=== PATIENT | male | born 1955 ===

== ENCOUNTER 2024-08-25 14:15 | Outpatient (NON) | payer MEDICARE, SELFPAY ==
[2024-08-25 14:30] LABS: Basophils Absolute Auto 0.05 K/mm3 (0.00-0.10); Basophils Percent Auto 0.4 % (0.0-1.0); Eosinophils Absolute Auto 0.34 K/mm3 (0.02-0.50); Eosinophils Percent Auto 2.6 % (1.0-6.0); Hematocrit 42.4 % (37.0-46.0); Hemoglobin 13.9 g/dL (12.4-15.3); Immature Granulocyte Absolute 0.09 K/mm3 (0.00-0.00); Immature Granulocyte Percent A 0.7 % (0.0-0.0); Lymphocytes Absolute Auto 2.17 K/mm3 (1.10-4.50); Lymphocytes Percent Auto 16.7 % (18.0-42.0); Mean Corpuscular HGB Conc 32.8 g/dL (32-36); Mean Corpuscular Hemoglobin 30.9 pg (27.0-31.0); Mean Corpuscular Volume 94.2 fL (78.0-102.0); Monocytes Absolute Auto 0.97 K/mm3 (0.10-0.90); Monocytes Percent Auto 7.4 % (2.0-11.0); Neutrophils Absolute Auto 9.41 K/mm3 (1.70-7.20); Neutrophils Percent Auto 72.2 % (50.0-70.0); Platelet Count Result 366 K/mm3 (150-420); Red Cell Distribution Width 14.4 % (11.6-14.4)
[2024-08-25 14:45] LABS: Alanine Aminotransferase 26 U/L (16-63); Albumin Level 3.5 g/dL (3.4-5.0); Alkaline Phosphatase 113 U/L (46-116); Anion Gap 7 mmol/L (4-12); Aspartate Amino Transferase 25 U/L (15-37); Bilirubin,Total 0.9 mg/dL (0.00-1.00); Blood Urea Nitrogen 30 mg/dL (7-18); Calcium 9.2 mg/dL (8.5-10.1); Carbon Dioxide 28 mmol/L (21-32); Chloride 102 mmol/L (98-108); Estimated Glomerular Filt Rate > 60; Glucose 130 mg/dL (70-99); Osmolality Calculated 292 mOsm/kg (285-295); Potassium 5.5 mmol/L (3.5-5.1); Sodium 137 mmol/L (136-145); Total Protein 7.7 g/dL (6.4-8.2)
--- OUTSIDE RECORDS SUMMARY | 2024-08-25 15:45 | XMS_ITS | Clinical Summary ---
Author Organization [facility] Address [address] [place] [address] Care Team Providers Care Library Circulation Technician Name Role Phone Haja Mancuso NP Primary Care Provider [phone] Susan Valle MD Unavailable [phone] Maddison Frausto MD Unavailable [phone] Miscellaneous, Not In File Unavailable Unava ilable Sydnee Beal RN Unavailable Allergies Active Allergy Reactions Criticality Noted Date Comments Penicillins Itching Medium Patient states college age reaction, denies hives but stated itch . Medications metFORMIN XR (GLUCOPHAGE XR) 750 mg 24 hr tabletIndicati ons:Type 2 diabetes mellitus with hyperglycemia, with long-term current use of insulin ([facility]) Take 2 tablets (1,500 mg total) by mouth daily 180 tablet 3 09/16/19 24 Active dapagliflozin propanediol (Farxiga) 10 mg tabletIndicati ons:Type 2 diabetes mellitus with hyperglycemia, with long-term current use of insulin (HCC) Take 1 tablet (10 mg total) by mouth daily 90 tablet 3 09/16/19 24 Active pen needle, diabetic 32 gauge x needleIndicati ons:Type 2 diabetes mellitus with hyperglycemia, with long-term current use of insulin (HCC) Use to inject insulin daily. E11.65. 100 each 09/16/19 24 Active glimepiride (AMARYL) 4 mg tablet TAKE 1 TABLET BY MOUTH BEFORE BREAKFAST. E11.65 90 tablet 4 02/27/20 24 Active Xultophy 100/3.6 100 unit-3.6 mg /mL (3 mL) insulin pen penIndications :Type 2 diabetes mellitus with hyperglycemia, with long-term current use of insulin (HCC) ADMINISTER 47 UNITS UNDER THE SKIN DAILY 15 mL 4 07/22/19 25 Active amLODIPine (NORVASC) 5 mg tablet Take 1 tablet (5 mg total) by mouth daily 30 tablet 1 08/22/19 25 025 Active aspirin 81 mg enteric coated tablet Take 1 tablet (81 mg total) by mouth daily 30 tablet 08/22/19 25 025 Active acetaminophen 500 mg capsuleIndicat ions:Pain Take 2 capsules (1,000 mg total) by mouth every 6 (six) hours for 14 days 112 tablet 08/21/19 25 025 Active atorvastatin (LIPITOR) 80 mg tablet Take 1 tablet (80 mg total) by mouth nightly 30 tablet 11 08/21/19 25 026 Active clopidogreL (PLAVIX) 75 mg tablet Take 1 tablet (75 mg total) by mouth daily 30 tablet 08/22/19 25 025 Active methocarbamoL (ROBAXIN) 750 mg tablet Take 1 tablet (750 mg total) by mouth every 8 (eight) hours 21 tablet 08/21/19 25 Active metoprolol tartrate (LOPRESSOR) 25 mg immediate release tabletIndicati ons:coronary artery disease Take 0.5 tablets (12.5 mg total) by mouth 2 (two) times a day 30 tablet 08/21/19 25 025 Active polyethylene glycol (MIRALAX) 17 gram/dose bulk powderIndicati ons:constipati on Take 17 g by mouth daily as needed (constipation) 08/21/19 25 Active potassium chloride ER (KLOR-CON) 20 mEq CR tablet Take 1 tablet (20 mEq total) by mouth daily With Lasix 30 tablet 08/21/19 25 025 Active furosemide (LASIX) 40 mg tablet Take 1 tablet (40 mg total) by mouth daily 30 tablet 08/21/19 25 025 Active oxyCODONE (ROXICODONE) 5 mg immediate release tabletIndicati ons:Pain Take 1 tablet (5 mg total) by mouth every 6 (six) hours as needed for pain 21 tablet 08/21/19 25 Active aspirin 81 mg tablet take 1 tablet (81MG) by ORAL route every day 0 08/15/19 10 025 Discontinued(S top Taking at Discharge) tamsulosin (FLOMAX) 0.4 mg extended release capsule Take 1 capsule (0.4 mg total) by mouth daily 90 capsule 1 04/22/20 23 025 Discontinued(T herapy completed) sildenafiL (VIAGRA) 100 mg tabletIndicati ons:Erectile Dysfunction Take 1 tablet (100 mg total) by mouth daily as needed for erectile dysfunction 5 tablet 11 02/27/20 24 025 Discontinued(S top Taking at Discharge) lisinopriL (PRINIVIL,ZEST RIL) 20 mg tablet Take 1 tablet (20 mg total) by mouth daily 90 tablet 1 03/30/20 24 025 Discontinued amLODIPine (NORVASC) 10 mg tablet Take 1 tablet (10 mg total) by mouth daily 90 tablet 2 05/10/20 24 025 Discontinued(S top Taking at Discharge) simvastatin (ZOCOR) 80 mg tablet TAKE 1 TABLET(80 MG) BY MOUTH EVERY NIGHT 100 tablet 07/02/19 25 025 Discontinued(S top Taking at Discharge) lisinopriL (PRINIVIL,ZEST RIL) 40 mg tablet Take 1 tablet (40 mg total) by mouth daily 90 tablet 3 07/29/19 25 025 Discontinued(S top Taking at Discharge) glucosamine HCl/chondroiti n alvarez (glucosamine-c hondroitin) 750-600 mg tablet,chewabl e Take 1 tablet by mouth daily as needed (pain) 025 Discontinued(S top Taking at Discharge) Active Problems Problem Noted Date Diagnosed Date Coronary artery disease invo lving autologous artery coronary bypass graft without angina pectoris 08/16/2024 Status post cardiac catheterization 08/13/2024 Coronary artery disease invo lving [place] coronary artery of [place] heart without angina pectoris 08/13/2024 Abnormal stress test 07/28/2024 Episodic lightheadedness 07/19/2024 Assessment & Plan (07/19/2024 11:11 AM MAIL FORWARDING SYSTEM MARKUP CLERK): EKG stable in office. Pt has risk factors of tobacco use and uncontrolled T2DM for ASCVD. Pt had stress treadmill test 2021 that was fine. Will get updated cardiac work up. US of carotids ordered, 30 day MCT monitor, and Stress Test. Orthostatic vitals normal in office. May consider neuro workup (not overly convinced this is the culprit though) if cardiac work up inconclusive. Nocturnal hypoglycemia 06/30/2024 Benign prostatic hyperplasia with nocturia 04/22 Overview (04/22/2023): Flomax trial Check PSA Unilateral inguinal hernia without obstruction o r gangrene 07/12/2021 Assessment & Plan (04/15/2022 3:11 PM MAIL FORWARDING SYSTEM MARKUP CLERK): Pt had hernia repair 08/10/[address] Harden (Gen Surg). Doing well since procedure. Assessment & Plan (08/21/2021 11:09 AM CDT): Continue bowel regimen to avoid straining. Avoid heavy lifting for a further 3 weeks. Patient will call us back with any further questions or concerns. Okay to return to work with light duty. Assessment & Plan (07/26/2021 10:31 AM MAIL FORWARDING SYSTEM MARKUP CLERK): Having repair with Dr. Harden set for 08/10/21. Assessment & Plan (07/12/2021 10:45 AM MAIL FORWARDING SYSTEM MARKUP CLERK): Given its symptomatic nature and increasing size we will set the patient up for a right inguinal hernia repair. Risks and benefits to include the need for mesh implantation have been explained. Postoperative restrictions have been gone over. The patient will be left NPO for the procedure. Consent to be obtained. All questions answered. Encounter for Medicare annual wellness exam 03/26 Assessment & Plan (03/30/2024 11:10 AM MAIL FORWARDING SYSTEM MARKUP CLERK): A yearly Medicare Annual Wellness Visit has been performed today. Jorge Holden is up to date on screening tests. He is in need of Hepatitis B- these have been ordered (will be with next set of labwork. He is up to date on needed preventative vaccinations; He is in need of n/a . These have been ordered/arranged unless otherwise indicated. Assessment & Plan (04/22/2023 1:34 PM MAIL FORWARDING SYSTEM MARKUP CLERK): A yearly Medicare Annual Wellness Visit has been performed today. Jorge Holden is not up to date on screening tests. He is in need of Lung cancer screening, Colon cancer screening, and Diabetic kidney disease screening- these have been ordered. He is not up to date on needed preventative vaccinations; He is in need of Pneumonia (Prevnar-13 or Pneumovax-23). These have been ordered/arranged unless otherwise indicated. Assessment & Plan (04/15/2022 3:35 PM MAIL FORWARDING SYSTEM MARKUP CLERK): A yearly Medicare Annual Wellness Visit has been performed today. Jorge Holden is not up to date on screening tests. He is in need of Colon cancer screening- these have been ordered. He is not up to date on needed preventative vaccinations; He is in need of Pneumonia (Prevnar-13 or Pneumovax-23). These have been ordered/arranged unless otherwise indicated. Assessment & Plan (04/12/2021 3:54 PM MAIL FORWARDING SYSTEM MARKUP CLERK): AWV in office today, labs ordered Due for Influenza, can get at pharmacy CT lung cancer screen discussed and ordered Assessment & Plan (04/13/2020 3:28 PM MAIL FORWARDING SYSTEM MARKUP CLERK): A yearly Medicare Annual Wellness Visit has been performed today. Jorge Holden is not up to date on screening tests. He is in need of Diabetic eye exam, AAA Screen and Hepatitis C- these have been ordered. He is up to date on needed preventative vaccinations; He is in need of none at this time. These have been ordered/arranged unless otherwise indicated. Hypertension associated with diabetes 10/09/2013 Overview (08/29/2016): BENIGN HYPERTENSION Assessment & Plan (03/30/2024 11:12 AM MAIL FORWARDING SYSTEM MARKUP CLERK): BP fine in office, pt still getting intermittent light-headedness. Will try stopping HCTZ and increase Lisinopril to 20 mg daily. Home BP log in 1 week and symptom update at that time. Assessment & Plan (02/27/2024 11:03 AM CDT): This is a chronic condition which is at goal. Goal is less than 140/90 Continue lisinopril, hydrochlorothiazide, amlodipine Encouraged to monitor weight and B/P at home. Assessment & Plan (09/16/2023 12:34 PM CDT): This is a chronic condition which is at goal. Goal is less than 140/90 Personally reviewed labs. Continue amlodipine, hydrochlorothiazide, lisinopril Encouraged to monitor weight and B/P at home Encouraged to take medications as prescribed. Assessment & Plan (04/22/2023 1:33 PM MAIL FORWARDING SYSTEM MARKUP CLERK): BP stable in office, continues Amlodipine, HCTZ, and Lisinopril Labs ordered, awaiting results. Assessment & Plan (04/15/2022 3:34 PM MAIL FORWARDING SYSTEM MARKUP CLERK): BP stable in office, continues Amlodipine, HCTZ, and Lisinopril Labs ordered, awaiting results. Assessment & Plan (11/15/2021 10:18 AM CDT): BP stable in office, continues Amlodipine, HCTZ, and Lisinopril Labs ordered, awaiting results. Assessment & Plan (07/26/2021 10:30 AM MAIL FORWARDING SYSTEM MARKUP CLERK): BP stable in office, continues Amlodipine, HCTZ, and Lisinopril Labs ordered for next visit. Assessment & Plan (04/12/2021 3:55 PM MAIL FORWARDING SYSTEM MARKUP CLERK): BP stable in office today, continue Amlodipine, HCTZ and Lisinopril Assessment & Plan (04/13/2020 3:29 PM MAIL FORWARDING SYSTEM MARKUP CLERK): Blood pressure appears to be under decent control We will continue him on lisinopril at 10 mg daily, hydrochlorothiazide Assessment & Plan (11/22/2019 4:18 PM CDT): Under control with medication Plan: Continue low salt diet Continue medications. Type 2 diabetes mellitus with hyperlipidemia ([facility]/HCC) 10/09/2013 Overview (08/29/2016): MIXED HYPERLIPIDEMIA Assessment & Plan (03/30/2024 11:13 AM MAIL FORWARDING SYSTEM MARKUP CLERK): Lipid controlled overall, continuing Simvastatin Assessment & Plan (02/27/2024 11:02 AM CDT): This is a chronic condition which is at goal . Goal is LDL less than 70 Continue simvastatin Encouraged to eat healthy, include fresh fruits and vegetables daily and avoid eating fried foods more than once per week. Assessment & Plan (09/16/2023 12:35 PM CDT): This is a chronic condition which is at goal . Goal is LDL less than 70 Continue simvastatin, fish oil. Encouraged to eat healthy, include fresh fruits and vegetables daily and avoid eating fried foods more than once per week. Encouraged to take medications as prescribed. Assessment & Plan (04/22/2023 1:33 PM MAIL FORWARDING SYSTEM MARKUP CLERK): Continuing Simvastatin and ASA. No side effects noted, updated labs ordered. Assessment & Plan (04/15/2022 3:45 PM MAIL FORWARDING SYSTEM MARKUP CLERK): Increased Simvastatin to [address] lung cancer screen that showed severe calcified plaques in coronary arteries. He had Cardio consult, started on ASA 81 mg. Had a stress test and was unremarkable. Labs ordered Assessment & Plan (11/15/2021 11:42 AM CDT): Chest CT on 11/12/21 IMPRESSION: 1. Multiple small lung nodules appear unchanged, as described in detail above. The largest nodules measuring up to 6 mm are favored to represent subpleural/fissural lymph nodes. No new suspicious lung nodules are identified in either lung. 2. Mild emphysema with upper lung predominance. 3. Severe calcified plaques in the coronary arteries. Consider cardiology evaluation. Plan: increase Simvastatin to 80 mg Daily. Referral placed to Cardiology. Labs ordered, awaiting results. Assessment & Plan (07/26/2021 10:30 AM MAIL FORWARDING SYSTEM MARKUP CLERK): Continues Simvastatin, no side effects reported. Labs ordered for next visit. Assessment & Plan (04/12/2021 3:55 PM MAIL FORWARDING SYSTEM MARKUP CLERK): Awaiting labs, continuing Simvastatin Assessment & Plan (11/22/2020 7:25 PM CDT): Again, note the low HDL/good cholesterol. However the LDL/bad and total cholesterol are in range. The triglycerides remain good. Discussed fish oil, especially Vascepa but I am not sure the cost. Vascepa has been shown to work with statin therapy to bring heart risk down in diabetics. Assessment & Plan (04/13/2020 3:28 PM MAIL FORWARDING SYSTEM MARKUP CLERK): Continues on simvastatin 40 mg daily No side effects reported Type 2 diabetes mellitus wit h hyperglycemia, with long-term current use of insulin 10/09/2013 Overview (08/30/2016): DMII WO CMP NT ST UNCNTR Assessment & Plan (03/30/2024 11:12 AM MAIL FORWARDING SYSTEM MARKUP CLERK): Following with Endo Discussed CGM, pt declines at this time. Assessment & Plan (02/27/2024 11:04 AM CDT): This is a chronic condition which is is not at goal, improving, with a.m. hypoglycemia . Goal is less than 7%. Personally reviewed most recent A1c - Lab Results Component Value Date HGBA1C 9.1 (H) 01/21/2024 Personally reviewed POC blood sugar- at goal of 80-180 Lab Results Component Value Date POCGLU 170 02/27/2024 Medication- decrease xultophy 47 units daily, continue Metformin ER 750 mg 2 tab daily am, increase Glimepiride 24 mg Qam , continue Farxiga 10 mg /day Monitor blood sugar 2 daily Encouraged annual eye exam. last dilated eye exam was [facility] Monofilament foot exam completed. Protective senses -intact eGFR- 81 Kidney function-normal Urine microalbumin/creatinine ratio - not at goal. Goal is <30 Continue amlodipine, hydrochlorothiazide, lisinopril He has started a new relationship and would like to have [employer] to help with ED Assessment & Plan (09/16/2023 12:34 PM CDT): This is a chronic condition which is worsening, not at goal . Goal is less than 7%. Personally reviewed most recent A1c - Lab Results Component Value Date HGBA1C 9.7 09/16/2023 Personally reviewed POC blood sugar- not at goal of 80-180 Lab Results Component Value Date POCGLU 226 09/16/2023 Medication- stop NPH insulin. Start xultophy 15 units daily, decrease Metformin ER 750 mg 2 tab daily am, Glimepiride 2 mg Qam , Farxiga 10 mg /day. Will increase xultophy insulin and wean off glimepiride Monitor blood sugar 2 times a day. Call blood sugar in 4 days for further titration of Xultophy insulin. Encouraged annual eye exam. Monofilament foot exam completed. Protective senses intact. Requesting referral to Dr. Stern for diabetic foot care. Personally reviewed CMP eGFR- 60 Kidney function-abnormal Urine microalbumin/creatinine ratio - at goal. Goal is <30 Continue amlodipine, HCTZ, lisinopril Assessment & Plan (05/13/2023 10:40 AM MAIL FORWARDING SYSTEM MARKUP CLERK): Diagnosed in 1999 Started insulin in August 2016. Control : not at target, fluctuation in sugars based on diet. A1c 9.1% on 04/22/23 A1c 8.6% on 01/13/23 A1c 9.1% on 09/19/22 A1c 9.6% on 05/09/22 A1c 8.9% on 01/02/22 A1c 10.5% on 08/29/21 Kidney: GFR 60 on 04/22/23 Neuropathy : numbness but no pains. Decrease on monofilament test on soles. Plan: Patient to continue to work on diet- increase consistency with diet. Continue farxiga 10 mg /day- Continue NPH Insulin 6 units Qam and keep 25 Units Qhs- Continue Metformin and Glimepiride. Monitor sugars 3 x per day and bring records. Hypoglycemia symptoms and treatment reviewed with patient. Call if having low sugars. Ophthalmology exam on regular basis. Assessment & Plan (04/22/2023 1:33 PM MAIL FORWARDING SYSTEM MARKUP CLERK): Following with Endocrinology. Assessment & Plan (01/13/2023 11:22 AM CDT): Diagnosed in 1999 Started insulin in August 2016. Control : not at target, fluctuation in sugars based on diet. A1c 8.6% on 01/13/23 A1c 9.1% on 09/19/22 A1c 9.6% on 05/09/22 A1c 8.9% on 01/02/22 A1c 10.5% on 08/29/21 Kidney: normal GFR 58 on 04/15/22 Neuropathy : numbness but no pains. Decrease on monofilament test on soles. Plan: Patient to continue to work on diet- increase consistency with diet. Continue farxiga 10 mg /day- Continue NPH Insulin 6 units Qam and keep 25 Units Qhs- Continue Metformin and Glimepiride. Monitor sugars 3 x per day and bring records. Hypoglycemia symptoms and treatment reviewed with patient. Call if having low sugars. Ophthalmology exam on regular basis. Assessment & Plan (09/19/2022 11:30 AM CDT): Diagnosed in 1999 Started insulin in August 2016. Control : not at target, fluctuation in sugars based on diet. A1c 9.1% on 09/19/22 A1c 9.6% on 05/09/22 A1c 8.9% on 01/02/22 A1c 10.5% on 08/29/21 A1c 8.8% on 04/13/21 A1c 10.2% on 06/30/20 Kidney: normal GFR 58 on 04/15/22 Neuropathy : numbness but no pains. Decrease on monofilament test on soles. Plan: Patient to continue to work on diet- increase consistency with diet. Continue farxiga 10 mg /day- Continue NPH Insulin 6 units Qam and keep 25 Units Qhs- Continue Metformin and Glimepiride. Monitor sugars 3 x per day and bring records. Hypoglycemia symptoms and treatment reviewed with patient. Call if having low sugars. Ophthalmology exam on regular basis. Assessment & Plan (05/09/2022 9:47 AM MAIL FORWARDING SYSTEM MARKUP CLERK): Diagnosed in 1999 Started insulin in August 2016. Control : not at target, fluctuation in sugars based on diet. A1c 9.6% on 05/09/22 A1c 8.9% on 01/02/22 A1c 10.5% on 08/29/21 A1c 8.8% on 04/13/21 A1c 10.2% on 06/30/20 Kidney: normal GFR 58 on 04/15/22 Neuropathy : numbness but no pains. Decrease on monofilament test on soles. Plan: Patient to continue to work on diet- increase consistency with diet. Continue farxiga 10 mg /day- Continue NPH Insulin 6 units Qam and keep 25 Units Qhs- Continue Metformin and Glimepiride. Monitor sugars 3 x per day and bring records. Hypoglycemia symptoms and treatment reviewed with patient. Call if having low sugars. Ophthalmology exam on regular basis. Assessment & Plan (04/15/2022 3:33 PM MAIL FORWARDING SYSTEM MARKUP CLERK): Pt follows with Dr. Valle ([facility]) Last A1c 8.9% as of 01/02/22 Assessment & Plan (01/02/2022 9:18 AM CDT): Diagnosed in 1999 Started insulin in August 2016. Control : not at target, A1c 8.9% on 01/02/22 A1c 10.5% on 08/29/21 A1c 8.8% on 04/13/21 A1c 10.2% on 06/30/20 Kidney: normal GFR 68 on 04/13/21 Neuropathy : numbness but no pains. Decrease on monofilament test on soles. Plan: Patient to continue to work on diet Continue farxiga 10 mg /day- Continue NPH Insulin 6 units Qam and keep 25 Units Qhs- but can increase am insulin to 8 units if pm sugars are > 160. Continue Metformin and Glimepiride. Monitor sugars 3 x per day and bring records. Hypoglycemia symptoms and treatment reviewed with patient. Call if having low sugars. Ophthalmology exam on regular basis. Assessment & Plan (11/15/2021 11:42 AM CDT): Pt follows with Dr Valle. A1c as of 08/29/21 10.5%. Stated home blood glucose average is 100-130. Encouraged to continue follow up with Dr. Valle (pr[facility]) Assessment & Plan (08/29/2021 9:21 AM CDT): Diagnosed in 1999 Started insulin in August 2016. Control : not at target, with fluctuation in sugars A1c 10.5% on 08/29/21 A1c 8.8% on 04/13/21 A1c 10.2% on 06/30/20 A1c 9.7% on 11/22/19 Kidney: normal GFR 68 on 04/13/21 Neuropathy : numbness but no pains. Decrease on monofilament test on soles. Plan: Informed patient about the poor status of his diabetes. Patient encouraged to get back on watch diet and avoid sweets. Continue farxiga 10 mg /day- Continue NPH Insulin 6 units Qam and keep 25 Units Qhs- but can increase am insulin to 8 units if pm sugars are > 160. Continue Metformin and Glimepiride. Monitor sugars 3 x per day and bring records. Hypoglycemia symptoms and treatment reviewed with patient. Call if having low sugars. Ophthalmology exam on regular basis. Assessment & Plan (07/26/2021 10:29 AM MAIL FORWARDING SYSTEM MARKUP CLERK): Patient follows with Dr. Valle ([facility]) Continues current regimen and has upcoming appt 08/21/21 with [facility]. Foot exam normal in office. Due for eye exam. Assessment & Plan (04/23/2021 4:43 PM MAIL FORWARDING SYSTEM MARKUP CLERK): Diagnosed in 1999 Started insulin in August 2016. Control : not at target, but improved. A1c 8.8% on 04/13/21 A1c 10.2% on 06/30/20 A1c 9.7% on 11/22/19 A1c 9.3% on 06/07/2019. A1c 7.9% on 03/02/19. Kidney: normal GFR 79 on 06/27/20 Neuropathy : numbness but no pains. Decrease on monofilament test on soles. Plan: Informed patient about the poor status of his diabetes. Patient encouraged to get back on watch diet and avoid sweets. Continue farxiga 10 mg /day- Continue NPH Insulin 6 units Qam and keep 25 Units Qhs- but can increase am insulin to 8 units if pm sugars are > 160. Continue Metformin and Glimepiride. Monitor sugars 3 x per day and bring records. Hypoglycemia symptoms and treatment reviewed with patient. Call if having low sugars. Ophthalmology exam on regular basis. Assessment & Plan (04/12/2021 3:55 PM MAIL FORWARDING SYSTEM MARKUP CLERK): Patient over due for visit with his Cost Report Clerk, appt made for patient. Will take place 04/23/21 @ 4:15pm with Dr. Valle Labs ordered Assessment & Plan (06/30/2020 11:56 AM MAIL FORWARDING SYSTEM MARKUP CLERK): Diagnosed in 1999 Started insulin in August 2016. Control : deterioration in control as patient went back to poor eating habits. Wants to get back on farxiga A1c 10.2% on 06/30/20 A1c 9.7% on 11/22/19 A1c 9.3% on 06/07/2019. A1c 7.9% on 03/02/19. A1c 8.3% on 11/30/18 A1c 9.3% on 08/28/18 A1c 8.6% in A1c 7.5%- in January/2018. A1c was 7.8%, in 2017 A1c was 8.5%, in July 2017 A1c was 7.7% in April 2017. Kidney: normal GFR 79 on 06/27/20 Neuropathy : numbness but no pains. Decrease on monofilament test on soles. Plan: Informed patient about the poor status of his diabetes. Patient encouraged to get back on watch diet and avoid sweets. Start farxiga 10 mg /day- side effects explained. Continue NPH Insulin 8 units Qam and keep 22 Units Qhs- but can decrease to 18 units Qhs, if am sugars < 90. Continue Metformin and Glimepiride. Monitor sugars 2-3 x per day and bring records. Hypoglycemia symptoms and treatment reviewed with patient. Call if having low sugars. Ophthalmology exam on regular basis. Assessment & Plan (04/13/2020 3:29 PM MAIL FORWARDING SYSTEM MARKUP CLERK): Continuing current regimen He continues follow-up with Dr. Valle BP seems to be in reasonable control Eye exam needed (though there have been issues with the pandemic) Assessment & Plan (11/22/2019 4:18 PM CDT): Diagnosed in 1999 Started insulin in August 2016. Had to stop Farxiga - due to reeder. Control : deterioration in control as patient went back to poor eating habits. A1c 9.7% on 11/22/19 A1c 9.3% on 06/07/2019. A1c 7.9% on 03/02/19. A1c 8.3% on 11/30/18 A1c 9.3% on 08/28/18 A1c 8.6% in A1c 7.5%- in January/2018. A1c was 7.8%, in 2017 A1c was 8.5%, in July 2017 A1c was 7.7% in April 2017. Kidney: normal GFR 79 on 06/07/19 Neuropathy : numbness but no pains. Decrease on monofilament test on soles. Plan: Informed patient about the poor status of his diabetes. Patient encouraged to get back on watch diet and avoid sweets. Increase NPH Insulin to 8 units Qam and keep 22 Units Qhs. Continue Metformin and Glimepiride. Monitor sugars 2-3 x per day and bring records. Hypoglycemia symptoms and treatment reviewed with patient. Call if having low sugars. Ophthalmology exam on regular basis. Hearing loss 10/09/2013 Overview (08/31/2016): HEARING LOSS NOS Resolved Problems Problem Noted Date Diagnosed Date Resolved Date Tobacco dependence syndrome 10/09/2013 12/03/2017 Overview (08/29/2016): TOBACCO USE DISORDER Type II diabetes mellitus uncontrolled 08/12/2012 02/06/2017 Overview (08/29/2016): DM w/o complication type II, uncontrolled Encounters Date Type Department Care Team Description 08/16/2024 8:00 AM CDT - 08/16/2024 2:00 PM CDT Surgery [facility] Operating Room [id number] [place] [id number] Maddison Frausto MD CORONARY ARTERY BYPASS GRAFT x 4 - INTERNAL MAMMARY/RADIAL ARTERY/SAPHENOUS VEIN GRAFT - LEG 08/16/2024 7:46 AM CDT Anesthesia Event [facility] Operating Room [id number] [place] [id number] Hernán Morris MD Eldin, Ali S., MD 08/13/2024 8:30 AM CDT - 08/13/2024 10:00 AM CDT Surgery [facility] Cardiac Catheterization Lab [address] [place] [id number] Gurdeep Verma MD LEFT HEART CATHETERIZATION WITH CORONARY ANGIOGRAPHY AND WITH OR WITHOUT LEFT VENTRICULOGRAM [id number] 08/13/2024 6:26 AM CDT - 08/21/2024 11:34 AM CDT Hospital Encounter [address] [address] Gurdeep Verma MD Munfakh, Nabil A., MD Ray, Shuddhadeb, MD Coronary artery disease involving autologous artery coronary bypass graft without angina pectoris (Primary Dx); Abnormal stress test; 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 Discharge Disposition: Discharge to home, home health skilled care 08/11/2024 11:00 AM CDT Office Visit [facility] [address] [place] [address] Medical Office [address] [place] [address] Ignacio Cobian MD Leukocytosis, unspecified type (Primary Dx); Elevated hemoglobin; Elevated hematocrit 08/11/2024 10:30 AM CDT Lab [address] [place] [address] Leukocytosis, unspecified type (Primary Dx); Elevated hemoglobin; Elevated hematocrit 08/10/2024 Telephone [facility] [address] [place] [address] Medical Office [address] [place] [address] Hannah Cisneros CLT 08/10/2024 Results Follow-Up [facility] Primary Care at [address] [address] Haja Mancuso NP 08/06/2024 Telephone [facility] Primary Care at [address] [phone] Haja Mancuso NP Heart Monitor readings 07/28/2024 10:30 AM MAIL FORWARDING SYSTEM MARKUP CLERK Office Visit [facility] [address] [address] Joao Perry NP Abnormal nuclear stress test; Episodic lightheadedness; Fatigue due to excessive exertion, initial encounter 07/28/2024 Orders Only [facility] 4 [facility] Medical Office [address] [place] [phone] Kacey Lemos, CLT Leukocytosis, unspecified type (Primary Dx) 07/27/2024 6:58 AM MAIL FORWARDING SYSTEM MARKUP CLERK - 07/27/2024 11:59 PM MAIL FORWARDING SYSTEM MARKUP CLERK Hospital Encounter [facility] [address] [place] [address] Episodic lightheadedness; Fatigue due to excessive exertion, initial encounter Discharge Disposition: Discharge to home or self care 07/27/2024 6:58 AM MAIL FORWARDING SYSTEM MARKUP CLERK - 07/27/2024 11:59 PM MAIL FORWARDING SYSTEM MARKUP CLERK Hospital Encounter [facility] [address] [place] [address] Discharge Disposition: Discharge to home or self care 07/27/2024 6:58 AM MAIL FORWARDING SYSTEM MARKUP CLERK - 07/27/2024 11:59 PM MAIL FORWARDING SYSTEM MARKUP CLERK Hospital Encounter [facility] [address] [place] [address] Episodic lightheadedness; Fatigue due to excessive exertion, initial encounter; Hypertension associated with diabetes (HCC) Discharge Disposition: Discharge to home or self care 07/27/2024 6:57 AM MAIL FORWARDING SYSTEM MARKUP CLERK - 07/27/2024 11:59 PM MAIL FORWARDING SYSTEM MARKUP CLERK Hospital Encounter [address] [address] Discharge Disposition: Discharge to home or self care 07/27/2024 6:57 AM MAIL FORWARDING SYSTEM MARKUP CLERK - 07/27/2024 11:59 PM MAIL FORWARDING SYSTEM MARKUP CLERK Hospital Encounter [address] [address] Episodic lightheadedness; Fatigue due to excessive exertion, initial encounter; Hypertension associated with diabetes (HCC) Discharge Disposition: Discharge to home or self care 07/27/2024 Results Follow-Up [facility] Primary Care at [address] [address] Haja Mancuso NP 07/20/2024 Results Follow-Up [facility] Primary Care at [address] [phone] Haja Mancuso NP Abnormal nuclear stress test (Primary Dx); Leukocytosis, unspecified type; Elevated hemoglobin; Elevated hematocrit; Episodic lightheadedness; Fatigue due to excessive exertion, initial encounter 07/20/2024 Telephone [facility] Virtual Care [address] [place] [phone] Akua Henley NP 07/19/2024 11:15 AM MAIL FORWARDING SYSTEM MARKUP CLERK Lab [facility] Outpatient Lab at [address] [address] Hypertension associated with diabetes (HCC) (Primary Dx) 07/19/2024 11:09 AM MAIL FORWARDING SYSTEM MARKUP CLERK - 07/19/2024 11:59 PM MAIL FORWARDING SYSTEM MARKUP CLERK Hospital Encounter [address] [address] Episodic lightheadedness; Magnesium deficiency; Iron deficiency; Hypertension associated with diabetes (HCC) Discharge Disposition: Discharge to home or self care 07/19/2024 10:00 AM MAIL FORWARDING SYSTEM MARKUP CLERK Office Visit [facility] Primary Care at [address] [phone] Haja Mancuso NP Episodic lightheadedness (Primary Dx); Fatigue due to excessive exertion, initial encounter; Iron deficiency; Hypertension associated with diabetes (HCC); Magnesium deficiency 07/19/2024 Nurse Triage [facility] Primary Care at [address] [phone] Haja Mancuso NP 06/30/2024 9:30 AM MAIL FORWARDING SYSTEM MARKUP CLERK Office Visit [facility] Diabetes Endocrine Care at [address] [place] [address] Shama Segura NP Type 2 diabetes mellitus with hyperglycemia, with long-term current use of insulin (HCC) (Primary Dx); Type 2 diabetes mellitus with hyperlipidemia (CMS/HCC) (HCC); Hypertension associated with diabetes (HCC); Nocturnal hypoglycemia from Last 3 Months Immunizations Immunization Administration Dates Next Due Flucelvax Influenza Quad 02/24/2024 Influenza, Quadrivalent, Hig h Dose, Preservative Free, Intrr 03/27/2023,02/21/2022,01/20/2020 Influenza, Quadrivalent, Spl it, Intramuscular 03/18/2016,03/20/2015 Influenza, Quadrivalent, Spl it, Preservative Free, Intramuscular 02/10/2019,01/12/2018 Influenza, Split 03/19/2013, 2,04/17/2011,03/08,05/16/2009 Influenza, Trivalent, High D ose, Split, Preservative Free, Intramuscular 02/03/2024,01/03/2017 Influenza, Trivalent, IM (MDV) 03/21/2014,2007,02/23/2007 Influenza, Trivalent, Preser vative Free, Intramuscular 01/03/2017,01/17/2016,03/19/2013 Influenza, Unspecified 02/23/2021,2019,02/10/2019,02/23 MMR 07/22/2024 Moderna SARS-CoV-2 Monovalen t Vaccination (12+ YRS) 04/11/2021,07/18/2020,06/20/2020 Pneumococcal Conjugate PCV 13 04/12/2019, 017 Pneumococcal Conjugate Pcv20 04/22/2023 Pneumococcal Polysaccharide PPV23 01/03/2017, RSV Vaccine, Pref, Recombina nt, Subunit, Adjuvanted, PF, IM (Arexvy) 03/05/2023 Tdap 06/09/2020,10/15/2016,04/02/2010 ZOSTER LIVE 12/19/2014 ZOSTER Recombinant 02/14/2020,10/30/2019 Surgical History Surgery Date Site/Laterality Comments OTHER SURGICAL HISTORY hemorrhoids: hemorrhoidectomy OTHER SURGICAL HISTORY 05/26/2007 - 05/25/2008 DEPRESSIVE DISORDER NEC: OTHER SURGICAL HISTORY 05/26/2007 - 05/25/[address] [facility]CNTR: HERNIA REPAIR 08/10/2021 COLONOSCOPY CARDIAC CATHETERIZATION 08/13/2024 N/A Procedure: LEFT HEART CATHETERIZATION WITH CORONARY ANGIOGRAPHY AND WITH OR WITHOUT LEFT VENTRICULOGRAM [id number]; Surgeon: Gurdeep Verma MD; Location: CARDIAC CONTROL MANAGER; Service: Cardiovascular; Laterality: N/A; Medical devices from this surgery are in the Medical Devices section. Medical History Medical History Date Comments Hx Other Medical hemorrhoids Hx Other Medical DEPRESSIVE DISO RDER NEC; Comments: Nain Riojas MD; Outcome: Resolved from Problem List Hx Other Medical DMII WO CMP NT ST UNCNTR; Comments: Nain Riojas MD; Outcome: Resolved from Problem List Hypertension Hypertension Diabetes mellitus (HCC) Diabetes Multiple-type hyperlipidemia 10/09/2013 MIX ED HYPERLIPIDEMIA Hearing loss 10/09/2013 HEARING LOSS NOS Type 2 diabetes mellitus (HCC) Motion sickness Leukocytosis pt reported- fol lowing up with hematology GERD (gastroesophageal reflu x disease) Abnormal stress test Family History Medical History Relation Name Comments Hypertension Father Hypertension; / Hypertension; Kidney disease Father Renal disease ; Cause of : Renal disease Kidney failure Father Renal failure ; Diabetes Mother Diabetes mellit us; Stroke Mother Stroke; Heart attack Mother's Brother Anish Heart disease Mother's Brother Anish Other Sister 2 Alive and well; Relation Name Status Comments Father (Age 60) Mother Mother's Brother Anish (Age 60s) Sister 1 Alive Sister 2 Social History Tobacco Use Types Packs/Day Years Used Date Smoking Tobacco: Every Day Cigarettes 1 41 Started: 09/30/1974; Last attempted to quit: 10/01/2015 Cigars [place] Passive Smoke Exposure: Current Smokeless Tobacco: Never Tobacco Cessation:Ready to Q uit: Not Asked; Counseling Given: Not Answered Comments:1 cigar daily for approx 3 years. Has quite a few times Alcohol Use Standard Drinks/Week Comments No 0 (1 standard drink = 0.6 oz pur e alcohol) [facility] Utilities Answer Date Recorded In the past 12 months has e [email or web address], gas, oil, or water [employer] threatened to shut off services in your home? No 08/23/2024 Humiliation, Afraid, Rape, and Kick questionnair e Answer Date Recorded Within the last year, have y ou been afraid of your partner or ex-partner? No 04/10/2020 Within the last year, have y ou been humiliated or emotionally abused in other ways by your partner or ex-partner? No Within the last year, have y ou been kicked, hit, slapped, or otherwise physically hurt by your partner or ex-partner? No 04/10/2020 Within the last year, have y ou been raped or forced to have any kind of sexual activity by your partner or ex-partner? No 04/10/2020 Social Connection and Isolation Panel [NHANES] A nswer Date Recorded In a typical week, how many times do you talk on the phone with family, friends, or neighbors? Twice a week 08/23/2024 How often do you get togethe r with friends or relatives? Twice a week 08/23/2024 How often do you attend chur ch or jehovah's witness services? 1 to 4 times per year 08/23/2024 Do you belong to any clubs o r organizations such as amish groups, unions, fraternal or athletic groups, or school groups? Yes 08/23/2024 How often do you attend meet ings of the clubs or organizations you belong to? 1 to 4 times per year 08/23/2024 Are you , , di vorced, , never , or living with a partner? Patient unable to answer 08/23/2024 AUDIT-C Answer Date Recorded Q1: How often do you have a drink containing alc ohol? Monthly or less 08/13/2024 Q2: How many drinks containi ng alcohol do you have on a typical day when you are drinking? 1 or 2 08/13/2024 Q3: How often do you have si x or more drinks on one occasion? Weekly 08/13/2024 Overall Financial Resource Strain (CARDIA) Answe r Date Recorded How hard is it for you to pa y for the very basics like food, housing, medical care, and heating? Not very hard 08/23/2024 PHQ-2 Answer Date Recorded PHQ-2 Total Score (If total score is 3 or more points, staff should administer the PHQ-9) 0 07/19/2024 [facility] [place] of Occupat ional Health - Occupational Stress Questionnaire Answer Date Recorded Do you feel stress - tense, restless, nervous, or anxious, or unable to sleep at night because your mind is troubled all the time - these days? To some extent 04/10/2020 Exercise Vital Sign Answer Date Recorde d On average, how many days pe r week do you engage in moderate to strenuous exercise (like a brisk walk)? 3 days 04/10/2020 On average, how many minutes do you engage in exercise at this level? 30 min 04/10/2020 Hunger Vital Sign Answer Date Recorded Within the past 12 months, y ou worried that your food would run out before you got the money to buy more. Never true 08/24/19 25 Within the past 12 months, t he food you bought just didn't last and you didn't have money to get more. Never true 08/23/2024 PRAPARE - Transportation Answer Date Re corded In the past 12 months, has l ack of transportation kept you from medical appointments or from getting medications? No 07/26 In the past 12 months, has l ack of transportation kept you from meetings, work, or from getting things needed for daily living? No 08/23/2024 Housing Stability Vital Sign Answer Fred e Recorded In the last 12 months, was t here a time when you were not able to pay the mortgage or rent on time? No 08/23/2024 In the past 12 months, how m any times have you moved where you were living? 0 08/23/2024 At any time in the past [address] [facility], were you homeless or living in a fci (including now)? No 08/23/2024 Personal Safety Answer Date Recorded Have you ever been in or are you currently in a harmful physical or emotional relationship or is someone making you feel afraid or unsafe? Denies 08/13/2024 Education Answer Date Recorded What is the highest level of school you have completed or the highest degree you have received? 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 on file Not on file Not on fi le Obstetrics History Last Filed Vital Signs Vital Sign Reading Time Taken Comments Blood Pressure 112/64 08/21/2024 7:35 AM CDT Pulse 93 08/21/2024 8:26 AM CDT Temperature 36.5 C (97.7 F) 08/21/2024 7:35 AM CDT Respiratory Rate 20 08/21/2024 7:35 AM CDT Oxygen Saturation 95% 08/21/2024 7:35 AM CDT Inhaled Oxygen Concentration - - Weight 87.1 kg (192 lb 0.3 oz) 08/14/2024 5:45 A M CDT Height 182.9 cm (6' 0.01 ) 08/17/2024 2:32 PM CD T Body Mass Index 26.04 08/14/2024 5:45 AM CDT Plan of Treatment Health Maintenance Due Date Last Done Comments Hepatitis B Screening 1973 Colon Cancer Screening-Colonoscopy 06/06/2017 06/06/2014, 06/06/2014, 06/06/2014 Lung Cancer Screening 11/13/2022 11/12/2021, 021 Covid-19 Vaccine (2023-06 5 season) 2024 02/03/2024, 03/27/2023, 02/21/2022, Additional history exists Dilated Eye Exam 08/17/2024 08/17/2022, 08/2020, 09/10/2018, Additional history exists Hemoglobin A1C 12/28/2024 06/30/2024, 12/25, 09/16/2023, Additional history exists Albumin Creatinine Ratio, Urine 01/20/2025 01/21/2024, 04/22/2023, 06/07/2019 Foot Exam 02/26/2025 02/27/2024, 08/25, 01/13/2023, Additional history exists Well Visit 65+ 03/30/2025 03/30/2024, 03/27, 04/15/2022, Additional history exists Depression Screening 07/19/2025 07/19/2024, 03/30/2024, 04/22/2023, Additional history exists Lipid Panel 08/13/2025 08/13/2024, 12/25, 04/22/2023, Additional history exists Fall Risk Assessment 08/21/2025 08/21/2024, 03/30/2024, 04/22/2023, Additional history exists eGFR 08/21/2025 08/21/2024, 07/25, 08/19/2024, Additional history exists DTaP/Tdap/Td Vaccine (4 - Td or Tdap) 06/09/2030 06/09/2020, 10/15/2016, 04/02/2010 Colon Cancer Screening-CT Colonography Discontinued 06/06/2014, 06/06/2014, 06/06/2014 Colon Cancer Screening-DNA Stool Discontinued 06/06/2014, 06/06/2014, 06/06/2014 Colon Cancer Screening-FIT Discontinued 06/06, 06/06/2014, 06/06/2014 Colon Cancer Screening-Sigmoidoscopy Discontinued 06/06/2014, 06/06/2014, 06/06/2014 Zoster Vaccine Completed 02/14/2020, 10/2019, 12/19/2014 Hepatitis C Screening Completed 06/27/2020 Abdominal Aortic Aneurysm (A AA) Screen Completed 12/06/2020 Pneumococcal vaccine 65+ Completed 023, 04/12/2019, 01/03/2017, Additional history exists Prostate Cancer Screening-PSA Discontinued , 04/22/2023, 04/15/2022, Additional history exists Influenza Vaccine Completed 02/24/2024, , 03/27/2023, Additional history exists Goals Goal Patient Goal Type Associated Problems Recent Progress Patient-Stated? Author GRANT General Goal - Patient schedules and keeps appointments with all recommended providers [facility] Care Management Sydnee Ackerman, RN Note: Problem: Potential for medical complications and readmission if follow-up appointments are not scheduled Interventions: - Ensure all follow-up appointments are scheduled, all prescribed medications have been received. - Address any barriers for keeping scheduled appointment. - Coordinate with patient/caregiver(s) to ensure patient is able to keep scheduled appointment. - Emphasize importance of keeping scheduled appointments. - Identify and discuss questions for next provider visit. - Follow up with patient after scheduled appointment(s) to review any new orders or changes made to medication regimen. Medical Devices Implanted Type Area Net Developer Contract Device Identifier Shelf Expiration Date Model / Serial / Lot Pricing Assistant Angio-Seal Vip 6fr Closere Device [id number] - [id number] Implanted:Qty: 1 on 08/13/2024 by Gurdeep Verma MD at [facility] Other - see comments Pricing Assistant 03/19/2025 [id number] / / [id number] Description:Closure device [employer] [id number] Progrip [id number] Self Fixate Flat Sheet Mesh Surgical Jesus Pet Latex Free - [id number] Implanted:Qty: 1 on 08/10/2021 by Vipul Harden MD at [facility] Right: Abdomen [employer] 12/24/2023 [id number] / / [id number] [employer] Plate Bone Low Profile 4 Hole Box Sternum Ti 115.103.04 - [id number] Implanted:Qty: 1 on 08/16/2024 by Maddison Frausto MD at [facility] N/A: Chest Wall [employer] 115.103.0 4 / / [employer] Plate Bone Low Profile 6 Hole O Shape Sternum Ti 115.104.06 - [id number] Implanted:Qty: 1 on 08/16/2024 by Maddison Frausto MD at [facility] N/A: Chest Wall [employer] 115.104.0 6 / / [employer] Plate Bone Low Profile 6 Hole H Shape Sternum Ti 115.102.06 - [id number] Implanted:Qty: 1 on 08/16/2024 by Maddison Frausto MD at [facility] N/A: Chest Wall [employer] 115.102.0 6 / / [employer] Screw Bone Slf Drl Full Thread Locking 3.5x16mm Ti 100.035.16 - [id number] Implanted:Qty: 10 on 08/16/2024 by Maddison Frausto MD at [facility] N/A: Chest Wall [employer] 100.035.1 6 / / [employer] Screw Bone Slf Drl Full Thread Locking 3.5x14mm Ti 100.035.14 - [id number] Implanted:Qty: 6 on 08/16/2024 by Maddison Frausto MD at [facility] N/A: Chest Wall [employer] 100.035.1 4 / / Procedures Procedure Name Priority Date/Time Associated Diagnosis Comments XR CHEST PA LATERAL 2 VIEWS IP Routine 08/21/2024 9:19 AM CDT POCT GLUCOSE DEVICE Routine 08/21/2024 7 :37 AM CDT EGFR Routine 08/21/2024 3:20 AM CDT MAGNESIUM Routine 08/21/2024 3:20 AM CDT CBC WITHOUT DIFFERENTIAL Routine 08/21/2024 3:20 AM CDT RENAL FUNCTION PANEL Routine 08/21/2024 3:20 AM CDT POCT GLUCOSE DEVICE Routine 08/21/2024 2 :01 AM CDT POCT GLUCOSE DEVICE Routine 08/20/2024 9 :28 PM CDT POCT GLUCOSE DEVICE Routine 08/20/2024 5 :35 PM CDT POCT GLUCOSE DEVICE Routine 08/20/2024 12:15 PM CDT URINALYSIS AND REFLEX TO MICROSCOPIC AND CULTURE Routine 08/20/2024 9:46 AM CDT POCT GLUCOSE DEVICE Routine 08/20/2024 8 :17 AM CDT XR CHEST 1 VIEW IP Routine 08/20/2024 6:31 AM CDT EGFR Routine 08/20/2024 3:59 AM CDT MAGNESIUM Routine 08/20/2024 3:59 AM CDT CBC WITHOUT DIFFERENTIAL Routine 08/20/2024 3:59 AM CDT RENAL FUNCTION PANEL Routine 08/20/2024 3:59 AM CDT POCT GLUCOSE DEVICE Routine 08/20/2024 2 :54 AM CDT POCT GLUCOSE DEVICE Routine 08/19/2024 8 :36 PM CDT POCT GLUCOSE DEVICE Routine 08/19/2024 5 :26 PM CDT POCT GLUCOSE DEVICE Routine 08/19/2024 12:05 PM CDT PROTIME-INR Routine 08/19/2024 9:55 AM CDT APTT Routine 08/19/2024 9:55 AM CDT POCT GLUCOSE DEVICE Routine 08/19/2024 7 :48 AM CDT XR CHEST 1 VIEW IP Routine 08/19/2024 6:08 AM CDT EGFR Routine 08/19/2024 4:16 AM CDT MAGNESIUM Routine 08/19/2024 4:16 AM CDT CBC WITHOUT DIFFERENTIAL Routine 08/19/2024 4:16 AM CDT RENAL FUNCTION PANEL Routine 08/19/2024 4:16 AM CDT POCT GLUCOSE DEVICE Routine 08/19/2024 1 :55 AM CDT POCT GLUCOSE DEVICE Routine 08/18/2024 8 :07 PM CDT POCT GLUCOSE DEVICE Routine 08/18/2024 4 :31 PM CDT XR CHEST 1 VIEW IP Routine 08/18/2024 2:11 PM CDT POCT GLUCOSE DEVICE Routine 08/18/2024 11:50 AM CDT POCT GLUCOSE DEVICE Routine 08/18/2024 7 :34 AM CDT CRITICAL CARE Routine 08/18/2024 7:00 AM CDT Coronary artery disease involving autologous artery coronary bypass graft without angina pectoris XR CHEST 1 VIEW IP Routine 08/18/2024 5:27 AM CDT EGFR Routine 08/18/2024 4:48 AM CDT CALCIUM,IONIZED, WHOLE BLOOD Routine 08/18/2024 4:48 AM CDT MAGNESIUM Routine 08/18/2024 4:48 AM CDT CBC WITHOUT DIFFERENTIAL Routine 08/18/2024 4:48 AM CDT RENAL FUNCTION PANEL Routine 08/18/2024 4:48 AM CDT POCT GLUCOSE DEVICE Routine 08/18/2024 4 :42 AM CDT POCT GLUCOSE DEVICE Routine 08/17/2024 8 :18 PM CDT CRITICAL CARE Routine 08/17/2024 7:38 PM CDT Coronary artery disease involving autologous artery coronary bypass graft without angina pectoris POCT GLUCOSE DEVICE Routine 08/17/2024 6 :16 PM CDT POCT GLUCOSE DEVICE Routine 08/17/2024 5 :40 PM CDT POCT GLUCOSE DEVICE Routine 08/17/2024 4 :12 PM CDT EGFR STAT 08/17/2024 3:31 PM CDT MAGNESIUM STAT 08/17/2024 3:31 PM CDT CALCIUM,IONIZED, WHOLE BLOOD STAT 08/17/2024 3:31 PM CDT BASIC METABOLIC PANEL STAT 08/17/2024 3:31 PM CDT CBC WITHOUT DIFFERENTIAL STAT 08/17/2024 3:31 PM CDT POCT GLUCOSE DEVICE Routine 08/17/2024 1 :56 PM CDT POCT GLUCOSE DEVICE Routine 08/17/2024 12:44 PM CDT POCT GLUCOSE DEVICE Routine 08/17/2024 11:45 AM CDT POCT GLUCOSE DEVICE Routine 08/17/2024 10:49 AM CDT POCT GLUCOSE DEVICE Routine 08/17/2024 9 :50 AM CDT POCT GLUCOSE DEVICE Routine 08/17/2024 8 :47 AM CDT POCT GLUCOSE DEVICE Routine 08/17/2024 7 :49 AM CDT ECG 12-LEAD STAT 08/17/2024 7:24 AM CDT CRITICAL CARE Routine 08/17/2024 7:16 AM CDT 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 POCT GLUCOSE DEVICE Routine 08/17/2024 6 :41 AM CDT POCT GLUCOSE DEVICE Routine 08/17/2024 5 :44 AM CDT POCT GLUCOSE DEVICE Routine 08/17/2024 4 :43 AM CDT XR CHEST 1 VIEW IP Routine 08/17/2024 4:36 AM CDT POCT GLUCOSE DEVICE Routine 08/17/2024 3 :40 AM CDT EGFR Routine 08/17/2024 2:55 AM CDT DIFFERENTIAL AUTO Routine 08/17/2024 2:5 5 AM CDT MAGNESIUM Routine 08/17/2024 2:55 AM CDT RENAL FUNCTION PANEL Routine 08/17/2024 2:55 AM CDT PHOSPHORUS Routine 08/17/2024 2:55 AM CDT CBC WITH AUTO DIFFERENTIAL Routine 08/17/2024 2:55 AM CDT POCT GLUCOSE DEVICE Routine 08/17/2024 2 :40 AM CDT CALCIUM,IONIZED, WHOLE BLOOD Routine 08/17/2024 2:16 AM CDT OXYHEMOGLOBIN, PULMONARY ARTERY Routine 08/17/2024 2:16 AM CDT POCT GLUCOSE DEVICE Routine 08/17/2024 1 :42 AM CDT POCT GLUCOSE DEVICE Routine 08/17/2024 12:44 AM CDT POCT GLUCOSE DEVICE Routine 08/16/2024 11:42 PM CDT EXTUBATION Routine 08/16/2024 10:50 PM CDT POCT GLUCOSE DEVICE Routine 08/16/2024 10:34 PM CDT BLOOD GAS, ARTERIAL Timed 08/16/2024 10:28 PM CDT POCT GLUCOSE DEVICE Routine 08/16/2024 9 :52 PM CDT POCT GLUCOSE DEVICE Routine 08/16/2024 8 :48 PM CDT CRITICAL CARE Routine 08/16/2024 8:45 PM CDT Coronary artery disease involving autologous artery coronary bypass graft without angina pectoris POCT GLUCOSE DEVICE Routine 08/16/2024 7 :47 PM CDT POCT GLUCOSE DEVICE Routine 08/16/2024 6:32 PM CDT EGFR STAT 08/16/2024 5:56 PM CDT BLOOD GAS, ARTERIAL STAT 08/16/2024 5 :56 PM CDT MAGNESIUM STAT 08/16/2024 5:56 PM CDT CALCIUM,IONIZED, WHOLE BLOOD STAT 08/16/2024 5:56 PM CDT BASIC METABOLIC PANEL STAT 08/16/2024 5:56 PM CDT CBC WITHOUT DIFFERENTIAL Timed 08/16/2024 5:56 PM CDT POCT GLUCOSE DEVICE Routine 08/16/2024 5 :30 PM CDT POCT GLUCOSE DEVICE Routine 08/16/2024 4 :28 PM CDT POCT GLUCOSE DEVICE Routine 08/16/2024 3 :34 PM CDT MAGNESIUM STAT 08/16/2024 3:02 PM CDT PHOSPHORUS STAT 08/16/2024 3:02 PM CDT EGFR STAT 08/16/2024 3:02 PM CDT BASIC METABOLIC PANEL STAT 08/16/2024 3:02 PM CDT POCT GLUCOSE DEVICE Routine 08/16/2024 3 :00 PM CDT CRITICAL CARE Routine 08/16/2024 2:47 PM CDT Coronary artery disease involving autologous artery coronary bypass graft without angina pectoris XR CHEST 1 VIEW Critical/Life- Threatening 08/16/2024 2:33 PM CDT CALCIUM,IONIZED, WHOLE BLOOD STAT 08/16/2024 2:17 PM CDT APTT STAT 08/16/2024 2:17 PM CDT PROTIME-INR STAT 08/16/2024 2:17 PM CDT CBC WITHOUT DIFFERENTIAL Timed 08/16/2024 2:17 PM CDT BLOOD GAS, ARTERIAL Timed 08/16/2024 2 :17 PM CDT POCT GLUCOSE DEVICE Routine 08/16/2024 2 :06 PM CDT POC BLOOD GAS AND CHEMISTRIES, ARTERIAL Routine 08/16/2024 1:19 PM CDT POCT ACTIVATED CLOTTING TIME, HIGH RANGE Routine 08/16/2024 12:46 PM CDT PLATELET COUNT STAT 08/16/2024 11:56 AM CDT POC BLOOD GAS AND CHEMISTRIES, ARTERIAL Routine 08/16/2024 11:53 AM CDT POCT ACTIVATED CLOTTING TIME, HIGH RANGE Routine 08/16/2024 11:49 AM CDT POC BLOOD GAS AND CHEMISTRIES, ARTERIAL Routine 08/16/2024 11:16 AM CDT POCT ACTIVATED CLOTTING TIME, HIGH RANGE Routine 08/16/2024 11:13 AM CDT POC BLOOD GAS AND CHEMISTRIES, ARTERIAL Routine 08/16/2024 10:36 AM CDT POCT ACTIVATED CLOTTING TIME, HIGH RANGE Routine 08/16/2024 10:33 AM CDT POC BLOOD GAS AND CHEMISTRIES, ARTERIAL Routine 08/16/2024 9:38 AM CDT POCT ACTIVATED CLOTTING TIME, HIGH RANGE Routine 08/16/2024 9:38 AM CDT POC BLOOD GAS AND CHEMISTRIES, ARTERIAL Routine 08/16/2024 8:35 AM CDT POCT ACTIVATED CLOTTING TIME, HIGH RANGE Routine 08/16/2024 8:31 AM CDT ANESTHESIA CENTRAL VENOUS LINE PLACEMENT Routine 08/16/2024 8:11 AM CDT ANESTHESIA CENTRAL VENOUS LINE PLACEMENT Routine 08/16/2024 8:11 AM CDT KS AN ELECTIVE ENDOTRACHEAL AIRWAY Routine 08/16/2024 8:10 AM CDT PERIPHERAL LINE Routine 08/16/2024 7:59 AM CDT ANESTHESIA ARTERIAL LINE PLACEMENT Routine 08/16/2024 7:59 AM CDT CORONARY ARTERY BYPASS GRAFT - INTERNAL MAMMARY/RADIAL ARTERY/SAPHENOUS VEIN GRAFT - LEG 08/16/2024 7:46 AM CDT 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 POCT GLUCOSE DEVICE Routine 08/16/2024 7 :04 AM CDT XR CHEST 1 VIEW IP Routine 08/16/2024 4:26 AM CDT DIFFERENTIAL AUTO Routine 08/16/2024 4:2 3 AM CDT CBC WITH AUTO DIFFERENTIAL Routine 08/16/2024 4:23 AM CDT POCT GLUCOSE DEVICE Routine 08/15/2024 9 :23 PM CDT POCT GLUCOSE DEVICE Routine 08/15/2024 5 :25 PM CDT TYPE AND SCREEN Timed 08/15/2024 1:28 PM CDT PREPARE RBC STAT 08/15/2024 12:55 PM CDT POCT GLUCOSE DEVICE Routine 08/15/2024 12:21 PM CDT URINALYSIS AND REFLEX TO MICROSCOPIC AND CULTURE Routine 08/15/2024 11:15 AM CDT EGFR STAT 08/15/2024 9:37 AM CDT BASIC METABOLIC PANEL STAT 08/15/2024 9:37 AM CDT POCT GLUCOSE DEVICE Routine 08/15/2024 7 :36 AM CDT XR CHEST 1 VIEW IP Routine 08/15/2024 6:05 AM CDT DIFFERENTIAL AUTO Routine 08/15/2024 3:2 3 AM CDT CBC WITH AUTO DIFFERENTIAL Routine 08/15/2024 3:23 AM CDT POCT GLUCOSE DEVICE Routine 08/14/2024 8 :56 PM CDT POCT GLUCOSE DEVICE Routine 08/14/2024 5 :05 PM CDT POCT GLUCOSE DEVICE Routine 08/14/2024 12:15 PM CDT POCT GLUCOSE DEVICE Routine 08/14/2024 7 :37 AM CDT XR CHEST 1 VIEW IP Routine 08/14/2024 6:04 AM CDT EGFR Routine 08/14/2024 5:48 AM CDT DIFFERENTIAL AUTO Routine 08/14/2024 5:4 8 AM CDT PROTIME-INR Routine 08/14/2024 5:48 AM CDT APTT Routine 08/14/2024 5:48 AM CDT COMPREHENSIVE METABOLIC PANEL Routine 08/14/2024 5:48 AM CDT CBC WITH AUTO DIFFERENTIAL Routine 08/14/2024 5:48 AM CDT POCT GLUCOSE DEVICE Routine 08/13/2024 8 :50 PM CDT TRANSTHORACIC ECHO (TTE) COMPLETE W DOPPLER/CF WO CONTRAST Routine 08/13/2024 5:45 PM CDT POCT GLUCOSE DEVICE Routine 08/13/2024 5 :17 PM CDT US CAROTIDS DUPLEX BILATERAL ED Urgent/IP Urgent 08/13/2024 1:56 PM CDT POCT GLUCOSE DEVICE Routine 08/13/2024 11:47 AM CDT B CHECK SAMPLE STAT 08/13/2024 11:33 AM CDT XR CHEST 1 VIEW IP Routine 08/13/2024 11:11 AM CDT TYPE AND SCREEN Timed 08/13/2024 10:55 AM CDT LIPID PANEL Routine 08/13/2024 10:[address] CHEST WO CONTRAST IP Routine 08/13/2024 10:18 AM CDT POCT GLUCOSE DEVICE Routine 08/13/2024 9 :17 AM CDT LEFT HEART CATHETERIZATION WITH CORONARY ANGIOGRAPHY AND WITH AND WITHOUT LEFT VENTRICULOGRAM Routine 08/13/2024 8:55 AM CDT Abnormal stress test EGFR Routine 08/13/2024 6:53 AM CDT DIFFERENTIAL AUTO Routine 08/13/2024 6:5 3 AM CDT PROTIME-INR Routine 08/13/2024 6:53 AM CDT CBC WITH AUTO DIFFERENTIAL Routine 08/13/2024 6:53 AM CDT BASIC METABOLIC PANEL Routine 08/13/2024 6:53 AM CDT POCT GLUCOSE DEVICE Routine 08/13/2024 6 :38 AM CDT ERYTHROCYTE SEDIMENTATION RATE Routine 08/11/2024 10:10 AM CDT Leukocytosis, unspecified type Elevated hemoglobin Elevated hematocrit RETICULOCYTES Routine 08/11/2024 10:10 AM CDT Leukocytosis, unspecified type Elevated hemoglobin Elevated hematocrit CRP (ACUTE PHASE) Routine 08/11/2024 10:10 AM CDT Leukocytosis, unspecified type Elevated hemoglobin Elevated hematocrit FERRITIN Routine 08/11/2024 10:10 AM CDT Leukocytosis, unspecified type Elevated hemoglobin Elevated hematocrit IRON PROFILE W/ IBC Routine 08/11/2024 10:10 AM CDT Leukocytosis, unspecified type Elevated hemoglobin Elevated hematocrit DIFFERENTIAL AUTO Routine 08/11/2024 10:10 AM CDT Leukocytosis, unspecified type CBC WITH AUTO DIFFERENTIAL Routine 08/11/2024 10:10 AM CDT Leukocytosis, unspecified type STRESS TEST FOR DUAL READ Schedule Routine, Read Routine (OP Routine) 07/27/2024 9:30 AM MAIL FORWARDING SYSTEM MARKUP CLERK Episodic lightheadedness Fatigue due to excessive exertion, initial encounter Hypertension associated with diabetes (HCC) NM MPI SPECT (REST AND/OR STRESS) MULTIPLE STUDIES Schedule Routine, Read Routine (OP Routine) 07/27/2024 9:30 AM MAIL FORWARDING SYSTEM MARKUP CLERK Episodic lightheadedness Fatigue due to excessive exertion, initial encounter Hypertension associated with diabetes (HCC) MCT - MOBILE CARDIAC TELEMETRY EVENT MONITOR Routine 07/27/2024 7:06 AM MAIL FORWARDING SYSTEM MARKUP CLERK Episodic lightheadedness Fatigue due to excessive exertion, initial encounter ECG 12-LEAD Routine 07/19/2024 11:09 AM MAIL FORWARDING SYSTEM MARKUP CLERK Episodic lightheadedness EGFR Routine 07/19/2024 11:09 AM MAIL FORWARDING SYSTEM MARKUP CLERK Episodic lightheadedness Hypertension associated with diabetes (HCC) DIFFERENTIAL AUTO Routine 07/19/2024 11:09 AM MAIL FORWARDING SYSTEM MARKUP CLERK Episodic lightheadedness Hypertension associated with diabetes (HCC) CBC WITH AUTO DIFFERENTIAL Routine 07/19/2024 11:09 AM MAIL FORWARDING SYSTEM MARKUP CLERK Episodic lightheadedness Hypertension associated with diabetes (HCC) COMPREHENSIVE METABOLIC PANEL Routine 07/19/2024 11:09 AM MAIL FORWARDING SYSTEM MARKUP CLERK Episodic lightheadedness Hypertension associated with diabetes (HCC) THYROID FUNCTION CASCADE Routine 07/19/2024 11:09 AM MAIL FORWARDING SYSTEM MARKUP CLERK Episodic lightheadedness Hypertension associated with diabetes (HCC) IRON Routine 07/19/2024 11:09 AM MAIL FORWARDING SYSTEM MARKUP CLERK Episodic lightheadedness Iron deficiency MAGNESIUM Routine 07/19/2024 11:09 AM MAIL FORWARDING SYSTEM MARKUP CLERK Episodic lightheadedness Magnesium deficiency POCT GLUCOSE Routine 06/30/2024 9:33 AM MAIL FORWARDING SYSTEM MARKUP CLERK Type 2 diabetes mellitus with hyperglycemia, with long-term current use of insulin (HCC) POCT HEMOGLOBIN A1C Routine 06/30/2024 9 :33 AM MAIL FORWARDING SYSTEM MARKUP CLERK Type 2 diabetes mellitus with hyperglycemia, with long-term current use of insulin (HCC) ALBUMIN CREATININE RATIO, URINE Routine 01/21/2024 12:00 PM CDT Hypertension associated with diabetes (HCC) Type 2 diabetes mellitus with hyperlipidemia (CMS/HCC) (HCC) PSA SCREEN Routine 01/21/2024 12:00 PM CDT Unexplained weight loss Benign prostatic hyperplasia with nocturia CT CHEST WO CONTRAST F/U LUNG SCREEN PROTOCOL Schedule Routine, Read Routine (OP Routine) 11/12/2021 3:45 PM CDT Pulmonary nodules US ABDOMINAL AORTIC ANEURYSM SCREENING Schedule Routine, Read Routine (OP Routine) 12/06/2020 8:16 AM CDT Encounter for screening for abdominal aortic aneurysm (AAA) in patient 50 years of age or older with history of smoking DIABETIC EYE EXAM Routine 06/29/2020 HEPATITIS C ANTIBODY Routine 06/27/2020 2:29 PM MAIL FORWARDING SYSTEM MARKUP CLERK Encounter for hepatitis C screening test for low risk patient DIABETES FOOT EXAM Routine 11/14/2017 COLONOSCOPY Routine 06/06/2014 from Last 3 Months or Most Recently Relevant to Health Maintenance Results * XR Chest PA Lateral 2 Views (08/21/2024 9:19 AM CDT) Anatomical Region Laterality Modality Body, Chest N/A Computed Radiogr aphy 08/21/2024 9:30 AM CDT Impressions 08/21/2024 9:30 AM CDT Small left effusion with left lower lobe atelectasis. Electronically signed by: Mandeep Portillo M.D. Narrative 08/21/2024 9:30 AM CDT EXAMINATION: XR CHEST PA LATERAL 2 VIEWS DATE: 08/21/2024 8:10 AM HISTORY: eval left effusion/atelectasis FINDINGS: No plates and wires indicate prior cardiac surgery. There is a small left pleural effusion with mild left lower lobe atelectasis. There is no pneumothorax. Heart size and pulmonary vascularity are normal. Procedure Note Mandeep Portillo MD - 08/21/2024 EXAMINATION: XR CHEST PA LATERAL 2 VIEWS DATE: 08/21/2024 8:10 AM HISTORY: eval left effusion/atelectasis FINDINGS: No plates and wires indicate prior cardiac surgery. There is a small left pleural effusion with mild left lower lobe atelectasis. There is no pneumothorax. Heart size and pulmonary vascularity are normal. IMPRESSION: Small left effusion with left lower lobe atelectasis. Electronically signed by: Mandeep Portillo M.D. us Savannah Santos DITCH REPAIRER IMG XR PROCEDURES Final Re sult * POCT glucose (08/21/2024 7:37 AM CDT) Glucose, POC 117 70 - 199 mg/dL POC Performer [id number] ROGELIO ZHENG Blood 08/21/2024 7:37 AM CDT 08/21/2024 7:37 AM CDT Maddison Frausto MD LAB POCT ORDERABLES - DEVICE F inal Result ROGELIO [address] Department [place] [address] * eGFR (08/21/2024 3:20 AM CDT) eGFR 76 >=60 mL/min/1. 73 m2 Comment: Interpretive Data Reference Interval Normal >/= 90 mL/min/1.73m2 Mildly decreased* 60 - 89 mL/min/1.73m2 Mildly to moderately decreased 45 - 59 mL/min/1.73m2 Moderately to severely decreased 30 - 44 mL/min/1.73m2 Severely decreased 15 - 29 mL/min/1.73m2 Kidney Failure < 15 mL/min/1.73m2 *Relative to young adult level Estimated glomerular filtration rate is determined by the 2020 CKD-EPI equation recommended by the National Kidney Foundation (A Unifying Approach to GFR Estimation: Recommendations of the NKF-ASK Task Force on Reassessing the Inclusion of Race in Diagnosing Kidney Disease, JASN 202). The CKD-EPI equation should not be used for patients with unstable renal function and has not been validated in children and those over 70. Current interpretive data was last reviewed 2021. Blood 08/21/2024 3:20 AM CDT 08/21/2024 3:54 AM CDT us Cherelle Juarez NP LAB BLOOD ORDERABLE S Final Result Performing Organization Address City/[facility]/ZIP Co de Phone Number ROGELIO ZHENG [address] [place] [place] [address] * (ABNORMAL) CBC without differential (08/21/2024 3:20 AM CDT) WBC 8.0 3.8 - 9.9 K/cumm Hgb 11.5(L) 13.0 - 17.5 g/dL [facility] Hct 34.6(L) 38.9 - 50.3 % [facility] Plt 155 150 - 400 K/cumm [facility] MPV 11.0 9.1 - 12.3 fL [facility] RBC 3.73(L) 4.30 - 5.80 M/cumm [facility] MCV 92.8 81.3 - 96.4 fL [facility] MCH 30.8 27.1 - 33.3 pg [facility] MCHC 33.2 32.3 - 35.7 g/dL [facility] RDW CV 14.1 11.1 - 14.9 % [facility] RDW SD 47.8 35.7 - 48.1 fL [facility] NRBC abs 0.00 0.00 - 0.01 K/cumm [facility] Blood 08/21/2024 3:20 AM CDT 08/21/2024 3:54 AM CDT Cherelle Juarez DITCH REPAIRER LAB BLOOD ORDERABLE S Final Result Performing Organization Address City/[facility]/ZIP Co de Phone Number ROGELIO ZHENG [address] [place] [place] [address] * Magnesium (08/21/2024 3:20 AM CDT) Magnesium 2.0 1.4 - 2.5 mg/dL Blood 08/21/2024 3:20 AM CDT 08/21/2024 3:54 AM CDT Cherelle Juarez DITCH REPAIRER LAB BLOOD ORDERABLE S Final Result Performing Organization Address City/[facility]/ZIP Co de Phone Number ROGELIO ZHENG [address] Department [place] [address] * (ABNORMAL) Renal function panel (08/21/2024 3:20 AM CDT) Sodium 144 135 - 145 mmol/L Potassium, pl 3.7 3.3 - 4.9 mmol/L [facility] Chloride 104 97 - 110 mmol/L [facility] CO2 29 22 - 32 mmol/L [facility] Anion gap 11 2 - 15 mmol/L [facility] BUN 35(H) 6 - 25 mg/dL [facility] Creatinine 1.06 0.80 - 1.30 mg/dL [facility] Comment:Icteric sample, test results may be affected. Glucose 98 70 - 199 mg/dL [facility] Comment: Interpretive Data Fasting glucose >/= 126 mg/dl is diagnostic for diabetes. Fasting is defined as no caloric intake for at least 8 hours. Fasting glucose between 100 mg/dl to 125 mg/dl is diagnostic of prediabetes. In a patient with classic symptoms of hyperglycemia or hyperglycemic crisis, a random glucose >/= 200 mg/dl is diagnostic for diabetes. In the absence of unequivocal hyperglycemia, results should be confirmed by repeat testing. The classification and Diagnosis of Diabetes Diabetes Care 2021; 46: S19-S40. Current interpretive data was last revised 2022. Calcium 8.5 8.5 - 10.3 mg/dL [facility] Phosphorus, pl 2.2(L) 2.3 - 4.5 mg/dL [facility] Albumin 3.4(L) 3.5 - 5.0 g/dL [facility] Blood 08/21/2024 3:20 AM CDT 08/21/2024 3:54 AM CDT us Cherelle Juarez DITCH REPAIRER LAB BLOOD ORDERABLE S Final Result ROGELIO [id number] Department [place] [address] * POCT glucose (08/21/2024 2:01 AM CDT) Glucose, POC 102 70 - 199 mg/dL POC Performer [id number] [facility] Blood 08/21/2024 2:01 AM CDT 08/21/2024 2:01 AM CDT Maddison Frausto MD LAB POCT ORDERABLES - DEVICE F inal Result Performing Organization Address [facility] Co de Phone Number ROGELIO ZHENG [phone] [facility] [place] [employer] [place] [address] * POCT glucose (08/20/2024 9:28 PM CDT) Glucose, POC 111 70 - 199 mg/dL POC Performer [id number] [facility] Blood 08/20/2024 9:28 PM CDT 08/20/2024 9:28 PM CDT Maddison Frausto MD LAB POCT ORDERABLES - DEVICE F inal Result Performing Organization Address [facility] Co de Phone Number ROGELIO ZHENG [address] [facility] [place] [employer] [place] [address] * POCT glucose (08/20/2024 5:35 PM CDT) Glucose, POC 175 70 - 199 mg/dL POC Performer [id number] [facility] Blood 08/20/2024 5:35 PM CDT 08/20/2024 5:35 PM CDT Maddison Frausto MD LAB POCT ORDERABLES - DEVICE F inal Result Performing Organization Address [facility] Co de Phone Number ROGELIO ZHENG [address] [facility] [place] [employer] [place] [address] * (ABNORMAL) POCT glucose (08/20/2024 12:15 PM CDT) Glucose, POC 238(H) 70 - 199 mg/dL POC Performer [id number] [facility] Blood 08/20/2024 12:1 5 PM CDT 08/20/2024 12:15 PM CDT Maddison Frausto MD LAB POCT ORDERABLES - DEVICE F inal Result ROGELIO ZHENG [id number] Department [place] [address] * (ABNORMAL) Urinalysis reflex to microscopic and culture Urine, clean voided (08/20/2024 9:46 AM CDT) Color, ur Yellow Yellow Clarity, ur Clear Clear [facility] Specific gravity, ur 1.012 1.003 - 1.030 [facility] pH, urine 5.5 [facility] Comment: Interpretive Data U rine pH is affected by diet, medications, systemic acid-base disturbances, and renal tubular function. pH may affect urinary stone formation. For example, urine pH below 6.0 may help reduce the tendency for calcium phosphate stones and pH greater than 6.0 may reduce the tendency for uric acid stone formation. Source: [facility] [employer] Current Interpretive Data was last revised on 2017 Protein, ur ql Negative Negative [facility] Glucose, ur ql 1+(A) Negative [facility] Ketones, ur Trace Negative [facility] Bilirubin, ur Negative Negative [facility] Blood, ur Negative Negative [facility] Urobilinogen, ur <2.0 <2.0 mg/dL [facility] Nitrite, ur Negative Negative [facility] Leukocyte esterase, ur Negative Negative [facility] UA reflex comment Reflex conditions for microscopic UA and culture not met. [facility] Urine, clean voided 08/20/2024 9:46 AM CDT 08/20/2024 9:57 AM CDT us Savannah Santos NP LAB MICROBIOLOGY - GENERAL ORDERABLES Final Result ROGELIO ZHENG [address] Department [place] [address] * (ABNORMAL) POCT glucose (08/20/2024 8:17 AM CDT) Glucose, POC 230(H) 70 - 199 mg/dL POC Performer [id number] ROGELIO NORM Blood 08/20/2024 8:17 AM CDT 08/20/2024 8:17 AM CDT Maddison Frausto MD LAB POCT ORDERABLES - DEVICE F inal Result ROGELIO [address] [place] [address] * XR Chest 1 View - Portable - in AM (08/20/2024 6:31 AM CDT) Anatomical Region Laterality Modality Body, Chest N/A Computed Radiogr aphy 08/20/2024 6:33 AM CDT Impressions 08/20/2024 6:33 AM CDT No failure. Atelectasis left base. Electronically signed by: Juan Reeder M.D. Narrative 08/20/2024 6:33 AM CDT EXAMINATION: XR CHEST 1 VIEW DATE: 08/20/2024 5:20 AM HISTORY: Cardiac surgery follow-up FINDINGS:Compared with the study of the prior day, central sheath remains in superior vena cava with cardiomegaly with postsurgical changes. There is no evidence of failure or pneumothorax. Residual atelectasis left base Procedure Note Juan Reeder MD - 08/20/2024 EXAMINATION: XR CHEST 1 VIEW DATE: 08/20/2024 5:20 AM HISTORY: Cardiac surgery follow-up FINDINGS:Compared with the study of the prior day, central sheath remains in superior vena cava with cardiomegaly with postsurgical changes. There is no evidence of failure or pneumothorax. Residual atelectasis left base IMPRESSION: No failure. Atelectasis left base. Electronically signed by: Juan Reeder M.D. Cherelle Juarez DITCH REPAIRER IMG XR PROCEDURES F inal Result * eGFR (08/20/2024 3:59 AM CDT) eGFR >90 >=60 mL/min/1. 73 m2 Comment: Interpretive Data Reference Interval Normal >/= 90 mL/min/1.73m2 Mildly decreased* 60 - 89 mL/min/1.73m2 Mildly to moderately decreased 45 - 59 mL/min/1.73m2 Moderately to severely decreased 30 - 44 mL/min/1.73m2 Severely decreased 15 - 29 mL/min/1.73m2 Kidney Failure < 15 mL/min/1.73m2 *Relative to young adult level Estimated glomerular filtration rate is determined by the 2020 CKD-EPI equation recommended by the National Kidney Foundation (A Unifying Approach to GFR Estimation: Recommendations of the NKF-ASK Task Force on Reassessing the Inclusion of Race in Diagnosing Kidney Disease, JASN 2020). The CKD-EPI equation should not be used for patients with unstable renal function and has not been validated in children and those over 70. Current interpretive data was last reviewed 2021. Blood 08/20/2024 3:59 AM CDT 08/20/2024 4:25 AM CDT Cherelle Juarez DITCH REPAIRER LAB BLOOD ORDERABLE S Final Result [facility] [address] Department [place] [address] * (ABNORMAL) CBC without differential (08/20/2024 3:59 AM CDT) WBC 7.1 3.8 - 9.9 K/cumm Hgb 10.9(L) 13.0 - 17.5 g/dL [facility] Hct 32.4(L) 38.9 - 50.3 % [facility] Plt 110(L) 150 - 400 K/cumm [facility] MPV 11.2 9.1 - 12.3 fL [facility] RBC 3.51(L) 4.30 - 5.80 M/cumm [facility] MCV 92.3 81.3 - 96.4 fL [facility] MCH 31.1 27.1 - 33.3 pg [facility] MCHC 33.6 32.3 - 35.7 g/dL [facility] RDW CV 14.1 11.1 - 14.9 % [facility] RDW SD 47.2 35.7 - 48.1 fL [facility] NRBC abs 0.00 0.00 - 0.01 K/cumm [facility] Blood 08/20/2024 3:59 AM CDT 08/20/2024 4:25 AM CDT Cherelle Juarez DITCH REPAIRER LAB BLOOD ORDERABLE S Final Result Performing Organization Address [facility] Co de Phone Number ROGELIO [address] Department [place] [address] * Magnesium (08/20/2024 3:59 AM CDT) Pathologist [facility] Magnesium 1.8 1.4 - 2.5 mg/dL Blood 08/20/2024 3:59 AM CDT 08/20/2024 4:25 AM CDT Cherelle Juarez DITCH REPAIRER LAB BLOOD ORDERABLE S Final Result Performing Organization Address [facility] de Phone Number [facility] [address] Department [place] [address] * (ABNORMAL) Renal function panel (08/20/2024 3:59 AM CDT) Pathologist [facility] Sodium 142 135 - 145 mmol/L Potassium, pl 3.5 3.3 - 4.9 mmol/L [facility] Chloride 107 97 - 110 mmol/L [facility] CO2 24 22 - 32 mmol/L [facility] Anion gap 11 2 - 15 mmol/L [facility] BUN 29(H) 6 - 25 mg/dL [facility] Creatinine 0.85 0.80 - 1.30 mg/dL [facility] Comment:Icteric sample, test results may be affected. Glucose 172 70 - 199 mg/dL [facility] Comment: Interpretive Data Fasting glucose >/= 126 mg/dl is diagnostic for diabetes. Fasting is defined as no caloric intake for at least 8 hours. Fasting glucose between 100 mg/dl to 125 mg/dl is diagnostic of prediabetes. In a patient with classic symptoms of hyperglycemia or hyperglycemic crisis, a random glucose >/= 200 mg/dl is diagnostic for diabetes. In the absence of unequivocal hyperglycemia, results should be confirmed by repeat testing. The classification and Diagnosis of Diabetes Diabetes Care 2021; 46: S19-S40. Current interpretive data was last revised 2022. Calcium 8.2(L) 8.5 - 10.3 mg/dL [facility] Phosphorus, pl 1.7(L) 2.3 - 4.5 mg/dL [facility] Albumin 3.0(L) 3.5 - 5.0 g/dL [facility] Blood 08/20/2024 3:59 AM CDT 08/20/2024 4:25 AM CDT Cherelle Juarez DITCH REPAIRER LAB BLOOD ORDERABLE S Final Result Performing Organization Address [facility] Co de Phone Number ROGELIO ZHENG [address] [place] [employer] [place] [address] * POCT glucose (08/20/2024 2:54 AM CDT) Glucose, POC 173 70 - 199 mg/dL POC Performer [id number] [facility] Blood 08/20/2024 2:54 AM CDT 08/20/2024 2:54 AM CDT Maddison Frausto MD LAB POCT ORDERABLES - DEVICE F inal Result Performing Organization Address [facility] de Phone Number ROGELIO ZHENG [address] [place] [employer] [place] [address] * (ABNORMAL) POCT glucose (08/19/2024 8:36 PM CDT) Glucose, POC 285(H) 70 - 199 mg/dL POC Performer [id number] [facility] Blood 08/19/2024 8:36 PM CDT 08/19/2024 8:36 PM CDT Maddison Frausto MD LAB POCT ORDERABLES - DEVICE F inal Result ROGELIO ZHENG [address] [place] [place] [address] * POCT glucose (08/19/2024 5:26 PM CDT) Glucose, POC 184 70 - 199 mg/dL POC Performer [id number] [facility] Blood 08/19/2024 5:26 PM CDT 08/19/2024 5:26 PM CDT Maddison Frausto MD LAB POCT ORDERABLES - DEVICE F inal Result Performing Organization Address [facility] Co de Phone Number ROGELIO ZHENG [address] [place] [place] [address] * (ABNORMAL) POCT glucose (08/19/2024 12:05 PM CDT) Glucose, POC 239(H) 70 - 199 mg/dL POC Performer [id number] [facility] Blood 08/19/2024 12:0 5 PM CDT 08/19/2024 12:05 PM CDT Maddison Frausto MD LAB POCT ORDERABLES - DEVICE F inal Result Performing Organization Address [facility] Co de Phone Number ROGELIO ZHENG [address] [place] [place] [address] * aPTT (08/19/2024 9:55 AM CDT) aPTT 31 28 - 38 sec Comment: Interpretive Data Heparin therapeutic range: 66.0 - 100.0 seconds. Range based on correlation with therapeutic heparin activity range of 0.3 - 0.7 Units/mL. Current interpretive data was last revised on 2023. Blood 08/19/2024 9:55 AM CDT 08/19/2024 9:57 AM CDT Savannah Santos DITCH REPAIRER LAB BLOOD ORDERABLES Final Result Performing Organization Address City/[facility] Co de Phone Number ROGELIO [address] [address] [facility] [place] [employer] [place] [address] * Protime-INR (08/19/2024 9:55 AM CDT) PT 12.9 9.7 - 13.0 sec INR 1.19 0.90 - 1.20 ROGELIO Comment: Interpretive data Oral anticoagulant therapeutic ranges: Venous thromboembolism prophylaxis or treatment: 2.0-3.0 CARDIOLOGY Standard range: 2.0-3.0 High-intensity range: 2.5-3.5 Refer to indication-specific guidelines for appropriate target ranges for prosthetic heart valve replacement. Current interpretive data was last revised on 2019. Blood 08/19/2024 9:55 AM CDT 08/19/2024 9:57 AM CDT us Savannah Santos DITCH REPAIRER LAB BLOOD ORDERABLES Final Result Performing Organization Address [facility] de Phone Number ROGELIO ZHENG [address] [address] [facility] [place] [place] [address] * POCT glucose (08/19/2024 7:48 AM CDT) Glucose, POC 183 70 - 199 mg/dL POC Performer [id number] ROGELIO Blood 08/19/2024 7:48 AM CDT 08/19/2024 7:48 AM CDT us Maddison Frausto MD LAB POCT ORDERABLES - DEVICE F inal Result Performing Organization Address [facility] Co de Phone Number ROGELIO [address] [address] [facility] [place] [employer] [place] [address] * XR Chest 1 View - Portable - in AM (08/19/2024 6:08 AM CDT) Anatomical Region Laterality Modality Body, Chest N/A Computed Radiogr aphy 08/19/2024 8:17 AM CDT Impressions 08/19/2024 8:17 AM CDT No failure. Atelectasis and fluid left base. Electronically signed by: Juan Reeder M.D. Narrative 08/19/2024 8:17 AM CDT EXAMINATION: XR CHEST 1 VIEW DATE: 08/19/2024 5:40 AM HISTORY: Cardiac surgery follow-up FINDINGS:Compared with the study of the prior day, postsurgical changes in the heart and mediastinum with mild cardiomegaly. Central sheath superior vena cava. No failure or pneumothorax. Small left effusion with atelectasis left base. Procedure Note Juan Reeder MD - 08/19/2024 EXAMINATION: XR CHEST 1 VIEW DATE: 08/19/2024 5:40 AM HISTORY: Cardiac surgery follow-up FINDINGS:Compared with the study of the prior day, postsurgical changes in the heart and mediastinum with mild cardiomegaly. Central sheath superior vena cava. No failure or pneumothorax. Small left effusion with atelectasis left base. IMPRESSION: No failure. Atelectasis and fluid left base. Electronically signed by: Juan Reeder M.D. Cherelle Juarez DITCH REPAIRER IMG XR PROCEDURES F inal Result * eGFR (08/19/2024 4:16 AM CDT) eGFR 83 >=60 mL/min/1. 73 m2 Comment: Interpretive Data Reference Interval Normal >/= 90 mL/min/1.73m2 Mildly decreased* 60 - 89 mL/min/1.73m2 Mildly to moderately decreased 45 - 59 mL/min/1.73m2 Moderately to severely decreased 30 - 44 mL/min/1.73m2 Severely decreased 15 - 29 mL/min/1.73m2 Kidney Failure < 15 mL/min/1.73m2 *Relative to young adult level Estimated glomerular filtration rate is determined by the 2020 CKD-EPI equation recommended by the National Kidney Foundation (A Unifying Approach to GFR Estimation: Recommendations of the NKF-ASK Task Force on Reassessing the Inclusion of Race in Diagnosing Kidney Disease, JASN 202). The CKD-EPI equation should not be used for patients with unstable renal function and has not been validated in children and those over 70. Current interpretive data was last reviewed 2021. Blood 08/19/2024 4:16 AM CDT 08/19/2024 5:04 AM CDT Akila Huynh DITCH REPAIRER LAB BLOOD ORDERABLES Fin al Result Performing Organization Address City/[facility]/ZIP Co de Phone Number ROGELIO ZHENG [phone] [address] Department [place] [address] * (ABNORMAL) CBC without differential (08/19/2024 4:16 AM CDT) WBC 8.8 3.8 - 9.9 K/cumm Hgb 11.0(L) 13.0 - 17.5 g/dL [facility] Hct 33.1(L) 38.9 - 50.3 % [facility] CH Plt 102(L) 150 - 400 K/cumm [facility] CH MPV 11.4 9.1 - 12.3 fL [facility] CH RBC 3.55(L) 4.30 - 5.80 M/cumm [facility] CH MCV 93.2 81.3 - 96.4 fL [facility] CH MCH 31.0 27.1 - 33.3 pg [facility] CH MCHC 33.2 32.3 - 35.7 g/dL [facility] CH RDW CV 14.2 11.1 - 14.9 % [facility] CH RDW SD 48.4(H) 35.7 - 48.1 fL [facility] CH NRBC abs 0.00 0.00 - 0.01 K/cumm [facility] CH Blood 08/19/2024 4:16 AM CDT 08/19/2024 5:02 AM CDT Cherelle Juarez DITCH REPAIRER LAB BLOOD ORDERABLE S Final Result Performing Organization Address City/[facility]/ZIP Co de Phone Number ROGELIO ZHENG [phone] [address] Department [place] [address] * Magnesium (08/19/2024 4:16 AM CDT) Magnesium 1.9 1.4 - 2.5 mg/dL Blood 08/19/2024 4:16 AM CDT 08/19/2024 5:04 AM CDT Cherelle Juarez DITCH REPAIRER LAB BLOOD ORDERABLE S Final Result Performing Organization Address City/State/[facility] Co mi Phone Number [facility] [address] [address] [place] [address] * (ABNORMAL) Renal function panel (08/19/2024 4:16 AM CDT) Sodium 142 135 - 145 mmol/L Potassium, pl 3.8 3.3 - 4.9 mmol/L [facility] Chloride 107 97 - 110 mmol/L [facility] CO2 26 22 - 32 mmol/L [facility] Anion gap 9 2 - 15 mmol/L [facility] BUN 27(H) 6 - 25 mg/dL [facility] Creatinine 0.98 0.80 - 1.30 mg/dL [facility] Comment:Icteric sample, test results may be affected. Glucose 146 70 - 199 mg/dL [facility] Comment: Interpretive Data Fasting glucose >/= 126 mg/dl is diagnostic for diabetes. Fasting is defined as no caloric intake for at least 8 hours. Fasting glucose between 100 mg/dl to 125 mg/dl is diagnostic of prediabetes. In a patient with classic symptoms of hyperglycemia or hyperglycemic crisis, a random glucose >/= 200 mg/dl is diagnostic for diabetes. In the absence of unequivocal hyperglycemia, results should be confirmed by repeat testing. The classification and Diagnosis of Diabetes Diabetes Care 202; 46: S19-S40. Current interpretive data was last revised 2022. Calcium 8.6 8.5 - 10.3 mg/dL [facility] Phosphorus, pl 1.6(L) 2.3 - 4.5 mg/dL [facility] CH Albumin 3.3(L) 3.5 - 5.0 g/dL [facility] Blood 08/19/2024 4:16 AM CDT 08/19/2024 5:04 AM CDT Cherelle Juarez DITCH REPAIRER LAB BLOOD ORDERABLE S Final Result Performing Organization Address City/State/[facility] Co de Phone Number ROGELIO ZHENG [phone] [address] [facility] [place] [employer] [place] [address] * POCT glucose (08/19/2024 1:55 AM CDT) Glucose, POC 146 70 - 199 mg/dL POC Performer [id number] [facility] CH Blood 08/19/2024 1:55 AM CDT 08/19/2024 1:55 AM CDT Maddison Frausto MD LAB POCT ORDERABLES - DEVICE F inal Result Performing Organization Address [facility] Co de Phone Number ROGELIO ZHENG [address] [address] [facility] [place] [employer] [place] [address] * (ABNORMAL) POCT glucose (08/18/2024 8:07 PM CDT) Glucose, POC 317(H) 70 - 199 mg/dL POC Performer [id number] [facility] CH Blood 08/18/2024 8:07 PM CDT 08/18/2024 8:07 PM CDT Maddison Frausto MD LAB POCT ORDERABLES - DEVICE F inal Result Performing Organization Address [facility] Co de Phone Number REGINABRANDIE ZHENG [address] [address] [facility] [place] [employer] [place] [address] * (ABNORMAL) POCT glucose (08/18/2024 4:31 PM CDT) Glucose, POC 244(H) 70 - 199 mg/dL POC Performer [id number] [facility] Blood 08/18/2024 4:31 PM CDT 08/18/2024 4:31 PM CDT Maddison Frausto MD LAB POCT ORDERABLES - DEVICE F inal Result Performing Organization Address [facility] Co de Phone Number ROGELIO ZHENG [address] [address] [facility] [place] [employer] [place] [address] * XR Chest 1 View (08/18/2024 2:11 PM CDT) Anatomical Region Laterality Modality Body, Chest N/A Computed Radiogr aphy 08/18/2024 2:12 PM CDT Impressions 08/18/2024 2:12 PM CDT Slight improvement since earlier today. No pneumothorax. Electronically signed by: Juan Reeder M.D. Narrative 08/18/2024 2:12 PM CDT EXAMINATION: XR CHEST 1 VIEW DATE: 08/18/2024 2:05 PM HISTORY: Tube placement FINDINGS:Compared with the study of earlier today, cardiomegaly stable. Some improvement in the appearance the pulmonary vascularity. Residual atelectasis and fluid left lung base which appears to have improved. No pneumothorax. Right IJ catheter remains in place. No additional radiopaque tube is seen. Procedure Note Juan Reeder MD - 08/18/2024 EXAMINATION: XR CHEST 1 VIEW DATE: 08/18/2024 2:05 PM HISTORY: Tube placement FINDINGS:Compared with the study of earlier today, cardiomegaly stable. Some improvement in the appearance the pulmonary vascularity. Residual atelectasis and fluid left lung base which appears to have improved. No pneumothorax. Right IJ catheter remains in place. No additional radiopaque tube is seen. IMPRESSION: Slight improvement since earlier today. No pneumothorax. Electronically signed by: Juan Reeder M.D. Maddison Frausto MD IMG XR PROCEDURES Final Result * (ABNORMAL) POCT glucose (08/18/2024 11:50 AM CDT) Glucose, POC 201(H) 70 - 199 mg/dL POC Performer [id number] ROGELIO Blood 08/18/2024 11:5 0 AM CDT 08/18/2024 11:50 AM CDT us Maddison Frausto MD LAB POCT ORDERABLES - DEVICE F inal Result ROGELIO ZHENG [address] [address] [place] [employer] [place] [address] * POCT glucose (08/18/2024 7:34 AM CDT) Glucose, POC 183 70 - 199 mg/dL POC Performer [id number] [facility] Blood 08/18/2024 7:34 AM CDT 08/18/2024 7:34 AM CDT Maddison Frausto MD LAB POCT ORDERABLES - DEVICE F inal Result Performing Organization Address [facility] Co de Phone Number ROGELIO ZHENG [address] [address] [place] [employer] [place] [address] * Critical Care (08/18/2024 7:00 AM CDT) Narrative Raphael Echols MD - 08/18/2024 7:00 AM CDT Raphael Echols MD 08/19/2024 7:51 AM Critical Care Performed by: Cherelle Juarez NP Authorized by: Cherelle Juarez NP CRITICAL CARE: Team: LEMUEL Shift: AM Level of Billing: Subsequent Hospital Visit Level 3 My time spent with this patient was 75 minutes: Critical Provider Statement: I have seen and examined the patient on this day of service. I have reviewed and confirmed the history, physical exam, laboratory, and radiographic data as documented in the ICU note. I have reviewed and discussed my treatment plan with the patient's team and other medical/regional sales consultant staff. This time was in addition to and separate from care provided by other practitioners on this day of service. I spent time reviewing and interpreting data from bedside monitors, laboratory results, and imaging and I spent time documenting in the medical record Cherelle Juarez NP IN CLINIC/BEDSIDE O RDERABLES Final Result * XR Chest 1 View - Portable - in AM (08/18/2024 5:27 AM CDT) Anatomical Region Laterality Modality Body, Chest N/A Computed Radiogr aphy 08/18/2024 7:41 AM CDT Impressions 08/18/2024 7:41 AM CDT Mild failure. No pneumothorax. Atelectasis. Electronically signed by: Juan Reeder M.D. Narrative 08/18/2024 7:41 AM CDT EXAMINATION: XR CHEST 1 VIEW DATE: 08/18/2024 5:05 AM HISTORY: Cardiac surgery follow-up FINDINGS:Compared with the study of the prior day, left chest tube and central sheath remain in place. Cardiomegaly with postsurgical changes are seen with mild pulmonary vascular congestive changes. Bibasilar atelectasis. No pneumothorax or infiltrates Procedure Note Juan Reeder MD - 08/18/2024 EXAMINATION: XR CHEST 1 VIEW DATE: 08/18/2024 5:05 AM HISTORY: Cardiac surgery follow-up FINDINGS:Compared with the study of the prior day, left chest tube and central sheath remain in place. Cardiomegaly with postsurgical changes are seen with mild pulmonary vascular congestive changes. Bibasilar atelectasis. No pneumothorax or infiltrates IMPRESSION: Mild failure. No pneumothorax. Atelectasis. Electronically signed by: Juan Reeder M.D. us Cherelle Juarez DITCH REPAIRER IMG XR PROCEDURES F inal Result * (ABNORMAL) Calcium, ionized, whole blood (08/18/2024 4:48 AM CDT) Pathologist [facility] Ca, ionized, bld 4.48(L) 4.50 - 5.10 mg/dL Blood 08/18/2024 4:48 AM CDT 08/18/2024 4:48 AM CDT us Mc Hodgson MD LAB BLOOD ORDERABL ES Final Result ROGELIO [address] [address] [place] [address] * eGFR (08/18/2024 4:48 AM CDT) Pathologist [facility] eGFR >90 >=60 mL/min/1. 73 m2 Comment: Interpretive Data Reference Interval Normal >/= 90 mL/min/1.73m2 Mildly decreased* 60 - 89 mL/min/1.73m2 Mildly to moderately decreased 45 - 59 mL/min/1.73m2 Moderately to severely decreased 30 - 44 mL/min/1.73m2 Severely decreased 15 - 29 mL/min/1.73m2 Kidney Failure < 15 mL/min/1.73m2 *Relative to young adult level Estimated glomerular filtration rate is determined by the 2020 CKD-EPI equation recommended by the National Kidney Foundation (A Unifying Approach to GFR Estimation: Recommendations of the NKF-ASK Task Force on Reassessing the Inclusion of Race in Diagnosing Kidney Disease, JASN 2020). The CKD-EPI equation should not be used for patients with unstable renal function and has not been validated in children and those over 70. Current interpretive data was last reviewed 2021. Blood 08/18/2024 4:48 AM CDT 08/18/2024 4:54 AM CDT Akila Huynh NP LAB BLOOD ORDERABLES Fin al Result [facility] [address] [address] [place] [address] * (ABNORMAL) CBC without differential (08/18/2024 4:48 AM CDT) WBC 9.2 3.8 - 9.9 K/cumm Hgb 11.1(L) 13.0 - 17.5 g/dL [facility] Hct 32.6(L) 38.9 - 50.3 % [facility] Plt 82(L) 150 - 400 K/cumm [facility] MPV 10.4 9.1 - 12.3 fL [facility] RBC 3.51(L) 4.30 - 5.80 M/cumm [facility] MCV 92.9 81.3 - 96.4 fL [facility] MCH 31.6 27.1 - 33.3 pg [facility] MCHC 34.0 32.3 - 35.7 g/dL [facility] CH RDW CV 14.4 11.1 - 14.9 % [facility] CH RDW SD 48.4(H) 35.7 - 48.1 fL [facility] NRBC abs 0.00 0.00 - 0.01 K/cumm [facility] Blood 08/18/2024 4:48 AM CDT 08/18/2024 4:51 AM CDT Cherelle Juarez DITCH REPAIRER LAB BLOOD ORDERABLE S Final Result Performing Organization Address [facility] de Phone Number ROGELIO [address] [address] [place] [employer] [place] [address] * Magnesium (08/18/2024 4:48 AM CDT) Pathologist [facility] Magnesium 2.0 1.4 - 2.5 mg/dL Blood 08/18/2024 4:48 AM CDT 08/18/2024 4:48 AM CDT Cherelle Juarez DITCH REPAIRER LAB BLOOD ORDERABLE S Final Result Performing Organization Address [facility] de Phone Number [facility] [address] [address] Department [place] [place] [address] * (ABNORMAL) Renal function panel (08/18/2024 4:48 AM CDT) Pathologist [facility] Sodium 141 135 - 145 mmol/L Potassium, pl 4.2 3.3 - 4.9 mmol/L [facility] Chloride 109 97 - 110 mmol/L [facility] CO2 23 22 - 32 mmol/L [facility] Anion gap 9 2 - 15 mmol/L [facility] BUN 15 6 - 25 mg/dL [facility] Creatinine 0.87 0.80 - 1.30 mg/dL [facility] Comment:Icteric sample, test results may be affected. Glucose 178 70 - 199 mg/dL [facility] Comment: Interpretive Data Fasting glucose >/= 126 mg/dl is diagnostic for diabetes. Fasting is defined as no caloric intake for at least 8 hours. Fasting glucose between 100 mg/dl to 125 mg/dl is diagnostic of prediabetes. In a patient with classic symptoms of hyperglycemia or hyperglycemic crisis, a random glucose >/= 200 mg/dl is diagnostic for diabetes. In the absence of unequivocal hyperglycemia, results should be confirmed by repeat testing. The classification and Diagnosis of Diabetes Diabetes Care 2021; 46: S19-S40. Current interpretive data was last revised 2022. Calcium 8.1(L) 8.5 - 10.3 mg/dL [facility] Phosphorus, pl 2.5 2.3 - 4.5 mg/dL [facility] Albumin 3.5 3.5 - 5.0 g/dL [facility] Blood 08/18/2024 4:48 AM CDT 08/18/2024 4:48 AM CDT Cherelle Juarez DITCH REPAIRER LAB BLOOD ORDERABLE S Final Result Performing Organization Address [facility] Co de Phone Number REGINABRANDIE ZHENG [phone] [address] [facility] [place] [employer] [place] [address] * POCT glucose (08/18/2024 4:42 AM CDT) Glucose, POC 184 70 - 199 mg/dL POC Performer [id number] [facility] Blood 08/18/2024 4:42 AM CDT 08/18/2024 4:42 AM CDT Maddison Frausto MD LAB POCT ORDERABLES - DEVICE F inal Result Performing Organization Address [facility] de Phone Number REGINABRANDIE ZHENG [phone] [address] [place] [employer] [place] [address] * POCT glucose (08/17/2024 8:18 PM CDT) Glucose, POC 126 70 - 199 mg/dL POC Performer [id number] [facility] Blood 08/17/2024 8:18 PM CDT 08/17/2024 8:18 PM CDT Maddison Frausto MD LAB POCT ORDERABLES - DEVICE F inal Result Performing Organization Address [facility] Co de Phone Number REGINABRANDIE ZHENG [address] [address] [place] [address] * Critical Care (08/17/2024 7:38 PM CDT) Narrative Luis Armando Conner MD - 08/17/2024 7:38 PM CDT Luis Armando Conner MD 08/18/2024 5:52 AM Critical Care Performed by: Rasheed Bear NP Authorized by: Rasheed Bear NP CRITICAL CARE: Team: RYAN Shift: PM Level of Billing: Subsequent Hospital Visit Level 3 My time spent with this patient was 60 minutes: Critical Provider Statement: I have seen and examined the patient on this day of service. I have reviewed and confirmed the history, physical exam, laboratory, and radiographic data as documented in the ICU note. I have reviewed and discussed my treatment plan with the patient's team and other medical/regional sales consultant staff. This time was in addition to and separate from care provided by other practitioners on this day of service. Rasheed Bear NP IN CLINIC/BEDSIDE ORDER ASIA Final Result * POCT glucose (08/17/2024 6:16 PM CDT) Glucose, POC 134 70 - 199 mg/dL POC Performer [id number] [facility] Blood 08/17/2024 6:16 PM CDT 08/17/2024 6:16 PM CDT Maddison Frausto MD LAB POCT ORDERABLES - DEVICE F inal Result ROGELIO [address] [address] [place] [address] * POCT glucose (08/17/2024 5:40 PM CDT) Glucose, POC 118 70 - 199 mg/dL POC Performer [id number] [facility] Blood 08/17/2024 5:40 PM CDT 08/17/2024 5:40 PM CDT Maddison Frausto MD LAB POCT ORDERABLES - DEVICE F inal Result Performing Organization Address [facility]/ZIP Co de Phone Number ROGELIO ZHENG [address] [address] [place] [place] [address] * POCT glucose (08/17/2024 4:12 PM CDT) Glucose, POC 101 70 - 199 mg/dL POC Performer [id number] [facility] Blood 08/17/2024 4:12 PM CDT 08/17/2024 4:12 PM CDT Maddison Frausto MD LAB POCT ORDERABLES - DEVICE F inal Result Performing Organization Address [facility] Co de Phone Number ROGELIO [address] [address] [place] [place] [address] * Calcium, ionized, whole blood (08/17/2024 3:31 PM CDT) [facility] Ca, ionized, bld 4.63 4.50 - 5.10 mg/dL Blood 08/17/2024 3:31 PM CDT 08/17/2024 3:33 PM CDT Maddison Frausto MD LAB BLOOD ORDERABLES Final Res ult Performing Organization Address [facility] Co de Phone Number ROGELIO [address] [address] [place] [place] [address] * eGFR (08/17/2024 3:31 PM CDT) Pathologist [facility] eGFR >90 >=60 mL/min/1. 73 m2 Comment: Interpretive Data Reference Interval Normal >/= 90 mL/min/1.73m2 Mildly decreased* 60 - 89 mL/min/1.73m2 Mildly to moderately decreased 45 - 59 mL/min/1.73m2 Moderately to severely decreased 30 - 44 mL/min/1.73m2 Severely decreased 15 - 29 mL/min/1.73m2 Kidney Failure < 15 mL/min/1.73m2 *Relative to young adult level Estimated glomerular filtration rate is determined by the 2020 CKD-EPI equation recommended by the National Kidney Foundation (A Unifying Approach to GFR Estimation: Recommendations of the NKF-ASK Task Force on Reassessing the Inclusion of Race in Diagnosing Kidney Disease, JASN 202). The CKD-EPI equation should not be used for patients with unstable renal function and has not been validated in children and those over 70. Current interpretive data was last reviewed 2021. Blood 08/17/2024 3:31 PM CDT 08/17/2024 3:36 PM CDT Maddison Frausto MD LAB BLOOD ORDERABLES Final Res ult ROGELIO [address] [address] [place] [address] * (ABNORMAL) CBC without differential (08/17/2024 3:31 PM CDT) WBC 9.4 3.8 - 9.9 K/cumm Hgb 11.6(L) 13.0 - 17.5 g/dL [facility] Hct 33.9(L) 38.9 - 50.3 % [facility] Plt 90(L) 150 - 400 K/cumm [facility] MPV 10.5 9.1 - 12.3 fL [facility] RBC 3.68(L) 4.30 - 5.80 M/cumm [facility] MCV 92.1 81.3 - 96.4 fL [facility] MCH 31.5 27.1 - 33.3 pg [facility] MCHC 34.2 32.3 - 35.7 g/dL [facility] RDW CV 14.3 11.1 - 14.9 % [facility] RDW SD 48.5(H) 35.7 - 48.1 fL [facility] NRBC abs 0.00 0.00 - 0.01 K/cumm [facility] Blood 08/17/2024 3:31 PM CDT 08/17/2024 3:35 PM CDT Maddison Frausto MD LAB BLOOD ORDERABLES Final Res ult ROGELIO [address] [address] Department [place] [address] * Magnesium (08/17/2024 3:31 PM CDT) Magnesium 2.2 1.4 - 2.5 mg/dL Blood 08/17/2024 3:31 PM CDT 08/17/2024 3:33 PM CDT Maddison Frausto MD LAB BLOOD ORDERABLES Final Res ult Performing Organization Address [facility] Co de Phone Number ROGELIO [address] [address] [place] [place] [address] * (ABNORMAL) Basic metabolic panel (08/17/2024 3:31 PM CDT) Sodium 141 135 - 145 mmol/L Potassium, pl 4.0 3.3 - 4.9 mmol/L [facility] Chloride 113(H) 97 - 110 mmol/L [facility] CO2 20(L) 22 - 32 mmol/L [facility] Anion gap 8 2 - 15 mmol/L [facility] BUN 15 6 - 25 mg/dL [facility] Creatinine 0.86 0.80 - 1.30 mg/dL [facility] Comment:Icteric sample, test results may be affected. Glucose 105 70 - 199 mg/dL [facility] Comment: Interpretive Data Fasting glucose >/= 126 mg/dl is diagnostic for diabetes. Fasting is defined as no caloric intake for at least 8 hours. Fasting glucose between 100 mg/dl to 125 mg/dl is diagnostic of prediabetes. In a patient with classic symptoms of hyperglycemia or hyperglycemic crisis, a random glucose >/= 200 mg/dl is diagnostic for diabetes. In the absence of unequivocal hyperglycemia, results should be confirmed by repeat testing. The classification and Diagnosis of Diabetes Diabetes Care 202; 46: S19-S40. Current interpretive data was last revised 2022. Calcium 8.3(L) 8.5 - 10.3 mg/dL [facility] Blood 08/17/2024 3:31 PM CDT 08/17/2024 3:33 PM CDT Maddison Frausto MD LAB BLOOD ORDERABLES Final Res ult Performing Organization Address [facility] Co de Phone Number ROGELIO ZHENG [address] [address] [facility] [place] [place] [address] * POCT glucose (08/17/2024 1:56 PM CDT) Glucose, POC 118 70 - 199 mg/dL POC Performer [id number] [facility] Blood 08/17/2024 1:56 PM CDT 08/17/2024 1:56 PM CDT Maddison Frausto MD LAB POCT ORDERABLES - DEVICE F inal Result Performing Organization Address [facility] Co de Phone Number ROGELIO ZHENG [address] [address] [facility] [place] [address] * POCT glucose (08/17/2024 12:44 PM CDT) Glucose, POC 106 70 - 199 mg/dL POC Performer [id number] [facility] Blood 08/17/2024 12:4 4 PM CDT 08/17/2024 12:44 PM CDT Maddison Frausto MD LAB POCT ORDERABLES - DEVICE F inal Result Performing Organization Address City/[facility] Co de Phone Number ROGELIO ZHENG [address] [address] [facility] [place] [place] [address] * POCT glucose (08/17/2024 11:45 AM CDT) Glucose, POC 110 70 - 199 mg/dL POC Performer [id number] CERNER CH Blood 08/17/2024 11:4 5 AM CDT 08/17/2024 11:45 AM CDT Maddison Frausto MD LAB POCT ORDERABLES - DEVICE F inal Result Performing Organization Address City/[facility]/ZIP Co de Phone Number ROGELIO ZHENG [address] [address] [facility] [place] [employer] [place] [address] * POCT glucose (08/17/2024 10:49 AM CDT) Glucose, POC 109 70 - 199 mg/dL POC Performer [id number] CERNER CH Blood 08/17/2024 10:4 9 AM CDT 08/17/2024 10:49 AM CDT Maddison Frausto MD LAB POCT ORDERABLES - DEVICE F inal Result Performing Organization Address [facility] Co de Phone Number REGINABRANDIE ZHENG [address] [facility] [place] [employer] [place] [address] * POCT glucose (08/17/2024 9:50 AM CDT) Glucose, POC 113 70 - 199 mg/dL POC Performer [id number] CERNER CH Blood 08/17/2024 9:50 AM CDT 08/17/2024 9:50 AM CDT Maddison Frausto MD LAB POCT ORDERABLES - DEVICE F inal Result Performing Organization Address [facility] Co de Phone Number ROGELIO ZHENG [address] [address] [facility] [place] [employer] [place] [address] * POCT glucose (08/17/2024 8:47 AM CDT) Glucose, POC 122 70 - 199 mg/dL POC Performer [id number] CERNER CH Blood 08/17/2024 8:47 AM CDT 08/17/2024 8:47 AM CDT Maddison Frausto MD LAB POCT ORDERABLES - DEVICE F inal Result Performing Organization Address City/[facility]/ZIP Co de Phone Number REGINABRANDIE ZHENG [address] [address] [facility] [place] [address] * POCT glucose (08/17/2024 7:49 AM CDT) Glucose, POC 132 70 - 199 mg/dL POC Performer [phone] ROGELIO ZHENG Blood 08/17/2024 7:49 AM CDT 08/17/2024 7:49 AM CDT Maddison Frausto MD LAB POCT ORDERABLES - DEVICE F inal Result Performing Organization Address [facility] de Phone Number [facility] [address] [facility] [place] [address] * ECG 12 lead (08/17/2024 7:24 AM CDT) 08/17/2024 7:24 AM CDT Narrative [facility] - 08/17/2024 8:56 AM CDT Vent Rate: 58 bpm RR Interval: 1020 msec KS Interval: 211 msec QRS Duration: 105 msec QT Interval: 371 msec QTC Interval: 369 msec P-R-T [place]: 29 - 64 - 43 degrees IMPRESSION: SINUS BRADYCARDIA WITH FIRST DEGREE AV BLOCK NONSPECIFIC ST \T\ T-WAVE ABNORMALITY ABNORMAL ECG Electronically Signed By: Jorge Matos MD, [facility] Del Burgos MD ECG ORDERABLES Final Result Performing Organization Address [facility] Co de Phone Number [facility] [employer] [facility] * Critical Care (08/17/2024 7:16 AM CDT) Narrative Raphael Echols MD - 08/17/2024 7:16 AM CDT Raphael Echols MD 08/18/2024 7:08 AM Critical Care Performed by: Akila Huynh NP Authorized by: Akila Huynh NP CRITICAL CARE: Team: RYAN Shift: AM Level of Billing: Critical Care My time spent with this patient was 90 minutes: Critical Provider Statement: I have seen and examined the patient on this day of service. I have reviewed and confirmed the history, physical exam, laboratory and radiologic data as documented in the signed ICU note. I have reviewed and discussed my treatment plan with the ICU team and other medical/regional sales consultant staff, making frequent assessments and decisions regarding this patient's complex medical care. Critical Care time was exclusive of time spent performing separately billed procedures, treating other patients, and teaching. This time was in addition to and separate from critical care provided by other practitioners in my group on this day of service. Critical Care was necessary to treat or prevent imminent or life-threatening deterioration of the following conditions: I spent time reviewing and interpreting data from bedside monitors, laboratory results, and imaging, I spent time discussing the management of this critically ill patient with consultants and the medical staff and I spent time documenting in the medical record us Akila Huynh NP IN CLINIC/BEDSIDE ORDERA BLES Final Result * POCT glucose (08/17/2024 6:41 AM CDT) Glucose, POC 141 70 - 199 mg/dL POC Performer [id number] [facility] Blood 08/17/2024 6:41 AM CDT 08/17/2024 6:41 AM CDT us Maddison Frausto MD LAB POCT ORDERABLES - DEVICE F inal Result Performing Organization Address [facility] [place] [address] [place] [place] [address] * POCT glucose (08/17/2024 5:44 AM CDT) Glucose, POC 113 70 - 199 mg/dL POC Performer [id number] [facility] Blood 08/17/2024 5:44 AM CDT 08/17/2024 5:44 AM CDT us Maddison Frausto MD LAB POCT ORDERABLES - DEVICE F inal Result Performing Organization Address [facility] [place] [address] [address] [place] [employer] [place] [address] * POCT glucose (08/17/2024 4:43 AM CDT) Glucose, POC 109 70 - 199 mg/dL POC Performer [id number] ROGELIO ZHENG Blood 08/17/2024 4:43 AM CDT 08/17/2024 4:43 AM CDT us Maddison Frausto MD LAB POCT ORDERABLES - DEVICE F inal Result ROGELIO ZHENG [address] Department [place] [address] * XR Chest 1 View - Portable - in AM (08/17/2024 4:36 AM CDT) Anatomical Region Laterality Modality Body, Chest N/A Computed Radiogr aphy 08/17/2024 9:26 AM CDT Impressions 08/17/2024 9:26 AM CDT No failure. Electronically signed by: Donna Freire M.D. Narrative 08/17/2024 9:26 AM CDT EXAMINATION: XR CHEST 1 VIEW HISTORY: The patient is a 69-year-old male who has had cardiac surgery. Comparison made with the previous study dated 08/16/2024. TECHNIQUE: AP portable view of the chest. FINDINGS: Since the last examination the endotracheal and nasogastric tubes have been removed. Unchanged satisfactory position of the Mitchell-Kelin catheter and left thoracostomy tube. Cardiomegaly with aortic atherosclerosis. No failure. No active infiltrate. Procedure Note Donna Freire MD - 08/17/2024 EXAMINATION: XR CHEST 1 VIEW HISTORY: The patient is a 69-year-old male who has had cardiac surgery. Comparison made with the previous study dated 08/16/2024. TECHNIQUE: AP portable view of the chest. FINDINGS: Since the last examination the endotracheal and nasogastric tubes have been removed. Unchanged satisfactory position of the Mitchell-Kelin catheter and left thoracostomy tube. Cardiomegaly with aortic atherosclerosis. No failure. No active infiltrate. IMPRESSION: No failure. Electronically signed by: Donna Freire M.D. Cherelle Juarez DITCH REPAIRER IMG XR PROCEDURES F inal Result * POCT glucose (08/17/2024 3:40 AM CDT) Glucose, POC 126 70 - 199 mg/dL POC Performer [id number] ROGELIO Blood 08/17/2024 3:40 AM CDT 08/17/2024 3:40 AM CDT Maddison Frausto MD LAB POCT ORDERABLES - DEVICE F inal Result Performing Organization Address [facility]/ZIP Co de Phone Number ROGELIO [address] [address] Department [place] [address] * eGFR (08/17/2024 2:55 AM CDT) eGFR 85 >=60 mL/min/1. 73 m2 Comment: Interpretive Data Reference Interval Normal >/= 90 mL/min/1.73m2 Mildly decreased* 60 - 89 mL/min/1.73m2 Mildly to moderately decreased 45 - 59 mL/min/1.73m2 Moderately to severely decreased 30 - 44 mL/min/1.73m2 Severely decreased 15 - 29 mL/min/1.73m2 Kidney Failure < 15 mL/min/1.73m2 *Relative to young adult level Estimated glomerular filtration rate is determined by the 2020 CKD-EPI equation recommended by the National Kidney Foundation (A Unifying Approach to GFR Estimation: Recommendations of the NKF-ASK Task Force on Reassessing the Inclusion of Race in Diagnosing Kidney Disease, JASN 2020). The CKD-EPI equation should not be used for patients with unstable renal function and has not been validated in children and those over 70. Current interpretive data was last reviewed 2021. Blood 08/17/2024 2:55 AM CDT 08/17/2024 2:55 AM CDT Akila Huynh NP LAB BLOOD ORDERABLES Fin al Result [facility] [address] [address] Department [place] [address] * (ABNORMAL) Differential, auto (08/17/2024 2:55 AM CDT) Neutrophil abs 7.4(H) 1.5 - 6.5 K/cumm Imm gran abs 0.0 0.0 - 0.1 K/cumm [facility] Lymphocyte abs 0.7(L) 0.8 - 3.3 K/cumm [facility] Monocyte abs 0.9(H) 0.2 - 0.8 K/cumm [facility] Eosinophil abs 0.0 0.0 - 0.5 K/cumm [facility] Basophil abs 0.0 0.0 - 0.1 K/cumm [facility] Neutrophil pct 82.1 % [facility] Comment: Interpretive Data Percent cell count reference ranges are not reported, since discordance with absolute values may lead to misinterpretation of CBC data. Current Interpretive Data was last revised on 2017. Imm gran pct 0.2 % [facility] Comment: Interpretive Data Percent cell count reference ranges are not reported, since discordance with absolute values may lead to misinterpretation of CBC data. Current Interpretive Data was last revised on 2017. Lymphocyte pct 7.7 % [facility] Comment: Interpretive Data Percent cell count reference ranges are not reported, since discordance with absolute values may lead to misinterpretation of CBC data. Current Interpretive Data was last revised on 2017. Monocyte pct 9.8 % [facility] Comment: Interpretive Data Percent cell count reference ranges are not reported, since discordance with absolute values may lead to misinterpretation of CBC data. Current Interpretive Data was last revised on 2017. Eosinophil pct 0.0 % [facility] Comment: Interpretive Data Percent cell count reference ranges are not reported, since discordance with absolute values may lead to misinterpretation of CBC data. Current Interpretive Data was last revised on 2017. Basophil pct 0.2 % [facility] Comment: Interpretive Data Percent cell count reference ranges are not reported, since discordance with absolute values may lead to misinterpretation of CBC data. Current Interpretive Data was last revised on 2017. Blood 08/17/2024 2:55 AM CDT 08/17/2024 2:55 AM CDT Del Burgos MD LAB BLOOD ORDERABLES Final R esult Performing Organization Address City/[facility]/ZIP Co de Phone Number ROGELIO [address] Department of [employer] [place], [place] [id number] * (ABNORMAL) CBC with auto differential (08/17/2024 2:55 AM CDT) WBC 9.0 3.8 - 9.9 K/cumm Hgb 11.3(L) 13.0 - 17.5 g/dL [facility] Hct 34.1(L) 38.9 - 50.3 % CERNER CH Plt 95(L) 150 - 400 K/cumm CERNER MPV 10.5 9.1 - 12.3 fL [facility] RBC 3.65(L) 4.30 - 5.80 M/cumm [facility] MCV 93.4 81.3 - 96.4 fL [facility] MCH 31.0 27.1 - 33.3 pg CERNER MCHC 33.1 32.3 - 35.7 g/dL [facility] CH RDW CV 13.9 11.1 - 14.9 % [facility] CH RDW SD 47.8 35.7 - 48.1 fL [facility] NRBC abs 0.00 0.00 - 0.01 K/cumm [facility] Blood 08/17/2024 2:55 AM CDT 08/17/2024 2:55 AM CDT Del Burgos MD LAB BLOOD ORDERABLES Final R esult ROGELIO [address] [place] [employer] [place] [address] * (ABNORMAL) Phosphorus (08/17/2024 2:55 AM CDT) Phosphorus, pl 2.1(L) 2.3 - 4.5 mg/dL Blood 08/17/2024 2:55 AM CDT 08/17/2024 2:55 AM CDT Cherellecarly Barrera Ann DITCH REPAIRER LAB BLOOD ORDERABLE S Final Result Performing Organization Address City/[facility]/ZIP Co de Phone Number ROGELIO ZHENG [address] [address] [facility] [place] [employer] [place] [address] * Magnesium (08/17/2024 2:55 AM CDT) Pathologist [facility] Magnesium 2.3 1.4 - 2.5 mg/dL Blood 08/17/2024 2:55 AM CDT 08/17/2024 2:55 AM CDT Cherelle Juarez DITCH REPAIRER LAB BLOOD ORDERABLE S Final Result Performing Organization Address [facility] de Phone Number ROGELIO ZHENG [address] [place] [employer] [place] [address] * (ABNORMAL) Renal function panel (08/17/2024 2:55 AM CDT) Sodium 144 135 - 145 mmol/L Potassium, pl 4.3 3.3 - 4.9 mmol/L [facility] Chloride 113(H) 97 - 110 mmol/L [facility] CO2 22 22 - 32 mmol/L [facility] Anion gap 9 2 - 15 mmol/L [facility] BUN 17 6 - 25 mg/dL [facility] Creatinine 0.96 0.80 - 1.30 mg/dL [facility] Glucose 106 70 - 199 mg/dL [facility] Comment: Interpretive Data Fasting glucose >/= 126 mg/dl is diagnostic for diabetes. Fasting is defined as no caloric intake for at least 8 hours. Fasting glucose between 100 mg/dl to 125 mg/dl is diagnostic of prediabetes. In a patient with classic symptoms of hyperglycemia or hyperglycemic crisis, a random glucose >/= 200 mg/dl is diagnostic for diabetes. In the absence of unequivocal hyperglycemia, results should be confirmed by repeat testing. The classification and Diagnosis of Diabetes Diabetes Care 2021; 46: S19-S40. Current interpretive data was last revised 2022. Calcium 7.8(L) 8.5 - 10.3 mg/dL [facility] Phosphorus, pl 2.1(L) 2.3 - 4.5 mg/dL [facility] Albumin 3.4(L) 3.5 - 5.0 g/dL [facility] Blood 08/17/2024 2:5 5 AM CDT 08/17/2024 2:55 AM CDT Cherelle Juarez DITCH REPAIRER LAB BLOOD ORDERABLE S Final Result Performing Organization Address City/[facility]/ZIP Co de Phone Number ROGELIO ZHENG [address] [address] Department [employer] [place], [place] [id number] * POCT glucose (08/17/2024 2:40 AM CDT) Pathologist [facility] Glucose, POC 107 70 - 199 mg/dL POC Performer [id number] [facility] Blood 08/17/2024 2:40 AM CDT 08/17/2024 2:40 AM CDT Maddison Frausto MD LAB POCT ORDERABLES - DEVICE F inal Result Performing Organization Address [facility] Co de Phone Number ROGELIO [address] [address] [place] [employer] [place] [address] * Oxyhemoglobin, pulmonary artery (08/17/2024 2:16 AM CDT) Pathologist [facility] Oxyhemoglobin, PA 65.9 % Comment: Interpretive Data No reference range established. Current interpretive data was last revised 2019. Blood 08/17/2024 2:16 AM CDT 08/17/2024 2:54 AM CDT Akila Huynh DITCH REPAIRER LAB BLOOD ORDERABLES Fin al Result Performing Organization Address [facility] Co de Phone Number [facility] [address] Department of [employer] [place], [place] [phone] * Calcium, ionized, whole blood (08/17/2024 2:16 AM CDT) Ca, ionized, bld 4.89 4.50 - 5.10 mg/dL Blood 08/17/2024 2:16 AM CDT 08/17/2024 3:00 AM CDT Mc Hodgson MD LAB BLOOD ORDERABL ES Final Result Performing Organization Address [facility] Co de Phone Number ROGELIO [address] [address] [place] [employer] [place] [address] * POCT glucose (08/17/2024 1:42 AM CDT) Glucose, POC 92 70 - 199 mg/dL POC Performer [phone] CERNER CH Blood 08/17/2024 1:42 AM CDT 08/17/2024 1:42 AM CDT us Maddison Frausto MD LAB POCT ORDERABLES - DEVICE F inal Result Performing Organization Address [facility] Co de Phone Number ROGELIO [address] [address] [place] [employer] [place] [address] * POCT glucose (08/17/2024 12:44 AM CDT) Glucose, POC 83 70 - 199 mg/dL POC Performer [id number] CERNER CH Blood 08/17/2024 12:4 4 AM CDT 08/17/2024 12:44 AM CDT Maddison Frausto MD LAB POCT ORDERABLES - DEVICE F inal Result Performing Organization Address [facility] Co de Phone Number ROGELIO [address] [address] [facility] [place] [employer] [place] [address] * POCT glucose (08/16/2024 11:42 PM CDT) Glucose, POC 91 70 - 199 mg/dL POC Performer [id number] CERNER CH Blood 08/16/2024 11:4 2 PM CDT 08/16/2024 11:42 PM CDT Maddison Frausto MD LAB POCT ORDERABLES - DEVICE F inal Result Performing Organization Address [facility] Co de Phone Number ROGELIO ZHENG [address] [address] [facility] [place] [employer] [place] [address] * POCT glucose (08/16/2024 10:34 PM CDT) Glucose, POC 108 70 - 199 mg/dL POC Performer [id number] [facility]ERNER CH Blood 08/16/2024 10:3 4 PM CDT 08/16/2024 10:34 PM CDT Maddison Frausto MD LAB POCT ORDERABLES - DEVICE F inal Result Performing Organization Address [facility] Phone Number ROGELIO ZHENG [address] [address] [facility] [employer] [place], [place] [phone] * (ABNORMAL) Blood gas, arterial (08/16/2024 10:28 PM CDT) pH, Art 7.38 7.35 - 7.45 PCO2, Arterial 39 35 - 45 mmHg [facility] PO2, Arterial 101 83 - 108 mmHg [facility] HCO3 Art (Calculated) 23 20 - 30 mmol/L [facility] BE, art -2 mmol/L [facility] Comment: Interpretive Data No Reference Range Established Current Interpretive Data was last revised on 2017 O2 Sat Art (Measured) 97(H) 90 - 95 % [facility] Blood 08/16/2024 10:2 8 PM CDT 08/16/2024 10:41 PM CDT Del Burgos MD LAB BLOOD ORDERABLES Final R esult Performing Organization Address [facility] Co de Phone Number ROGELIO ZHENG [address] [address] [facility] [place] [employer] [place] [address] * POCT glucose (08/16/2024 9:52 PM CDT) Glucose, POC 114 70 - 199 mg/dL POC Performer [id number] CERNER Blood 08/16/2024 9:52 PM CDT 08/16/2024 9:52 PM CDT Maddison Frausto MD LAB POCT ORDERABLES - DEVICE F inal Result Performing Organization Address [facility] Co de Phone Number ROGELIO [address] [address] [facility] [place] [employer] [place] [address] * POCT glucose (08/16/2024 8:48 PM CDT) Glucose, POC 125 70 - 199 mg/dL POC Performer [id number] [facility] Blood 08/16/2024 8:48 PM CDT 08/16/2024 8:48 PM CDT Maddison Frausto MD LAB POCT ORDERABLES - DEVICE F inal Result Performing Organization Address [facility] Co de Phone Number [facility] [address] [address] [facility] [place] [employer] [place] [address] * Critical Care (08/16/2024 8:45 PM CDT) Narrative Luis Armando Conner MD - 08/16/2024 8:45 PM CDT Luis Armando Conner MD 08/17/2024 2:20 PM Critical Care Performed by: Rasheed Bear NP Authorized by: Rasheed Bear NP CRITICAL CARE: Team: RYAN Shift: PM Level of Billing: Critical Care My time spent with this patient was 90 minutes: Critical Provider Statement: I have seen and examined the patient on this day of service. I have reviewed and confirmed the history, physical exam, laboratory and radiologic data as documented in the signed ICU note. I have reviewed and discussed my treatment plan with the ICU team and other medical/regional sales consultant staff, making frequent assessments and decisions regarding this patient's complex medical care. Critical Care time was exclusive of time spent performing separately billed procedures, treating other patients, and teaching. This time was in addition to and separate from critical care provided by other practitioners in my group on this day of service. Critical Care was necessary to treat or prevent imminent or life-threatening deterioration of the following conditions: I spent time reviewing and interpreting data from bedside monitors, laboratory results, and imaging, I spent time discussing the management of this critically ill patient with consultants and the medical staff and I spent time documenting in the medical record Rasheed Bear NP IN CLINIC/BEDSIDE ORDER ASIA Final Result * POCT glucose (08/16/2024 7:47 PM CDT) Glucose, POC 170 70 - 199 mg/dL POC Performer [id number] [facility] Blood 08/16/2024 7:47 PM CDT 08/16/2024 7:47 PM CDT Maddison Frausto MD LAB POCT ORDERABLES - DEVICE F inal Result Performing Organization Address City/[facility] Co de Phone Number ROGELIO [address] [address] [employer] [place], [place] [phone] * POCT glucose (08/16/2024 6:32 PM CDT) Glucose, POC 172 70 - 199 mg/dL POC Performer [id number] [facility]ER CH Blood 08/16/2024 6:32 PM CDT 08/16/2024 6:32 PM CDT Maddison Frausto MD LAB POCT ORDERABLES - DEVICE F inal Result Performing Organization Address City/[facility]/ZIP Co de Phone Number REGINABRANDIE [address] [address] [employer] [place], [place] [phone] * (ABNORMAL) Calcium, ionized, whole blood (08/16/2024 5:56 PM CDT) Ca, ionized, bld 5.15(H) 4.50 - 5.10 mg/dL Blood 08/16/2024 5:56 PM CDT 08/16/2024 6:10 PM CDT Madidson Frausto MD LAB BLOOD ORDERABLES Final Res ult Performing Organization Address [facility] Co de Phone Number ROGELIO ZHENG [address] [address] [place] [employer] [place] [address] * eGFR (08/16/2024 5:56 PM CDT) eGFR 87 >=60 mL/min/1. 73 m2 Comment: Interpretive Data Reference Interval Normal >/= 90 mL/min/1.73m2 Mildly decreased* 60 - 89 mL/min/1.73m2 Mildly to moderately decreased 45 - 59 mL/min/1.73m2 Moderately to severely decreased 30 - 44 mL/min/1.73m2 Severely decreased 15 - 29 mL/min/1.73m2 Kidney Failure < 15 mL/min/1.73m2 *Relative to young adult level Estimated glomerular filtration rate is determined by the 2020 CKD-EPI equation recommended by the National Kidney Foundation (A Unifying Approach to GFR Estimation: Recommendations of the NKF-ASK Task Force on Reassessing the Inclusion of Race in Diagnosing Kidney Disease, JASN 2020). The CKD-EPI equation should not be used for patients with unstable renal function and has not been validated in children and those over 70. Current interpretive data was last reviewed 2021. Blood 08/16/2024 5:56 PM CDT 08/16/2024 6:11 PM CDT Maddison Frausto MD LAB BLOOD ORDERABLES Final Res ult Performing Organization Address City/[facility]/ZIP Co de Phone Number ROGELIO ZHENG [address] [place] [employer] [place] [address] * (ABNORMAL) CBC without differential (08/16/2024 5:56 PM CDT) WBC 12.4(H) 3.8 - 9.9 K/cumm Hgb 12.5(L) 13.0 - 17.5 g/dL [facility] Hct 37.4(L) 38.9 - 50.3 % [facility] Plt 118(L) 150 - 400 K/cumm [facility] CH MPV 10.4 9.1 - 12.3 fL [facility] RBC 4.02(L) 4.30 - 5.80 M/cumm [facility] CH MCV 93.0 81.3 - 96.4 fL [facility] MCH 31.1 27.1 - 33.3 pg CERNER MCHC 33.4 32.3 - 35.7 g/dL [facility] CH RDW CV 13.8 11.1 - 14.9 % [facility] CH RDW SD 46.6 35.7 - 48.1 fL [facility] NRBC abs 0.00 0.00 - 0.01 K/cumm [facility] Blood 08/16/2024 5:56 PM CDT 08/16/2024 6:10 PM CDT Del Burgos MD LAB BLOOD ORDERABLES Final R esult Performing Organization Address [facility] Co de Phone Number [facility] [address] Department [place] [address] * Magnesium (08/16/2024 5:56 PM CDT) Pathologist [facility] Magnesium 2.0 1.4 - 2.5 mg/dL Blood 08/16/2024 5:56 PM CDT 08/16/2024 6:10 PM CDT Maddison Frausto MD LAB BLOOD ORDERABLES Final Res ult Performing Organization Address [facility] Co de Phone Number [facility] [address] Department [place] [employer] [place] [address] * (ABNORMAL) Blood gas, arterial (08/16/2024 5:56 PM CDT) pH, Art 7.33(L) 7.35 - 7.45 PCO2, Arterial 38 35 - 45 mmHg [facility] PO2, Arterial 82(L) 83 - [address] [facility] CH HCO3 Art (Calculated) 20 20 - 30 mmol/L [facility] BE, art -6 mmol/L [facility] Comment: Interpretive Data No Reference Range Established Current Interpretive Data was last revised on 2017 O2 Sat Art (Measured) 96(H) 90 - 95 % [facility] Blood 08/16/2024 5:56 PM CDT 08/16/2024 6:10 PM CDT Maddison Frausto MD LAB BLOOD ORDERABLES Final Res ult ROGELIO [address] [address] Department [place] [address] * (ABNORMAL) Basic metabolic panel (08/16/2024 5:56 PM CDT) Sodium 143 135 - 145 mmol/L Potassium, pl 4.6 3.3 - 4.9 mmol/L [facility] Chloride 113(H) 97 - 110 mmol/L [facility] CO2 18(L) 22 - 32 mmol/L [facility] Anion gap 12 2 - 15 mmol/L [facility] BUN 19 6 - 25 mg/dL [facility] Creatinine 0.94 0.80 - 1.30 mg/dL [facility] Comment:Icteric sample, test results may be affected. Glucose 177 70 - 199 mg/dL CERNER Comment: Interpretive Data Fasting glucose >/= 126 mg/dl is diagnostic for diabetes. Fasting is defined as no caloric intake for at least 8 hours. Fasting glucose between 100 mg/dl to 125 mg/dl is diagnostic of prediabetes. In a patient with classic symptoms of hyperglycemia or hyperglycemic crisis, a random glucose >/= 200 mg/dl is diagnostic for diabetes. In the absence of unequivocal hyperglycemia, results should be confirmed by repeat testing. The classification and Diagnosis of Diabetes Diabetes Care 2021; 46: S19-S40. Current interpretive data was last revised 2022. Calcium 8.0(L) 8.5 - 10.3 mg/dL CERNER Blood 08/16/2024 5:56 PM CDT 08/16/2024 6:10 PM CDT Maddison Frausto MD LAB BLOOD ORDERABLES Final Res ult REGINABRANDIE ZHENG [id number] [address] [facility] [place] [place] [address] * POCT glucose (08/16/2024 5:30 PM CDT) Glucose, POC 157 70 - 199 mg/dL POC Performer [id number] CERNER CH Blood 08/16/2024 5:30 PM CDT 08/16/2024 5:30 PM CDT Maddison Frausto MD LAB POCT ORDERABLES - DEVICE F inal Result Performing Organization Address [facility] Co de Phone Number REGINABRANDIE ZHENG [address] [address] [facility] [place] [employer] [place] [address] * POCT glucose (08/16/2024 4:28 PM CDT) Glucose, POC 180 70 - 199 mg/dL POC Performer [id number] CERNER CH Blood 08/16/2024 4:28 PM CDT 08/16/2024 4:28 PM CDT Maddison Frausto MD LAB POCT ORDERABLES - DEVICE F inal Result Performing Organization Address City/[facility]/ZIP Co de Phone Number ROGELIO ZHENG [address] [address] [place] [place] [address] * POCT glucose (08/16/2024 3:34 PM CDT) Glucose, POC 145 70 - 199 mg/dL POC Performer [id number] CERNER CH Blood 08/16/2024 3:34 PM CDT 08/16/2024 3:34 PM CDT Maddison Frausto MD LAB POCT ORDERABLES - DEVICE F inal Result Performing Organization Address City/[facility]/ZIP Co de Phone Number ROGELIO ZHENG [address] [address] [facility] [place] [employer] [place] [address] * eGFR (08/16/2024 3:02 PM CDT) eGFR >90 >=60 mL/min/1. 73 m2 Comment: Interpretive Data Reference Interval Normal >/= 90 mL/min/1.73m2 Mildly decreased* 60 - 89 mL/min/1.73m2 Mildly to moderately decreased 45 - 59 mL/min/1.73m2 Moderately to severely decreased 30 - 44 mL/min/1.73m2 Severely decreased 15 - 29 mL/min/1.73m2 Kidney Failure < 15 mL/min/1.73m2 *Relative to young adult level Estimated glomerular filtration rate is determined by the 2020 CKD-EPI equation recommended by the National [employer] (A Unifying Approach to GFR Estimation: Recommendations of the NKF-ASK Task Force on Reassessing the Inclusion of Race in Diagnosing Kidney Disease, JASN 2020). The CKD-EPI equation should not be used for patients with unstable renal function and has not been validated in children and those over 70. Current interpretive data was last reviewed 2021. Blood 08/16/2024 3:02 PM CDT 08/16/2024 3:05 PM CDT Maddison Frausto MD LAB BLOOD ORDERABLES Final Res ult Performing Organization Address City/[facility]/ZIP Co de Phone Number ROGELIO NORM [address] [address] [place] [place] [address] * (ABNORMAL) Phosphorus (08/16/2024 3:02 PM CDT) Phosphorus, pl 2.1(L) 2.3 - 4.5 mg/dL Blood 08/16/2024 3:02 PM CDT 08/16/2024 3:05 PM CDT Maddison Frausto MD LAB BLOOD ORDERABLES Final Res ult REGINABRANDIE ZHENG [address] [address] [place] [employer] [place] [address] * Magnesium (08/16/2024 3:02 PM CDT) Magnesium 2.1 1.4 - 2.5 mg/dL Blood 08/16/2024 3:02 PM CDT 08/16/2024 3:05 PM CDT Maddison Frausto MD LAB BLOOD ORDERABLES Final Res ult [facility] [address] [address] [facility] [place] [address] * (ABNORMAL) Basic metabolic panel (08/16/2024 3:02 PM CDT) Pathologist [facility] Sodium 143 135 - 145 mmol/L Potassium, pl 4.7 3.3 - 4.9 mmol/L [facility] Chloride 114(H) 97 - 110 mmol/L [facility] CO2 19(L) 22 - 32 mmol/L [facility] Anion gap 10 2 - 15 mmol/L [facility] BUN 18 6 - 25 mg/dL [facility] Creatinine 0.88 0.80 - 1.30 mg/dL [facility] Comment:Icteric sample, test results may be affected. Glucose 160 70 - 199 mg/dL [facility] Comment: Interpretive Data Fasting glucose >/= 126 mg/dl is diagnostic for diabetes. Fasting is defined as no caloric intake for at least 8 hours. Fasting glucose between 100 mg/dl to 125 mg/dl is diagnostic of prediabetes. In a patient with classic symptoms of hyperglycemia or hyperglycemic crisis, a random glucose >/= 200 mg/dl is diagnostic for diabetes. In the absence of unequivocal hyperglycemia, results should be confirmed by repeat testing. The classification and Diagnosis of Diabetes Diabetes Care 202; 46: S19-S40. Current interpretive data was last revised 2022. Calcium 6.8(L) 8.5 - 10.3 mg/dL [facility] Blood 08/16/2024 3:02 PM CDT 08/16/2024 3:05 PM CDT Maddison Frausto MD LAB BLOOD ORDERABLES Final Res ult Performing Organization Address City/[facility]/ZIP Co de Phone Number ROGELIO ZHENG [address] [address] [place] [address] * POCT glucose (08/16/2024 3:00 PM CDT) Glucose, POC 145 70 - 199 mg/dL POC Performer [id number] [facility] Blood 08/16/2024 3:00 PM CDT 08/16/2024 3:00 PM CDT Maddison Frausto MD LAB POCT ORDERABLES - DEVICE F inal Result Performing Organization Address City/[facility] Co de Phone Number ROGELIO ZHENG [address] [address] [place] [address] * Critical Care (08/16/2024 2:47 PM CDT) Narrative Raphael Echols MD - 08/16/2024 2:47 PM CDT Raphael Echols MD 08/17/2024 7:34 AM Critical Care Performed by: Akila Huynh NP Authorized by: Akila Huynh NP CRITICAL CARE: Team: RYAN Shift: AM Level of Billing: Critical Care My time spent with this patient was 120 minutes: Critical Provider Statement: I have seen and examined the patient on this day of service. I have reviewed and confirmed the history, physical exam, laboratory and radiologic data as documented in the signed ICU note. I have reviewed and discussed my treatment plan with the ICU team and other medical/regional sales consultant staff, making frequent assessments and decisions regarding this patient's complex medical care. Critical Care time was exclusive of time spent performing separately billed procedures, treating other patients, and teaching. This time was in addition to and separate from critical care provided by other practitioners in my group on this day of service. Critical Care was necessary to treat or prevent imminent or life-threatening deterioration of the following conditions: I spent time reviewing and interpreting data from bedside monitors, laboratory results, and imaging, I spent time discussing the management of this critically ill patient with consultants and the medical staff and I spent time documenting in the medical record us Akila Huynh DITCH REPAIRER IN CLINIC/BEDSIDE ORDERA BLES Final Result * XR Chest 1 View - Portable (08/16/2024 2:33 PM CDT) Anatomical Region Laterality Modality Body, Chest N/A Computed Radiogr aphy 08/16/2024 2:44 PM CDT Impressions 08/16/2024 2:44 PM CDT Findings as described above. Electronically signed by: Donna Freire M.D. Narrative 08/16/2024 2:44 PM CDT EXAMINATION: XR CHEST 1 VIEW HISTORY: The patient is a 69-year-old male who has had cardiac surgery. Comparison made with the previous study dated 08/16/2024. TECHNIQUE: AP portable view of the chest. FINDINGS: Endotracheal tube tip in good position. The distal tip of the nasogastric tube is in the fundus of the stomach. The distal tip of the Mitchell-Kelin catheter is in the proximal right main pulmonary artery. Left thoracostomy tube and mediastinal drain in place. Cardiomegaly with aortic atherosclerosis. No failure. No active infiltrate. Procedure Note Donna Freire MD - 08/16/2024 EXAMINATION: XR CHEST 1 VIEW HISTORY: The patient is a 69-year-old male who has had cardiac surgery. Comparison made with the previous study dated 08/16/2024. TECHNIQUE: AP portable view of the chest. FINDINGS: Endotracheal tube tip in good position. The distal tip of the nasogastric tube is in the fundus of the stomach. The distal tip of the Mitchell-Kelin catheter is in the proximal right main pulmonary artery. Left thoracostomy tube and mediastinal drain in place. Cardiomegaly with aortic atherosclerosis. No failure. No active infiltrate. IMPRESSION: Findings as described above. Electronically signed by: Donna Freire M.D. us Del Burgos MD IMG XR PROCEDURES Final Resu lt * Calcium, ionized, whole blood (08/16/2024 2:17 PM CDT) Ca, ionized, bld 4.55 4.50 - 5.10 mg/dL Blood 08/16/2024 2:17 PM CDT 08/16/2024 2:18 PM CDT Result [facility] Maddison Frausto MD LAB BLOOD ORDERABLES Final Res ult Performing Organization Address [facility] de Phone Number ROGELIO [address] [address] [facility] [place] [employer] [place] [address] * aPTT (08/16/2024 2:17 PM CDT) aPTT 34 28 - 38 sec Comment: Interpretive Data Heparin therapeutic range: 66.0 - 100.0 seconds. Range based on correlation with therapeutic heparin activity range of 0.3 - 0.7 Units/mL. Current interpretive data was last revised on 2023. Blood 08/16/2024 2:17 PM CDT 08/16/2024 2:19 PM CDT Result [facility] Del Burgos MD LAB BLOOD ORDERABLES Final R esult Performing Organization Address [facility] de Phone Number ROGELIO [address] [address] [facility] [place] [employer] [place] [address] * (ABNORMAL) Protime-INR (08/16/2024 2:17 PM CDT) PT 13.6(H) 9.7 - 13.0 sec INR 1.25(H) 0.90 - 1.20 ROGELIO Comment: Interpretive data Oral anticoagulant therapeutic ranges: Venous thromboembolism prophylaxis or treatment: 2.0-3.0 CARDIOLOGY Standard range: 2.0-3.0 High-intensity range: 2.5-3.5 Refer to indication-specific guidelines for appropriate target ranges for prosthetic heart valve replacement. Current interpretive data was last revised on 2019. Blood 08/16/2024 2:17 PM CDT 08/16/2024 2:19 PM CDT Result [facility] Del Burgos MD LAB BLOOD ORDERABLES Final R esult Performing Organization Address [facility] Co de Phone Number ROGELIO ZHENG [address] [place] [employer] [place] [address] * (ABNORMAL) CBC without differential (08/16/2024 2:17 PM CDT) WBC 11.4(H) 3.8 - 9.9 K/cumm Hgb 13.5 13.0 - 17.5 g/dL CERNER CH Hct 39.7 38.9 - 50.3 % CERNER CH Plt 96(L) 150 - 400 K/cumm CERNER CH MPV 10.4 9.1 - 12.3 fL CERNER CH RBC 4.27(L) 4.30 - 5.80 M/cumm CERNER CH MCV 93.0 81.3 - 96.4 fL CERNER CH MCH 31.6 27.1 - 33.3 pg CERNER CH MCHC 34.0 32.3 - 35.7 g/dL CERNER CH RDW CV 13.7 11.1 - 14.9 % CERNER CH RDW SD 46.6 35.7 - 48.1 fL CERNER CH NRBC abs 0.00 0.00 - 0.01 K/cumm CERNER CH Blood 08/16/2024 2:17 PM CDT 08/16/2024 2:19 PM CDT Del Burgos MD LAB BLOOD ORDERABLES Final R esult Performing Organization Address [facility] Co de Phone Number ROGELIO ZHENG [address] [address] [place] [employer] [place] [address] * (ABNORMAL) Blood gas, arterial (08/16/2024 2:17 PM CDT) pH, Art 7.28(L) 7.35 - 7.45 PCO2, Arterial 50(H) 35 - 45 mmHg CERNER CH PO2, Arterial 305(H) 83 - 108 mmHg CERNER CH HCO3 Art (Calculated) 22 20 - 30 mmol/L CERNER CH BE, art -2 mmol/L CERNER CH Comment: Interpretive Data No Reference Range Established Current Interpretive Data was last revised on 2017 O2 Sat Art (Measured) 100(H) 90 - 95 % CERNER CH Blood 08/16/2024 2:17 PM CDT 08/16/2024 2:18 PM CDT Del Burgos MD LAB BLOOD ORDERABLES Final R esult Performing Organization Address [facility]/ZIP Co de Phone Number ROGELIO [address] [address] [place] [place] [address] * POCT glucose (08/16/2024 2:06 PM CDT) Glucose, POC 114 70 - 199 mg/dL POC Performer [id number] CERNER CH Blood 08/16/2024 2:06 PM CDT 08/16/2024 2:06 PM CDT Maddison Frausto MD LAB POCT ORDERABLES - DEVICE F inal Result Performing Organization Address [facility] Co de Phone Number [facility] [address] [address] [place] [address] * (ABNORMAL) POC Blood Gas and Chemistries, Arterial - (08/16/2024 1:19 PM CDT) pH, Art POC 7.35 7.35 - 7.45 pCO2, Art POC 42 35 - 45 mmHg CERNER CH pO2, Art POC 389(H) 83 - 108 mmHg CERNER CH Na, POC 138 135 - 145 mmol/L CERNER CH K POC 3.9 3.3 - 4.9 mmol/L CERNER CH Comment: Interpretive Data This method is not able to assess for hemolysis, which may falsely increase potassium concentrations. If further testing is needed to evaluate this result, consider in-laboratory plasma potassium. Current Interpretive Data was last revised on 2022. Ionized Ca, POC 3.90(L) 4.50 - 5.10 mg/dL CERNER CH Glucose, POC 105 70 - 199 mg/dL CERNER CH Lactate, POC 0.7 0.7 - 2.0 mmol/L CERNER CH O2Hb, Art POC 97.0(H) 90.0 - 95.0 % CERNER CH SO2 (mike) arterial 99(H) 90 - 95 % CERNER CH Total CO2, Art POC 24 21 - 30 mmol/L CERNER CH BE, art, POC -2 mmol/L CERNER CH Hct, POC 37.0(L) 38.9 - 50.3 % CERNER CH Total Hb, POC 12.4(L) 13.0 - 17.5 g/dL CERNER CH Blood 08/16/2024 1:19 PM CDT 08/16/2024 1:19 PM CDT Del Burgos MD LAB POCT ORDERABLES - DEVICE Final Result Performing Organization Address City/[facility]/ZIP Co de Phone Number ROGELIO ZHENG [address] [address] [place] [employer] [place] [address] * POC Activated Clotting Time, High Range (08/16/2024 12:46 PM CDT) ACT 118 87 - 138 sec POC Performer [id number] CERNER CH Blood 08/16/2024 12:4 6 PM CDT 08/16/2024 12:46 PM CDT Result [facility] Del Burgos MD LAB BLOOD ORDERABLES Final R esult Performing Organization Address City/[facility]/ZIP Co de Phone Number ROGELIO ZHENG [address] [address] Department of [employer] [place], [place] [id number] * (ABNORMAL) Platelet count (08/16/2024 11:56 AM CDT) Plt 127(L) 150 - 400 K/cumm Blood 08/16/2024 11:5 6 AM CDT 08/16/2024 12:00 PM CDT Narrative CERNER CH - 08/16/2024 12:04 PM CDT Please call results to ext. [phone]. Thanks. Maddison Frausto MD LAB BLOOD ORDERABLES Final Res ult ROGELIO ZHENG [address] [place] [address] * (ABNORMAL) POC Blood Gas and Chemistries, Arterial - (08/16/2024 11:53 AM CDT) pH, Art POC 7.38 7.35 - 7.45 pCO2, Art POC 38 35 - 45 mmHg CERNER CH pO2, Art POC 265(H) 83 - 108 mmHg CERNER CH Na, POC 134(L) 135 - 145 mmol/L CERNER CH K POC 4.7 3.3 - 4.9 mmol/L CERNER CH Comment: Interpretive Data This method is not able to assess for hemolysis, which may falsely increase potassium concentrations. If further testing is needed to evaluate this result, consider in-laboratory plasma potassium. Current Interpretive Data was last revised on 2022. Ionized Ca, POC 4.20(L) 4.50 - 5.10 mg/dL CERNER CH Glucose, POC 136 70 - 199 mg/dL CERNER CH Lactate, POC 0.7 0.7 - 2.0 mmol/L CERNER CH O2Hb, Art POC 97.0(H) 90.0 - 95.0 % CERNER CH SO2 (mike) arterial 99(H) 90 - 95 % CERNER CH Total CO2, Art POC 24 21 - 30 mmol/L CERNER CH BE, art, POC -2 mmol/L CERNER CH Hct, POC 37.0(L) 38.9 - 50.3 % CERNER CH Total Hb, POC 12.4(L) 13.0 - 17.5 g/dL CERNER CH Blood 08/16/2024 11:5 3 AM CDT 08/16/2024 11:53 AM CDT Del Burgos MD LAB POCT ORDERABLES - DEVICE Final Result ROGELIO ZHENG [address] [address] Department of Laboratories [place], [place] [id number] * (ABNORMAL) POC Activated Clotting Time, High Range (08/16/2024 11:49 AM CDT) ACT 665(H) 87 - 138 sec POC Performer [id number] CERNER CH Blood 08/16/2024 11:4 9 AM CDT 08/16/2024 11:49 AM CDT us Del Burgos MD LAB BLOOD ORDERABLES Final R esult ROGELIO [address] [address] [place] [address] * (ABNORMAL) POC Blood Gas and Chemistries, Arterial - (08/16/2024 11:16 AM CDT) pH, Art POC 7.37 7.35 - 7.45 pCO2, Art POC 39 35 - 45 mmHg CERNER CH pO2, Art POC 291(H) 83 - 108 mmHg CERNER CH Na, POC 134(L) 135 - 145 mmol/L CERNER CH K POC 4.5 3.3 - 4.9 mmol/L CERNER CH Comment: Interpretive Data This method is not able to assess for hemolysis, which may falsely increase potassium concentrations. If further testing is needed to evaluate this result, consider in-laboratory plasma potassium. Current Interpretive Data was last revised on 2022. Ionized Ca, POC 4.21(L) 4.50 - 5.10 mg/dL CERNER CH Glucose, POC 143 70 - 199 mg/dL CERNER CH Lactate, POC 0.7 0.7 - 2.0 mmol/L CERNER CH O2Hb, Art POC 97.4(H) 90.0 - 95.0 % CERNER CH SO2 (mike) arterial 99(H) 90 - 95 % CERNER CH Total CO2, Art POC 24 21 - 30 mmol/L CERNER CH BE, art, POC -2 mmol/L CERNER CH Hct, POC 37.0(L) 38.9 - 50.3 % CERNER CH Total Hb, POC 12.2(L) 13.0 - 17.5 g/dL CERNER CH Blood 08/16/2024 11:1 6 AM CDT 08/16/2024 11:16 AM CDT Del Burgos MD LAB POCT ORDERABLES - DEVICE Final Result ROGELIO ZHENG [address] [address] [facility] [place] [employer] [place] [address] * (ABNORMAL) POC Activated Clotting Time, High Range (08/16/2024 11:13 AM CDT) ACT 428(H) 87 - 138 sec POC Performer [id number] [facility] Blood 08/16/2024 11:1 3 AM CDT 08/16/2024 11:13 AM CDT Del Burgos MD LAB BLOOD ORDERABLES Final R esult Performing Organization Address [facility] de Phone Number ROGELIO ZHENG [address] Department [place] [employer] [place] [address] * (ABNORMAL) POC Blood Gas and Chemistries, Arterial - (08/16/2024 10:36 AM CDT) pH, Art POC 7.36 7.35 - 7.45 pCO2, Art POC 40 35 - 45 mmHg CERNER CH pO2, Art POC 337(H) 83 - 108 mmHg CERNER CH Na, POC 133(L) 135 - 145 mmol/L CERNER CH K POC 4.7 3.3 - 4.9 mmol/L CERNER CH Comment: Interpretive Data This method is not able to assess for hemolysis, which may falsely increase potassium concentrations. If further testing is needed to evaluate this result, consider in-laboratory plasma potassium. Current Interpretive Data was last revised on 2022. Ionized Ca, POC 4.13(L) 4.50 - 5.10 mg/dL CERNER CH Glucose, POC 143 70 - 199 mg/dL CERNER CH Lactate, POC 0.7 0.7 - 2.0 mmol/L CERNER CH O2Hb, Art POC 97.1(H) 90.0 - 95.0 % CERNER CH SO2 (mike) arterial 99(H) 90 - 95 % CERNER CH Total CO2, Art POC 24 21 - 30 mmol/L CERNER CH BE, art, POC -3 mmol/L CERNER CH Hct, POC 37.0(L) 38.9 - 50.3 % CERNER CH Total Hb, POC 12.3(L) 13.0 - 17.5 g/dL CERNER CH Blood 08/16/2024 10:3 6 AM CDT 08/16/2024 10:36 AM CDT us Del Burgos MD LAB POCT ORDERABLES - DEVICE Final Result ROGELIO ZHENG [address] [address] [facility] [place] [place] [address] * (ABNORMAL) POC Activated Clotting Time, High Range (08/16/2024 10:33 AM CDT) ACT 557(H) 87 - 138 sec POC Performer [id number] CERNER CH Blood 08/16/2024 10:3 3 AM CDT 08/16/2024 10:33 AM CDT Del Burgos MD LAB BLOOD ORDERABLES Final R esult Performing Organization Address City/[facility]/ZIP Co de Phone Number ROGELIO ZHENG [address] [address] [facility] [employer] [place], [place] [id number] * (ABNORMAL) POC Activated Clotting Time, High Range (08/16/2024 9:38 AM CDT) ACT 857(H) 87 - 138 sec POC Performer [id number] CERNER CH Blood 08/16/2024 9:38 AM CDT 08/16/2024 9:38 AM CDT Del Burgos MD LAB BLOOD ORDERABLES Final R esult ROGELIO ZHENG [address] [address] [facility] [place] [place] [address] * (ABNORMAL) POC Blood Gas and Chemistries, Arterial - (08/16/2024 9:38 AM CDT) pH, Art POC 7.31(L) 7.35 - 7.45 pCO2, Art POC 48(H) 35 - 45 mmHg CERNER CH pO2, Art POC 374(H) 83 - 108 mmHg CERNER CH Na, POC 136 135 - 145 mmol/L CERNER CH K POC 3.9 3.3 - 4.9 mmol/L CERNER CH Comment: Interpretive Data This method is not able to assess for hemolysis, which may falsely increase potassium concentrations. If further testing is needed to evaluate this result, consider in-laboratory plasma potassium. Current Interpretive Data was last revised on 2022. Ionized Ca, POC 4.28(L) 4.50 - 5.10 mg/dL CERNER CH Glucose, POC 151 70 - 199 mg/dL CERNER CH Lactate, POC 0.5(L) 0.7 - 2.0 mmol/L CERNER CH O2Hb, Art POC 97.5(H) 90.0 - 95.0 % CERNER CH SO2 (mike) arterial 99(H) 90 - 95 % CERNER CH Total CO2, Art POC 26 21 - 30 mmol/L CERNER CH BE, art, POC -2 mmol/L CERNER CH Hct, POC 41.0 38.9 - 50.3 % CERNER CH Total Hb, POC 13.7 13.0 - 17.5 g/dL CERNER CH Blood 08/16/2024 9:38 AM CDT 08/16/2024 9:38 AM CDT us Del Burgos MD LAB POCT ORDERABLES - DEVICE Final Result ROGELIO ZHENG [address] [address] Department [place] [address] * (ABNORMAL) POC Blood Gas and Chemistries, Arterial - (08/16/2024 8:35 AM CDT) pH, Art POC 7.36 7.35 - 7.45 pCO2, Art POC 44 35 - 45 mmHg CERNER CH pO2, Art POC 394(H) 83 - 108 mmHg CERNER CH Na, POC 134(L) 135 - 145 mmol/L CERNER CH K POC 4.1 3.3 - 4.9 mmol/L CERNER CH Comment: Interpretive Data This method is not able to assess for hemolysis, which may falsely increase potassium concentrations. If further testing is needed to evaluate this result, consider in-laboratory plasma potassium. Current Interpretive Data was last revised on 2022. Ionized Ca, POC 4.38(L) 4.50 - 5.10 mg/dL CERNER CH Glucose, POC 190 70 - 199 mg/dL CERNER CH Lactate, POC 1.3 0.7 - 2.0 mmol/L CERNER CH O2Hb, Art POC 98.5(H) 90.0 - 95.0 % CERNER CH SO2 (mike) arterial 100(H) 90 - 95 % CERNER CH Total CO2, Art POC 26 21 - 30 mmol/L CERNER CH BE, art, POC -1 mmol/L CERNER CH Hct, POC 42.0 38.9 - 50.3 % CERNER CH Total Hb, POC 14.0 13.0 - 17.5 g/dL CERNER CH Blood 08/16/2024 8:35 AM CDT 08/16/2024 8:35 AM CDT us Del Burgos MD LAB POCT ORDERABLES - DEVICE Final Result Performing Organization Address [facility] Co de Phone Number ROGELIO [address] [address] Department [place] [address] * POC Activated Clotting Time, High Range (08/16/2024 8:31 AM CDT) ACT 112 87 - 138 sec [address] [id number] [facility] CH Blood 08/16/2024 8:31 AM CDT 08/16/2024 8:31 AM CDT Del Burgos MD LAB BLOOD ORDERABLES Final R esult Performing Organization Address City/[facility]/ZIP Co de Phone Number ROGELIO ZHENG [address] [address] Department [place] [address] * BW AN SHEATH INTRODUCER PERFORMABLE, PULMONARY ARTERY CATH (08/16/2024 8:11 AM CDT) Guicho Merlos AA - 08/16/2024 8:11 AM CDT Guicho Meek AA 08/16/2024 8:12 AM Central Venous Line Patient location: OR End Time: 08/16/2024 8:11 AM Indication: central venous access Staff: Supervising provider: Hernán Morris MD Placed by: AA: Guicho Meek AA Procedure prep: Patient position: Trendelenburg. PPE: provider hat/mask, sterile gloves, sterile gown, provider hand hygiene and full body drape. Prep solution: chlorhexadine/alcohol was applied to area. Ultrasound Evaluation: Ultrasound was used prior to prep. Central line: Catheter type: multi-lumen access catheter (MAC) Catheter size: 9 Fr. Catheter length: 11.5 cm Additional catheter placed through introducer: double lumen infusion catheter (DLIC) Technique: anatomy identified with ultrasound, vein located with finder needle, Seldinger technique, wire threaded easily and wire removed intact Venous verification: pressure transduced Post insertion: all ports aspirated, all ports flushed easily, line sutured in place and occlusive dressing applied Chlorhexidine patch applied: yes Number of attempts: 1 PA catheter placement: PA catheter type: oximetric PA catheter size: 8 Fr Placement guided by: pressure tracing changes PA catheter depth 47 cmNo Assessment: Events: patient tolerated procedure well with no complications us Hernán Morris MD ANESTHESIA ORDERABLES Final Result * KS AN ELECTIVE ENDOTRACHEAL AIRWAY (08/16/2024 8:10 AM CDT) Guicho Merlos AA - 08/16/2024 8:10 AM CDT Guicho Meek AA 08/16/2024 8:11 AM Airway Patient location: OR Urgency: elective Indications for airway management: anesthesia Difficult airway: no Staff: Supervising provider: Hernán Morris MD Emergent airway documentation: Risks and benefits discussed: yes Consent obtained: yes Consent given by: patient Airway prep: Preoxygenated: yes Patient position: sniffing Mask difficulty assessment: 1 - vent by mask Spontaneous ventilation during airway: absent Sedation level during airway: GA Final airway details: Final airway type: endotracheal airway Tube type: ETT ETT size: 8.0 mm Cuffed: yes Technique used for successful ETT placement: video laryngoscopy Insertion site: oral Blade type: Padmini Video blade type: Allen Blade size: 3 Cormack-Lehane (video): grade I - full view of glottis Cuff inflated with: air ETT to lips: 21 cm Placement verified by: auscultation and CO2 detection Airway secured with: silk tape Number of attempts: 1 Hernán Morris MD ANESTHESIA ORDERABLES Final Result * Peripheral IV Catheter (08/16/2024 7:59 AM CDT) Narrative Guicho Meek AA - 08/16/2024 7:59 AM CDT Guicho Meek AA 08/16/2024 7:59 AM Peripheral IV Catheter Patient location: OR Staff: Placed by: AA: Guicho Meek AA Preprocedure prep: Prep solution: alcohol PPE: gloves and provider hat/mask PIV line: Laterality: right Site: wrist Catheter size: 20 g Technique: anatomical landmarks and direct visualization Procedure details: good blood return Number of attempts: 1 Assessment: Events: patient tolerated procedure well with no complications Hernán Morris MD ANESTHESIA ORDERABLES Final Result * Arterial Line (08/16/2024 7:59 AM CDT) Narrative Guicho Meek AA - 08/16/2024 7:59 AM CDT Guicho Meek AA 08/16/2024 7:59 AM Arterial Line Patient location: OR Indication: continuous blood pressure monitoring and blood sampling needed Staff: Placed by: AA: Guicho Meek AA Procedure prep: Prep solution: chlorhexadine/alcohol Prep: provider hat/mask and sterile gloves Skin infiltrated with lidocaine 1%: yes Arterial line: Catheter size: 20 gauge Catheter length: 1 and 3/4 inch Catheter type: wire-guided catheter Seldinger technique: yes Laterality: right Site: radial artery Line secured: Tegaderm and tape Results: good waveform and good blood return Number of attempts: 1 Assessment: Events: patient tolerated procedure well with no complications us Hernán Morris MD ANESTHESIA ORDERABLES Final Result * POCT glucose (08/16/2024 7:04 AM CDT) Glucose, POC 183 70 - 199 mg/dL POC Performer [id number] ROGELIO Blood 08/16/2024 7:04 AM CDT 08/16/2024 7:04 AM CDT us Del Burgos MD LAB POCT ORDERABLES - DEVICE Final Result ROGELIO [address] Department [place] [address] * XR Chest 1 View (08/16/2024 4:26 AM CDT) Anatomical Region Laterality Modality Body, Chest N/A Computed Radiogr aphy 08/16/2024 8:22 AM CDT Impressions 08/16/2024 8:22 AM CDT No active disease. Electronically signed by: Donna Freire M.D. Narrative 08/16/2024 8:22 AM CDT EXAMINATION: XR CHEST 1 VIEW HISTORY: The patient is a 69-year-old male who presents with shortness of breath. Comparison made with the previous study dated 08/15/2024. TECHNIQUE: AP portable view of the chest. FINDINGS: Lungs clear. Cardiovascular structures unremarkable. Procedure Note Donna Freire MD - 08/16/2024 EXAMINATION: XR CHEST 1 VIEW HISTORY: The patient is a 69-year-old male who presents with shortness of breath. Comparison made with the previous study dated 08/15/2024. TECHNIQUE: AP portable view of the chest. FINDINGS: Lungs clear. Cardiovascular structures unremarkable. IMPRESSION: No active disease. Electronically signed by: Donna Freire M.D. us Shama Huang Nathan DITCH REPAIRER IMG XR PROCEDURES Final R esult * Differential, auto (08/16/2024 4:23 AM CDT) Neutrophil abs 4.5 1.5 - 6.5 K/cumm Imm gran abs 0.0 0.0 - 0.1 K/cumm [facility] Lymphocyte abs 1.6 0.8 - 3.3 K/cumm [facility] Monocyte abs 0.8 0.2 - 0.8 K/cumm [facility] Eosinophil abs 0.3 0.0 - 0.5 K/cumm [facility] Basophil abs 0.0 0.0 - 0.1 K/cumm [facility] Neutrophil pct 61.5 % [facility] Comment: Interpretive Data Percent cell count reference ranges are not reported, since discordance with absolute values may lead to misinterpretation of CBC data. Current Interpretive Data was last revised on 2017. Imm gran pct 0.3 % [facility] Comment: Interpretive Data Percent cell count reference ranges are not reported, since discordance with absolute values may lead to misinterpretation of CBC data. Current Interpretive Data was last revised on 2017. Lymphocyte pct 22.6 % [facility] Comment: Interpretive Data Percent cell count reference ranges are not reported, since discordance with absolute values may lead to misinterpretation of CBC data. Current Interpretive Data was last revised on 2017. Monocyte pct 10.9 % [facility] Comment: Interpretive Data Percent cell count reference ranges are not reported, since discordance with absolute values may lead to misinterpretation of CBC data. Current Interpretive Data was last revised on 2017. Eosinophil pct 4.3 % [facility] Comment: Interpretive Data Percent cell count reference ranges are not reported, since discordance with absolute values may lead to misinterpretation of CBC data. Current Interpretive Data was last revised on 2017. Basophil pct 0.4 % [facility] Comment: Interpretive Data Percent cell count reference ranges are not reported, since discordance with absolute values may lead to misinterpretation of CBC data. Current Interpretive Data was last revised on 2017. Blood 08/16/2024 4:23 AM CDT 08/16/2024 5:15 AM CDT Shama Evans DITCH REPAIRER LAB BLOOD ORDERABLES Rupali l Result Performing Organization Address City/[facility]/ZIP Co de Phone Number ROGELIO ZHENG [address] [employer] [place], [place] [id number] * (ABNORMAL) CBC with auto differential (08/16/2024 4:23 AM CDT) WBC 7.3 3.8 - 9.9 K/cumm Hgb 15.4 13.0 - 17.5 g/dL [facility] Hct 46.1 38.9 - 50.3 % [facility] Plt 139(L) 150 - 400 K/cumm [facility] MPV 10.6 9.1 - 12.3 fL [facility] RBC 4.98 4.30 - 5.80 M/cumm [facility] MCV 92.6 81.3 - 96.4 fL [facility] MCH 30.9 27.1 - 33.3 pg [facility] MCHC 33.4 32.3 - 35.7 g/dL [facility] RDW CV 13.3 11.1 - 14.9 % [facility] RDW SD 45.1 35.7 - 48.1 fL [facility] NRBC abs 0.00 0.00 - 0.01 K/cumm [facility] Blood 08/16/2024 4:23 AM CDT 08/16/2024 5:15 AM CDT Shama Evans DITCH REPAIRER LAB BLOOD ORDERABLES Rupali l Result Performing Organization Address City/[facility]/ZIP Co de Phone Number ROGELIO ZHENG [address] [employer] [place], [place] [phone] * (ABNORMAL) POCT glucose (08/15/2024 9:23 PM CDT) Glucose, POC 341(H) 70 - 199 mg/dL POC Performer [id number] [facility] Blood 08/15/2024 9:23 PM CDT 08/15/2024 9:23 PM CDT us Del Burgos MD LAB POCT ORDERABLES - DEVICE Final Result Performing Organization Address [facility]/ZIP Co de Phone Number ROGELIO ZHENG [address] [facility] [place] [employer] [place] [address] * (ABNORMAL) POCT glucose (08/15/2024 5:25 PM CDT) Glucose, POC 237(H) 70 - 199 mg/dL POC Performer [id number] [facility] Blood 08/15/2024 5:25 PM CDT 08/15/2024 5:25 PM CDT Del Burgos MD LAB POCT ORDERABLES - DEVICE Final Result Performing Organization Address [facility] Co de Phone Number ROGELIO ZHENG [address] [place] [place] [address] * Type and screen (08/15/2024 1:28 PM CDT) Pathologist [facility] [place], indirect Negative ABO Rh O Positive [facility] Blood 08/15/2024 1:28 PM CDT 08/15/2024 1:45 PM CDT Narrative [facility] - 08/15/2024 2:31 PM CDT Has the patient had Daratumumab or Isatuximab in the past 6 months?->Unknown us Shama Evans DITCH REPAIRER LAB BLOOD BANK TEST ORDER ASIA Final Result Performing Organization Address [facility] Co de Phone Number ROGELIO ZHENG [address] [facility] [place] [employer] [place] [address] * Prepare RBC: 4 Units (08/15/2024 12:55 PM CDT) Product code [id number] [facility] Unit Number [id number] 3-* [facility] Product Blood Type OPOS [facility] Dispense Status RETURNED [facility] Product code [id number] [facility] Unit Number [id number] 9-G [facility] Product Blood Type OPOS CERN[facility] CH Dispense Status RETURNED [facility] CH Product code [id number] Unit Number [id number] 7-Y [facility] Product Blood Type OPOS [facility] CH Dispense Status RETURNED [facility] Product code [id number] [facility] Unit Number [id number] 9-* [facility] Product Blood Type OPOS [facility] CH Dispense Status RETURNED [facility] Blood 08/15/2024 12:5 5 PM CDT Narrative [facility] - 08/17/2024 12:19 AM CDT Specify Procedure:->CABG Are special requirements needed? (All products are leukoreduced and CMV- safe)- >No Date required:-[id number] LRRBC # of [id number] Reasons:-Hold for procedure (specify procedure)} us Shama Evans DITCH REPAIRER BLOOD BANK PRODUCT ORDERA BLES Final Result Performing Organization Address City/[facility]/ZIP Co de Phone Number ROGELIO ZHENG [address] Department [place] [address] * POCT glucose (08/15/2024 12:21 PM CDT) Glucose, POC 141 70 - 199 mg/dL POC Performer [id number] [facility] Blood 08/15/2024 12:2 1 PM CDT 08/15/2024 12:21 PM CDT us Del Burgos MD LAB POCT ORDERABLES - DEVICE Final Result Performing Organization Address City/[facility]/ZIP Co de Phone Number ROGELIO ZHENG [address] [place] [address] * (ABNORMAL) Urinalysis reflex to microscopic and culture Urine, clean voided (08/15/2024 11:15 AM CDT) Color, ur Yellow Yellow Clarity, ur Clear Clear [facility] Specific gravity, ur 1.031(H) 1.003 - 1.030 [facility] pH, urine 5.5 [facility] Comment: Interpretive Data U rine pH is affected by diet, medications, systemic acid-base disturbances, and renal tubular function. pH may affect urinary stone formation. For example, urine pH below 6.0 may help reduce the tendency for calcium phosphate stones and pH greater than 6.0 may reduce the tendency for uric acid stone formation. Source: [facility] [employer] Current Interpretive Data was last revised on 2017 Protein, ur ql Negative Negative [facility] Glucose, ur ql 4+(A) Negative [facility] Ketones, ur Negative Negative [facility] Bilirubin, ur Negative Negative [facility] Blood, ur Negative Negative [facility] Urobilinogen, ur <2.0 <2.0 mg/dL [facility] Nitrite, ur Negative Negative [facility] Leukocyte esterase, ur Negative Negative [facility] UA reflex comment Reflex conditions for microscopic UA and culture not met. [facility] Urine, clean voided 08/15/2024 11:15 AM CDT 08/15/2024 11:17 AM CDT us Shama Evans NP LAB MICROBIOLOGY - GENERA L ORDERABLES Final Result ROGELIO [address] Department [place] [address] * eGFR (08/15/2024 9:37 AM CDT) eGFR 81 >=60 mL/min/1. 73 m2 Comment: Interpretive Data Reference Interval Normal >/= 90 mL/min/1.73m2 Mildly decreased* 60 - 89 mL/min/1.73m2 Mildly to moderately decreased 45 - 59 mL/min/1.73m2 Moderately to severely decreased 30 - 44 mL/min/1.73m2 Severely decreased 15 - 29 mL/min/1.73m2 Kidney Failure < 15 mL/min/1.73m2 *Relative to young adult level Estimated glomerular filtration rate is determined by the 2020 CKD-EPI equation recommended by the National Kidney Foundation (A Unifying Approach to GFR Estimation: Recommendations of the NKF-ASK Task Force on Reassessing the Inclusion of Race in Diagnosing Kidney Disease, TOMMYN 2020). The CKD-EPI equation should not be used for patients with unstable renal function and has not been validated in children and those over 70. Current interpretive data was last reviewed 2021. Blood 08/15/2024 9:37 AM CDT 08/15/2024 10:08 AM CDT us Shama Evans DITCH REPAIRER LAB BLOOD ORDERABLES Rupali l Result [facility] [address] Department [place] [address] * (ABNORMAL) Basic metabolic panel (08/15/2024 9:37 AM CDT) Sodium 137 135 - 145 mmol/L Potassium, pl 4.6 3.3 - 4.9 mmol/L [facility] Chloride 102 97 - 110 mmol/L [facility] CO2 27 22 - 32 mmol/L [facility] Anion gap 8 2 - 15 mmol/L [facility] BUN 24 6 - 25 mg/dL [facility] Creatinine 1.00 0.80 - 1.30 mg/dL [facility] Comment:Icteric sample, test results may be affected. Glucose 250(H) 70 - 199 mg/dL [facility] Comment: Interpretive Data Fasting glucose >/= 126 mg/dl is diagnostic for diabetes. Fasting is defined as no caloric intake for at least 8 hours. Fasting glucose between 100 mg/dl to 125 mg/dl is diagnostic of prediabetes. In a patient with classic symptoms of hyperglycemia or hyperglycemic crisis, a random glucose >/= 200 mg/dl is diagnostic for diabetes. In the absence of unequivocal hyperglycemia, results should be confirmed by repeat testing. The classification and Diagnosis of Diabetes Diabetes Care 2021; 46: S19-S40. Current interpretive data was last revised 2022. Calcium 8.3(L) 8.5 - 10.3 mg/dL [facility] Blood 08/15/2024 9:37 AM CDT 08/15/2024 10:08 AM CDT us Shama Evans DITCH REPAIRER LAB BLOOD ORDERABLES Rupali l Result ROGELIO ZHENG [address] Department [place] [address] * POCT glucose (08/15/2024 7:36 AM CDT) Glucose, POC 119 70 - 199 mg/dL POC Performer [id number] [facility] Blood 08/15/2024 7:36 AM CDT 08/15/2024 7:36 AM CDT us Del Burgos MD LAB POCT ORDERABLES - DEVICE Final Result Performing Organization Address [facility] Co de Phone Number ROGELIO ZHENG [address] [place] [address] * XR Chest 1 View (08/15/2024 6:05 AM CDT) Anatomical Region Laterality Modality Body, Chest N/A Computed Radiogr aphy 08/15/2024 10:2 7 AM CDT Impressions 08/15/2024 10:27 AM CDT No acute pulmonary disease. Electronically signed by: Cinda Bliss M.D. Narrative 08/15/2024 10:27 AM CDT Examination: XR CHEST 1 VIEW Date: 08/15/2024 5:45 AM History: assess fluid volume overload- preop CABG Comparison: 08/14/2024. Findings: The heart size and pulmonary vasculature are within normal limits. No acute infiltrate or effusion is seen. Rectangular electronic device partially obscures the left hilum. Procedure Note Cinda Bliss MD - 08/15/2024 Examination: XR CHEST 1 VIEW Date: 08/15/2024 5:45 AM History: assess fluid volume overload- preop CABG Comparison: 08/14/2024. Findings: The heart size and pulmonary vasculature are within normal limits. No acute infiltrate or effusion is seen. Rectangular electronic device partially obscures the left hilum. IMPRESSION: No acute pulmonary disease. Electronically signed by: Cinda Bliss M.D. us Shama Huang Nathan DITCH REPAIRER IMG XR PROCEDURES Final R esult * Differential, auto (08/15/2024 3:23 AM CDT) Neutrophil abs 4.7 1.5 - 6.5 K/cumm Imm gran abs 0.0 0.0 - 0.1 K/cumm [facility] Lymphocyte abs 1.9 0.8 - 3.3 K/cumm [facility] Monocyte abs 0.7 0.2 - 0.8 K/cumm [facility] Eosinophil abs 0.3 0.0 - 0.5 K/cumm [facility] Basophil abs 0.0 0.0 - 0.1 K/cumm [facility] Neutrophil pct 61.1 % [facility] Comment: Interpretive Data Percent cell count reference ranges are not reported, since discordance with absolute values may lead to misinterpretation of CBC data. Current Interpretive Data was last revised on 2017. Imm gran pct 0.4 % C[facility] Comment: Interpretive Data Percent cell count reference ranges are not reported, since discordance with absolute values may lead to misinterpretation of CBC data. Current Interpretive Data was last revised on 2017. Lymphocyte pct 24.8 % [facility] Comment: Interpretive Data Percent cell count reference ranges are not reported, since discordance with absolute values may lead to misinterpretation of CBC data. Current Interpretive Data was last revised on 2017. Monocyte pct 9.6 % [facility] Comment: Interpretive Data Percent cell count reference ranges are not reported, since discordance with absolute values may lead to misinterpretation of CBC data. Current Interpretive Data was last revised on 2017. Eosinophil pct 3.6 % [facility] Comment: Interpretive Data Percent cell count reference ranges are not reported, since discordance with absolute values may lead to misinterpretation of CBC data. Current Interpretive Data was last revised on 2017. Basophil pct 0.5 % [facility] Comment: Interpretive Data Percent cell count reference ranges are not reported, since discordance with absolute values may lead to misinterpretation of CBC data. Current Interpretive Data was last revised on 2017. Blood 08/15/2024 3:23 AM CDT 08/15/2024 4:33 AM CDT Shama Evans DITCH REPAIRER LAB BLOOD ORDERABLES Rupali l Result Performing Organization Address [facility]/ZIP Co de Phone Number ROGELIO ZHENG [address] [employer] [place], [place] [phone] * CBC with auto differential (08/15/2024 3:23 AM CDT) WBC 7.7 3.8 - 9.9 K/cumm Hgb 16.1 13.0 - 17.5 g/dL [facility] Hct 48.0 38.9 - 50.3 % [facility] Plt 150 150 - 400 K/cumm [facility] MPV 11.0 9.1 - 12.3 fL [facility] RBC 5.22 4.30 - 5.80 M/cumm [facility] MCV 92.0 81.3 - 96.4 fL [facility] MCH 30.8 27.1 - 33.3 pg [facility] MCHC 33.5 32.3 - 35.7 g/dL [facility] RDW CV 13.3 11.1 - 14.9 % [facility] RDW SD 45.3 35.7 - 48.1 fL [facility] NRBC abs 0.00 0.00 - 0.01 K/cumm [facility] Blood 08/15/2024 3:23 AM CDT 08/15/2024 4:33 AM CDT Shama Evans DITCH REPAIRER LAB BLOOD ORDERABLES Rupali l Result Performing Organization Address City/[facility]/ZIP Co de Phone Number ROGELIO ZHENG [address] [place] [employer] [place] [address] * (ABNORMAL) POCT glucose (08/14/2024 8:56 PM CDT) Glucose, POC 241(H) 70 - 199 mg/dL POC Performer [id number] [facility] Blood 08/14/2024 8:56 PM CDT 08/14/2024 8:56 PM CDT Del Burgos MD LAB POCT ORDERABLES - DEVICE Final Result Performing Organization Address [facility] Co de Phone Number ROGELIO ZHENG [address] [facility] [place] [employer] [place] [address] * POCT glucose (08/14/2024 5:05 PM CDT) Glucose, POC 85 70 - 199 mg/dL POC Performer [id number] [facility] Blood 08/14/2024 5:05 PM CDT 08/14/2024 5:05 PM CDT us Del Burgos MD LAB POCT ORDERABLES - DEVICE Final Result Performing Organization Address [facility] de Phone Number ROGELIO ZHENG [address] [facility] [place] [employer] [place] [address] * POCT glucose (08/14/2024 12:15 PM CDT) Glucose, POC 149 70 - 199 mg/dL POC Performer [id number] [facility] Blood 08/14/2024 12:1 5 PM CDT 08/14/2024 12:15 PM CDT us Del Burgos MD LAB POCT ORDERABLES - DEVICE Final Result Performing Organization Address [facility] Co de Phone Number ROGELIO ZHENG [address] [address] [facility] [place] [employer] [place] [address] * POCT glucose (08/14/2024 7:37 AM CDT) Glucose, POC 104 70 - 199 mg/dL POC Performer [id number] [facility] Blood 08/14/2024 7:37 AM CDT 08/14/2024 7:37 AM CDT Del Burgos MD LAB POCT ORDERABLES [place] [address] [address] [place] [address] * XR Chest 1 View (08/14/2024 6:04 AM CDT) Anatomical Region Laterality Modality Body, Chest N/A Computed Radiogr aphy 08/14/2024 9:20 AM CDT Impressions 08/14/2024 9:20 AM CDT No acute pulmonary disease. Electronically signed by: Cinda Bliss M.D. Narrative 08/14/2024 9:20 AM CDT Examination: XR CHEST 1 VIEW Date: 08/14/2024 5:40 AM History: assess fluid volume overload- preop CABG Comparison: 08/13/2024. Findings: The heart size and pulmonary vasculature are within normal limits. No acute infiltrate or effusion is seen. Osseous structures are not remarkable. Procedure Note Cinda Bliss MD - 08/14/2024 Examination: XR CHEST 1 VIEW Date: 08/14/2024 5:40 AM History: assess fluid volume overload- preop CABG Comparison: 08/13/2024. Findings: The heart size and pulmonary vasculature are within normal limits. No acute infiltrate or effusion is seen. Osseous structures are not remarkable. IMPRESSION: No acute pulmonary disease. Electronically signed by: Cinda Bliss M.D. us Shama Evans DITCH REPAIRER IMG XR PROCEDURES Final R esult * eGFR (08/14/2024 5:48 AM CDT) eGFR 63 >=60 mL/min/1. 73 m2 Comment: Interpretive Data Reference Interval Normal >/= 90 mL/min/1.73m2 Mildly decreased* 60 - 89 mL/min/1.73m2 Mildly to moderately decreased 45 - 59 mL/min/1.73m2 Moderately to severely decreased 30 - 44 mL/min/1.73m2 Severely decreased 15 - 29 mL/min/1.73m2 Kidney Failure < 15 mL/min/1.73m2 *Relative to young adult level Estimated glomerular filtration rate is determined by the 2020 CKD-EPI equation recommended by the National Kidney Foundation (A Unifying Approach to GFR Estimation: Recommendations of the NKF-ASK Task Force on Reassessing the Inclusion of Race in Diagnosing Kidney Disease, JASN 2020). The CKD-EPI equation should not be used for patients with unstable renal function and has not been validated in children and those over 70. Current interpretive data was last reviewed 2021. Blood 08/14/2024 5:48 AM CDT 08/14/2024 6:06 AM CDT us Shama Evans NP LAB BLOOD ORDERABLES Rupali jones Result ROGELIO [address] Department [place] [address] * Differential, auto (08/14/2024 5:48 AM CDT) Neutrophil abs 5.5 1.5 - 6.5 K/cumm Imm gran abs 0.0 0.0 - 0.1 K/cumm [facility] Lymphocyte abs 2.1 0.8 - 3.3 K/cumm [facility] Monocyte abs 0.8 0.2 - 0.8 K/cumm [facility] Eosinophil abs 0.2 0.0 - 0.5 K/cumm [facility] Basophil abs 0.0 0.0 - 0.1 K/cumm [facility] Neutrophil pct 62.9 % ROGELIO Comment: Interpretive Data Percent cell count reference ranges are not reported, since discordance with absolute values may lead to misinterpretation of CBC data. Current Interpretive Data was last revised on 2017. Imm gran pct 0.3 % ROGELIO Comment: Interpretive Data Percent cell count reference ranges are not reported, since discordance with absolute values may lead to misinterpretation of CBC data. Current Interpretive Data was last revised on 2017. Lymphocyte pct 24.1 % ROGELIO Comment: Interpretive Data Percent cell count reference ranges are not reported, since discordance with absolute values may lead to misinterpretation of CBC data. Current Interpretive Data was last revised on 2017. Monocyte pct 9.5 % [facility] Comment: Interpretive Data Percent cell count reference ranges are not reported, since discordance with absolute values may lead to misinterpretation of CBC data. Current Interpretive Data was last revised on 2017. Eosinophil pct 2.7 % [facility] Comment: Interpretive Data Percent cell count reference ranges are not reported, since discordance with absolute values may lead to misinterpretation of CBC data. Current Interpretive Data was last revised on 2017. Basophil pct 0.5 % [facility] Comment: Interpretive Data Percent cell count reference ranges are not reported, since discordance with absolute values may lead to misinterpretation of CBC data. Current Interpretive Data was last revised on 2017. Blood 08/14/2024 5:48 AM CDT 08/14/2024 6:04 AM CDT us Shama Evans DITCH REPAIRER LAB BLOOD ORDERABLES Rupali jones Result [facility] [address] Department [place] [address] * (ABNORMAL) CBC with auto differential (08/14/2024 5:48 AM CDT) WBC 8.8 3.8 - 9.9 K/cumm Hgb 17.4 13.0 - 17.5 g/dL [facility] Hct 52.8(H) 38.9 - 50.3 % [facility] Plt 161 150 - 400 K/cumm [facility] MPV 10.5 9.1 - 12.3 fL [facility] RBC 5.65 4.30 - 5.80 M/cumm [facility] MCV 93.5 81.3 - 96.4 fL [facility] MCH 30.8 27.1 - 33.3 pg [facility] MCHC 33.0 32.3 - 35.7 g/dL [facility] RDW CV 13.7 11.1 - 14.9 % [facility] RDW SD 47.0 35.7 - 48.1 fL [facility] NRBC abs 0.00 0.00 - 0.01 K/cumm [facility] Blood 08/14/2024 5:48 AM CDT 08/14/2024 6:04 AM CDT Shama Evans DITCH REPAIRER LAB BLOOD ORDERABLES Rupali l Result Performing Organization Address [facility] Co de Phone Number ROGELIO [address] [address] [facility] [place] [place] [address] * aPTT (08/14/2024 5:48 AM CDT) aPTT 38 28 - 38 sec Comment: Interpretive Data Heparin therapeutic range: 66.0 - 100.0 seconds. Range based on correlation with therapeutic heparin activity range of 0.3 - 0.7 Units/mL. Current interpretive data was last revised on 2023. Blood 08/14/2024 5:48 AM CDT 08/14/2024 6:04 AM CDT Shama Evans DITCH REPAIRER LAB BLOOD ORDERABLES Rupali l Result Performing Organization Address [facility] de Phone Number ROGELIO [id number] [address] [facility] [place] [employer] [place] [address] * Protime-INR (08/14/2024 5:48 AM CDT) PT 11.0 9.7 - 13.0 sec INR 1.02 0.90 - 1.20 [facility] Comment: Interpretive data Oral anticoagulant therapeutic ranges: Venous thromboembolism prophylaxis or treatment: 2.0-3.0 CARDIOLOGY Standard range: 2.0-3.0 High-intensity range: 2.5-3.5 Refer to indication-specific guidelines for appropriate target ranges for prosthetic heart valve replacement. Current interpretive data was last revised on 2019. Blood 08/14/2024 5:48 AM CDT 08/14/2024 6:04 AM CDT Shama Evans NP LAB BLOOD ORDERABLES Rupali l Result Performing Organization Address [facility] Co de Phone Number ROGELIO [address] [address] [facility] [place] [employer] [place] [address] * (ABNORMAL) Comprehensive metabolic panel (08/14/2024 5:48 AM CDT) Sodium 144 135 - 145 mmol/L Potassium, pl 5.0(H) 3.3 - 4.9 mmol/L [facility] Chloride 108 97 - 110 mmol/L [facility] CO2 28 22 - 32 mmol/L [facility] Anion gap 8 2 - 15 mmol/L [facility] BUN 23 6 - 25 mg/dL [facility] Creatinine 1.24 0.80 - 1.30 mg/dL [facility] Comment:Icteric sample, test results may be affected. Glucose 104 70 - 199 mg/dL [facility] Comment: Interpretive Data Fasting glucose >/= 126 mg/dl is diagnostic for diabetes. Fasting is defined as no caloric intake for at least 8 hours. Fasting glucose between 100 mg/dl to 125 mg/dl is diagnostic of prediabetes. In a patient with classic symptoms of hyperglycemia or hyperglycemic crisis, a random glucose >/= 200 mg/dl is diagnostic for diabetes. In the absence of unequivocal hyperglycemia, results should be confirmed by repeat testing. The classification and Diagnosis of Diabetes Diabetes Care 202; 46: S19-S40. Current interpretive data was last revised 2022. Calcium 9.2 8.5 - 10.3 mg/dL [facility] Bilirubin, total 1.2 0.1 - 1.2 mg/dL [facility] Protein, pl 6.5 6.5 - 8.5 g/dL [facility] Albumin 3.9 3.5 - 5.0 g/dL [facility] Alk phos 83 40 - 130 Units/L [facility] ALT 33 7 - 55 Units/L [facility] AST 32 10 - 50 Units/L [facility] Blood 08/14/2024 5:48 AM CDT 08/14/2024 6:06 AM CDT us Shama Evans DITCH REPAIRER LAB BLOOD ORDERABLES Rupali jones Result [facility] [id number] [address] Department [place] [address] * (ABNORMAL) POCT glucose (08/13/2024 8:50 PM CDT) Glucose, POC 250(H) 70 - 199 mg/dL POC Performer [id number] ROGELIO Blood 08/13/2024 8:50 PM CDT 08/13/2024 8:50 PM CDT us Del Burgos MD LAB POCT ORDERABLES - DEVICE Final Result ROGELIO [address] Department [place] [address] * TRANSTHORACIC ECHO (TTE) COMPLETE W DOPPLER/CF WO CONTRAST (08/13/2024 5:45 PM CDT) [facility] LV EF 53 % CONS SCIMAGE Anatomical Region Laterality Modality Ultrasound 08/13/2024 4:05 PM CDT Narrative 08/13/2024 5:56 [place] [address] Echocardiogram Report Patient Name: JORGE HOLDEN W : 1955 Study Date: 08/13/2024 4:05:59 PM Gender: M Tech: ME Location: [id number] [facility] Provider: SHAMA EVANS Height(Cm): 183 BSA: 2.1 Weight(Kg): 87 Heart Rate: 53 BP: 60 Quality: Good Order Provider: SHAMA EVANS PROCEDURES: Echocardiographic Report: Transthoracic echocardiogram with complete 2D, M-Mode, and color Doppler examination. INDICATIONS: Preop CABG. MEASUREMENTS: 2D/MM Value Range Doppler Value Range EF Teich 2D 50.2 percent [ 52.0 - 72.0 ] JUAN Vmax 2.55 cm2 Estimated EF 53 % AV Mean PG 5 mmHg LVIDd 2D 4.34 cm [ 4.20 - 5.80 ] AV Peak Leon 1.12 m/s [ 1.00 - 1.70 ] LVIDs 2D 3.24 cm [ 2.50 - 4.00 ] AV VTI 23.29 cm LVPWd 2D 1.24 cm [ 0.60 - 1.00 ] LVOT Diam 1.96 cm IVSd 2D 1.52 cm [ 0.60 - 1.00 ] LVOT Peak Leon 0.94 m/s [ 0.70 - 1.10 ] LA Dimension 2D 4.34 cm [ 3.00 - 4.00 ] LVOT VTI 20.53 cm LA Dimension MM 5.03 cm [ 3.00 - 4.00 ] SI LVOT 29.7 ml/m2 [ >= 35.0 ] AoR Diam 2D 3.31 cm [ 3.10 - 3.70 ] MV E Peak Leon 0.58 m/s [ 0.60 - 1.30 ] AoR Diam MM 3.32 cm [ 3.10 - 3.70 ] MV A Peak Leon 0.79 m/s [ 1.00 - 1.20 ] ACS MM 2.26 cm [ 1.50 - 2.60 ] MV Mean PG 1 mmHg MV Decel Time 192 msec [ 104 - 258 ] PV Peak Leon 0.88 m/s [ 0.40 - 0.80 ] E` 0.08 m/s E/E` 7.67 2D/MM Value Range Doppler Value Range - FINDINGS: Atrial Septum: Normal atrial septum. Left Ventricle: Mild concentric left ventricular hypertrophy. Impaired diastolic relaxation Grade I. Ejection Fraction is visually estimated to be 53 %. Left Atrium: There is mild enlargement of left atrium. Right Ventricle: Normal right ventricular size. Normal right ventricular systolic function. Right Atrium: The right atrium is normal in size. Aortic Valve: Normal structure of the aortic valve. Mitral Valve: Normal structure of the mitral valve. Pulmonic Valve: Normal structure of the pulmonic valve. Tricuspid Valve: Normal structure of the tricuspid valve. Normal right ventricular systolic pressure. Pericardium: Normal pericardium with no significant pericardial effusion. Aorta: Ascending aorta is mildly dilated. Ascending Aorta 3.8 cm. IVC: Normal size and normal respiratory collapse consistent with normal right atrial pressure (<5 mmHg). Pulmonary Artery: Normal pulmonary artery size. CONCLUSIONS: Mild concentric left ventricular hypertrophy. Impaired diastolic relaxation Grade I. Ejection Fraction is visually estimated to be 53 %. There is mild enlargement of left atrium. Ascending aorta is mildly dilated. Ascending Aorta 3.8 cm. Electronically Signed By: Mercedes Verma MD 08/13/2024 5:56:46 PM CDT Procedure Note Gurdeep Verma MD - 08/13/2024 [place] [address] Echocardiogram Report Patient Name: JORGE HOLDEN W : 1955 Study Date: 08/13/2024 4:05:59 PM Gender: M Tech: ME Location: [id number] [facility] Provider: SHAMA EVANS Height(Cm): 183 BSA: 2.1 Weight(Kg): 87 Heart Rate: 53 BP: 60 Quality: Good Order Provider: SHAMA EVNAS PROCEDURES: Echocardiographic Report: Transthoracic echocardiogram with complete 2D, M-Mode, and color Dopplerexamination. INDICATIONS: Preop CABG. MEASUREMENTS: 2D/MM Value Range DopplerValue Range EF Teich 2D 50.2 percent [ 52.0 - 72.0 ] JUAN Vmax2.55 cm2 Estimated EF 53 % AV Mean PG 5mmHg LVIDd 2D 4.34 cm [ 4.20 - 5.80 ] AV Peak Vel1.12 m/s [ 1.00 - 1.70 ] LVIDs 2D 3.24 cm [ 2.50 - 4.00 ] AV VTI23.29 cm LVPWd 2D 1.24 cm [ 0.60 - 1.00 ] LVOT Diam1.96 cm IVSd 2D 1.52 cm [ 0.60 - 1.00 ] LVOT Peak Vel0.94 m/s [ 0.70 - 1.10 ] LA Dimension 2D 4.34 cm [ 3.00 - 4.00 ] LVOT VTI20.53 cm LA Dimension MM 5.03 cm [ 3.00 - 4.00 ] SI LVOT29.7 ml/m2 [ >= 35.0 ] AoR Diam 2D 3.31 cm [ 3.10 - 3.70 ] MV E Peak Vel0.58 m/s [ 0.60 - 1.30 ] AoR Diam MM 3.32 cm [ 3.10 - 3.70 ] MV A Peak Vel0.79 m/s [ 1.00 - 1.20 ] ACS MM 2.26 cm [ 1.50 - 2.60 ] MV Mean PG 1mmHg MV Decel Time 192 msec [ 104 - 258 ] PV Peak Leon 0.88 m/s [ 0.40 - 0.80 ] E` 0.08 m/s E/E` 7.67 2D/MM Value Range DopplerValue Range - FINDINGS: Atrial Septum: Normal atrial septum. Left Ventricle: Mild concentric left ventricular hypertrophy. Impaired diastolicrelaxation Grade I. Ejection Fraction is visually estimated to be 53 %. Left Atrium: There is mild enlargement of left atrium. Right Ventricle: Normal right ventricular size. Normal right ventricular systolicfunction. Right Atrium: The right atrium is normal in size. Aortic Valve: Normal structure of the aortic valve. Mitral Valve: Normal structure of the mitral valve. Pulmonic Valve: Normal structure of the pulmonic valve. Tricuspid Valve: Normal structure of the tricuspid valve. Normal right ventricular systolicpressure. Pericardium: Normal pericardium with no significant pericardial effusion. Aorta: Ascending aorta is mildly dilated. Ascending Aorta 3.8 cm. IVC: Normal size and normal respiratory collapse consistent with normal rightatrial pressure (<5 mmHg). Pulmonary Artery: Normal pulmonary artery size. CONCLUSIONS: Mild concentric left ventricular hypertrophy. Impaired diastolicrelaxation Grade I. Ejection Fraction is visually estimated to be 53 %. There is mild enlargement of left atrium. Ascending aorta is mildly dilated. Ascending Aorta 3.8 cm. Electronically Signed By: Mercedes Verma MD 08/13/2024 5:56:46 PM CDT us Shama Evans NP CV ECHO PROCEDURES Final Result * (ABNORMAL) POCT glucose (08/13/2024 5:17 PM CDT) Glucose, POC 303(H) 70 - 199 mg/dL POC Performer [id number] ROGELIO Blood 08/13/2024 5:17 PM CDT 08/13/2024 5:17 PM CDT us Del Burgos MD LAB POCT ORDERABLES - DEVICE Final Result ROGELIO [address] [address] Department [place] [address] * US Carotids Duplex Bilateral (08/13/2024 1:56 PM CDT) Anatomical Region Laterality Modality Vascular Bilateral Ultrasound 08/13/2024 1:58 PM CDT Impressions 08/13/2024 1:58 PM CDT 1. Bilateral internal carotid artery stenosis estimated at less than 50%. 2. There is antegrade flow in both vertebral arteries. Electronically signed by: Delfin Lares II, D.O. Narrative 08/13/2024 1:58 PM CDT EXAMINATION: BILATERAL CAROTID DUPLEX EXAM DATE: 08/13/2024 10:50 AM HISTORY: Coronary artery calcifications. TECHNIQUE: A bilateral carotid duplex imaging evaluation was performed using grayscale, color and spectral images. NASCET-based methodology was used. FINDINGS: On the right, the common carotid artery peak systolic velocity is 51 cm/s. The right internal carotid artery peak systolic velocities are 50 cm/s proximally, 46 cm/s within the midportion, and 42 cm/s distally. The right internal carotid artery to common carotid artery ratio is 1.0. The estimated percent stenosis of the right internal carotid artery is less than 50%. [] On the left, the common carotid artery peak systolic velocity is 47 cm/s. The left internal carotid artery peak systolic velocities are 41 cm/s proximally, 40 cm/s within the midportion, and 26 cm/s distally. The left internal carotid artery to common carotid artery ratio is 0.9. The estimated percent stenosis of the left internal carotid artery is less than 50%. [] Antegrade flow is seen within both vertebral arteries. Procedure Note Delfin Lares II, DO - 08/13/2024 EXAMINATION: BILATERAL CAROTID DUPLEX EXAM DATE: 08/13/2024 10:50 AM HISTORY: Coronary artery calcifications. TECHNIQUE: A bilateral carotid duplex imaging evaluation was performed using grayscale, color and spectral images. NASCET-based methodology was used. FINDINGS: On the right, the common carotid artery peak systolic velocity is 51 cm/s. The right internal carotid artery peak systolic velocities are 50 cm/s proximally, 46 cm/s within the midportion, and 42 cm/s distally. The right internal carotid artery to common carotid artery ratio is 1.0. The estimated percent stenosis of the right internal carotid artery is less than 50%. [] On the left, the common carotid artery peak systolic velocity is 47 cm/s. The left internal carotid artery peak systolic velocities are 41 cm/s proximally, 40 cm/s within the midportion, and 26 cm/s distally. The left internal carotid artery to common carotid artery ratio is 0.9. The estimated percent stenosis of the left internal carotid artery is less than 50%. [] Antegrade flow is seen within both vertebral arteries. IMPRESSION: 1. Bilateral internal carotid artery stenosis estimated at less than 50%. 2. There is antegrade flow in both vertebral arteries. Electronically signed by: Delfin Lares II, D.O. us Shama Evans NP IMG US PROCEDURES Final R esult * POCT glucose (08/13/2024 11:47 AM CDT) Glucose, POC 187 70 - 199 mg/dL POC Performer [id number] ROGELIO Blood 08/13/2024 11:4 7 AM CDT 08/13/2024 11:47 AM CDT Gurdeep Verma MD LAB POCT ORDERABLES - DEVICE Final Result ROGELIO ZHENG [address] Department [place] [employer] [place] [address] * Check Sample (08/13/2024 11:33 AM CDT) ABO Rh O Positive CH HCLL OTHER 08/13/2024 11:3 3 AM CDT 08/13/2024 12:11 PM CDT Gurdeep Verma MD LAB BLOOD ORDERABLES F inal Result Performing Organization Address [facility] Co de Phone Number ROGELIO ZHENG [address] Department [place] [address] CH * XR Chest 1 View (08/13/2024 11:11 AM CDT) Anatomical Region Laterality Modality Body, Chest N/A Computed Radiogr aphy 08/13/2024 11:1 5 AM CDT Impressions 08/13/2024 11:15 AM CDT Cardiomegaly. Electronically signed by: Donna Freire M.D. Narrative 08/13/2024 11:15 AM CDT EXAMINATION: XR CHEST 1 VIEW HISTORY: The patient is a 69-year-old male who presents with shortness of breath. TECHNIQUE: AP portable view of the chest. FINDINGS: Cardiomegaly with aortic atherosclerosis. No failure. No active infiltrate. Procedure Note Donna Freire MD - 08/13/2024 EXAMINATION: XR CHEST 1 VIEW HISTORY: The patient is a 69-year-old male who presents with shortness of breath. TECHNIQUE: AP portable view of the chest. FINDINGS: Cardiomegaly with aortic atherosclerosis. No failure. No active infiltrate. IMPRESSION: Cardiomegaly. Electronically signed by: Donna Freire M.D. us Shama Evans DITCH REPAIRER IMG XR PROCEDURES Final R esult * Type and screen (08/13/2024 10:55 AM CDT) ABO Rh O Positive [place], indirect Negative ROGELIO Blood 08/13/2024 10:5 5 AM CDT 08/13/2024 11:25 AM CDT Narrative ROGELIO - 08/13/2024 12:31 PM CDT Has the patient had Daratumumab or Isatuximab in the past 6 months?->Unknown us Shama Evans DITCH REPAIRER LAB BLOOD BANK TEST ORDER ASIA Final Result ROGELIO [address] Department [place] [address] * (ABNORMAL) Lipid panel (08/13/2024 10:55 AM CDT) Cholesterol 85 30 - 199 mg/dL Comment: Interpretive Data Ages < or = 19 years Acceptable: <170 mg/dL Borderline high: 170-199 mg/dL High: >or= 200 mg/dL Ages > or = 20 years Desirable: <200 mg/dL Borderline high: 200-239 mg/dL High: >or= 240 mg/dL Literature References: 1. Expert Panel on Integrated Guidelines for Cardiovascular Health and Risk Reduction in Children and Adolescents. Pediatrics 2011;128:S213 2. NCEP Expert Panel. Circulation 2004;110:227 Current Interpretive Data was last revised on 2018. Triglycerides 198(H) <=149 mg/dL ROGELIO Comment: Interpretive Data Ages < or = 9 years Acceptable: <75 mg/dL Borderline high: 75-99 mg/dL High: >or= 100 mg/dL Ages 10 to 20 years Acceptable: <90 mg/dL Borderline high: 90-129 mg/dL High: >or= 130 mg/dL Ages > or = 20 years Desirable: <150 mg/dL Borderline high: 150-199 mg/dL High: 200-499 mg/dL Very high: >or= 499 mg/dL Literature References: 1. Expert Panel on Integrated Guidelines for Cardiovascular Health and Risk Reduction in Children and Adolescents. Pediatrics 2011;128:S213 2. NCEP Expert Panel. Circulation 2004;110:227 Current Interpretive Data was last revised on 2018. HDL 24(L) >=40 mg/dL ROGELIO ZHENG Comment: Interpretive Data Ages < or = 19 years Acceptable: >45 mg/dL Borderline low: 40-45 mg/dL Low: <40 mg/dL Ages > or = 20 years Desirable: >or= 60 mg/dL Low: <40 mg/dL Literature References: 1. Expert Panel on Integrated Guidelines for Cardiovascular Health and Risk Reduction in Children and Adolescents. Pediatrics 2011;128:S213 2. NCEP Expert Panel. Circulation 2004;110:227 Current Interpretive Data was last revised on 2018. LDL, calculated 29 <=129 mg/dL ROGELIO ZHENG Comment: Interpretive Data Ages < or = 19 years Acceptable: <110 mg/dL Borderline high: 110-129 mg/dL High: >or= 130 mg/dL Ages > or = 20 years Optimal: <100 mg/dL Near optimal: 100-129 mg/dL Borderline high: 130-159 mg/dL High: >160 mg/dL Calculated using the Monico LDL-C estimating equation. This equation was implemented on 2024. Prior to this date LDL-C was estimated using the Friedewald equation. Literature References: 1. Expert Panel on Integrated Guidelines for Cardiovascular Health and Risk Reduction in Children and Adolescents. Pediatrics 2011;128:S213 2. NCEP Expert Panel. Circulation 2004;110:227 3. Monico Calderon al. CARLEEN Cardiol. 2019September 23;5(5):540-548. doi: 10.1001/[email or web address].2020.0013 Current Interpretive Data was last revised on 2024. Non-HDL Cholesterol 61 mg/dL ROGELIO ZHENG Comment: Interpretive Data Ages < or = 19 years Acceptable: <120 mg/dL Borderline high: 120-144 mg/dL High: >145 mg/dL Ages > or = 20 years When triglycerides are >200 mg/dL, Non-HDL cholesterol is a secondary target of therapy with treatment goals that are 30 mg/dL greater than the LDL cholesterol target. Literature References: 1. Expert Panel on Integrated Guidelines for Cardiovascular Health and Risk Reduction in Children and Adolescents. Pediatrics 2011;128:S213 2. NCEP Expert Panel. Circulation 2004;110:227 Current Interpretive Data was last revised on 2018. Chol/HDL ratio 4 ROGELIO ZHENG Blood 08/13/2024 10:5 5 AM CDT 08/13/2024 11:08 AM CDT us Gurdeep Verma MD LAB BLOOD ORDERABLES F inal Result ROGELIO ZHENG [address] Department [place] [address] * CT Chest WO Contrast (08/13/2024 10:18 AM CDT) Anatomical Region Laterality Modality Body N/A Computed Tomogra phy 08/13/2024 10:3 5 AM CDT Impressions 08/13/2024 10:35 AM CDT 1. New left upper lobe 1.6 x 1.1 cm pulmonary nodule. Malignancy considered in the differential diagnosis. Suggest PET CT. 2. Stable additional pulmonary nodules. 3. Severe coronary artery atherosclerosis. 4. Ascending aortic ectasia. Electronically signed by: Delfin Lares II, D.O. Narrative 08/13/2024 10:35 AM CDT EXAMINATION: Computed tomography of the chest without intravenous contrast HISTORY: Assess coronary artery calcifications. TECHNIQUE: Transaxial computed tomographic images of the chest were obtained without intravenous contrast according to the standard protocol. COMPARISON: 11/12/2021. FINDINGS: There is a 1.6 x 1.1 cm left upper lobe pulmonary nodule, series 3 image 46, which appears new when compared to prior from 2021. Recommend PET/CT as malignancy is considered in the differential diagnosis. Stable size of intrafissural right middle lobe 0.6 cm nodule, series 3 image 84. Stable superior right lower lobe 2 mm nodule, series 3 image 104. No pleural effusion. Thyroid is unremarkable. No mediastinal or hilar lymphadenopathy. The ascending aorta is ectatic measuring 3.9 cm. Severe atherosclerotic vascular disease in the coronary arteries. Mild atherosclerotic disease in the aorta and branch vessels. Nonobstructive nephrolithiasis in both kidneys. Upper abdominal structures are unremarkable as seen. No acute osseous abnormality. Mild multilevel endplate changes in the visualized spine. Procedure Note Delfin Lares II, DO - 08/13/2024 EXAMINATION: Computed tomography of the chest without intravenous contrast HISTORY: Assess coronary artery calcifications. TECHNIQUE: Transaxial computed tomographic images of the chest were obtained without intravenous contrast according to the standard protocol. COMPARISON: 11/12/2021. FINDINGS: There is a 1.6 x 1.1 cm left upper lobe pulmonary nodule, series 3 image 46, which appears new when compared to prior from 2021. Recommend PET/CT as malignancy is considered in the differential diagnosis. Stable size of intrafissural right middle lobe 0.6 cm nodule, series 3 image 84. Stable superior right lower lobe 2 mm nodule, series 3 image 104. No pleural effusion. Thyroid is unremarkable. No mediastinal or hilar lymphadenopathy. The ascending aorta is ectatic measuring 3.9 cm. Severe atherosclerotic vascular disease in the coronary arteries. Mild atherosclerotic disease in the aorta and branch vessels. Nonobstructive nephrolithiasis in both kidneys. Upper abdominal structures are unremarkable as seen. No acute osseous abnormality. Mild multilevel endplate changes in the visualized spine. IMPRESSION: 1. New left upper lobe 1.6 x 1.1 cm pulmonary nodule. Malignancy considered in the differential diagnosis. Suggest PET CT. 2. Stable additional pulmonary nodules. 3. Severe coronary artery atherosclerosis. 4. Ascending aortic ectasia. Electronically signed by: Delfin Lares II, D.O. Shama Evans DITCH REPAIRER IMG CT PROCEDURES Final R esult * POCT glucose (08/13/2024 9:17 AM CDT) Glucose, POC 98 70 - 199 mg/dL POC Performer [id number] ROGELIO Blood 08/13/2024 9:17 AM CDT 08/13/2024 9:17 AM CDT Gurdeep Verma MD LAB POCT ORDERABLES - DEVICE Final Result ROGELIO [address] Department [place] [address] * LEFT HEART CATHETERIZATION WITH CORONARY ANGIOGRAPHY AND WITH AND WITHOUT LEFT VENTRICULOGRAM (08/13/2024 8:55 AM CDT) Anatomical Region Laterality Modality X-Ray Angiograph y 08/13/2024 Narrative 08/24/2024 3:08 PM CDT textPlus Job ID: [id number] textPlus Document ID: [id number] Dictated date/time: [id number] CARDIAC CATHETERIZATION A 69-year-old patient with hypertension, dyslipidemia, diabetes, smoker with known coronary calcifications had an outpatient stress test for chest discomfort and dyspnea, which was abnormal, comes in for a diagnostic catheterization. PROCEDURE Left heart catheterization, left heart hemodynamics, selective right and left coronary angiography, Angio-Seal closure. SEDATION Start time 8:30 a.m. End time 8:55 a.m. 25 minutes using 3 mg Versed, 75 mcg of fentanyl. Ozzy Strange, nurse independent observer in the room. Case supervised by me throughout. PROCEDURE With Seldinger technique, a 5-Kyrgyz sheath was placed into the right femoral artery. 5-Kyrgyz JL4, JR4 and a pigtail catheter used for diagnostic images, angiograms and hemodynamics. Aortic pressure 142/80. LVEDP 16. No gradient across the aortic valve. Left ventricular angiogram shows ejection fraction 45% to 50% with anterolateral and apical hypokinesis. No significant mitral insufficiency. Coronary angiography shows a balanced circulation. The left main coronary artery is normal. LAD proximally has 80% stenosis. The mid and distal portion had 80% stenosis. The 1st diagonal is small. The 2nd diagonal artery is moderate size with a proximal 70% stenosis. The circumflex artery is codominant. First OM has 2 tandem lesions, 70% and 80%, and a more distal 99% which gives ipsilateral collaterals to the distal segment of that vessel. The 2nd marginal is a small to moderate-sized vessel with diffuse 90% stenosis. The circumflex artery posteriorly is 100% occluded. The distal marginal which is a moderately large vessel fills by ipsilateral collaterals. The right coronary artery is codominant with no significant disease. IMPRESSIONS Multivessel coronary artery disease involving the LAD and the circumflex. Mild LV dysfunction. LVEDP 16. Artery closed using a 6-Kyrgyz Angio-Seal device. Total sedation time [address] Surgery evaluation will be requested. Job ID/Internal Job ID: [id number] Gurdeep Verma MD CV CARDIAC CATH PROCED URES Final Result * eGFR (08/13/2024 6:53 AM CDT) eGFR 82 >=60 mL/min/1. 73 m2 Comment: Interpretive Data Reference Interval Normal >/= 90 mL/min/1.73m2 Mildly decreased* 60 - 89 mL/min/1.73m2 Mildly to moderately decreased 45 - 59 mL/min/1.73m2 Moderately to severely decreased 30 - 44 mL/min/1.73m2 Severely decreased 15 - 29 mL/min/1.73m2 Kidney Failure < 15 mL/min/1.73m2 *Relative to young adult level Estimated glomerular filtration rate is determined by the 2020 CKD-EPI equation recommended by the National Kidney Foundation (A Unifying Approach to GFR Estimation: Recommendations of the NKF-ASK Task Force on Reassessing the Inclusion of Race in Diagnosing Kidney Disease, JASN 2020). The CKD-EPI equation should not be used for patients with unstable renal function and has not been validated in children and those over 70. Current interpretive data was last reviewed 2021. Blood 08/13/2024 6:53 AM CDT 08/13/2024 6:59 AM CDT Gurdeep Verma MD LAB BLOOD ORDERABLES F inal Result ROGELIO [address] [address] Department [place] [address] * Differential, auto (08/13/2024 6:53 AM CDT) Neutrophil abs 6.1 1.5 - 6.5 K/cumm Imm gran abs 0.0 0.0 - 0.1 K/cumm [facility] Lymphocyte abs 2.3 0.8 - 3.3 K/cumm [facility] Monocyte abs 0.7 0.2 - 0.8 K/cumm CERNER Eosinophil abs 0.3 0.0 - 0.5 K/cumm [facility] Basophil abs 0.1 0.0 - 0.1 K/cumm [facility] Neutrophil pct 64.6 % [facility] Comment: Interpretive Data Percent cell count reference ranges are not reported, since discordance with absolute values may lead to misinterpretation of CBC data. Current Interpretive Data was last revised on 2017. Imm gran pct 0.4 % [facility] Comment: Interpretive Data Percent cell count reference ranges are not reported, since discordance with absolute values may lead to misinterpretation of CBC data. Current Interpretive Data was last revised on 2017. Lymphocyte pct 24.6 % [facility] Comment: Interpretive Data Percent cell count reference ranges are not reported, since discordance with absolute values may lead to misinterpretation of CBC data. Current Interpretive Data was last revised on 2017. Monocyte pct 7.3 % [facility] Comment: Interpretive Data Percent cell count reference ranges are not reported, since discordance with absolute values may lead to misinterpretation of CBC data. Current Interpretive Data was last revised on 2017. Eosinophil pct 2.6 % [facility] Comment: Interpretive Data Percent cell count reference ranges are not reported, since discordance with absolute values may lead to misinterpretation of CBC data. Current Interpretive Data was last revised on 2017. Basophil pct 0.5 % [facility] Comment: Interpretive Data Percent cell count reference ranges are not reported, since discordance with absolute values may lead to misinterpretation of CBC data. Current Interpretive Data was last revised on 2017. Blood 08/13/2024 6:53 AM CDT 08/13/2024 7:00 AM CDT us Gurdeep Verma MD LAB BLOOD ORDERABLES F inal Result ROGELIO NORM [address] Department [place] [address] * (ABNORMAL) CBC with auto differential (08/13/2024 6:53 AM CDT) WBC 9.5 3.8 - 9.9 K/cumm Hgb 18.2(H) 13.0 - 17.5 g/dL [facility] Hct 53.7(H) 38.9 - 50.3 % [facility] Plt 177 150 - 400 K/cumm [facility] MPV 10.2 9.1 - 12.3 fL [facility] RBC 5.77 4.30 - 5.80 M/cumm [facility] MCV 93.1 81.3 - 96.4 fL [facility] MCH 31.5 27.1 - 33.3 pg [facility] MCHC 33.9 32.3 - 35.7 g/dL [facility] RDW CV 13.6 11.1 - 14.9 % [facility] RDW SD 46.4 35.7 - 48.1 fL [facility] NRBC abs 0.00 0.00 - 0.01 K/cumm [facility] Blood 08/13/2024 6:53 AM CDT 08/13/2024 7:00 AM CDT Narrative [facility] - 08/13/2024 7:22 AM CDT If most recent labs were drawn prior to 4 AM, draw only prior to initiating procedure. Gurdeep Verma MD LAB BLOOD ORDERABLES F inal Result [facility] [address] Department [place] [address] * Protime-INR (08/13/2024 6:53 AM CDT) PT 10.4 9.7 - 13.0 sec INR 0.96 0.90 - 1.20 [facility] Comment: Interpretive data Oral anticoagulant therapeutic ranges: Venous thromboembolism prophylaxis or treatment: 2.0-3.0 CARDIOLOGY Standard range: 2.0-3.0 High-intensity range: 2.5-3.5 Refer to indication-specific guidelines for appropriate target ranges for prosthetic heart valve replacement. Current interpretive data was last revised on 2019. Blood 08/13/2024 6:53 AM CDT 08/13/2024 7:00 AM CDT Gurdeep Verma MD LAB BLOOD ORDERABLES F inal Result ROGELIO ZHENG [address] Department [place] [address] * Basic metabolic panel (08/13/2024 6:53 AM CDT) Sodium 144 135 - 145 mmol/L Potassium, pl 4.4 3.3 - 4.9 mmol/L [facility] Chloride 108 97 - 110 mmol/L [facility] CH CO2 25 22 - 32 mmol/L [facility] Anion gap 11 2 - 15 mmol/L [facility] BUN 20 6 - 25 mg/dL [facility] Creatinine 0.99 0.80 - 1.30 mg/dL [facility] Glucose 93 70 - 199 mg/dL [facility] Comment: Interpretive Data Fasting glucose >/= 126 mg/dl is diagnostic for diabetes. Fasting is defined as no caloric intake for at least 8 hours. Fasting glucose between 100 mg/dl to 125 mg/dl is diagnostic of prediabetes. In a patient with classic symptoms of hyperglycemia or hyperglycemic crisis, a random glucose >/= 200 mg/dl is diagnostic for diabetes. In the absence of unequivocal hyperglycemia, results should be confirmed by repeat testing. The classification and Diagnosis of Diabetes Diabetes Care 202; 46: S19-S40. Current interpretive data was last revised 2022. Calcium 9.3 8.5 - 10.3 mg/dL [facility] Blood 08/13/2024 6:53 AM CDT 08/13/2024 6:59 AM CDT Gurdeep Verma MD LAB BLOOD ORDERABLES F inal Result ROGELIO ZHENG [address] Department [place] [address] * POCT glucose (08/13/2024 6:38 AM CDT) Glucose, POC 99 70 - 199 mg/dL POC Performer [phone] [facility] Blood 08/13/2024 6:38 AM CDT 08/13/2024 6:38 AM CDT Gurdeep Verma MD LAB POCT ORDERABLES - DEVICE Final Result ROGELIO ZHENG [address] Department [place] [address] * (ABNORMAL) Differential, auto (08/11/2024 10:10 AM CDT) Neutrophil abs 6.6(H) 1.5 - 6.5 K/cumm Comment:Testing performed by : [facility] [place] [address], Medical Office [facility] [address], [place] [address] Imm gran abs 0.0 0.0 - 0.1 K/cumm [facility] ([facility]) Comment:Testing performed by : [facility] [place] [address], Medical Office [facility] [address], [place] [address] Lymphocyte abs 1.5 0.8 - 3.3 K/cumm [facility] ([facility]) Comment:Testing performed by : [facility] [place] [address], Medical Office [facility] [address], [place] [address] Monocyte abs 0.6 0.2 - 0.8 K/cumm [facility] ([facility]) Comment:Testing performed by : [facility] [place] [address], Medical Office [facility] [address], [place] [address] Eosinophil abs 0.1 0.0 - 0.5 K/cumm [facility] ([facility]) Comment:Testing performed by : [facility] [place] [address], Medical Office [facility] [address], [place] [address] Basophil abs 0.1 0.0 - 0.1 K/cumm [facility] ([facility]) Comment:Testing performed by : [facility] [place] [address], Medical Office [facility] [address], [place] [address] Neutrophil pct 74.7 % [facility] ([facility] Comment: Interpretive Data Percent cell count reference ranges are not reported, since discordance with absolute values may lead to misinterpretation of CBC data. Current Interpretive Data was last revised on 2022. Testing performed by: [facility] [place] [address], Medical Office [address], [place] [address] Imm gran pct 0.3 % [facility] ([place]) Comment: Interpretive Data Percent cell count reference ranges are not reported, since discordance with absolute values may lead to misinterpretation of CBC data. Current Interpretive Data was last revised on 2022. Testing performed by: [facility] [place] [address], Medical Office [facility] [address], [place] [address] Lymphocyte pct 17.1 % [facility] ([place] Comment: Interpretive Data Percent cell count reference ranges are not reported, since discordance with absolute values may lead to misinterpretation of CBC data. Current Interpretive Data was last revised on 2022. Testing performed by: [facility] [place] [address], Medical Office [facility] [address], [place] [address] Monocyte pct 6.2 % [facility] ([place] Comment: Interpretive Data Percent cell count reference ranges are not reported, since discordance with absolute values may lead to misinterpretation of CBC data. Current Interpretive Data was last revised on 2022. Testing performed by: [facility] [place] [address], Medical Office [facility] [address], [place] [address] Eosinophil pct 1.1 % [facility] ([place] Comment: Interpretive Data Percent cell count reference ranges are not reported, since discordance with absolute values may lead to misinterpretation of CBC data. Current Interpretive Data was last revised on 2022. Testing performed by: [facility] [place] [address], Medical Office [facility] [address], [place] [address] Basophil pct 0.6 % [facility] ([place] Comment: Interpretive Data Percent cell count reference ranges are not reported, since discordance with absolute values may lead to misinterpretation of CBC data. Current Interpretive Data was last revised on 2022. Testing performed by: [facility] [place] [address], Medical Office [address], [place] [address] Blood 08/11/2024 10:1 0 AM CDT 08/11/2024 10:23 AM CDT Ignacio Cobian MD LAB BLOOD ORDERABLES Final Re sult Performing Organization Address City/[facility]/ZIP Co de Phone Number ROGELIO WILKES ([place]) 1 [facility] Department [place] [address] * Iron profile w/ IBC (08/11/2024 10:10 AM CDT) Iron 109 50 - 150 mcg/dL Comment:Testing performed by : [facility], [place], [address] TIBC 395 250 - 400 mcg/dL ROGELIO WILKES ([place]) Comment:Testing performed by : [place], [address] Transferrin saturation 28 20 - 50 % ROGELIO WILKES ([place]) Comment:Testing performed by : [place], [address] Blood 08/11/2024 10:1 0 AM CDT 08/11/2024 2:02 PM CDT Ignacio Cobian MD LAB BLOOD ORDERABLES Final Re sult Performing Organization Address City/[facility] Co de Phone Number ROGELIO WILKES ([place]) 1 [facility] Department [place] [address] * (ABNORMAL) CBC with auto differential (08/11/2024 10:10 AM CDT) WBC 8.8 3.8 - 9.9 K/cumm Comment:Testing performed by : [facility] [address], Medical Office [address], [place] [address] Hgb 18.2(H) 13.0 - 17.5 g/dL ROGELIO WILKES ([place]) Comment:Testing performed by : [facility] [address], Medical Office [address], [place] [address] Hct 53.6(H) 38.9 - 50.3 % [facility] WILKES ([place]) Comment:Testing performed by : [facility] [address], Medical Office [address], [place] [address] Plt 165 150 - 400 K/cumm [facility] ([place]) Comment:Testing performed by : [facility] [address], Medical Office [facility] [address], [place] [address] MPV 10.0 9.1 - 12.3 fL [facility] ([place]) Comment:Testing performed by : [facility] [address], Medical Office [facility] [address], [place] [address] RBC 5.80 4.30 - 5.80 M/cumm [facility] ([place]) Comment:Testing performed by : [facility] [address], Medical Office [facility] [address], [place] [address] MCV 92.4 81.3 - 96.4 fL [facility] ([place]) Comment:Testing performed by : [facility] [address], Medical Office [facility] [address], [place] [address] MCH 31.4 27.1 - 33.3 pg [facility] ([place]) Comment:Testing performed by : [facility] [address], Medical Office [facility] [address], [place] [address] MCHC 34.0 32.3 - 35.7 g/dL [facility] ([place]) Comment:Testing performed by : [facility] [address], Medical Office [facility] [address], [place] [address] RDW CV 13.7 11.1 - 14.9 % [facility] ([place]) Comment:Testing performed by : [facility] [address], Medical Office [facility] [address], [place] [address] RDW SD 46.6 35.7 - 48.1 fL [facility] ([place]) Comment:Testing performed by : [facility] [address], Medical Office [address], [place] [address] NRBC abs Not Measured 0.00 - 0.01 K/cumm [facility] ([place]) Comment:Testing performed by : [facility] [address], Medical Office [facility] [address], [place] [address] Blood 08/11/2024 10:1 0 AM CDT 08/11/2024 10:23 AM CDT Ignacio Cobian MD LAB BLOOD ORDERABLES Final Re sult Performing Organization Address City/[facility]/ZIP Co de Phone Number REGINABRANDIE WILKES ([place]) [address] [place] [address] of [place] [address] * Erythrocyte sedimentation rate (08/11/2024 10:10 AM CDT) Erythrocyte sedimentation rate 5 1 - 20 mm/hr Comment:Testing performed by : [place], [address] Blood 08/11/2024 10:1 0 AM CDT 08/11/2024 2:03 PM CDT Ignacio Cobian MD LAB BLOOD ORDERABLES Final Re sult Performing Organization Address [facility] Co de Phone Number ROGELIO WILKES ([place]) [address] [place] [address] [place] [address] * (ABNORMAL) Reticulocyte Count (08/11/2024 10:10 AM CDT) Retics, absolute 0.095(H) 0.020 - 0.087 M/cumm Comment:Testing performed by : [place], [address] Retics 1.6 0.4 - 2.9 % ROGELIO WILKES ([place]) Comment:Testing performed by : [place], [address] Reticulocyte Hgb 36.0 30.5 - 38.0 pg [facility] ([facility]) Comment:Testing performed by : [place], [address] Blood 08/11/2024 10:1 0 AM CDT 08/11/2024 2:03 PM CDT Ignacio Cobian MD LAB BLOOD ORDERABLES Final Re sult Performing Organization Address City/[facility]/ZIP Co de Phone Number REGINABRANDIE WILKES ([place]) [address] [place] [address] Department [place] [address] * CRP (acute phase) (08/11/2024 10:10 AM CDT) CRP <3.0 <=10.0 mg/L Comment:Testing performed by : [place], [address] Blood 08/11/2024 10:1 0 AM CDT 08/11/2024 2:02 PM CDT Ignacio Cobian MD LAB BLOOD ORDERABLES Final Re sult ROGELIO WILKES ([place]) [address] [place] [address] [place] [address] * Ferritin (08/11/2024 10:10 AM CDT) Pathologist [facility] Ferritin 68 30 - 400 ng/mL Comment:Testing performed by : [place], [address] Blood 08/11/2024 10:1 0 AM CDT 08/11/2024 2:02 PM CDT Ignacio Cobian MD LAB BLOOD ORDERABLES Final Re sult ROGELIO WILKES ([place]) [address] [place] [address] [place] [address] * NM MPI Spect (Rest And Stress) Multiple Studies (07/27/2024 9:30 AM MAIL FORWARDING SYSTEM MARKUP CLERK) Anatomical Region Laterality Modality Body N/A Nuclear Medicine 07/27/2024 10:1 6 AM MAIL FORWARDING SYSTEM MARKUP CLERK Narrative 07/27/2024 10:24 AM MAIL FORWARDING SYSTEM MARKUP CLERK EXAM DESCRIPTION: NM MPI SPECT (REST AND/OR STRESS) MULTIPLE STUDIES RADIOPHARMACEUTICAL: Rest: 10.9 mCi Tc-99m tetrofosmin via a right arm IV site Pharmacologic Stress: 32.5 mCi Tc-99m tetrofosmin via a right arm IV site REASON FOR STUDY: Light-headedness, fatigue with exertion, Light-headedness, fatigue with exertion TECHNIQUE: Standard myocardial perfusion SPECT images were obtained after resting tracer injection. Subsequently, an intravenous infusion of regadenoson was performed. Standard myocardial perfusion images were obtained after tracer injection at the peak effect of the drug. COMPARISON: None FINDINGS: There is decreased perfusion to the apex and lateral wall during stress. Images at rest demonstrate reversibility in the lateral wall consistent with myocardial ischemia. No reversibility is demonstrated at the cardiac apex, consistent with infarct. Gated post-stress images demonstrate dyskinesia. The left ventricular volume is normal and the left ventricular ejection fraction is 64% (normal >45%). IMPRESSION: Large reversible perfusion defect in the lateral wall consistent with myocardial ischemia. Small fixed perfusion defects in the cardiac apex consistent with infarct. Normal left ventricular size and systolic function. THIS IS AN ELECTRONICALLY VERIFIED FINAL REPORT 07/27/2024 10:24 AM - Electronically signed by Maddie Barr M.D. FT: FT Report ID: [id number] Reading Location: [id number] Procedure Note Maddie Lantigua MD - 07/27/2024 EXAM DESCRIPTION: NM MPI SPECT (REST AND/OR STRESS) MULTIPLE STUDIES RADIOPHARMACEUTICAL: Rest: 10.9 mCi Tc-99m tetrofosmin via a rightarm IV site Pharmacologic Stress: 32.5 mCi Tc-99m tetrofosmin via a right armIV site REASON FOR STUDY: Light-headedness, fatigue with exertion,Light-headedness, fatigue with exertion TECHNIQUE: Standard myocardial perfusion SPECT images were obtained after resting tracer injection. Subsequently, an intravenous infusion of regadenoson was performed. Standard myocardial perfusion images wereobtained after tracer injection at the peak effect of the drug. COMPARISON: None FINDINGS: There is decreased perfusion to the apex and lateral wall during stress. Images at rest demonstrate reversibility in the lateral wall consistentwith myocardial ischemia. No reversibility is demonstrated at the cardiacapex, consistent with infarct. Gated post-stress images demonstrate dyskinesia. The left ventricular volume is normal and the left ventricular ejection fraction is 64%(normal >45%). IMPRESSION: Large reversible perfusion defect in the lateral wall consistent with myocardial ischemia. Small fixed perfusion defects in the cardiac apex consistent with infarct. Normal left ventricular size and systolic function. THIS IS AN ELECTRONICALLY VERIFIED FINAL REPORT 07/27/2024 10:24 AM - Electronically signed by Maddie Barr M.D. FT: FT Report ID: [id number] Reading Location: [place] [address] Haja Mancuso DITCH REPAIRER IMG IN PROCEDURES Final Result * Stress Test for Myocardial Perfusion (07/27/2024 9:30 AM MAIL FORWARDING SYSTEM MARKUP CLERK) Anatomical Region Laterality Modality Nuclear Medicine 07/27/2024 7:45 AM MAIL FORWARDING SYSTEM MARKUP CLERK Narrative 07/27/2024 12:15 PM MAIL FORWARDING SYSTEM MARKUP CLERK [address] [address] [employer] Report ADDENDUM Patient Name: JORGE HOLDEN W : 1955 Study Date: 07/27/2024 7:45:00 AM Gender: M Tech: jj Balbuena Provider: HAJA MANCUSO Height(Cm): 183 BSA: 3.12 Weight(Kg): 192 Heart Rate: 128 Order Provider: HAJA MANCUSO PROCEDURES: Pharmacologic SPECT Report.: Myocardial perfusion imaging with Sestamibi SPECT at rest and post regadenoson (Lexiscan) infusion. 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 FINDINGS: Procedure Data: Resting HR 66 bpm Peak HR: 96 bpm Predicted Maximal HR 150 bpm Target HR: 128 bpm Percent Max Predicted HR Achieved: 64.00 % Baseline BP: 158/89 mmHg Peak BP: 180/94 mmHg Exercise Time: 00:10 Medications: Medications None, aspirin, bumex, capoten, cardura, carvedilol (Coreg), clonidine, coumadin, cozaar, digoxin, diltiazem, diovan, hydrochlorothiazide, hytrin, isordil, lasix, lipitor, metoprolol, multaq, niacin, norvasc, potassium, pravachol, procardia, propanolol, rythmol, simvastatin, toprol, trandate, vasotec, verapamil, zaroxolyn, zocor and free text. Performed By: Supervising Physician: The Supervising Physician is migdalia fuentes. Reason for Termination: Lexiscan protocol complete. Resting ECG: Normal sinus rhythm at 66 beats per minute, right axis deviation, old anteroseptal [place], poor R-wave progression. Post Pharm ECG: No diagnostic ST changes. Arrhythmia: No arrhythmias seen. Cardiac Symptoms With Stress: Symptoms with stress were None. Exam Interpreted: Read by . CONCLUSIONS: 1. Negative Lexiscan pharmacologic stress test for chest pain or EKG changes. 2. Nuclear images are pending and they will be reported separately. Electronically Signed By: Dr Andrez López 2024-07-27 11:41:13 MAIL FORWARDING SYSTEM MARKUP CLERK Electronically Amended By: Dr Andrez López 07/27/2024 11:45:50 AM MAIL FORWARDING SYSTEM MARKUP CLERK [ADDENDUM] Procedure Note Andrez López MD - 07/27/[address] [place] [place] [address] Lexiscan Report ADDENDUM Patient Name: JORGE HOLDEN W : 1955 Study Date: 07/27/2024 7:45:00 AM Gender: M Tech: jj rankin Ref Provider: HAJA MANCUSO Height(Cm): 183 BSA: 3.12 Weight(Kg): 192 Heart Rate: 128 Order Provider: HAJA MANCUSO PROCEDURES: Pharmacologic SPECT Report.: Myocardial perfusion imaging with Sestamibi SPECT at rest and postregadenoson (Lexiscan) infusion. 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 FINDINGS: Procedure Data: Resting HR 66 bpm Peak HR: 96 bpm Predicted Maximal HR 150 bpm Target HR: 128 bpm Percent Max Predicted HR Achieved: 64.00 % Baseline BP: 158/89 mmHg Peak BP: 180/94 mmHg Exercise Time: 00:10 Medications: Medications None, aspirin, bumex, capoten, cardura, carvedilol (Coreg),clonidine, coumadin, cozaar, digoxin, diltiazem, diovan, hydrochlorothiazide, hytrin,isordil, lasix, lipitor, metoprolol, multaq, niacin, norvasc, potassium, pravachol,procardia, propanolol, rythmol, simvastatin, toprol, trandate, vasotec, verapamil,zaroxolyn, zocor and free text. Performed By: Supervising Physician: The Supervising Physician is migdalia fuentes. Reason for Termination: Lexiscan protocol complete. Resting ECG: Normal sinus rhythm at 66 beats per minute, right axis deviation, oldanteroseptal [place], poor R-wave progression. Post Pharm ECG: No diagnostic ST changes. Arrhythmia: No arrhythmias seen. Cardiac Symptoms With Stress: Symptoms with stress were None. Exam Interpreted: Read by . CONCLUSIONS: 1. Negative Lexiscan pharmacologic stress test for chest pain or EKGchanges. 2. Nuclear images are pending and they will be reported separately. Electronically Signed By: Dr Andrez López 2024-07-27 11:41:13 MAIL FORWARDING SYSTEM MARKUP CLERK Electronically Amended By: Dr Andrez López 07/27/2024 11:45:50 AM MAIL FORWARDING SYSTEM MARKUP CLERK [ADDENDUM] us Haja Mancuso NP CV STRESS PROCEDURES Edited Resu lt - Final * MCT Mobile Cardiac Telemetry Event Monitor (07/27/2024 7:06 AM MAIL FORWARDING SYSTEM MARKUP CLERK) Anatomical Region Laterality Modality Electrocardiogra phy 08/08/2024 11:5 9 PM CDT Narrative 08/10/2024 8:54 AM CDT [address] [place] [address] EVENT MONITOR Patient Name: JORGE HOLDEN W : 1955 Study Date: 08/08/2024 11:59:00 PM Gender: M Tech: Ref Provider: HAJA MANCUSO Height(Cm): BSA: Weight(Kg): Order Provider: HAJA MANCUSO PROCEDURES: Event Report: Event Monitor Report. INDICATIONS: R42 Dizziness and giddiness and T73.3XXA Exhaustion due to excessive exertion, initial encounter. FINDINGS: CONCLUSIONS: 1. Predominant rhythm is normal sinus rhythm with a minimum heart rate of 52 beats per minute sinus and a maximum heart rate of 131 beats per minute also in sinus. Average heart rate of 73 beats per minute. Heart rate was controlled 85% of the time, deepali 10% of the time and tachy 5% of the time. 2. Heart rate and rate variability is appropriate. 3. No prolonged pauses. 4. Rare PACs with 206 PACs amounting to less than 1% of total beats. 5. Rare PVCs with 2,086 PVCs amounting to less than 1% of total beats. 6. The patient recorded no symptoms during the study. 7. There was only 1 auto triggered event and it was in sinus rhythm at 77 beats per minute with no significant findings. Electronically Signed By: Dr Andrez López 08/10/2024 8:53:36 AM CDT Procedure Note Andrez López MD - 08/10/[address] [address] EVENT MONITOR Patient Name: JORGE HOLDEN W : 1955 Study Date: 08/08/2024 11:59:00 PM Gender: M Tech: Ref Provider: HAJA MANCUSO Height(Cm): BSA: Weight(Kg): Order Provider: HAJA MANCUSO PROCEDURES: Event Report: Event Monitor Report. INDICATIONS: R42 Dizziness and giddiness and T73.3XXA Exhaustion due to excessiveexertion, initial encounter. FINDINGS: CONCLUSIONS: 1. Predominant rhythm is normal sinus rhythm with a minimum heart rate of52 beats per minute sinus and a maximum heart rate of 131 beats per minute also insinus. Average heart rate of 73 beats per minute. Heart rate was controlled 85% of the time, deepali 10% of the time and tachy5% of the time. 2. Heart rate and rate variability is appropriate. 3. No prolonged pauses. 4. Rare PACs with 206 PACs amounting to less than 1% of total beats. 5. Rare PVCs with 2,086 PVCs amounting to less than 1% of total beats. 6. The patient recorded no symptoms during the study. 7. There was only 1 auto triggered event and it was in sinus rhythm at 77beats per minute with no significant findings. Electronically Signed By: Dr Andrez López 08/10/2024 8:53:36 AM CDT Haja Mancuso NP CV CARDIAC SERVICES PROCEDURES F inal Result * ECG 12-LEAD (07/19/2024 11:09 AM MAIL FORWARDING SYSTEM MARKUP CLERK) Narrative Haja Mancuso NP - 07/19/2024 11:09 AM MAIL FORWARDING SYSTEM MARKUP CLERK Haja Mancuso NP 07/19/2024 11:09 AM ECG 12 lead Date/Time: 07/19/2024 11:09 AM Performed by: Haja Mancuso NP Authorized by: Haja Mancuso NP Rhythm: sinus rhythm Ectopy: frequent PVCs ST Segments: ST segments normal T Waves: T waves normal Haja Mancuso NP ECG ORDERABLES Edited Result - Final * eGFR (07/19/2024 11:09 AM MAIL FORWARDING SYSTEM MARKUP CLERK) eGFR 75 >=60 mL/min/1. 73 m2 Comment: Interpretive Data Reference Interval Normal >/= 90 mL/min/1.73m2 Mildly decreased* 60 - 89 mL/min/1.73m2 Mildly to moderately decreased 45 - 59 mL/min/1.73m2 Moderately to severely decreased 30 - 44 mL/min/1.73m2 Severely decreased 15 - 29 mL/min/1.73m2 Kidney Failure < 15 mL/min/1.73m2 *Relative to young adult level Estimated glomerular filtration rate is determined by the 2020 CKD-EPI equation recommended by the National Kidney Foundation (A Unifying Approach to GFR Estimation: Recommendations of the NKF-ASK Task Force on Reassessing the Inclusion of Race in Diagnosing Kidney Disease, JASN 202). The CKD-EPI equation should not be used for patients with unstable renal function and has not been validated in children and those over 70. Current interpretive data was last reviewed 2021. Blood 07/19/2024 11:0 9 AM MAIL FORWARDING SYSTEM MARKUP CLERK 07/19/2024 10:02 PM MAIL FORWARDING SYSTEM MARKUP CLERK Haja Mancuso NP LAB BLOOD ORDERABLES Final Resul t ROGELIO [id number] Department [place] [address] * (ABNORMAL) Differential, auto (07/19/2024 11:09 AM MAIL FORWARDING SYSTEM MARKUP CLERK) Neutrophil abs 9.5(H) 1.5 - 6.5 K/cumm Imm gran abs 0.0 0.0 - 0.1 K/cumm [facility] Lymphocyte abs 1.8 0.8 - 3.3 K/cumm [facility] Monocyte abs 0.9(H) 0.2 - 0.8 K/cumm [facility] Eosinophil abs 0.1 0.0 - 0.5 K/cumm [facility] Basophil abs 0.1 0.0 - 0.1 K/cumm [facility] Neutrophil pct 76.7 % [facility] Comment: Interpretive Data Percent cell count reference ranges are not reported, since discordance with absolute values may lead to misinterpretation of CBC data. Current Interpretive Data was last revised on 2017. Imm gran pct 0.2 % [facility] Comment: Interpretive Data Percent cell count reference ranges are not reported, since discordance with absolute values may lead to misinterpretation of CBC data. Current Interpretive Data was last revised on 2017. Lymphocyte pct 14.4 % [facility] Comment: Interpretive Data Percent cell count reference ranges are not reported, since discordance with absolute values may lead to misinterpretation of CBC data. Current Interpretive Data was last revised on 2017. Monocyte pct 7.4 % [facility] Comment: Interpretive Data Percent cell count reference ranges are not reported, since discordance with absolute values may lead to misinterpretation of CBC data. Current Interpretive Data was last revised on 2017. Eosinophil pct 0.9 % [facility] Comment: Interpretive Data Percent cell count reference ranges are not reported, since discordance with absolute values may lead to misinterpretation of CBC data. Current Interpretive Data was last revised on 2017. Basophil pct 0.4 % [facility] Comment: Interpretive Data Percent cell count reference ranges are not reported, since discordance with absolute values may lead to misinterpretation of CBC data. Current Interpretive Data was last revised on 2017. Blood 07/19/2024 11:0 9 AM MAIL FORWARDING SYSTEM MARKUP CLERK 07/19/2024 9:41 PM MAIL FORWARDING SYSTEM MARKUP CLERK us Haja Mancuso DITCH REPAIRER LAB BLOOD ORDERABLES Final Resul t Performing Organization Address [facility] de Phone Number ROGELIO ZHENG [id number] [facility] [employer] [place], [place] [id number] * Thyroid Function Hawley (07/19/2024 11:09 AM MAIL FORWARDING SYSTEM MARKUP CLERK) TSH 1.63 0.30 - 4.20 mcIUnit/mL Blood 07/19/2024 11:0 9 AM MAIL FORWARDING SYSTEM MARKUP CLERK 07/19/2024 9:41 PM MAIL FORWARDING SYSTEM MARKUP CLERK us Haja Mancuso DITCH REPAIRER LAB BLOOD ORDERABLES Final Resul t Performing Organization Address [facility] de Phone Number ROGELIO ZHENG [id number] [facility] [employer] [place], [place] [id number] * (ABNORMAL) CBC with auto differential (07/19/2024 11:09 AM MAIL FORWARDING SYSTEM MARKUP CLERK) WBC 12.3(H) 3.8 - 9.9 K/cumm Hgb 19.0(H) 13.0 - 17.5 g/dL [facility] Hct 58.1(H) 38.9 - 50.3 % [facility] Plt 200 150 - 400 K/cumm [facility] MPV 11.4 9.1 - 12.3 fL [facility] RBC 6.01(H) 4.30 - 5.80 M/cumm [facility] MCV 96.7(H) 81.3 - 96.4 fL [facility] MCH 31.6 27.1 - 33.3 pg [facility] MCHC 32.7 32.3 - 35.7 g/dL [facility] RDW CV 13.8 11.1 - 14.9 % [facility] RDW SD 49.6(H) 35.7 - 48.1 fL [facility] NRBC abs 0.00 0.00 - 0.01 K/cumm [facility] Blood 07/19/2024 11:0 9 AM MAIL FORWARDING SYSTEM MARKUP CLERK 07/19/2024 9:41 PM MAIL FORWARDING SYSTEM MARKUP CLERK us Haja Mancuso DITCH REPAIRER LAB BLOOD ORDERABLES Final Resul t Performing Organization Address [facility] Co de Phone Number ROGELIO ZHENG [address] [facility] [place] [employer] [place] [address] * Magnesium (07/19/2024 11:09 AM MAIL FORWARDING SYSTEM MARKUP CLERK) Magnesium 2.3 1.4 - 2.5 mg/dL Blood 07/19/2024 11:0 9 AM MAIL FORWARDING SYSTEM MARKUP CLERK 07/19/2024 9:41 PM MAIL FORWARDING SYSTEM MARKUP CLERK Haja Mancuso DITCH REPAIRER LAB BLOOD ORDERABLES Final Resul t Performing Organization Address [facility] de Phone Number ROGELIO ZHENG [address] [facility] [place] [place] [address] * Iron level (07/19/2024 11:09 AM MAIL FORWARDING SYSTEM MARKUP CLERK) Pathologist [facility] Iron 141 50 - 150 mcg/dl Blood 07/19/2024 11:0 9 AM MAIL FORWARDING SYSTEM MARKUP CLERK 07/19/2024 9:41 PM MAIL FORWARDING SYSTEM MARKUP CLERK us Haja Mancuso DITCH REPAIRER LAB BLOOD ORDERABLES Final Resul t Performing Organization Address [facility] de Phone Number ROGELIO ZHENG [address] [facility] [place] [place] [address] * (ABNORMAL) Comprehensive metabolic panel (07/19/2024 11:09 AM MAIL FORWARDING SYSTEM MARKUP CLERK) Pathologist [facility] Sodium 145 135 - 145 mmol/L Potassium, pl 4.8 3.3 - 4.9 mmol/L [facility] Chloride 104 97 - 110 mmol/L [facility] CO2 27 22 - 32 mmol/L [facility] Anion gap 14 2 - 15 mmol/L [facility] BUN 21 6 - 25 mg/dL [facility] Creatinine 1.07 0.80 - 1.30 mg/dL [facility] Glucose 46(C) 70 - 199 mg/dL [facility] Comment: Critical Result called to and read back by Norma Chin, DATE: 2024-07-19 22:55:17 BY: Sarabjit De Paz Interpretive Data Fasting glucose >/= 126 mg/dl is diagnostic for diabetes. Fasting is defined as no caloric intake for at least 8 hours. Fasting glucose between 100 mg/dl to 125 mg/dl is diagnostic of prediabetes. In a patient with classic symptoms of hyperglycemia or hyperglycemic crisis, a random glucose >/= 200 mg/dl is diagnostic for diabetes. In the absence of unequivocal hyperglycemia, results should be confirmed by repeat testing. The classification and Diagnosis of Diabetes Diabetes Care 2021; 46: S19-S40. Current interpretive data was last revised 2022. Calcium 10.1 8.5 - 10.3 mg/dL [facility] Bilirubin, total 1.2 0.1 - 1.2 mg/dL [facility] Protein, pl 7.6 6.5 - 8.5 g/dL [facility] Albumin 4.6 3.5 - 5.0 g/dL [facility] Alk phos 92 40 - 130 Units/L [facility] ALT 28 7 - 55 Units/L [facility] AST 31 10 - 50 Units/L [facility] Blood 07/19/2024 11:0 9 AM MAIL FORWARDING SYSTEM MARKUP CLERK 07/19/2024 9:41 PM MAIL FORWARDING SYSTEM MARKUP CLERK Haja Mancuso NP LAB BLOOD ORDERABLES Final Resul t [facility] [id number] Department [place] [address] * POCT hemoglobin A1c (06/30/2024 9:33 AM MAIL FORWARDING SYSTEM MARKUP CLERK) Hemoglobin A1C, POC 7.7 4.0 - 5.6 % Blood 06/30/2024 9:33 AM MAIL FORWARDING SYSTEM MARKUP CLERK Shama Segura DITCH REPAIRER POINT OF CARE TEST ORDERABLES F inal Result * POCT glucose (06/30/2024 9:33 AM MAIL FORWARDING SYSTEM MARKUP CLERK) Glucose Blood, POC 157 mg/dL Blood 06/30/2024 9:33 AM MAIL FORWARDING SYSTEM MARKUP CLERK Shama Segura DITCH REPAIRER POINT OF CARE TEST ORDERABLES F inal Result * PSA screen (01/21/2024 12:00 PM CDT) PSA-Total 1.15 <=5.40 ng/mL Comment: Interpretive Data AGE SEX REFERENCE INTERVAL 0 minutes-150 years Female None 0 minutes-49 years Male None 50-59 years Male 0-3.90 60-69 years Male 0-5.40 70-79 years Male 0-6.20 80-150 years Male 0-6.20 The Freddy PSA Total assay procedure was used. Results from different manufacturers or methods may not be comparable. Serial testing should be performed using the same method. Current interpretive data last revised 21. Blood 01/21/2024 12:0 0 PM CDT 01/21/2024 3:05 PM CDT Sagar Benítez MD LAB BLOOD ORDERABLES Final Result Performing Organization Address [facility] Co de Phone Number ROGELIO ZHENG [address] [place] [address] * (ABNORMAL) Albumin Creatinine Ratio, Urine (01/21/2024 12:00 PM CDT) Albumin Ur 41.4 mg/L Comment: Interpretive Data No reference range established. Current interpretive data was last revised 2018. Creatinine Ur 98.9 mg/dL [facility] Comment: Interpretive Data No reference range established. Current interpretive data was last revised 2018. Albumin Creatinine Ratio, Ur 42(H) 1 - 29 mg/g ROGELIO Urine 01/21/2024 12:0 0 PM CDT 01/21/2024 3:05 PM CDT Sagar Benítez MD LAB URINE ORDERABLES Final Result Performing Organization Address City/[facility] Co de Phone Number ROGELIO [address] [facility] [employer] [place], [place] [id number] * CT Chest WO Contrast F/U Lung Screen Protocol (11/12/2021 3:45 PM CDT) Anatomical Region Laterality Modality Chest N/A Computed Tomogra phy 11/13/2021 10:0 8 AM CDT Narrative 11/13/2021 10:17 AM CDT EXAM DESCRIPTION: CT CHEST WO CONTRAST F/U LUNG SCREEN PROTOCOL REASON FOR STUDY: Screening CT of the chest in a former smoker with a 41 pack year smoking history. Additional history: Cigarette smoking cessation 6 years ago. The patient currently smokes cigars. Category 3 finding on previous lung cancer screening CT performed in April 2021. TECHNIQUE: Low dose CT scan of the chest was performed without intravenous contrast using helical scanning technique. The exam extends from the lung apices through the lung bases. Automatic exposure control was used as a dose optimization technique. RADIATION DOSE: CT dose index volume (CTDIvol) = 2.09 mGy COMPARISON: CT of the chest dated 04/26/2021. FINDINGS: SMOKING RELATED LUNG DISEASE: Mild emphysema with upper lung predominance. This is mostly centrilobular, but paraseptal components are also noted. LUNG NODULES: A polygonal-shaped nodule is redemonstrated in the periphery of the right lower lobe on axial image 220, measuring approximately 6 mm. This has not suspiciously changed in size or appearance compared to the previous study, and may represent a benign subpleural lymph node. A flat 6 mm nodular opacity is again noted in proximity to the right minor fissure on axial image 167. This is favored to represent either a fissural lymph node or an area of scarring, and there has been no suspicious interval change. Unchanged 5 mm solid nodule in the left upper lobe on image 128. There is also an unchanged solid left upper lobe nodule on image 130, measuring 4 mm. Other tiny nodules, including calcified granulomas are stable. OTHER: Minimal areas of scarring. No focal consolidation. The airways are patent and normal in caliber. There is no significant bronchial wall thickening. No pleural effusion or pneumothorax. No suspicious lymphadenopathy is noted in the chest. The heart size is normal. Severe calcified plaques in the coronary arteries. There is no pericardial effusion. The ascending aorta is ectatic, measuring approximately 3.8 cm in diameter. There is no aneurysm. The central pulmonary arteries have normal caliber. Limited low-dose images through the upper abdomen are unremarkable. Examination of bone windows demonstrates no suspicious lytic or blastic lesions. IMPRESSION: 1. Multiple small lung nodules appear unchanged, as described in detail above. The largest nodules measuring up to 6 mm are favored to represent subpleural/fissural lymph nodes. No new suspicious lung nodules are identified in either lung. 2. Mild emphysema with upper lung predominance. 3. Severe calcified plaques in the coronary arteries. Consider cardiology evaluation. 4. Other findings as described above. Lung-RADS v1.1 category 2S: Benign appearance or behavior. Finding other than a pulmonary nodule which is potentially clinically significant. Recommendation: Continue annual screening low-dose chest CT in 12 months. THIS IS AN ELECTRONICALLY VERIFIED FINAL REPORT 11/13/2021 10:17 AM - Electronically signed by Mc Estevez M.D. RL: GONZALO Report ID: [id number] Reading Location: [id number] Procedure Note cM Hernandes MD - 11/13/2021 EXAM DESCRIPTION: CT CHEST WO CONTRAST F/U LUNG SCREEN PROTOCOL REASON FOR STUDY: Screening CT of the chest in a former smoker with a41 pack year smoking history. Additional history: Cigarette smoking cessation6 years ago. The patient currently smokes cigars. Category 3 finding on previous lung cancer screening CT performed in April 2021. TECHNIQUE: Low dose CT scan of the chest was performed without intravenous contrast using helical scanning technique. The exam extends from the lung apices through the lung bases. Automatic exposure control was used as adose optimization technique. RADIATION DOSE: CT dose index volume (CTDIvol) = 2.09 mGy COMPARISON: CT of the chest dated 04/26/2021. FINDINGS: SMOKING RELATED LUNG DISEASE: Mild emphysema with upper lungpredominance. This is mostly centrilobular, but paraseptal components are also noted. LUNG NODULES: A polygonal-shaped nodule is redemonstrated in theperiphery of the right lower lobe on axial image 220, measuring approximately 6 mm. This has not suspiciously changed in size or appearance compared to the previous study, and may represent a benign subpleural lymph node. A flat6 mm nodular opacity is again noted in proximity to the right minor fissureon axial image 167. This is favored to represent either a fissural lymphnode or an area of scarring, and there has been no suspicious interval change. Unchanged 5 mm solid nodule in the left upper lobe on image 128. There is also an unchanged solid left upper lobe nodule on image 130, measuring 4mm. Other tiny nodules, including calcified granulomas are stable. OTHER: Minimal areas of scarring. No focal consolidation. The airwaysare patent and normal in caliber. There is no significant bronchial wall thickening. No pleural effusion or pneumothorax. No suspicious lymphadenopathy is noted in the chest. The heart size is normal. Severe calcified plaques in the coronary arteries. There is no pericardialeffusion. The ascending aorta is ectatic, measuring approximately 3.8 cm indiameter. There is no aneurysm. The central pulmonary arteries have normal caliber. Limited low-dose images through the upper abdomen are unremarkable. Examination of bone windows demonstrates no suspicious lytic or blastic lesions. IMPRESSION: 1. Multiple small lung nodules appear unchanged, as described in detail above. The largest nodules measuring up to 6 mm are favored to represent subpleural/fissural lymph nodes. No new suspicious lung nodules are identified in either lung. 2. Mild emphysema with upper lung predominance. 3. Severe calcified plaques in the coronary arteries. Considercardiology evaluation. 4. Other findings as described above. Lung-RADS v1.1 category 2S: Benign appearance or behavior. Finding otherthan a pulmonary nodule which is potentially clinically significant. Recommendation: Continue annual screening low-dose chest CT in 12 months. THIS IS AN ELECTRONICALLY VERIFIED FINAL REPORT 11/13/2021 10:17 AM - Electronically signed by Mc Estevez M.D. RL: GONZALO Report ID: [id number] Reading Location: [id number] us Haja Mancuso DITCH REPAIRER IMG CT PROCEDURES Final Result * US Abdominal Aortic Aneurysm Screening (12/06/2020 8:16 AM CDT) Anatomical Region Laterality Modality Abdomen Ultrasound 12/06/2020 8:20 AM CDT Narrative 12/06/2020 8:22 AM CDT EXAM DESCRIPTION: US ABDOMINAL AORTIC ANEURYSM SCREENING REASON FOR STUDY: AAA screening for hx of smoking and age Duration: na TECHNIQUE: Grayscale images acquired of the aorta and stored on PACS. Selected color Doppler and spectral images recorded. COMPARISON: None FINDINGS: There are mild atherosclerotic changes abdominal aorta without definite sonographic evidence of abdominal aortic aneurysm. AORTIC CALIBER MAXIMAL PROXIMAL: 2.9 x 2.6 cm. MID: 2.3 x 2.1 cm. DISTAL: 1.9 x 1.9 cm. ILIAC DIAMETER RIGHT: 1.0 cm. LEFT: 1.4 cm. OTHER: No other significant finding. IMPRESSION: 1. Mild atherosclerotic changes abdominal aorta without definite sonographic evidence of abdominal aortic aneurysm. THIS IS AN ELECTRONICALLY VERIFIED FINAL REPORT 12/06/2020 8:22 AM - Electronically signed by Elvis Riley D.O. PS: PS Report ID: [id number] Reading Location: [id number] Procedure Note Elvis Riley, DO - 12/06/2020 EXAM DESCRIPTION: US ABDOMINAL AORTIC ANEURYSM SCREENING REASON FOR STUDY: AAA screening for hx of smoking and age Duration: na TECHNIQUE: Grayscale images acquired of the aorta and stored on PACS. Selected color Doppler and spectral images recorded. COMPARISON: None FINDINGS: There are mild atherosclerotic changes abdominal aorta without definite sonographic evidence of abdominal aortic aneurysm. AORTIC CALIBER MAXIMAL PROXIMAL: 2.9 x 2.6 cm. MID: 2.3 x 2.1 cm. DISTAL: 1.9 x 1.9 cm. ILIAC DIAMETER RIGHT: 1.0 cm. LEFT: 1.4 cm. OTHER: No other significant finding. IMPRESSION: 1. Mild atherosclerotic changes abdominal aorta without definitesonographic evidence of abdominal aortic aneurysm. THIS IS AN ELECTRONICALLY VERIFIED FINAL REPORT 12/06/2020 8:22 AM - Electronically signed by Elvis Riley D.O. PS: PS Report ID: [id number] Reading Location: [id number] us Haja Mancuso NP IMG US PROCEDURES Final Result * Diabetic Eye Exam (06/29/2020) us Historical Provider HEALTH MAINTENANCE Final Result * Hepatitis C antibody (06/27/2020 2:29 PM MAIL FORWARDING SYSTEM MARKUP CLERK) Hep C Ab Nonreactive Nonreactive ROGELIO WILKES (SHILO) Comment: Interpretive Data Nonreactive: Antibodies to HCV not detected. Does NOT exclude the possibility of recent exposure to HCV. Equivocal: Equivocal for HCV antibodies. Supplemental molecular testing will be automatically performed to determine infection status in accordance with current CDC screening recommendations. Reactive: Positive for HCV antibodies. This may represent current or past HCV infection. Supplemental molecular testing will be automatically performed to determine current infection status in accordance with current CDC screening recommendations. Interpretive data was last revised on 2019. Testing performed by: [facility], [address] [place] [address], [place]., [address] Blood specimen (specimen) 06/27/2020 2:29 PM MAIL FORWARDING SYSTEM MARKUP CLERK 06/27/2020 8:46 PM MAIL FORWARDING SYSTEM MARKUP CLERK Sagar Benítez MD LAB MICROBIOLOGY - GENERAL ORDERABLES Final Result ROGELIO WILKES (SHILO) 1 [facility] Department [place] [address] * DIABETES FOOT EXAM (11/14/2017) Pathologist [facility] Diabetic Foot Exam Unknown Historical [employer] MAINTENANCE Final Result * Colonoscopy (06/06/2014) Anatomical Region Laterality Modality Other Hector Ellington MD ENDOSCOPY PROCEDURES Rupali l Result from Last 3 Months or Most Recently Relevant to Health Maintenance Insurance [employer]IC[employer] Advance Directives For more information, please contact: [phone] * Full Code (Latest Code Status on File) Date Activated Date Inactivated Comments 08/13/2024 9:29 AM 08/21/2024 3:40 PM Care Teams Library Circulation Technician Relationship Specialty Start Date End Date Haja Mancuso NP PCP - General Family Medicine 04/12/21 Susan Valle MD [address] [place] [address] [address]MA[address] [place] [id number] Consulting Physician Endocrinology 04/12/21 Maddison Frausto MD [address] [id number] [place], [place] [id number] Surgeon Cardiothoracic Surgery 08/21/24 Miscellaneous, Not In File 08/21/24 Sydnee Beal, RN [address] [place] [address] [address] [place] [address] Supervisor Shaving And Splitting 08/24/24
--- OUTSIDE RECORDS SUMMARY | 2024-08-25 15:45 | XMS_ITS | Encounter Summary ---
Author Organization [facility] Healthcare Address [address] [place] [address] Care Team Providers Care Track Car Operator Name Role Phone Rachel Kimball NP Primary Care Provider Susan Valle MD Unavailable [phone] Maddison Frausto MD Unavailable [phone] Miscellaneous, Not In File Unavailable Unava ilable Sydnee Beal RN Unavailable [phone] Reason for Referral * Consultation (Routine) - Closed Specialty Diagnoses / Procedures Referred By Contyudith t Referred To Contact Cardiology Diagnoses Abnormal nuclear stress test Episodic lightheadedness Fatigue due to excessive exertion, initial encounter Rachel Kimball NP [address] [facility] [address] [place] [address] Phone: tel: fax: [place] [facility] [id number] [address] Phone: tel: fax: Referral ID Status Reason Start Date Expiration Date V isits Requested Visits Authorized [id number] Closed Specialty Services Required 07/27/2024 08/26/2025 1 1 Question Answer Please select the performing region: [facility] ([facility]) [[id number]] Please select the performing department: [facility] [[id number]] # of visits: 1 ICAL TRIAL MANAGER * Consultation (Routine) - Authorized Specialty Diagnoses / Procedures Referred By Yovanny brock Referred To Contact Oncology Diagnoses Leukocytosis, unspecified type Elevated hemoglobin Elevated hematocrit Rachel Kimball NP [address] [facility] [address] [place] [address] Phone: tel: fax: [facility] Oncology [facility] Medical Office [facility] [address] [place] [address] Phone: tel: fax: Referral ID Status Reason Start Date Expiration Date Visits Requested Visits Authorized [id number] Authorized Specialty Services Required 07/20/2024 08/19/2025 1 1 Question Answer Please select the performing region: [facility] [[id number]] Please select the performing department: [facility] [id number] [[id number]] # of visits: 1 ICAL TRIAL MANAGER Encounter Details Date Type Department Care Team (Late st Contact Info) Description 07/20/2024 Results Follow-Up [facility] Medical Group Primary Care at [address] [address] Rachel Kimball NP [address] [facility] [address] [place] [address] Abnormal nuclear stress test (Primary Dx); Leukocytosis, unspecified type; Elevated hemoglobin; Elevated hematocrit; Episodic lightheadedness; Fatigue due to excessive exertion, initial encounter Social History Tobacco Use Types Packs/Day Years Used Date Smoking Tobacco: Every Day Cigarettes 1 41 Started: 09/30/1974; Last attempted to quit: 10/01/2015 Cigars Passive Smoke Exposure: Current Smokeless Tobacco: Never Comments:1 cigar daily for a pprox 3 years. Has quite a few times Alcohol Use Standard Drinks/Week Comments No 0 (1 standard drink = 0.6 oz pur e alcohol) Humiliation, Afraid, Rape, and Kick questionnair e [...] or ex-partner? No 04/10/2020 Social Connection and Isolat ion Panel [NHANES] Answer Date Recorded Frequency of Communication w ith Friends and Family Not on file 04/10/2020 Frequency of Social Gatherin gs with Friends and Family Not on file 04/10/2020 How often do you attend chur or tenriism services? More than 4 times per year 04/10/2020 Do you belong to any clubs o r organizations such as jainism groups, unions, fraternal or athletic groups, or school groups? Yes 04/10/2020 How often do you attend meet ings of the clubs or organizations you belong to? 1 to 4 times per year 04/10/2020 Are you , , di vorced, , never , or living with a partner? Living with partner 04/10/2020 AUDIT-C Answer Date Recorded Q1: How often do you have a drink containing alc ohol? 2-3 times a week 08/10/2021 Q2: How many drinks containi ng alcohol do you have on a typical day when you are drinking? 3 or 4 08/10/2021 Q3: How often do you have si x or more drinks on one occasion? Never 08/10/2021 Overall Financial Resource Strain (CARDIA) Answe r Date Recorded How hard is it for you to pa y for the very basics like food, housing, medical care, and heating? Not very hard 04/10/2020 PHQ-2 Answer Date Recorded PHQ-2 Total Score (If total score is 3 or more points, staff should administer the PHQ-9) 0 07/19/2024 [facility] - Occupational Stress [...] the money to buy more. Never true 04/10/20 20 Within the past 12 months, t he food you bought just didn't last and you didn't have money to get more. Never true 04/10/2020 PRAPARE - Transportation Answer Date Re corded In the past 12 months, has l ack of transportation kept you from medical appointments or from getting medications? No 03/26 In the past 12 months, has l ack of transportation kept you from meetings, work, or from getting things needed for daily living? No 04/10/2020 Education Answer Date Recorded What is the highest level of school you have completed or the highest degree you have received? 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 Not on file Not on fi le documented as of this encounter Plan of Treatment Scheduled Referrals Name Type Priority Associated Diagnoses Orde r Schedule Ambulatory referral to Oncology Outpatient Referral Routine Leukocytosis, unspecified type Elevated hemoglobin Elevated hematocrit Expected: 08/03/2024 (Approximate), Expires: 07/20/2025 Ambulatory referral to Cardiology Outpatient Referral Routine Abnormal nuclear stress test Episodic lightheadedness Fatigue due to excessive exertion, initial encounter Expected: 07/27/2024 (Approximate), Expires: 07/27/2025 documented as of this encounter Visit Diagnoses Diagnosis Abnormal nuclear stress test- Primary Leukocytosis, unspecified type Elevated hemoglobin Elevated hematocrit Episodic lightheadedness Fatigue due to excessive exertion, initial encounter documented in this encounter Care Teams Track Car Operator Relationship Specialty Start Date End Date Rachel Kimball NP PCP - General Family Medicine 04/12/21 Susan Valle MD [address] [place] [address] [address] AMAYA [address] [place] [address] Consulting Physician Endocrinology 04/12/21 Maddison Frausto MD [id number] [place] [address] Surgeon Cardiothoracic Surgery 08/21/24 Miscellaneous, Not In File 08/21/24 Sydnee Beal, RN [address] [place] [address] [address] [place] [address] Design Drafter Chief 08/24/24 documented as of this encounter
--- OUTSIDE RECORDS SUMMARY | 2024-08-25 15:45 | XMS_ITS | Encounter Summary ---
Author Organization [facility] Healthcare Address [address] [place] [address] Care Team Providers Care Chancellor Name Role Phone Rachel Kimball NP Primary Care Provider [phone] Susan Valle MD Unavailable [phone] Maddison Frausto MD Unavailable [phone] Miscellaneous, Not In File Unavailable Unava ilable Sydnee Beal RN Unavailable [phone] Encounter Details Date Type Department Care Team (Late st Contact Info) Description 07/27/2024 Results Follow-Up [facility] Medical Group Primary Care at [address] [address] Rachel Kimball NP [address] [place] [address] [address] [place] [address] Social History Tobacco Use Types Packs/Day Years [...] How often do you attend chur or evangelical services? 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 Not on file Not on fi le documented as of this encounter Plan of Treatment Not on file documented as of this encounter Visit Diagnoses Not on filedocumented in this encounter Care Teams Chancellor Relationship Specialty Start Date End Date Rachel Kimball NP PCP - General Family Medicine 04/12/21 Susan Valle MD [address] [place] [address] [place] [address] Consulting Physician Endocrinology 04/12/21 Maddison Frausto MD [id number] [place] [address] Surgeon Cardiothoracic Surgery 08/21/24 Miscellaneous, Not In File 08/21/24 Sydnee Beal, RN [address] [place] [address] [address] [place] [address] Building Architect 08/24/24 documented as of this encounter
--- OUTSIDE RECORDS SUMMARY | 2024-08-25 15:45 | XMS_ITS | Clinical Summary ---
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 Active 05-26 00:00: 00 ESSENTIAL (PRIMARY) HYPERTENSION Active 05-26 00:00: 00 AORTIC ECTASIA, UNSPECIFIED SITE Active 05-26 00:00: 00 TYPE 2 DIABETES MELLITUS WITHOUT COMPLICATION S Active 05-26 00:00: 00 MIXED HYPERLIPIDEM IA Active 05-26 00:00: 00 NICOTINE DEPENDENCE, CIGARETTES, UNCOMPLICATE D Active 05-26 00:00: 00 THROMBOCYTOP ENIA, UNSPECIFIED Active 05-26 00:00: 00 ATRIOVENTRIC ULAR BLOCK, FIRST DEGREE Active 05-26 00:00: 00 UNSPECIFIED HEARING LOSS, UNSPECIFIED EAR Active 05-26 00:00: 00 SOLITARY PULMONARY NODULE Active 05-26 00:00: 00 PERSONAL HISTORY OF OTHER DISEASES OF THE DIGESTIVE SYSTEM Active 05-26 00:00: 00 MCFP (CURRENT) USE OF INSULIN Active 05-26 00:00: 00 MCFP (CURRENT) USE OF ANTITHROMBOT ICS/ANTIPLAT ELETS Active 05-26 00:00: 00 FORESTRY TREE PRUNER (CURRENT) USE OF ASPIRIN Active 05-26 00:00: 00 MCFP (CURRENT) USE OF ORAL HYPOGLYCEMIC DRUGS Active 05-26 00:00: 00 Allergies, Adverse Reactions, Alerts Allergy Name Allergy Type Status Severity Reaction(s) Onset Date Inactive Date Treating Clinician Comments PENICILLINS Propensity to adverse reactions Active 08-21 13:45: 59 Immunizations Ordered Immunization Name Filled Immunization Name Date Status Comments Refusal Reason INFLUENZA, TIV (INACTIVATED) 2024-02-17 00:00:00 PNEUMOCOCCAL (PPV), PPV 2022-08-06 00:00:00 Vital Signs Vital Name Observation Time Observation Value Commen ts Temperature 2024-08-23 12:28:00.000 97.3 [degF] BMI (%) 2024-08-23 12:28:00.000 26 kg/m2 Height 2024-08-23 12:28:00.000 72 [in_us] Pulse 2024-08-23 12:28:00.000 76 /min O2 Saturation (%) 2024-08-23 12:28:00.000 95 % Respirations 2024-08-23 12:28:00.000 18 /min Weight (lbs) 2024-08-23 12:28:00.000 192 [lb_av] Systolic Blood Pressure 2024-08-23 12:28:00.000 124 mm [Hg] Diastolic Blood Pressure 2024-08-23 12:28:00.000 72 mm [Hg] Plan of Treatment Planned Activity Planned Date Details Comments Future Scheduled Test HOME HEALT H NURSE WILL TEACH PATIENT/CAREGIVER ABOUT CARE FOR THE INCISIONS, 10 LBS WEIGHT RESTRICTIONS, DRIVING RESTRICTIONS, HOW TO WEIGH SELF DAILY AND MANAGE RESULTS ON A LOG, AND WARNING SIGNS ON WHEN TO CALL THE AGENCY, PHYSICIAN, OR 911. [code = HOME HEALTH NURSE WILL TEACH PATIENT/CAREGIVER ABOUT CARE FOR THE INCISIONS, 10 LBS WEIGHT RESTRICTIONS, DRIVING RESTRICTIONS, HOW TO WEIGH SELF DAILY AND MANAGE RESULTS ON A LOG, AND WARNING SIGNS ON WHEN TO CALL THE AGENCY, PHYSICIAN, OR 911. ] Future Scheduled Test THE [facility] TIFYING PHYSICIAN, ASSOCIATED PHYSICIAN, NPP OR PA WITHIN THE SAME GROUP MAY APPROVE AND SIGN THE ORDER (ON ANY PAGE) ATTESTING THAT THE COMPREHENSIVE OUTCOME ASSESSMENTS, EVALUATIONS, AND HOME HEALTH CERTIFICATION PLANS SUPPORT HOMEBOUND STATUS. HOME HEALTH WEB-PORTAL DOCUMENTATION ACCESSED BY THE PHYSICIAN MUST BE INCORPORATED INTO THE MEDICAL RECORD TO CORROBORATE THE PHYSICIAN, NPP, OR PAS F2F ENCOUNTER TO SUPPORT ELIGIBILITY FOR HOME HEALTH SERVICES. [code = THE CERTIFYING PHYSICIAN, ASSOCIATED PHYSICIAN, NPP OR PA WITHIN THE SAME GROUP MAY APPROVE AND SIGN THE ORDER (ON ANY PAGE) ATTESTING THAT THE COMPREHENSIVE OUTCOME ASSESSMENTS, EVALUATIONS, AND HOME HEALTH CERTIFICATION PLANS SUPPORT HOMEBOUND STATUS. HOME HEALTH WEB-PORTAL DOCUMENTATION ACCESSED BY THE PHYSICIAN MUST BE INCORPORATED INTO THE MEDICAL RECORD TO CORROBORATE THE PHYSICIAN, NPP, OR PAS F2F ENCOUNTER TO SUPPORT ELIGIBILITY FOR HOME HEALTH SERVICES.] Future Scheduled Test EACH ORDER ED IN-HOME OR TELEHEALTH VISIT, THE SKILLED NURSE WILL CONDUCT A COMPREHENSIVE ASSESSMENT INCLUDING VITAL SIGNS, PAIN, SAFETY, MENTAL/COGNITIVE/PSYCHOSOCIAL STATUS, MED MANAGEMENT, NUTRITION, SKIN INTEGRITY, PRESSURE ULCER PREVENTION, AND PATIENT/CAREGIVER ABILITY TO SUPPORT ORDERED CARE. SKILLED NURSE WILL INSTRUCT ON DISEASE PROCESS, MED MGMT., FALL PREVENTION AND SAFETY, INFECTION CONTROL AND PREVENTION, WARNING SIGNS, ADDRESS RESULTS OUTSIDE OF ORDERED PARAMETERS LISTED ON CARE PLAN, AND COORDINATE DISCHARGE WITH THE TREATING PROVIDER. MAY ACCEPT ORDERS FROM THE FOLLOWING PROVIDER(S) WHO WILL BE CONSULTING ON THE CERTIFIED CARE PLAN: DR. VALDIVIA [code = EACH ORDERED IN-HOME OR TELEHEALTH VISIT, THE SKILLED NURSE WILL CONDUCT A COMPREHENSIVE ASSESSMENT INCLUDING VITAL SIGNS, PAIN, SAFETY, MENTAL/COGNITIVE/PSYCHOSOCIAL STATUS, MED MANAGEMENT, NUTRITION, SKIN INTEGRITY, PRESSURE ULCER PREVENTION, AND PATIENT/CAREGIVER ABILITY TO SUPPORT ORDERED CARE. SKILLED NURSE WILL INSTRUCT ON DISEASE PROCESS, MED MGMT., FALL PREVENTION AND SAFETY, INFECTION CONTROL AND PREVENTION, WARNING SIGNS, ADDRESS RESULTS OUTSIDE OF ORDERED PARAMETERS LISTED ON CARE PLAN, AND COORDINATE DISCHARGE WITH THE TREATING PROVIDER. MAY ACCEPT ORDERS FROM THE FOLLOWING PROVIDER(S) WHO WILL BE CONSULTING ON THE CERTIFIED CARE PLAN: DR. VALDIVIA] Future Scheduled Test HOME HEALT H NURSE WILL TEACH PATIENT/CAREGIVER ABOUT CABG, HOW TO TAKE OWN PULSE AND BP TO TRACK ON A LOG, WHAT STRATEGIES TO USE TO AVOID RE-HOSPITALIZATIONS, AND WARNING SIGNS TO CALL THE AGENCY, PHYSICIAN, OR 911. [code = HOME HEALTH NURSE WILL TEACH PATIENT/CAREGIVER ABOUT CABG, HOW TO TAKE OWN PULSE AND BP TO TRACK ON A LOG, WHAT STRATEGIES TO USE TO AVOID RE-HOSPITALIZATIONS, AND WARNING SIGNS TO CALL THE AGENCY, PHYSICIAN, OR 911.] Future Scheduled Test SKILLED NU RSE/THERAPY TO ADMINISTER AND INSTRUCT PATIENT/CAREGIVER ON SURGICAL INCISION CARE TO STERNUM, LEFT FOREARM AND RIGHT THIGH SURGICAL WOUND. PATIENT TO ALLOW SOAP AND WATER TO RUN OVER INCISIONS AND PAT DRY WITH GAUZE. LEAVE OPEN TO AIR AND MONITOR DAILY FOR SIGNS AND SYMPTOMS OF INFECTION. WOUND CARE TO BE PERFORMED DAILY AND PRN FOR SOILAGE OR DISLODGEMENT. DISCONTINUE WOUND CARE, ASSESSMENT AND SUPPLIES WHEN WOUND HEALS. PATIENT/CAREGIVER TO PERFORM WOUND CARE IN AGENCY ABSENCE AFTER APPROPRIATE RETURN DEMONSTRATION. SUTURES TO BE REMOVED BY SKILLED NURSE WEEK OF 08/29/24 USING NECESSARY SUPPLIES INCLUDING SUTURE REMOVAL KIT. CLEANSE INCISION WITH BETADINE OR ALCOHOL BEFORE AND AFTER REMOVAL AND APPLY WOUND CLOSURE STRIPS. EDUCATE PATIENT/CAREGIVER TO LEAVE WOUND CLOSURE STRIPS ON UNTIL THEY FALL OF ON THEIR OWN.) DISCONTINUE WOUND CARE, ASSESSMENT, AND SUPPLIES WHEN WOUND HEALS. PATIENT/CAREGIVER TO PERFORM WOUND CARE IN AGENCY ABSENCE AFTER APPROPRIATE RETURN DEMONSTRATION. [code = SKILLED NURSE/THERAPY TO ADMINISTER AND INSTRUCT PATIENT/CAREGIVER ON SURGICAL INCISION CARE TO STERNUM, LEFT FOREARM AND RIGHT THIGH SURGICAL WOUND. PATIENT TO ALLOW SOAP AND WATER TO RUN OVER INCISIONS AND PAT DRY WITH GAUZE. LEAVE OPEN TO AIR AND MONITOR DAILY FOR SIGNS AND SYMPTOMS OF INFECTION. WOUND CARE TO BE PERFORMED DAILY AND PRN FOR SOILAGE OR DISLODGEMENT. DISCONTINUE WOUND CARE, ASSESSMENT AND SUPPLIES WHEN WOUND HEALS. PATIENT/CAREGIVER TO PERFORM WOUND CARE IN AGENCY ABSENCE AFTER APPROPRIATE RETURN DEMONSTRATION. SUTURES TO BE REMOVED BY SKILLED NURSE WEEK OF 08/29/24 USING NECESSARY SUPPLIES INCLUDING SUTURE REMOVAL KIT. CLEANSE INCISION WITH BETADINE OR ALCOHOL BEFORE AND AFTER REMOVAL AND APPLY WOUND CLOSURE STRIPS. EDUCATE PATIENT/CAREGIVER TO LEAVE WOUND CLOSURE STRIPS ON UNTIL THEY FALL OF ON THEIR OWN.) DISCONTINUE WOUND CARE, ASSESSMENT, AND SUPPLIES WHEN WOUND HEALS. PATIENT/CAREGIVER TO PERFORM WOUND CARE IN AGENCY ABSENCE AFTER APPROPRIATE RETURN DEMONSTRATION. ] Future Scheduled Test HOME HEALT H NURSE WILL INSTRUCT PATIENT/CAREGIVER ON TYPE 2 DIABETES DISEASE PROCESS, HOW TO CREATE A DIABETIC TOOLKIT TO MANAGE INVENTORY OF SUPPLIES, HOW TO PLAN FOR A SICK-DAY, AND WARNING SIGNS WHEN THE PATIENT EXPERIENCES LOW BLOOD SUGAR. [code = HOME HEALTH NURSE WILL INSTRUCT PATIENT/CAREGIVER ON TYPE 2 DIABETES DISEASE PROCESS, HOW TO CREATE A DIABETIC TOOLKIT TO MANAGE INVENTORY OF SUPPLIES, HOW TO PLAN FOR A SICK-DAY, AND WARNING SIGNS WHEN THE PATIENT EXPERIENCES LOW BLOOD SUGAR.] Future Scheduled Test HOME HEALT H NURSE WILL INSTRUCT AND VERIFY APPROPRIATE STEPS ON HOW THE PATIENT CHECKS OWN BLOOD GLUCOSE AND IMPORTANCE TO TRACK BLOOD RESULTS ON A DAILY LOG OR NOTEBOOK TO MONITOR TRENDS. PATIENT/CAREGIVER OR HOME HEALTH RN WILL PERFORM BLOOD GLUCOSE CHECKS. BLOOD GLUCOSE MONITORING WILL OCCUR 3-4 NUMBER OF TIMES PER DAY. [code = HOME HEALTH NURSE WILL INSTRUCT AND VERIFY APPROPRIATE STEPS ON HOW THE PATIENT CHECKS OWN BLOOD GLUCOSE AND IMPORTANCE TO TRACK BLOOD RESULTS ON A DAILY LOG OR NOTEBOOK TO MONITOR TRENDS. PATIENT/CAREGIVER OR HOME HEALTH RN WILL PERFORM BLOOD GLUCOSE CHECKS. BLOOD GLUCOSE MONITORING WILL OCCUR 3-4 NUMBER OF TIMES PER DAY.] Future Scheduled Test SKILLED NU RSE TO OBTAIN CBC WITH DIFF AND CMP PER VENIPUNCTURE USING NECESSARY SUPPLIES FOR DIAGNOSIS OF Z48.812 ON 08/25/24 WITH RESULTS FAXED TO DR. BLACKWELL OFFICE. [code = SKILLED NURSE TO OBTAIN CBC WITH DIFF AND CMP PER VENIPUNCTURE USING NECESSARY SUPPLIES FOR DIAGNOSIS OF Z48.812 ON 08/25/24 WITH RESULTS FAXED TO DR. BLACKWELL OFFICE. ] Future Scheduled Test HOME HEALT H NURSE WILL ASSESS FOR COMPLICATIONS RELATED TO ANTIPLATELET USE AND INSTRUCT PATIENT/CAREGIVER ABOUT PRECAUTIONS TO FOLLOW AND SIGNS/SYMPTOMS TO REPORT. [code = HOME HEALTH NURSE WILL ASSESS FOR COMPLICATIONS RELATED TO ANTIPLATELET USE AND INSTRUCT PATIENT/CAREGIVER ABOUT PRECAUTIONS TO FOLLOW AND SIGNS/SYMPTOMS TO REPORT. ] Goal Patient Goal - S OC- 08/23/24- STAY OUT OF THE HOSPITAL Goal Provider Goal - PATIENT/CAREGIVER WILL DEMONSTRATE PROPER CARE FOR INCISIONS, ADHERENCE TO DRIVING RESTRICTIONS, ADHERENCE OF ACTIVITY RESTRICTIONS, CONSISTENT MANAGEMENT OF DAILY WEIGHTS WITH USE OF A LOG TO TRACK RESULTS. PATIENT/CAREGIVER WILL VERBALIZE UNDERSTANDING OF WARNING SIGNS TO CALL PHYSICIAN OR 911 BY THE END OF HOME SERVICES. Goal Provider Goal - A PLAN OF CARE WILL BE ESTABLISHED THAT MEETS ALL PATIENT'S FCI NEEDS AND COUNTER SIGNED BY PHYSICIAN. Goal Provider Goal - PATIENT WILL BE FREE OF FALLS AND HOSPITALIZATIONS THROUGHOUT EPISODE OF CARE. PATIENT/CAREGIVER WILL UNDERSTAND AND ADHERE TO ORDERED DIET. PATIENT/CAREGIVER WILL INDEPENDENTLY MANAGE MEDICATIONS, UNDERSTAND ANY CHANGES, SIDE EFFECTS TO REPORT BY DISCHARGE. PATIENT WILL BE FREE OF INFECTION AND UNDERSTAND MEASURES OF PREVENTION. PATIENT/CAREGIVER WILL COLLABORATE WITH SKILLED NURSE TO DEVELOP POC AT SOC AND ON AN ONGOING BASIS UPDATES ARE NEEDED. UNDERSTAND PROGRESS MADE/DISCHARGE PLANNING. ADDITIONAL ORDERS WILL BE RECEIVED FROM ALTERNATE PHYSICIANS IN A TIMELY MANNER. Goal Provider Goal - PATIENT/CAREGIVER WILL DEMONSTRATE HOW TO TAKE AND TRACK OWN PULSE AND BLOOD PRESSURE. PATIENT/CAREGIVER WILL VERBALIZE AN UNDERSTANDING OF THE CARDIAC PROCEDURE, WHAT POST-SURGERY STRATEGIES SHOULD BE FOLLOWED TO AVOID COMPLICATIONS, PROPER MD FOLLOW-UP, AND WARNING SIGNS TO CALL THE PHYSICIAN OR 911 BY THE END OF HOME HEALTH SERVICES. Goal Provider Goal - PATIENT/CAREGIVER WILL DEMONSTRATE APPROPRIATE INCISIONAL CARE. INCISION / SUTURE LINE IMPROVE EVIDENCED BY DECREASE IN SIZE / DRAINAGE OF WOUND, NO SIGNS AND SYMPTOMS OF INFECTION, DECREASED PAIN, HEALING IS PROGRESSING BY DISCHARGE. Goal Provider Goal - PATIENT/CAREGIVER WILL VERBALIZE UNDERSTANDING OF TYPE 2 DIABETES AND THE IMPORTANCE OF MANAGING THE BLOOD SUGAR WITHIN THE EXPECTED RANGE. PATIENT/CAREGIVER WILL ESTABLISH A DIABETIC TOOLKIT AND A SICK-DAY PLAN TO PREPARE FOR POTENTIAL CHANGES WITH BLOOD SUGARS RANGES. PATIENT/CAREGIVER WILL VERBALIZE WARNING SIGNS OF LOW BLOOD SUGAR AND WHAT ACTIONS TO TAKE. Goal Provider Goal - PATIENT/CAREGIVER WILL DEMONSTRATE PROPER TECHNIQUE WHEN CHECKING OWN BLOOD GLUCOSE, DEMONSTRATES ADHERES TO WRITING DOWN RESULTS USING A LOGBOOK, FOLLOWS THE PRESCRIBED FREQUENCY OF BLOOD SUGAR CHECKS PRIOR TO DISCHARGING FROM HOME HEALTH SERVICES. Goal Provider Goal - PATIENT/CAREGIVER WILL VERBALIZE UNDERSTANDING OF THE NEED TO COLLECT THE LAB AND TOLERATE THE LAB COLLECTION PROCEDURE WITHOUT INJURY OR INFECTION. Goal Provider Goal - PATIENT/CAREGIVER WILL VERBALIZE UNDERSTANDING OF ANTIPLATELET COMPLICATIONS TO REPORT AND PRECAUTIONS TO FOLLOW BY END OF HOME HEALTH SERVICES. Progress Notes Progress Notes <paragraph>[Visit Date: 2024 by SABRINA VIEIRA REGISTERED NURSE]:</paragraph><paragraph>69 YEAR OLD REFFERED TO AFTER CABG PROCEDURE. PMH- HTN, DM2, HLD. LIVES ALONE BUT HAS SISTER THAT HELPS WITH ALL NEEDS. UPON ARRIVAL, GREETED BY PATIENTS SISTER AT THE DOOR. PATIENT AMBULATING IN LIVING ROOM WITHOUT AD. GAIT STEADY. DISCUSSED SERVICES FOR SN WITH PATIENT. PATIENT IN AGREEMENT TO SERVICES. CONSENT AND FINANCIAL AGREEMENT REVIEWED AND SIGNED BY PATIENT. BOTH UPLOADED TO CHART. VSS. ASSESSMENT COMPLETE. REPORTS GOOD PO INTAKE REGULAR BOWEL AND BLADDER HABITS. RATES PAIN 2/10 TO SURGICAL SITE. DENIES CHEST PAIN/SOB WITH REST/FALLS. PATIENT WITH SURGICAL INCISIONS TO STERNUM, LEFT FORARM AND RIGHT THIGH WITH STERI STRIPS APPLIED. PATIENT TO LEAVE IN PLACE TILL THEY FALL OFF ON THEIR OWN. ABLE TO SHOWER AND ALLOW SOAP AND WATER TO RUN OVER AND PAT DRY. EDUCATION PROVIDED ON WOUND CARE AND S/S OF INFECTION. PATIENT VERBALIZED UNDERSTANDING. SN TO REMOVE SUTURES TO DRAIN TUBE SITE NEXT WEEK. TO DRAW LABS ON 08/25/24 WITH RESULTS SENT TO DR. VALDIVIA. PATIENT CHECKS BS 3X DAY. ABLE TO SELF INJECT INSULIN PROPERLY. REPORTS HAVING MORE ENERGY AND HAS BEEN TAKING WALKS WITH HIS SISTER. EDUCATION PROVIDED ON SAFETY PRECAUTIONS, INFECTION CONTROL, BLEEDING PRECAUTIONS, FALL PRECAUTIONS, DIABETIC PRECAUTIONS, CARDIAC PRECAUTIONS, MEDICATIONS, WOUND CARE, HOSPITAL DC INSTRUCTIONS, AGENCY BOOKLET, AND S/S TO REPORT. PATIENT VERBALIZED UNDERSTANDING. DENIES ANY OTHER QUESTIONS/CONCERNS. UPON NURSE DEPARTURE, PATIENT STABLE.</paragraph> Encounters Start Date/Time End Date/Time Encounter Type Admission Type Attending Clinicians Care Facility Care Department Encounter ID Discharge Date Discharge Status Discharge Condition Discharge Reason Percent Goals Met 2024-08-23 00:00:00 2024-10-21 00:00:00 Outpatient NEW ADMISSION SABRINA VIEIRA [facility] [id number] 100.00
--- OUTSIDE RECORDS SUMMARY | 2024-08-25 15:45 | XMS_ITS | Referral Summary ---
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 (Primary Dx); Abnormal stress test; Coronary artery disease involving kiana coronary artery of kiana heart without angina pectoris Discharge Disposition: Discharge to home, home health skilled care 08/16/2024 8:00 AM CDT - 08/16/2024 2:00 PM CDT Surgery [facility] Operating Room [address] [place] [phone] Maddison Frausto MD CORONARY ARTERY BYPASS GRAFT x 4 - INTERNAL MAMMARY/RADIAL ARTERY/SAPHENOUS VEIN GRAFT - LEG 08/16/2024 7:46 AM CDT Anesthesia Event [facility] Operating Room [address] [place] [address] Hernán Morris MD Eldin, Ali S., MD 08/13/2024 8:30 AM CDT - 08/13/2024 10:00 AM CDT Surgery [facility] Cardiac Catheterization Lab [address] [place] [address] Gurdeep Verma MD LEFT HEART CATHETERIZATION WITH CORONARY ANGIOGRAPHY AND WITH OR WITHOUT LEFT VENTRICULOGRAM [id number] 08/11/2024 10:30 AM CDT Lab [address] [place] [address] Leukocytosis, unspecified type (Primary Dx); Elevated hemoglobin; Elevated hematocrit 08/11/2024 11:00 AM CDT Office Visit [address] [place] [address] Ignacio Cobian MD Leukocytosis, unspecified type (Primary Dx); Elevated hemoglobin; Elevated hematocrit 08/10/2024 Telephone [facility] Oncology [address] [place] [address] Office [address] [place] [address] Hannah Cisneros CLT 08/10/2024 Results Follow-Up [facility] Primary Care at [address] [phone] Haja Mancuso NP 08/06/2024 Telephone [facility] Primary Care at [address] [phone] Haja Mancuso NP Heart Monitor readings 07/28/2024 Orders Only [facility] Oncology [address] [place] [address] Office [address] [place] [address] Kacey Lemos CLT Leukocytosis, unspecified type (Primary Dx) 07/28/2024 10:30 AM BUTTON CUTTING MACHINE OPERATOR Office Visit [employer] [address] [facility] [address] [place] [phone] Joao Perry NP Abnormal nuclear stress test; Episodic lightheadedness; Fatigue due to excessive exertion, initial encounter 07/27/2024 Results Follow-Up [facility] Primary Care at [address] [phone] Haja Mancuso NP 07/27/2024 6:58 AM BUTTON CUTTING MACHINE OPERATOR - 07/27/2024 11:59 PM BUTTON CUTTING MACHINE OPERATOR Hospital Encounter [facility] [address] [place] [address] Episodic lightheadedness; Fatigue due to excessive exertion, initial encounter Discharge Disposition: Discharge to home or self care 07/27/2024 6:58 AM BUTTON CUTTING MACHINE OPERATOR - 07/27/2024 11:59 PM BUTTON CUTTING MACHINE OPERATOR Hospital Encounter [address] [address] Discharge Disposition: Discharge to home or self care 07/27/2024 6:58 AM BUTTON CUTTING MACHINE OPERATOR - 07/27/2024 11:59 PM BUTTON CUTTING MACHINE OPERATOR Hospital Encounter [facility] [address] [place] [address] Episodic lightheadedness; Fatigue due to excessive exertion, initial encounter; Hypertension associated with diabetes (HCC) Discharge Disposition: Discharge to home or self care 07/27/2024 6:57 AM BUTTON CUTTING MACHINE OPERATOR - 07/27/2024 11:59 PM BUTTON CUTTING MACHINE OPERATOR Hospital Encounter [address] [address] Discharge Disposition: Discharge to home or self care 07/27/2024 6:57 AM BUTTON CUTTING MACHINE OPERATOR - 07/27/2024 11:59 PM BUTTON CUTTING MACHINE OPERATOR Hospital Encounter [address] [address] Episodic lightheadedness; Fatigue due to excessive exertion, initial encounter; Hypertension associated with diabetes (HCC) Discharge Disposition: Discharge to home or self care 07/20/2024 Results Follow-Up [facility] Primary Care at [address] [phone] Haja Mancuso NP Abnormal nuclear stress test (Primary Dx); Leukocytosis, unspecified type; Elevated hemoglobin; Elevated hematocrit; Episodic lightheadedness; Fatigue due to excessive exertion, initial encounter 07/20/2024 Telephone [facility] Virtual Care [address] [place] [phone] Akua Henley NP 07/19/2024 Nurse Triage [facility] Primary Care at [address] [phone] Haja Mancuso NP 07/19/2024 11:09 AM BUTTON CUTTING MACHINE OPERATOR - 07/19/2024 11:59 PM BUTTON CUTTING MACHINE OPERATOR Hospital Encounter [address] [address] Episodic lightheadedness; Magnesium deficiency; Iron deficiency; Hypertension associated with diabetes (HCC) Discharge Disposition: Discharge to home or self care 07/19/2024 11:15 AM BUTTON CUTTING MACHINE OPERATOR Lab [facility] Outpatient Lab at [address] [phone] Hypertension associated with diabetes ([facility]) (Primary Dx) 07/19/2024 10:00 AM BUTTON CUTTING MACHINE OPERATOR Office Visit [facility] Primary Care at [address] [phone] Haja Mancuso NP Episodic lightheadedness (Primary Dx); Fatigue due to excessive exertion, initial encounter; Iron deficiency; Hypertension associated with diabetes ([facility]); Magnesium deficiency 06/30/2024 9:30 AM BUTTON CUTTING MACHINE OPERATOR Office Visit [facility] Diabetes Endocrine Care at [address] [place] [phone] Shama Segura, GERARDO Type 2 diabetes mellitus with hyperglycemia, with long-term current use of insulin ([facility]) (Primary Dx); Type 2 diabetes mellitus with hyperlipidemia ([facility]/HCC) (HCC); Hypertension associated with diabetes (HCC); Nocturnal hypoglycemia from Last 3 Months Allergies Active Allergy Reactions Criticality Noted Date Comments Penicillins Itching Medium Patient states college age reaction, denies hives but stated itch . Medications metFORMIN XR (GLUCOPHAGE XR) 750 mg 24 hr tabletIndicati ons:Type 2 diabetes mellitus with hyperglycemia, with long-term current use of insulin (HCC) Take 2 tablets (1,500 mg total) by mouth daily 180 tablet 3 09/16/19 24 Active dapagliflozin propanediol (Farxiga) 10 mg tabletIndicati ons:Type 2 diabetes mellitus with hyperglycemia, with long-term current use of insulin ([facility]) Take 1 tablet (10 mg total) by mouth daily 90 tablet 3 09/16/19 Active pen needle, diabetic 32 gauge x needleIndicati ons:Type 2 diabetes mellitus with hyperglycemia, with long-term current use of insulin ([facility]) Use to inject insulin daily. E11.65. 100 each 3 09/16/19 Active glimepiride (AMARYL) 4 mg tablet TAKE 1 TABLET BY MOUTH BEFORE BREAKFAST. E11.65 90 tablet 4 02/27/20 Active Xultophy 100/3.6 100 unit-3.6 mg /mL (3 mL) insulin pen penIndications :Type 2 diabetes mellitus with hyperglycemia, with long-term current use of insulin ([facility]) ADMINISTER 47 UNITS UNDER THE SKIN DAILY 15 mL 4 07/22/19 Active amLODIPine (NORVASC) 5 mg tablet Take [...] catheterization 08/13/2024 Coronary artery disease invo lving kiana coronary artery of kiana heart without angina pectoris 08/13/2024 Abnormal stress test 07/28/2024 Episodic lightheadedness 07/19/2024 Assessment & Plan (07/19/2024 11:11 AM BUTTON CUTTING MACHINE OPERATOR): EKG stable in office. Pt has risk [...] 07/12/2021 Assessment & Plan (04/15/2022 3:11 PM BUTTON CUTTING MACHINE OPERATOR): Pt had hernia repair 08/10/[address] Harden (Gen Surg). Doing well since procedure. Assessment & Plan (08/21/2021 11:09 AM CDT): Continue bowel regimen to avoid straining. Avoid heavy lifting for a further 3 weeks. Patient will call us back with any further questions or concerns. Okay to return to work with light duty. Assessment & Plan (07/26/2021 10:31 AM BUTTON CUTTING MACHINE OPERATOR): Having repair with Dr. Harden set for 08/10/21. Assessment & Plan (07/12/2021 10:45 AM BUTTON CUTTING MACHINE OPERATOR): Given its symptomatic nature and increasing size [...] 03/26 Assessment & Plan (03/30/2024 11:10 AM BUTTON CUTTING MACHINE OPERATOR): A yearly Medicare Annual Wellness Visit has [...] indicated. Assessment & Plan (04/22/2023 1:34 PM BUTTON CUTTING MACHINE OPERATOR): A yearly Medicare Annual Wellness Visit has [...] indicated. Assessment & Plan (04/15/2022 3:35 PM BUTTON CUTTING MACHINE OPERATOR): A yearly Medicare Annual Wellness Visit has [...] indicated. Assessment & Plan (04/12/2021 3:54 PM BUTTON CUTTING MACHINE OPERATOR): AWV in office today, labs ordered Due for Influenza, can get at pharmacy CT lung cancer screen discussed and ordered Assessment & Plan (04/13/2020 3:28 PM BUTTON CUTTING MACHINE OPERATOR): A yearly Medicare Annual Wellness Visit has [...] HYPERTENSION Assessment & Plan (03/30/2024 11:12 AM BUTTON CUTTING MACHINE OPERATOR): BP fine in office, pt still getting [...] prescribed. Assessment & Plan (04/22/2023 1:33 PM BUTTON CUTTING MACHINE OPERATOR): BP stable in office, continues Amlodipine, HCTZ, and Lisinopril Labs ordered, awaiting results. Assessment & Plan (04/15/2022 3:34 PM BUTTON CUTTING MACHINE OPERATOR): BP stable in office, continues Amlodipine, HCTZ, and Lisinopril Labs ordered, awaiting results. Assessment & Plan (11/15/2021 10:18 AM CDT): BP stable in office, continues Amlodipine, HCTZ, and Lisinopril Labs ordered, awaiting results. Assessment & Plan (07/26/2021 10:30 AM BUTTON CUTTING MACHINE OPERATOR): BP stable in office, continues Amlodipine, HCTZ, and Lisinopril Labs ordered for next visit. Assessment & Plan (04/12/2021 3:55 PM BUTTON CUTTING MACHINE OPERATOR): BP stable in office today, continue Amlodipine, HCTZ and Lisinopril Assessment & Plan (04/13/2020 3:29 PM BUTTON CUTTING MACHINE OPERATOR): Blood pressure appears to be under decent control We will continue him on lisinopril at 10 mg daily, hydrochlorothiazide Assessment & Plan (11/22/2019 4:18 PM CDT): Under control with medication Plan: Continue low salt diet Continue medications. Type 2 diabetes mellitus with hyperlipidemia (CM S/HCC) 10/09/2013 Overview (08/29/2016): MIXED HYPERLIPIDEMIA Assessment & Plan (03/30/2024 11:13 AM BUTTON CUTTING MACHINE OPERATOR): Lipid controlled overall, continuing Simvastatin Assessment & [...] prescribed. Assessment & Plan (04/22/2023 1:33 PM BUTTON CUTTING MACHINE OPERATOR): Continuing Simvastatin and ASA. No side effects noted, updated labs ordered. Assessment & Plan (04/15/2022 3:45 PM BUTTON CUTTING MACHINE OPERATOR): Increased Simvastatin to [address] [...] results. Assessment & Plan (07/26/2021 10:30 AM BUTTON CUTTING MACHINE OPERATOR): Continues Simvastatin, no side effects reported. Labs ordered for next visit. Assessment & Plan (04/12/2021 3:55 PM BUTTON CUTTING MACHINE OPERATOR): Awaiting labs, continuing Simvastatin Assessment & Plan [...] diabetics. Assessment & Plan (04/13/2020 3:28 PM BUTTON CUTTING MACHINE OPERATOR): Continues on simvastatin 40 mg daily No side effects reported Type 2 diabetes mellitus wit h hyperglycemia, with long-term current use of insulin 10/09/2013 Overview (08/30/2016): DMII WO CMP NT ST UNCNTR Assessment & Plan (03/30/2024 11:12 AM BUTTON CUTTING MACHINE OPERATOR): Following with Endo Discussed CGM, pt declines [...] eye exam. last dilated eye exam was [facility] Monofilament foot exam completed. Protective senses -intact eGFR- 81 Kidney function-normal Urine microalbumin/creatinine ratio - not at goal. Goal is <30 Continue amlodipine, hydrochlorothiazide, lisinopril He has started a new relationship and would like to have Light Extraction to help with ED Assessment & Plan [...] lisinopril Assessment & Plan (05/13/2023 10:40 AM BUTTON CUTTING MACHINE OPERATOR): Diagnosed in 1999 Started insulin in August [...] basis. Assessment & Plan (04/22/2023 1:33 PM BUTTON CUTTING MACHINE OPERATOR): Following with Endocrinology. Assessment & Plan (01/13/2023 [...] basis. Assessment & Plan (05/09/2022 9:47 AM BUTTON CUTTING MACHINE OPERATOR): Diagnosed in 1999 Started insulin in August [...] basis. Assessment & Plan (04/15/2022 3:33 PM BUTTON CUTTING MACHINE OPERATOR): Pt follows with Dr. Valle (endo) Last [...] basis. Assessment & Plan (07/26/2021 10:29 AM BUTTON CUTTING MACHINE OPERATOR): Patient follows with Dr. Valle ([facility]) Continues current regimen and has upcoming appt 08/21/21 with [facility]. Foot exam normal in office. Due for eye exam. Assessment & Plan (04/23/2021 4:43 PM BUTTON CUTTING MACHINE OPERATOR): Diagnosed in 1999 Started insulin in August [...] basis. Assessment & Plan (04/12/2021 3:55 PM BUTTON CUTTING MACHINE OPERATOR): Patient over due for visit with his Administrative Assistant Office Manager, appt made for patient. Will take place 04/23/21 @ 4:15pm with Dr. Leonard Holley ordered Assessment & Plan (06/30/2020 11:56 AM BUTTON CUTTING MACHINE OPERATOR): Diagnosed in 1999 Started insulin in August [...] basis. Assessment & Plan (04/13/2020 3:29 PM BUTTON CUTTING MACHINE OPERATOR): Continuing current regimen He continues follow-up with [...] (08/29/2016): DM w/o complication type II, uncontrolled Immunizations Immunization Administration Dates Next Due Flucelvax [...] 06/09/2020,10/15/2016,04/02/2010 ZOSTER LIVE 12/19/2014 ZOSTER Recombinant 02/14/2020,10/30/2019 Social History Tobacco Use Types Packs/Day Years [...] drink = 0.6 oz pur e alcohol) [facility] Utilities Answer Date Recorded In the past 12 months has th e electric, gas, oil, or water company threatened to shut off services in your [...] often do you attend chur ch or hindu services? 1 to 4 times per year 08/23/2024 Do you belong to any clubs o r organizations such as jewish groups, unions, fraternal or athletic groups, or [...] staff should administer the PHQ-9) 0 07/19/2024 [facility] - Occupational Stress Questionnaire Answer Date Recorded [...] any time in the past 12 m [facility], were you homeless or living in a usp (including now)? 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 Medical Devices Implanted Type Area Data Analyst Etl Developer Device Identifier Shelf Expiration Date Model / Serial / Lot Submittable Angio-Seal Vip 6fr Closere Device [id number] - [id number] Implanted:Qty: 1 on 08/13/2024 by Gurdeep Verma MD at [facility] Other - see comments Submittable 03/19/2025 [id number] / / [id number] Description:Closure device [employer] [id number] Progrip 63b78le Self Fixate Flat Sheet Mesh Surgical Jesus Pet Latex Free - [id number] Implanted:Qty: 1 on 08/10/2021 by Vipul Harden MD at [facility] Right: Abdomen [employer] Inc 12/24/2023 [id number] / / [id number] [employer] Plate Bone Low Profile 4 Hole Box Sternum Ti 115.103.04 - [id number] Implanted:Qty: 1 on 08/16/2024 by Maddison Frausto MD at [facility] N/A: Chest Wall [employer] 115.103.0 4 / / [employer] Plate Bone Low Profile 6 Hole O Shape Sternum Ti 115.104.06 - [id number] Implanted:Qty: 1 on 08/16/2024 by Maddison Frausto MD at [facility] N/A: Chest Wall [employer] 115.104.0 6 / / [employer] Plate Bone Low Profile 6 Hole H Shape Sternum Ti 115.102.06 - [id number] Implanted:Qty: 1 on 08/16/2024 by Maddison Frausto MD at [facility] N/A: Chest Wall [employer] 115.102.0 6 / / [employer] Screw Bone Slf Drl Full Thread Locking 3.5x16mm Ti 100.035.16 - [id number] Implanted:Qty: 10 on 08/16/2024 by Maddison Frausto MD at [facility] N/A: Chest Wall [employer] 100.035.1 6 / / [employer] Screw Bone Slf Drl Full Thread Locking 3.5x14mm Ti 100.035.14 - [id number] Implanted:Qty: 6 on 08/16/2024 by Maddison Frausto MD at [facility] N/A: Chest Wall [employer] 100.035.1 [...] 7:16 AM CDT Coronary artery disease involving kiana coronary artery of kiana heart without angina pectoris POCT GLUCOSE DEVICE [...] PM CDT POCT GLUCOSE DEVICE Routine 08/16/2024 6 :32 PM CDT EGFR STAT 08/16/2024 5:56 PM [...] LINE PLACEMENT Routine 08/16/2024 8:11 AM CDT MD AN ELECTIVE ENDOTRACHEAL AIRWAY Routine 08/16/2024 8:10 AM CDT PERIPHERAL LINE Routine 08/16/2024 7:59 AM CDT ANESTHESIA ARTERIAL LINE PLACEMENT Routine 08/16/2024 7:59 AM CDT CORONARY ARTERY BYPASS GRAFT - INTERNAL MAMMARY/RADIAL ARTERY/SAPHENOUS VEIN GRAFT - LEG 08/16/2024 7:46 AM CDT Coronary artery disease involving kiana coronary artery of kiana heart without angina pectoris POCT GLUCOSE DEVICE [...] Read Routine (OP Routine) 07/27/2024 9:30 AM BUTTON CUTTING MACHINE OPERATOR Episodic lightheadedness Fatigue due to excessive exertion, initial encounter Hypertension associated with diabetes (HCC) NM MPI SPECT (REST AND/OR STRESS) MULTIPLE STUDIES Schedule Routine, Read Routine (OP Routine) 07/27/2024 9:30 AM BUTTON CUTTING MACHINE OPERATOR Episodic lightheadedness Fatigue due to excessive exertion, initial encounter Hypertension associated with diabetes (HCC) MCT - MOBILE CARDIAC TELEMETRY EVENT MONITOR Routine 07/27/2024 7:06 AM BUTTON CUTTING MACHINE OPERATOR Episodic lightheadedness Fatigue due to excessive exertion, initial encounter ECG 12-LEAD Routine 07/19/2024 11:09 AM BUTTON CUTTING MACHINE OPERATOR Episodic lightheadedness EGFR Routine 07/19/2024 11:09 AM BUTTON CUTTING MACHINE OPERATOR Episodic lightheadedness Hypertension associated with diabetes (HCC) DIFFERENTIAL AUTO Routine 07/19/2024 11:09 AM BUTTON CUTTING MACHINE OPERATOR Episodic lightheadedness Hypertension associated with diabetes (HCC) CBC WITH AUTO DIFFERENTIAL Routine 07/19/2024 11:09 AM BUTTON CUTTING MACHINE OPERATOR Episodic lightheadedness Hypertension associated with diabetes (HCC) COMPREHENSIVE METABOLIC PANEL Routine 07/19/2024 11:09 AM BUTTON CUTTING MACHINE OPERATOR Episodic lightheadedness Hypertension associated with diabetes (HCC) THYROID FUNCTION CASCADE Routine 07/19/2024 11:09 AM BUTTON CUTTING MACHINE OPERATOR Episodic lightheadedness Hypertension associated with diabetes (HCC) IRON Routine 07/19/2024 11:09 AM BUTTON CUTTING MACHINE OPERATOR Episodic lightheadedness Iron deficiency MAGNESIUM Routine 07/19/2024 11:09 AM BUTTON CUTTING MACHINE OPERATOR Episodic lightheadedness Magnesium deficiency POCT GLUCOSE Routine 06/30/2024 9:33 AM BUTTON CUTTING MACHINE OPERATOR Type 2 diabetes mellitus with hyperglycemia, with long-term current use of insulin (HCC) POCT HEMOGLOBIN A1C Routine 06/30/2024 9 :33 AM BUTTON CUTTING MACHINE OPERATOR Type 2 diabetes mellitus with hyperglycemia, with [...] HEPATITIS C ANTIBODY Routine 06/27/2020 2:29 PM BUTTON CUTTING MACHINE OPERATOR Encounter for hepatitis C screening test for [...] atelectasis. Electronically signed by: Mandeep Portillo M.D. Savannah Santos FOOD SERVICE TECHNICIAN IMG XR PROCEDURES Final Re sult * POCT glucose (08/21/2024 7:37 AM CDT) Glucose, POC 117 70 - 199 mg/dL POC Performer [id number] ROGELIO Blood 08/21/2024 7:37 AM CDT 08/21/2024 7:37 AM CDT Maddison Frausto MD LAB POCT ORDERABLES - DEVICE F inal Result [facility] [address] [place] [address] * eGFR (08/21/2024 3:20 AM CDT) eGFR [...] CDT 08/21/2024 3:54 AM CDT Cherelle Juarez FOOD SERVICE TECHNICIAN LAB BLOOD ORDERABLE S Final Result [facility] [address] [employer] [place], [place] [id number] * (ABNORMAL) CBC without differential (08/21/2024 3:20 AM CDT) Pathologist [facility] WBC 8.0 3.8 - 9.9 K/cumm Hgb 11.5(L) 13.0 - 17.5 g/dL [facility] Hct 34.6(L) 38.9 - 50.3 % [facility] Plt 155 150 - 400 K/cumm [facility] MPV 11.0 9.1 - 12.3 fL [facility] RBC 3.73(L) 4.30 - 5.80 M/cumm [facility] MCV 92.8 81.3 - 96.4 fL [facility] MCH 30.8 27.1 - 33.3 pg [facility] MCHC 33.2 32.3 - 35.7 g/dL [facility] CH RDW CV 14.1 11.1 - 14.9 % [facility] RDW SD 47.8 35.7 - 48.1 fL [facility] NRBC abs 0.00 0.00 - 0.01 K/cumm [facility] Blood 08/21/2024 3:20 AM CDT 08/21/2024 3:54 AM CDT Cherelle Juarez FOOD SERVICE TECHNICIAN LAB BLOOD ORDERABLE S Final Result Performing Organization Address [facility] de Phone Number [facility] [address] [facility] [place] [place], [place] [id number] * Magnesium (08/21/2024 3:20 AM CDT) [facility] Magnesium 2.0 1.4 - 2.5 mg/dL Blood 08/21/2024 3:20 AM CDT 08/21/2024 3:54 AM CDT Cherelle Juarez FOOD SERVICE TECHNICIAN LAB BLOOD ORDERABLE S Final Result Performing Organization Address [facility] Co de Phone Number [facility] [address] [address] * (ABNORMAL) Renal function panel (08/21/2024 3:20 AM CDT) Sodium 144 135 - 145 mmol/L Potassium, pl 3.7 3.3 - 4.9 mmol/L [facility] Chloride 104 97 - 110 mmol/L [facility] CH CO2 29 22 - 32 mmol/L [facility] CH Anion gap 11 2 - 15 mmol/L [facility] CH BUN 35(H) 6 - 25 mg/dL [facility] CH Creatinine 1.06 0.80 - 1.30 mg/dL [facility] Comment:Icteric sample, test results may be affected. Glucose 98 70 - 199 mg/dL [facility] Comment: Interpretive Data Fasting glucose [...] pl 2.2(L) 2.3 - 4.5 mg/dL [facility] CH Albumin 3.4(L) 3.5 - 5.0 g/dL [facility] Blood 08/21/2024 3:20 AM CDT 08/21/2024 3:54 AM CDT us Cherelle Juarez FOOD SERVICE TECHNICIAN LAB BLOOD ORDERABLE S Final Result [facility] [address] [place] [address] * POCT glucose (08/21/2024 2:01 AM CDT) Glucose, POC 102 70 - 199 mg/dL POC Performer [id number] [facility] Blood 08/21/2024 2:01 AM CDT 08/21/2024 2:01 AM CDT Maddison Frausto MD LAB POCT ORDERABLES - DEVICE F inal Result Performing Organization Address City/[facility]/ZIP Co de Phone Number ROGELIO ZHENG [address] [facility] [place] [address] * POCT glucose (08/20/2024 9:28 PM CDT) Glucose, POC 111 70 - 199 mg/dL POC Performer [id number] [facility] CH Blood 08/20/2024 9:28 PM CDT 08/20/2024 9:28 PM CDT Maddison Frausto MD LAB POCT ORDERABLES - DEVICE F inal Result Performing Organization Address [facility] Co de Phone Number ROGELIO [address] [facility] [place] [address] * POCT glucose (08/20/2024 5:35 PM CDT) Glucose, POC 175 70 - 199 mg/dL POC Performer [id number] [facility] CH Blood 08/20/2024 5:35 PM CDT 08/20/2024 5:35 PM CDT Maddison Frausto MD LAB POCT ORDERABLES - DEVICE F inal Result Performing Organization Address [facility]/ZIP Co de Phone Number ROGELIO ZHENG [address] [address] [facility] [place] [address] * (ABNORMAL) POCT glucose (08/20/2024 12:15 PM CDT) Glucose, POC 238(H) 70 - 199 mg/dL POC Performer [id number] CERNER CH Blood 08/20/2024 12:1 5 PM CDT 08/20/2024 12:15 PM CDT Maddison Frausto MD LAB POCT ORDERABLES - DEVICE F inal Result ROGELIO [address] [address] [place] [address] * (ABNORMAL) Urinalysis reflex to microscopic and [...] tendency for uric acid stone formation. Source: [facility] [place] Current Interpretive Data was last revised on [...] 9:46 AM CDT 08/20/2024 9:57 AM CDT Savannah Santos NP LAB MICROBIOLOGY - GENERAL ORDERABLES Final Result Performing Organization Address City/[facility]/ZIP Co de Phone Number ROGELIO [address] [address] Department [place] [address] * (ABNORMAL) POCT glucose (08/20/2024 8:17 AM CDT) Glucose, POC 230(H) 70 - 199 mg/dL POC Performer [phone] CERNER CH Blood 08/20/2024 8:17 AM CDT 08/20/2024 8:17 AM CDT Maddison Frausto MD LAB POCT ORDERABLES - DEVICE F inal Result ROGELIO ZHENG [address] [place] [address] * XR Chest 1 View - Portable [...] signed by: Juan Reeder M.D. Cherelle Juarez FOOD SERVICE TECHNICIAN IMG XR PROCEDURES F inal Result * [...] 3:59 AM CDT 08/20/2024 4:25 AM CDT us Cherelle Juarez FOOD SERVICE TECHNICIAN LAB BLOOD ORDERABLE S Final Result [facility] [address] [address] [place] [address] * (ABNORMAL) CBC without differential (08/20/2024 3:59 AM CDT) WBC 7.1 3.8 - 9.9 K/cumm Hgb 10.9(L) 13.0 - 17.5 g/dL [facility] Hct 32.4(L) 38.9 - 50.3 % [facility] Plt 110(L) 150 - 400 K/cumm [facility] MPV 11.2 9.1 - 12.3 fL [facility] RBC 3.51(L) 4.30 - 5.80 M/cumm [facility] MCV 92.3 81.3 - 96.4 fL [facility] MCH 31.1 27.1 - 33.3 pg [facility] MCHC 33.6 32.3 - 35.7 g/dL [facility] RDW CV 14.1 11.1 - 14.9 % [facility] RDW SD 47.2 35.7 - 48.1 fL [facility] NRBC abs 0.00 0.00 - 0.01 K/cumm [facility] Blood 08/20/2024 3:59 AM CDT 08/20/2024 4:25 AM CDT Cherelle Holly Ann FOOD SERVICE TECHNICIAN LAB BLOOD ORDERABLE S Final Result Performing Organization Address City/[facility] Co de Phone Number ROGELIO ZHENG [address] [facility] [place] [address] * Magnesium (08/20/2024 3:59 AM CDT) Magnesium 1.8 1.4 - 2.5 mg/dL Blood 08/20/2024 3:59 AM CDT 08/20/2024 4:25 AM CDT Cherelle Barrera Ann FOOD SERVICE TECHNICIAN LAB BLOOD ORDERABLE S Final Result Performing Organization Address [facility] de Phone Number ROGELIO ZHENG [address] [address] [facility] [place] [address] * (ABNORMAL) Renal function panel (08/20/2024 3:59 AM CDT) Sodium 142 135 - 145 mmol/L Potassium, pl 3.5 3.3 - 4.9 mmol/L [facility] Chloride 107 97 - 110 mmol/L [facility] CO2 24 22 - 32 mmol/L [facility] Anion gap 11 2 - 15 mmol/L [facility] BUN 29(H) 6 - 25 mg/dL [facility] Creatinine 0.85 0.80 - 1.30 mg/dL [facility] Comment:Icteric sample, test results may be affected. Glucose 172 70 - 199 mg/dL [facility] Comment: Interpretive Data Fasting glucose >/= 126 [...] CDT 08/20/2024 4:25 AM CDT Cherelle Juarez FOOD SERVICE TECHNICIAN LAB BLOOD ORDERABLE S Final Result Performing Organization Address [facility] Co de Phone Number ROGELIO ZHENG [address] [address] [facility] [place] [address] * POCT glucose (08/20/2024 2:54 AM CDT) Glucose, POC 173 70 - 199 mg/dL POC Performer [id number] [facility] Blood 08/20/2024 2:54 AM CDT 08/20/2024 2:54 AM CDT Maddison Frausto MD LAB POCT ORDERABLES - DEVICE F inal Result Performing Organization Address [facility] de Phone Number ROGELIO ZHENG [address] [address] [facility] [place] [place], [place] [id number] * (ABNORMAL) POCT glucose (08/19/2024 8:36 PM CDT) Glucose, POC 285(H) 70 - 199 mg/dL POC Performer [id number] [facility] Blood 08/19/2024 8:36 PM CDT 08/19/2024 8:36 PM CDT Maddison Frausto MD LAB POCT ORDERABLES - DEVICE F inal Result Performing Organization Address [facility] Co de Phone Number ROGELIO ZHENG [address] [address] [place], [place] [id number] * POCT glucose (08/19/2024 5:26 PM CDT) Glucose, POC 184 70 - 199 mg/dL POC Performer [id number] [facility] Blood 08/19/2024 5:26 PM CDT 08/19/2024 5:26 PM CDT Maddison Frausto MD LAB POCT ORDERABLES - DEVICE F inal Result Performing Organization Address [facility] Co de Phone Number ROGELIO ZHENG [address] [facility] [place], [place] [id number] * (ABNORMAL) POCT glucose (08/19/2024 12:05 PM CDT) Glucose, POC 239(H) 70 - 199 mg/dL POC Performer [id number] [facility] Blood 08/19/2024 12:0 5 PM CDT 08/19/2024 12:05 PM CDT Maddison Frausto MD LAB POCT ORDERABLES - DEVICE F inal Result Performing Organization Address [facility] de Phone Number REGINABRANDIE ZHENG [address] [facility] [place] [address] * aPTT (08/19/2024 9:55 AM CDT) aPTT 31 28 - 38 sec Comment: Interpretive Data Heparin therapeutic range: 66.0 - 100.0 seconds. Range based on correlation with therapeutic heparin activity range of 0.3 - 0.7 Units/mL. Current interpretive data was last revised on 2023. Blood 08/19/2024 9:55 AM CDT 08/19/2024 9:57 AM CDT Savannah Santos FOOD SERVICE TECHNICIAN LAB BLOOD ORDERABLES Final Result Performing Organization Address [facility] Co de Phone Number ROGELIO ZHENG [address] [address] [place] [address] * Protime-INR (08/19/2024 9:55 AM CDT) PT [...] CDT 08/19/2024 9:57 AM CDT Savannah Santos FOOD SERVICE TECHNICIAN LAB BLOOD ORDERABLES Final Result Performing Organization Address [facility] Co de Phone Number REGINABRANDIE [address] [address] [place] [address] * POCT glucose (08/19/2024 7:48 AM CDT) Glucose, POC 183 70 - 199 mg/dL POC Performer [id number] ROGELIO Blood 08/19/2024 7:48 AM CDT 08/19/2024 7:48 AM CDT Maddison Frausto MD LAB POCT ORDERABLES - DEVICE F inal Result Performing Organization Address City/[facility] Co de Phone Number REGINABRANDIE [address] [address] [place] [address] * XR Chest 1 View - Portable [...] signed by: Juan Reeder M.D. Cherelle Juarez FOOD SERVICE TECHNICIAN IMG XR PROCEDURES F inal Result * [...] CDT 08/19/2024 5:04 AM CDT Akila Huynh FOOD SERVICE TECHNICIAN LAB BLOOD ORDERABLES Fin al Result ROGELIO ZHENG [address] [place] [address] * (ABNORMAL) CBC without differential (08/19/2024 4:16 AM CDT) WBC 8.8 3.8 - 9.9 K/cumm Hgb 11.0(L) 13.0 - 17.5 g/dL CERNER CH Hct 33.1(L) 38.9 - 50.3 % CERNER CH Plt 102(L) 150 - 400 K/cumm CERNER CH MPV 11.4 9.1 - 12.3 fL CERNER RBC 3.55(L) 4.30 - 5.80 M/cumm CERNER CH MCV 93.2 81.3 - 96.4 fL CERNER CH MCH 31.0 27.1 - 33.3 pg CERNER MCHC 33.2 32.3 - 35.7 g/dL CERNER CH RDW CV 14.2 11.1 - 14.9 % CERNER CH RDW SD 48.4(H) 35.7 - 48.1 fL CERNER CH NRBC abs 0.00 0.00 - 0.01 K/cumm CERNER CH Blood 08/19/2024 4:16 AM CDT 08/19/2024 5:02 AM CDT us Cherelle Juarez FOOD SERVICE TECHNICIAN LAB BLOOD ORDERABLE S Final Result ROGELIO ZHENG [address] [place], [place] [id number] * Magnesium (08/19/2024 4:16 AM CDT) Magnesium 1.9 1.4 - 2.5 mg/dL Blood 08/19/2024 4:16 AM CDT 08/19/2024 5:04 AM CDT Cherelle Juarez FOOD SERVICE TECHNICIAN LAB BLOOD ORDERABLE S Final Result ROGELIO ZHENG [address] [employer] [place], [place] [id number] * (ABNORMAL) Renal function panel (08/19/2024 4:16 AM CDT) Sodium 142 135 - 145 mmol/L Potassium, pl 3.8 3.3 - 4.9 mmol/L CERNER Chloride 107 97 - 110 mmol/L CERN[facility] CH CO2 26 22 - 32 mmol/L [facility] CH Anion gap 9 2 - 15 mmol/L [facility] BUN 27(H) 6 - 25 mg/dL CERNER Creatinine 0.98 0.80 - 1.30 mg/dL CERNER CH Comment:Icteric sample, test results may be affected. Glucose 146 70 - 199 mg/dL [facility] Comment: Interpretive Data Fasting glucose >/= 126 [...] 2022. Calcium 8.6 8.5 - 10.3 mg/dL [facility] Phosphorus, pl 1.6(L) 2.3 - 4.5 mg/dL CERNER Albumin 3.3(L) 3.5 - 5.0 g/dL [facility] Blood 08/19/2024 4:16 AM CDT 08/19/2024 5:04 AM CDT Cherelle Juarez FOOD SERVICE TECHNICIAN LAB BLOOD ORDERABLE S Final Result Performing Organization Address City/[facility]/ZIP Co de Phone Number ROGELIO ZHENG [address] [address] Department [employer] [place], [place] [id number] * POCT glucose (08/19/2024 1:55 AM CDT) Glucose, POC 146 70 - 199 mg/dL POC Performer [id number] CERNER CH Blood 08/19/2024 1:55 AM CDT 08/19/2024 1:55 AM CDT Maddison Frausto MD LAB POCT ORDERABLES - DEVICE F inal Result Performing Organization Address City/[facility] Co de Phone Number ROGELIO ZHENG [address] [address] [place] [address] * (ABNORMAL) POCT glucose (08/18/2024 8:07 PM CDT) Glucose, POC 317(H) 70 - 199 mg/dL POC Performer [id number] CERNER CH Blood 08/18/2024 8:07 PM CDT 08/18/2024 8:07 PM CDT Maddison Frausto MD LAB POCT ORDERABLES - DEVICE F inal Result Performing Organization Address [facility] de Phone Number ROGELIO ZHENG [address] [address] [place] [address] * (ABNORMAL) POCT glucose (08/18/2024 4:31 PM CDT) Glucose, POC 244(H) 70 - 199 mg/dL POC Performer [id number] CERNER CH Blood 08/18/2024 4:31 PM CDT 08/18/2024 4:31 PM CDT Maddison Frausto MD LAB POCT ORDERABLES - DEVICE F inal Result Performing Organization Address City/[facility] Co de Phone Number ROGELIO ZHENG [address] [address] [place] [address] * XR Chest 1 View (08/18/2024 2:11 [...] 201(H) 70 - 199 mg/dL POC Performer [id number] ROGELIO ZHENG Blood 08/18/2024 11:5 0 AM CDT 08/18/2024 11:50 AM CDT Maddison Frausto MD LAB POCT ORDERABLES - DEVICE F inal Result ROGELIO [address] [address] [place] [address] * POCT glucose (08/18/2024 7:34 AM CDT) Glucose, POC 183 70 - 199 mg/dL POC Performer [id number] ROGELIO ZHENG Blood 08/18/2024 7:34 AM CDT 08/18/2024 7:34 AM CDT Maddison Frausto MD LAB POCT ORDERABLES - DEVICE F inal Result ROGELIO [address] [address] [place] [address] * Critical Care (08/18/2024 7:00 AM CDT) Narrative Raphael Echols MD - 08/18/2024 7:00 AM CDT Raphael Echols MD 08/19/2024 7:51 AM Critical Care Performed by: Cherelle Juarez NP Authorized by: Cherelle Juarez NP CRITICAL CARE: Team: RYAN Shift: AM Level of Billing: Subsequent Hospital [...] plan with the patient's team and other medical/practice management consultant staff. This time was in addition to and separate from care provided by other practitioners on this day of service. I spent time reviewing and interpreting data from bedside monitors, laboratory results, and imaging and I spent time documenting in the medical record Cherelle Juarez FOOD SERVICE TECHNICIAN IN CLINIC/BEDSIDE O RDERABLES Final Result * [...] Atelectasis. Electronically signed by: Juan Reeder M.D. Cherelle Juarez FOOD SERVICE TECHNICIAN IMG XR PROCEDURES F inal Result * (ABNORMAL) Calcium, ionized, whole blood (08/18/2024 4:48 AM CDT) [facility] Ca, ionized, bld 4.48(L) 4.50 - 5.10 mg/dL Blood 08/18/2024 4:48 AM CDT 08/18/2024 4:48 AM CDT us Mc Hodgson MD LAB BLOOD ORDERABL ES Final Result [facility] [address] [address] [place] [address] * eGFR (08/18/2024 4:48 AM CDT) Pathologist [facility] eGFR >90 >=60 mL/min/1. 73 m2 Comment: [...] 4:48 AM CDT 08/18/2024 4:54 AM CDT us Akila Huynh NP LAB BLOOD ORDERABLES Fin al Result [facility] [address] [address] [place] [address] * (ABNORMAL) CBC without differential (08/18/2024 4:48 AM CDT) WBC 9.2 3.8 - 9.9 K/cumm Hgb 11.1(L) 13.0 - 17.5 g/dL CERNER Hct 32.6(L) 38.9 - 50.3 % [facility] Plt 82(L) 150 - 400 K/cumm [facility] MPV 10.4 9.1 - 12.3 fL [facility] RBC 3.51(L) 4.30 - 5.80 M/cumm [facility] MCV 92.9 81.3 - 96.4 fL CERNER MCH 31.6 27.1 - 33.3 pg CERNER MCHC 34.0 32.3 - 35.7 g/dL CERN[facility] CH RDW CV 14.4 11.1 - 14.9 % CERNER RDW SD 48.4(H) 35.7 - 48.1 fL [facility] NRBC abs 0.00 0.00 - 0.01 K/cumm [facility] Blood 08/18/2024 4:48 AM CDT 08/18/2024 4:51 AM CDT Cherelle Holly Ann FOOD SERVICE TECHNICIAN LAB BLOOD ORDERABLE S Final Result Performing Organization Address City/[facility] Co de Phone Number ROGELIO ZEHNG [address] [facility] [place] [address] * Magnesium (08/18/2024 4:48 AM CDT) Pathologist [facility] Magnesium 2.0 1.4 - 2.5 mg/dL Blood 08/18/2024 4:48 AM CDT 08/18/2024 4:48 AM CDT Cherelle Barrera Ann FOOD SERVICE TECHNICIAN LAB BLOOD ORDERABLE S Final Result Performing Organization Address [facility] de Phone Number ROGELIO [address] [address] [facility] [place] [address] * (ABNORMAL) Renal function panel (08/18/2024 4:48 AM CDT) Sodium 141 135 - 145 mmol/L Potassium, pl 4.2 3.3 - 4.9 mmol/L [facility] Chloride 109 97 - 110 mmol/L [facility] CO2 23 22 - 32 mmol/L [facility] Anion gap 9 2 - 15 mmol/L [facility] BUN 15 6 - 25 mg/dL [facility] Creatinine 0.87 0.80 - 1.30 mg/dL [facility] Comment:Icteric sample, test results may be affected. Glucose 178 70 - 199 mg/dL [facility] Comment: Interpretive Data Fasting glucose >/= 126 [...] CH Albumin 3.5 3.5 - 5.0 g/dL [facility] CH Blood 08/18/2024 4:48 AM CDT 08/18/2024 4:48 AM CDT Cherelle Juarez FOOD SERVICE TECHNICIAN LAB BLOOD ORDERABLE S Final Result Performing Organization Address [facility] Co de Phone Number ROGELIO [address] [address] [facility] [place] [address] * POCT glucose (08/18/2024 4:42 AM CDT) Glucose, POC 184 70 - 199 mg/dL POC Performer [id number] [facility] Blood 08/18/2024 4:42 AM CDT 08/18/2024 4:42 AM CDT Maddison Frausto MD LAB POCT ORDERABLES - DEVICE F inal Result Performing Organization Address [facility] de Phone Number ROGELIO [address] [address] [facility] [place] [address] * POCT glucose (08/17/2024 8:18 PM CDT) Glucose, POC 126 70 - 199 mg/dL POC Performer [id number] [facility] Blood 08/17/2024 8:18 PM CDT 08/17/2024 8:18 PM CDT Maddison Frausto MD LAB POCT ORDERABLES - DEVICE F inal Result Performing Organization Address [facility] Co de Phone Number [facility] [address] [address] [address] * Critical Care (08/17/2024 7:38 PM CDT) [...] plan with the patient's team and other medical/practice management consultant staff. This time was in addition to and separate from care provided by other practitioners on this day of service. Rasheed Bear FOOD SERVICE TECHNICIAN IN CLINIC/BEDSIDE ORDER [place] Final Result * POCT glucose (08/17/2024 6:16 PM CDT) Glucose, POC 134 70 - 199 mg/dL POC Performer [id number] CERNER CH Blood 08/17/2024 6:16 PM CDT 08/17/2024 6:16 PM CDT Maddison Frausto MD LAB POCT ORDERABLES - DEVICE F inal Result Performing Organization Address [facility] Co de Phone Number ROGELIO ZHENG [address] [address] [place] [address] * POCT glucose (08/17/2024 5:40 PM CDT) Glucose, POC 118 70 - 199 mg/dL POC Performer [id number] CERNER Blood 08/17/2024 5:40 PM CDT 08/17/2024 5:40 PM CDT Maddison Frausto MD LAB POCT ORDERABLES - DEVICE F inal Result Performing Organization Address [facility] Co de Phone Number ROGELIO ZHENG [address] [address] [place] [address] * POCT glucose (08/17/2024 4:12 PM CDT) Glucose, POC 101 70 - 199 mg/dL POC Performer [id number] [facility] Blood 08/17/2024 4:12 PM CDT 08/17/2024 4:12 PM CDT Maddison Frausto MD LAB POCT ORDERABLES - DEVICE F inal Result Performing Organization Address [facility]/ZIP Co de Phone Number [facility] [address] [address] [place] [address] * Calcium, ionized, whole blood (08/17/2024 3:31 PM CDT) Pathologist [facility] Ca, ionized, bld 4.63 4.50 - 5.10 mg/dL Blood 08/17/2024 3:31 PM CDT 08/17/2024 3:33 PM CDT Maddison Frausto MD LAB BLOOD ORDERABLES Final Res ult Performing Organization Address [facility]/ZIP Co de Phone Number [facility] [address] [address] [address] * eGFR (08/17/2024 3:31 PM CDT) Pathologist [facility] eGFR >90 >=60 mL/min/1. 73 m2 Comment: [...] BLOOD ORDERABLES Final Res ult ROGELIO ZHENG [address] [place] [address] * (ABNORMAL) CBC without differential (08/17/2024 3:31 PM CDT) WBC 9.4 3.8 - 9.9 K/cumm Hgb 11.6(L) 13.0 - 17.5 g/dL [facility] CH Hct 33.9(L) 38.9 - 50.3 % [facility] CH Plt 90(L) 150 - 400 K/cumm [facility] CH MPV 10.5 9.1 - 12.3 fL [facility] CH RBC 3.68(L) 4.30 - 5.80 M/cumm [facility] CH MCV 92.1 81.3 - 96.4 fL [facility] CH MCH 31.5 27.1 - 33.3 pg CERNER CH MCHC 34.2 32.3 - 35.7 g/dL [facility] CH RDW CV 14.3 11.1 - 14.9 % [facility] CH RDW SD 48.5(H) 35.7 - 48.1 fL [facility] CH NRBC abs 0.00 0.00 - 0.01 K/cumm [facility] CH Blood 08/17/2024 3:31 PM CDT 08/17/2024 3:35 PM CDT Maddison Frausto MD LAB BLOOD ORDERABLES Final Res ult Performing Organization Address City/[facility]/ZIP Co de Phone Number REGINABRANDIE ZHENG [address] [place] [address] * Magnesium (08/17/2024 3:31 PM CDT) Magnesium 2.2 1.4 - 2.5 mg/dL Blood 08/17/2024 3:31 PM CDT 08/17/2024 3:33 PM CDT Maddison Frausto MD LAB BLOOD ORDERABLES Final Res ult [facility] [address] [address] Department [place] [address] * (ABNORMAL) Basic metabolic panel (08/17/2024 3:31 PM CDT) Pathologist [facility] Sodium 141 135 - 145 mmol/L Potassium, pl 4.0 3.3 - 4.9 mmol/L [facility] Chloride 113(H) 97 - 110 mmol/L [facility] CO2 20(L) 22 - 32 mmol/L [facility] Anion gap 8 2 - 15 mmol/L [facility] BUN 15 6 - 25 mg/dL [facility] Creatinine 0.86 0.80 - 1.30 mg/dL [facility] Comment:Icteric sample, test results may be affected. Glucose 105 70 - 199 mg/dL [facility] Comment: Interpretive Data Fasting glucose >/= 126 [...] 2022. Calcium 8.3(L) 8.5 - 10.3 mg/dL [facility] Blood 08/17/2024 3:31 PM CDT 08/17/2024 3:33 PM CDT Maddison Frausto MD LAB BLOOD ORDERABLES Final Res ult Performing Organization Address City/[facility]/ZIP Co de Phone Number REGINABRANDIE ZHENG [address] [facility] [place] [address] * POCT glucose (08/17/2024 1:56 PM CDT) Glucose, POC 118 70 - 199 mg/dL POC Performer [id number] [facility] CH Blood 08/17/2024 1:56 PM CDT 08/17/2024 1:56 PM CDT Maddison Frausto MD LAB POCT ORDERABLES - DEVICE F inal Result Performing Organization Address [facility] Co de Phone Number ROGLEIO NORM [address] [address] [facility] [place] [address] * POCT glucose (08/17/2024 12:44 PM CDT) Glucose, POC 106 70 - 199 mg/dL POC Performer [id number] [facility] CH Blood 08/17/2024 12:4 4 PM CDT 08/17/2024 12:44 PM CDT Maddison Frausto MD LAB POCT ORDERABLES - DEVICE F inal Result Performing Organization Address [facility] Co de Phone Number ROGELIO ZHENG [address] [address] [facility] [place] [address] * POCT glucose (08/17/2024 11:45 AM CDT) Glucose, POC 110 70 - 199 mg/dL POC Performer [id number] CERNER CH Blood 08/17/2024 11:4 5 AM CDT 08/17/2024 11:45 AM CDT Maddison Frausto MD LAB POCT ORDERABLES - DEVICE F inal Result Performing Organization Address City/[facility]/ZIP Co de Phone Number ROGELIO ZHENG [address] [address] [facility] [place] [address] * POCT glucose (08/17/2024 10:49 AM CDT) Glucose, POC 109 70 - 199 mg/dL POC Performer [id number] CERNER CH Blood 08/17/2024 10:4 9 AM CDT 08/17/2024 10:49 AM CDT Maddison Frausto MD LAB POCT ORDERABLES - DEVICE F inal Result Performing Organization Address [facility] Co de Phone Number ROGELIO [address] [address] [facility] [place] [address] * POCT glucose (08/17/2024 9:50 AM CDT) Glucose, POC 113 70 - 199 mg/dL POC Performer [id number] CERNER CH Blood 08/17/2024 9:50 AM CDT 08/17/2024 9:50 AM CDT Maddison Frausto MD LAB POCT ORDERABLES - DEVICE F inal Result Performing Organization Address [facility] Co de Phone Number ROGELIO [address] [address] [facility] [place] [address] * POCT glucose (08/17/2024 8:47 AM CDT) Glucose, POC 122 70 - 199 mg/dL POC Performer [id number] CERNER Blood 08/17/2024 8:47 AM CDT 08/17/2024 8:47 AM CDT Maddison Frausto MD LAB POCT ORDERABLES - DEVICE F inal Result Performing Organization Address [facility] Co de Phone Number ROGELIO [address] [address] [facility] [place] [address] * POCT glucose (08/17/2024 7:49 AM CDT) Glucose, POC 132 70 - 199 mg/dL POC Performer [id number] ROGELIO ZHENG Blood 08/17/2024 7:49 AM CDT 08/17/2024 7:49 AM CDT Maddison Frausto MD LAB POCT ORDERABLES - DEVICE F inal Result Performing Organization Address [facility] [facility] Co de Phone Number ROGELIO [address] [place] [address] * ECG 12 lead (08/17/2024 7:24 AM CDT) 08/17/2024 7:24 AM CDT Narrative [facility] - 08/17/2024 8:56 AM CDT Vent Rate: 58 bpm RR Interval: 1020 msec MD Interval: 211 msec QRS Duration: 105 msec QT Interval: 371 msec QTC Interval: 369 msec P-R-T Vincent: 29 - 64 - 43 degrees IMPRESSION: SINUS BRADYCARDIA WITH FIRST DEGREE AV BLOCK NONSPECIFIC ST \T\ T-WAVE ABNORMALITY ABNORMAL ECG Electronically Signed By: Jorge Matos MD, [facility] Del Burgos MD ECG ORDERABLES Final Result Performing Organization Address [facility] Phone Number [facility] * Critical Care (08/17/2024 7:16 AM CDT) Narrative Raphael Echols MD - 08/17/2024 7:16 AM CDT Raphael Echols MD 08/18/2024 7:08 AM Critical Care Performed by: Akila Huynh NP Authorized by: Akila Huynh NP CRITICAL CARE: Team: LEMUEL Shift: AM Level of Billing: Critical Care [...] plan with the ICU team and other medical/practice management consultant staff, making frequent assessments and decisions [...] spent time documenting in the medical record Akila Huynh NP IN CLINIC/BEDSIDE ORDERA BLES Final Result * POCT glucose (08/17/2024 6:41 AM CDT) Glucose, POC 141 70 - 199 mg/dL POC Performer [id number] [facility] Blood 08/17/2024 6:41 AM CDT 08/17/2024 6:41 AM CDT Maddison Frausto MD LAB POCT ORDERABLES - DEVICE F inal Result Performing Organization Address [facility]/ZIP Co de Phone Number ROGELIO [address] [place] [address] * POCT glucose (08/17/2024 5:44 AM CDT) Glucose, POC 113 70 - 199 mg/dL POC Performer [id number] [facility] Blood 08/17/2024 5:44 AM CDT 08/17/2024 5:44 AM CDT Maddison Frausto MD LAB POCT ORDERABLES - DEVICE F inal Result ROGELIO [address] [facility] [place] [address] * POCT glucose (08/17/2024 4:43 AM CDT) Glucose, POC 109 70 - 199 mg/dL POC Performer [id number] ROGELIO Blood 08/17/2024 4:43 AM CDT 08/17/2024 4:43 AM CDT Maddison Frausto MD LAB POCT ORDERABLES - DEVICE F inal Result ROGELIO [address] [facility] [place] [address] * XR Chest 1 View - Portable [...] been removed. Unchanged satisfactory position of the Columbus-Kelin catheter and left thoracostomy tube. Cardiomegaly with [...] been removed. Unchanged satisfactory position of the Columbus-Keiln catheter and left thoracostomy tube. Cardiomegaly with aortic atherosclerosis. No failure. No active infiltrate. IMPRESSION: No failure. Electronically signed by: Donna Freire M.D. Cherelle Juarez FOOD SERVICE TECHNICIAN IMG XR PROCEDURES F inal Result * POCT glucose (08/17/2024 3:40 AM CDT) Glucose, POC 126 70 - 199 mg/dL POC Performer [id number] ROGELIO Blood 08/17/2024 3:40 AM CDT 08/17/2024 3:40 AM CDT Maddison Frausto MD LAB POCT ORDERABLES - DEVICE F inal Result Performing Organization Address [facility] Co de Phone Number ORGELIO [address] Department [employer] [place], [place] [id number] * eGFR (08/17/2024 2:55 AM CDT) eGFR [...] 2:55 AM CDT 08/17/2024 2:55 AM CDT us Akila Huynh FOOD SERVICE TECHNICIAN LAB BLOOD ORDERABLES Fin al Result Performing Organization Address [facility]/ZIP Co de Phone Number [facility] [address] [place] [address] * (ABNORMAL) Differential, auto (08/17/2024 2:55 AM CDT) Neutrophil abs 7.4(H) 1.5 - 6.5 K/cumm Imm gran abs 0.0 0.0 - 0.1 K/cumm [facility] Lymphocyte abs 0.7(L) 0.8 - 3.3 K/cumm [facility] Monocyte abs 0.9(H) 0.2 - 0.8 K/cumm [facility] Eosinophil abs 0.0 0.0 - 0.5 K/cumm [facility] Basophil abs 0.0 0.0 - 0.1 K/cumm [facility] Neutrophil pct 82.1 % [facility] Comment: Interpretive Data Percent cell count reference ranges are not reported, since discordance with absolute values may lead to misinterpretation of CBC data. Current Interpretive Data was last revised on 2017. Imm gran pct 0.2 % [facility] Comment: Interpretive Data Percent cell count reference ranges are not reported, since discordance with absolute values may lead to misinterpretation of CBC data. Current Interpretive Data was last revised on 2017. Lymphocyte pct 7.7 % [facility] Comment: Interpretive Data Percent cell count reference ranges are not reported, since discordance with absolute values may lead to misinterpretation of CBC data. Current Interpretive Data was last revised on 2017. Monocyte pct 9.8 % [facility] Comment: Interpretive Data Percent cell count reference ranges are not reported, since discordance with absolute values may lead to misinterpretation of CBC data. Current Interpretive Data was last revised on 2017. Eosinophil pct 0.0 % [facility] Comment: Interpretive Data Percent cell count reference ranges are not reported, since discordance with absolute values may lead to misinterpretation of CBC data. Current Interpretive Data was last revised on 2017. Basophil pct 0.2 % [facility] Comment: Interpretive Data Percent cell count reference ranges are not reported, since discordance with absolute values may lead to misinterpretation of CBC data. Current Interpretive Data was last revised on 2017. Blood 08/17/2024 2:55 AM CDT 08/17/2024 2:55 AM CDT us Del A. Munfakh MD LAB BLOOD ORDERABLES Final R esult ROGELIO ZHENG [address] [place] [address] * (ABNORMAL) CBC with auto differential (08/17/2024 2:55 AM CDT) WBC 9.0 3.8 - 9.9 K/cumm Hgb 11.3(L) 13.0 - 17.5 g/dL [facility] Hct 34.1(L) 38.9 - 50.3 % [facility] Plt 95(L) 150 - 400 K/cumm [facility] MPV 10.5 9.1 - 12.3 fL [facility] RBC 3.65(L) 4.30 - 5.80 M/cumm [facility] MCV 93.4 81.3 - 96.4 fL [facility] MCH 31.0 27.1 - 33.3 pg [facility] MCHC 33.1 32.3 - 35.7 g/dL [facility] CH RDW CV 13.9 11.1 - 14.9 % [facility] RDW SD 47.8 35.7 - 48.1 fL [facility] NRBC abs 0.00 0.00 - 0.01 K/cumm [facility] Blood 08/17/2024 2:55 AM CDT 08/17/2024 2:55 AM CDT Del Burgos MD LAB BLOOD ORDERABLES Final R esult ROGELIO ZHENG [address] [place], [place] [id number] * (ABNORMAL) Phosphorus (08/17/2024 2:55 AM CDT) Phosphorus, pl 2.1(L) 2.3 - 4.5 mg/dL Blood 08/17/2024 2:55 AM CDT 08/17/2024 2:55 AM CDT Cherelle Juarez FOOD SERVICE TECHNICIAN LAB BLOOD ORDERABLE S Final Result Performing Organization Address City/[facility]/ZIP Co de Phone Number ROGELIO ZHENG [address] [place] [address] * Magnesium (08/17/2024 2:55 AM CDT) Pathologist [facility] Magnesium 2.3 1.4 - 2.5 mg/dL Blood 08/17/2024 2:55 AM CDT 08/17/2024 2:55 AM CDT Cherelle Juarez FOOD SERVICE TECHNICIAN LAB BLOOD ORDERABLE S Final Result Performing Organization Address [facility] de Phone Number ROGELIO ZHENG [address] [place] [address] * (ABNORMAL) Renal function panel (08/17/2024 2:55 AM CDT) Pathologist [facility] Sodium 144 135 - 145 mmol/L Potassium, pl 4.3 3.3 - 4.9 mmol/L [facility] Chloride 113(H) 97 - 110 mmol/L [facility] CO2 22 22 - 32 mmol/L [facility] Anion gap 9 2 - 15 mmol/L [facility] BUN 17 6 - 25 mg/dL [facility] Creatinine 0.96 0.80 - 1.30 mg/dL [facility] Glucose 106 70 - 199 mg/dL [facility] Comment: Interpretive Data Fasting glucose >/= 126 [...] 2022. Calcium 7.8(L) 8.5 - 10.3 mg/dL [facility] Phosphorus, pl 2.1(L) 2.3 - 4.5 mg/dL [facility] Albumin 3.4(L) 3.5 - 5.0 g/dL [facility] Blood 08/17/2024 2:55 AM CDT 08/17/2024 2:55 AM CDT Cherelle Juarez FOOD SERVICE TECHNICIAN LAB BLOOD ORDERABLE S Final Result Performing Organization Address [facility] Co de Phone Number REGINABRANDIE [address] [place], [place] [id number] * POCT glucose (08/17/2024 2:40 AM CDT) Glucose, POC 107 70 - 199 mg/dL POC Performer [id number] [facility] Blood 08/17/2024 2:40 AM CDT 08/17/2024 2:40 AM CDT Maddison Frausto MD LAB POCT ORDERABLES - DEVICE F inal Result Performing Organization Address [facility] Co de Phone Number REGINABRANDIE [address] [place] [address] * Oxyhemoglobin, pulmonary artery (08/17/2024 2:16 AM CDT) Oxyhemoglobin, PA 65.9 % Comment: Interpretive Data No reference range established. Current interpretive data was last revised 2019. Blood 08/17/2024 2:16 AM CDT 08/17/2024 2:54 AM CDT Akila Huynh FOOD SERVICE TECHNICIAN LAB BLOOD ORDERABLES Fin al Result Performing Organization Address [facility] Co de Phone Number [facility] [address] [place] [address] * Calcium, ionized, whole blood (08/17/2024 2:16 AM CDT) Ca, ionized, bld 4.89 4.50 - 5.10 mg/dL Blood 08/17/2024 2:16 AM CDT 08/17/2024 3:00 AM CDT Mc Hodgson MD LAB BLOOD ORDERABL ES Final Result Performing Organization Address [facility] Co de Phone Number ROGELIO ZHENG [address] [facility] [place] [address] * POCT glucose (08/17/2024 1:42 AM CDT) Glucose, POC 92 70 - 199 mg/dL POC Performer [id number] [facility] Blood 08/17/2024 1:42 AM CDT 08/17/2024 1:42 AM CDT Maddison Frausto MD LAB POCT ORDERABLES - DEVICE F inal Result Performing Organization Address [facility] Co de Phone Number ROGELIO [address] [facility] [place] [address] * POCT glucose (08/17/2024 12:44 AM CDT) Glucose, POC 83 70 - 199 mg/dL POC Performer [id number] [facility] Blood 08/17/2024 12:4 4 AM CDT 08/17/2024 12:44 AM CDT Maddison Frausto MD LAB POCT ORDERABLES - DEVICE F inal Result Performing Organization Address [facility] Co de Phone Number ROGELIO ZHENG [address] [facility] [place] [address] * POCT glucose (08/16/2024 11:42 PM CDT) Glucose, POC 91 70 - 199 mg/dL POC Performer [id number] [facility] Blood 08/16/2024 11:4 2 PM CDT 08/16/2024 11:42 PM CDT Maddison Frausto MD LAB POCT ORDERABLES - DEVICE F inal Result Performing Organization Address [facility]/ZIP Co de Phone Number ROGELIO ZHENG [address] [facility] [place] [address] * POCT glucose (08/16/2024 10:34 PM CDT) Glucose, POC 108 70 - 199 mg/dL POC Performer [id number] [facility] Blood 08/16/2024 10:3 4 PM CDT 08/16/2024 10:34 PM CDT Maddison Frausto MD LAB POCT ORDERABLES - DEVICE F inal Result Performing Organization Address [facility] de Phone Number ROGELIO ZHENG [address] [facility] [place], [place] [id number] * (ABNORMAL) Blood gas, arterial (08/16/2024 10:28 [...] ORDERABLES Final R esult Performing Organization Address [facility] Co de Phone Number ROGELIO ZHENG [address] [facility] [place] [address] * POCT glucose (08/16/2024 9:52 PM CDT) Glucose, POC 114 70 - 199 mg/dL POC Performer [id number] [facility] Blood 08/16/2024 9:52 PM CDT 08/16/2024 9:52 PM CDT Maddison Frausto MD LAB POCT ORDERABLES - DEVICE F inal Result Performing Organization Address [facility] Co de Phone Number ROGELIO ZHENG [address] [facility] [place] [address] * POCT glucose (08/16/2024 8:48 PM CDT) Glucose, POC 125 70 - 199 mg/dL POC Performer [id number] [facility] Blood 08/16/2024 8:48 PM CDT 08/16/2024 8:48 PM CDT Maddison Frausto MD LAB POCT ORDERABLES - DEVICE F inal Result Performing Organization Address [facility] Co de Phone Number ROGELIO ZHENG [address] [place] [address] * Critical Care (08/16/2024 8:45 PM CDT) Narrative Luis Armando Conner MD - 08/16/2024 8:45 PM CDT Luis Armando Conner MD 08/17/2024 2:20 PM Critical Care Performed by: Rasheed Bera NP Authorized by: Rasheed Bear NP CRITICAL CARE: Team: LEMUEL Shift: PM Level of Billing: Critical Care [...] plan with the ICU team and other medical/practice management consultant staff, making frequent assessments and decisions [...] spent time documenting in the medical record Result [facility] Rasheed Bear NP IN CLINIC/BEDSIDE ORDER ASIA Final Result * POCT glucose (08/16/2024 7:47 PM CDT) Glucose, POC 170 70 - 199 mg/dL POC Performer [id number] [facility] Blood 08/16/2024 7:47 PM CDT 08/16/2024 7:47 PM CDT Result [facility] Maddison Frausto MD LAB POCT ORDERABLES - DEVICE F inal Result Performing Organization Address [facility] Co de Phone Number [facility] [address] [place] [address] * POCT glucose (08/16/2024 6:32 PM CDT) Glucose, POC 172 70 - 199 mg/dL POC Performer [id number] [facility] Blood 08/16/2024 6:32 PM CDT 08/16/2024 6:32 PM CDT Result [facility] Maddison Frausto MD LAB POCT ORDERABLES - DEVICE F inal Result Performing Organization Address [facility] Co de Phone Number [facility] [address] [place] [address] * (ABNORMAL) Calcium, ionized, whole blood (08/16/2024 5:56 PM CDT) Ca, ionized, bld 5.15(H) 4.50 - 5.10 mg/dL Blood 08/16/2024 5:56 PM CDT 08/16/2024 6:10 PM CDT Result [facility] Maddison Frausto MD LAB BLOOD ORDERABLES Final Res ult Performing Organization Address [facility]/ZIP Co de Phone Number ROGELIO ZHENG [address] [place] [address] * eGFR (08/16/2024 5:56 PM CDT) eGFR [...] ORDERABLES Final Res ult Performing Organization Address City/[facility]/ZIP Co de Phone Number ROGELIO ZHENG [address] Department [employer] [place], [place] [id number] * (ABNORMAL) CBC without differential (08/16/2024 5:56 PM CDT) WBC 12.4(H) 3.8 - 9.9 K/cumm Hgb 12.5(L) 13.0 - 17.5 g/dL [facility] Hct 37.4(L) 38.9 - 50.3 % [facility] Plt 118(L) 150 - 400 K/cumm [facility] MPV 10.4 9.1 - 12.3 fL [facility] RBC 4.02(L) 4.30 - 5.80 M/cumm [facility] CH MCV 93.0 81.3 - 96.4 fL [facility] MCH 31.1 27.1 - 33.3 pg [facility] CH MCHC 33.4 32.3 - 35.7 g/dL [facility] RDW CV 13.8 11.1 - 14.9 % [facility] CH RDW SD 46.6 35.7 - 48.1 fL [facility] NRBC abs 0.00 0.00 - 0.01 K/cumm [facility] Blood 08/16/2024 5:56 PM CDT 08/16/2024 6:10 PM CDT Del Burgos MD LAB BLOOD ORDERABLES Final R esult Performing Organization Address [facility] Co de Phone Number [facility] [address] [place] [address] * Magnesium (08/16/2024 5:56 PM CDT) Pathologist [facility] Magnesium 2.0 1.4 - 2.5 mg/dL Blood 08/16/2024 5:56 PM CDT 08/16/2024 6:10 PM CDT Maddison Frausto MD LAB BLOOD ORDERABLES Final Res ult Performing Organization Address [facility] de Phone Number [facility] [address] [place] [address] * (ABNORMAL) Blood gas, arterial (08/16/2024 5:56 PM CDT) pH, Art 7.33(L) 7.35 - 7.45 PCO2, Arterial 38 35 - 45 mmHg [facility] PO2, Arterial 82(L) 83 - 108 mmHg [facility] HCO3 Art (Calculated) 20 20 - 30 mmol/L [facility] CH BE, art -6 mmol/L [facility] Comment: Interpretive Data No Reference Range Established Current Interpretive Data was last revised on 2017 O2 Sat Art (Measured) 96(H) 90 - 95 % [facility] Blood 08/16/2024 5:56 PM CDT 08/16/2024 6:10 PM CDT Maddison Frausto MD LAB BLOOD ORDERABLES Final Res ult ROGELIO ZHENG [address] [place] [address] * (ABNORMAL) Basic metabolic panel (08/16/2024 5:56 PM CDT) Sodium 143 135 - 145 mmol/L Potassium, pl 4.6 3.3 - 4.9 mmol/L [facility] Chloride 113(H) 97 - 110 mmol/L [facility] CO2 18(L) 22 - 32 mmol/L [facility] Anion gap 12 2 - 15 mmol/L [facility] BUN 19 6 - 25 mg/dL [facility] Creatinine 0.94 0.80 - 1.30 mg/dL [facility] Comment:Icteric sample, test results may be affected. Glucose 177 70 - 199 mg/dL [facility] Comment: Interpretive Data Fasting glucose >/= 126 [...] 2022. Calcium 8.0(L) 8.5 - 10.3 mg/dL [facility] Blood 08/16/2024 5:56 PM CDT 08/16/2024 6:10 PM CDT Maddison Frausto MD LAB BLOOD ORDERABLES Final Res ult Performing Organization Address City/[facility]/ZIP Co de Phone Number ROGELIO ZHENG [address] [facility] [place] [address] * POCT glucose (08/16/2024 5:30 PM CDT) Glucose, POC 157 70 - 199 mg/dL POC Performer [id number] [facility] Blood 08/16/2024 5:30 PM CDT 08/16/2024 5:30 PM CDT Maddison Frausto MD LAB POCT ORDERABLES - DEVICE F inal Result Performing Organization Address [facility] Co de Phone Number REGINABRANDIE [address] [place] [address] * POCT glucose (08/16/2024 4:28 PM CDT) Glucose, POC 180 70 - 199 mg/dL POC Performer [id number] [facility] Blood 08/16/2024 4:28 PM CDT 08/16/2024 4:28 PM CDT Maddison Frausto MD LAB POCT ORDERABLES - DEVICE F inal Result Performing Organization Address [facility] Co de Phone Number ROGELIO ZHENG [address] [facility] [place] [address] * POCT glucose (08/16/2024 3:34 PM CDT) Glucose, POC 145 70 - 199 mg/dL POC Performer [id number] [facility] Blood 08/16/2024 3:34 PM CDT 08/16/2024 3:34 PM CDT Maddison Frausto MD LAB POCT ORDERABLES - DEVICE F inal Result Performing Organization Address [facility]/ZIP Co de Phone Number ROGELIO [address] [facility] [place] [address] * eGFR (08/16/2024 3:02 PM CDT) eGFR [...] ORDERABLES Final Res ult Performing Organization Address City/[facility]/ZIP Co de Phone Number ROGELIO ZHENG [address] [place] [address] * (ABNORMAL) Phosphorus (08/16/2024 3:02 PM CDT) Pathologist [facility] Phosphorus, pl 2.1(L) 2.3 - 4.5 mg/dL Blood 08/16/2024 3:02 PM CDT 08/16/2024 3:05 PM CDT Maddison Frausto MD LAB BLOOD ORDERABLES Final Res ult Performing Organization Address City/[facility] [place] [address] [address] [place] [address] * Magnesium (08/16/2024 3:02 PM CDT) Magnesium 2.1 1.4 - 2.5 mg/dL Blood 08/16/2024 3:02 PM CDT 08/16/2024 3:05 PM CDT Maddison Frausto MD LAB BLOOD ORDERABLES Final Res ult Performing Organization Address City/[facility]/ZIP Co de Phone Number ROGELIO ZHENG [address] [place] [address] * (ABNORMAL) Basic metabolic panel (08/16/2024 3:02 PM CDT) Pathologist [facility] Sodium 143 135 - 145 mmol/L Potassium, pl 4.7 3.3 - 4.9 mmol/L [facility] Chloride 114(H) 97 - 110 mmol/L [facility] CO2 19(L) 22 - 32 mmol/L [facility] Anion gap 10 2 - 15 mmol/L [facility] BUN 18 6 - 25 mg/dL [facility] Creatinine 0.88 0.80 - 1.30 mg/dL [facility] Comment:Icteric sample, test results may be affected. Glucose 160 70 - 199 mg/dL [facility] Comment: Interpretive Data Fasting glucose >/= 126 [...] 2022. Calcium 6.8(L) 8.5 - 10.3 mg/dL [facility] Blood 08/16/2024 3:02 PM CDT 08/16/2024 3:05 PM CDT Maddison Frausto MD LAB BLOOD ORDERABLES Final Res ult Performing Organization Address City/[facility]/ZIP Co de Phone Number [facility] [address] [place] [address] * POCT glucose (08/16/2024 3:00 PM CDT) Glucose, POC 145 70 - 199 mg/dL POC Performer [id number] ROGELIO ZHENG Blood 08/16/2024 3:00 PM CDT 08/16/2024 3:00 PM CDT us Maddison Frausto MD LAB POCT ORDERABLES - DEVICE F inal Result [facility] [address] [place] [address] * Critical Care (08/16/2024 2:47 PM CDT) [...] plan with the ICU team and other medical/practice management consultant staff, making frequent assessments and decisions [...] in the medical record us Akila Huynh FOOD SERVICE TECHNICIAN IN CLINIC/BEDSIDE ORDERA BLES Final Result * [...] the stomach. The distal tip of the Columbus-Kelin catheter is in the proximal right main [...] the stomach. The distal tip of the Columbus-Kelin catheter is in the proximal right main [...] 2:17 PM CDT 08/16/2024 2:18 PM CDT Maddison Frausto MD LAB BLOOD ORDERABLES Final Res ult Performing Organization Address [facility] Co de Phone Number ROGELIO [address] [facility] [place], [place] [address] * aPTT (08/16/2024 2:17 PM CDT) aPTT [...] ORDERABLES Final R esult Performing Organization Address [facility] de Phone Number ROGELIO ZHENG [address] [facility] [place] [address] * (ABNORMAL) Protime-INR (08/16/2024 2:17 PM CDT) PT 13.6(H) 9.7 - 13.0 sec INR 1.25(H) 0.90 - 1.20 [facility] Comment: Interpretive data Oral anticoagulant therapeutic ranges: Venous thromboembolism prophylaxis or treatment: 2.0-3.0 CARDIOLOGY Standard range: 2.0-3.0 High-intensity range: 2.5-3.5 Refer to indication-specific guidelines for appropriate target ranges for prosthetic heart valve replacement. Current interpretive data was last revised on 2019. Blood 08/16/2024 2:17 PM CDT 08/16/2024 2:19 PM CDT Del Burgos MD LAB BLOOD ORDERABLES Final R esult Performing Organization Address [facility] Co de Phone Number ROGELIO ZHENG [address] [facility] [place] [address] * (ABNORMAL) CBC without differential (08/16/2024 2:17 [...] MD LAB BLOOD ORDERABLES Final R esult [facility] [address] Department [place] [address] * (ABNORMAL) Blood gas, arterial (08/16/2024 2:17 [...] BLOOD ORDERABLES Final R esult ROGELIO ZHENG [address] [place] [address] * POCT glucose (08/16/2024 2:06 PM CDT) Glucose, POC 114 70 - 199 mg/dL POC Performer [id number] [facility] Blood 08/16/2024 2:06 PM CDT 08/16/2024 2:06 PM CDT Maddison Frausto MD LAB POCT ORDERABLES - DEVICE F inal Result Performing Organization Address [facility] Co de Phone Number ROGELIO ZHENG [address] [place] [address] * (ABNORMAL) POC Blood Gas and Chemistries, [...] - DEVICE Final Result Performing Organization Address [facility] Co de Phone Number REGINABRANDIE ZHENG [address] [facility] [place] [address] * POC Activated Clotting Time, High Range (08/16/2024 12:46 PM CDT) ACT 118 87 - 138 sec POC Performer [id number] CERNER CH Blood 08/16/2024 12:4 6 PM CDT 08/16/2024 12:46 PM CDT Del Burgos MD LAB BLOOD ORDERABLES Final R esult Performing Organization Address [facility] Co de Phone Number REGINABRANDIE ZHENG [address] [place] [address] * (ABNORMAL) Platelet count (08/16/2024 11:56 AM CDT) Plt 127(L) 150 - 400 K/cumm Blood 08/16/2024 11:5 6 AM CDT 08/16/2024 12:00 PM CDT Narrative CERNER CH - 08/16/2024 12:04 PM CDT Please call results to ext. [phone]. Thanks. Maddison Frausto MD LAB BLOOD ORDERABLES Final Res ult Performing Organization Address [facility] Co de Phone Number REGINABRANDIE ZHENG [address] [place] [address] * (ABNORMAL) POC Blood Gas and Chemistries, [...] 3 AM CDT 08/16/2024 11:53 AM CDT us Del Burgos MD LAB POCT ORDERABLES - DEVICE Final Result ROGELIO ZHENG [address] [place] [address] * (ABNORMAL) POC Activated Clotting Time, High Range (08/16/2024 11:49 AM CDT) Pathologist [facility] ACT 665(H) 87 - 138 sec POC Performer [id number] CERNER CH Blood 08/16/2024 11:4 9 AM CDT 08/16/2024 11:49 AM CDT Del Burgos MD LAB BLOOD ORDERABLES Final R esult ROGELIO [address] Department [place] [address] * (ABNORMAL) POC Blood Gas and Chemistries, [...] ORDERABLES - DEVICE Final Result ROGELIO ZHENG [address] [place] [address] * (ABNORMAL) POC Activated Clotting Time, High Range (08/16/2024 11:13 AM CDT) ACT 428(H) 87 - 138 sec POC Performer [id number] CERNER CH Blood 08/16/2024 11:1 3 AM CDT 08/16/2024 11:13 AM CDT us Del Burgos MD LAB BLOOD ORDERABLES Final R esult Performing Organization Address City/[facility] Co de Phone Number ROGELIO ZHENG [address] [place] [address] * (ABNORMAL) POC Blood Gas and Chemistries, [...] 6 AM CDT 08/16/2024 10:36 AM CDT Del Burgos MD LAB POCT ORDERABLES - DEVICE Final Result Performing Organization Address City/[facility]/ZIP Co de Phone Number ROGELIO [address] Department of [place], [place] [id number] * (ABNORMAL) POC Activated Clotting Time, High Range (08/16/2024 10:33 AM CDT) ACT 557(H) 87 - 138 sec POC Performer [id number] [facility] Blood 08/16/2024 10:3 3 AM CDT 08/16/2024 10:33 AM CDT us Del Burgos MD LAB BLOOD ORDERABLES Final R esult Performing Organization Address [facility] Co de Phone Number ROGELIO [address] Department of [place], [place] [id number] * (ABNORMAL) POC Activated Clotting Time, High Range (08/16/2024 9:38 AM CDT) ACT 857(H) 87 - 138 sec POC Performer [id number] [facility] Blood 08/16/2024 9:38 AM CDT 08/16/2024 9:38 AM CDT Del Burgos MD LAB BLOOD ORDERABLES Final R esult Performing Organization Address City/[facility] Co de Phone Number ROGELIO [address] Department of [place], [place] [phone] * (ABNORMAL) POC Blood Gas and Chemistries, [...] 9:38 AM CDT Del Burgos MD LAB POCT ORDERABLES - DEVICE Final Result ROGELIO ZHENG [address] [place] [address] * (ABNORMAL) POC Blood Gas and Chemistries, [...] 8:35 AM CDT 08/16/2024 8:35 AM CDT Del Burgos MD LAB POCT ORDERABLES - DEVICE Final Result Performing Organization Address [facility] Co de Phone Number ROGELIO ZHENG [address] [employer] [place], [place] [phone] * POC Activated Clotting Time, High Range (08/16/2024 8:31 AM CDT) ACT 112 87 - 138 sec POC Performer [id number] [facility] Blood 08/16/2024 8:31 AM CDT 08/16/2024 8:31 AM CDT Del Burgos MD LAB BLOOD ORDERABLES Final R esult Performing Organization Address City/[facility] Co de Phone Number ROGELIO ZHENG [address] Department [employer] [place], [place] [id number] * BW AN SHEATH INTRODUCER PERFORMABLE, PULMONARY ARTERY CATH (08/16/2024 8:11 AM CDT) Guicho Merlos AA - 08/16/2024 8:11 AM CDT Guicho Meek AA 08/16/2024 8:12 AM Central Venous Line Patient location: OR End Time: 08/16/2024 8:11 AM Indication: central venous access Staff: Supervising provider: Hernán Morris MD Placed by: NORAH: Guicho Meek AA Procedure prep: Patient position: [...] Morris MD ANESTHESIA ORDERABLES Final Result * MD AN ELECTIVE ENDOTRACHEAL AIRWAY (08/16/2024 8:10 AM [...] with: silk tape Number of attempts: 1 us Hernán Morris MD ANESTHESIA ORDERABLES Final Result * Peripheral IV Catheter (08/16/2024 7:59 AM CDT) Guicho Merlos AA - 08/16/2024 7:59 AM CDT Guicho [...] * Arterial Line (08/16/2024 7:59 AM CDT) Guicho Merlos AA - 08/16/2024 7:59 AM CDT Guicho Meek AA 08/16/2024 7:59 AM Arterial Line Patient location: OR Indication: continuous blood pressure monitoring and blood sampling needed Staff: Placed by: Guicho Lancaster AA Procedure prep: Prep solution: chlorhexadine/alcohol Prep: [...] 183 70 - 199 mg/dL POC Performer [id number] ROGELIO Blood 08/16/2024 7:04 AM CDT 08/16/2024 7:04 AM CDT Del Burgos MD LAB POCT ORDERABLES - DEVICE Final Result ROGELIO [address] [place] [address] * XR Chest 1 View (08/16/2024 4:26 [...] Donna Freire M.D. us Shama Huang Nathan FOOD SERVICE TECHNICIAN IMG XR PROCEDURES Final R esult * [...] 0.0 - 0.1 K/cumm CERNER Neutrophil pct 61.5 % CERNER Comment: Interpretive [...] CDT 08/16/2024 5:15 AM CDT Shama Evans FOOD SERVICE TECHNICIAN LAB BLOOD ORDERABLES Rupali l Result ROGELIO ZHENG [address] [place] [address] * (ABNORMAL) CBC with auto differential (08/16/2024 4:23 AM CDT) WBC 7.3 3.8 - 9.9 K/cumm Hgb 15.4 13.0 - 17.5 g/dL [facility] Hct 46.1 38.9 - 50.3 % [facility] Plt 139(L) 150 - 400 K/cumm [facility] MPV 10.6 9.1 - 12.3 fL [facility] RBC 4.98 4.30 - 5.80 M/cumm [facility] MCV 92.6 81.3 - 96.4 fL [facility] MCH 30.9 27.1 - 33.3 pg [facility] MCHC 33.4 32.3 - 35.7 g/dL [facility] RDW CV 13.3 11.1 - 14.9 % [facility] RDW SD 45.1 35.7 - 48.1 fL [facility] NRBC abs 0.00 0.00 - 0.01 K/cumm [facility] Blood 08/16/2024 4:23 AM CDT 08/16/2024 5:15 AM CDT Shama Evans FOOD SERVICE TECHNICIAN LAB BLOOD ORDERABLES Rupali l Result Performing Organization Address City/[facility]/ZIP Co de Phone Number ROGELIO ZHENG [address] [place] [address] * (ABNORMAL) POCT glucose (08/15/2024 9:23 PM CDT) Glucose, POC 341(H) 70 - 199 mg/dL POC Performer [id number] [facility] Blood 08/15/2024 9:23 PM CDT 08/15/2024 9:23 PM CDT us Del Burgos MD LAB POCT ORDERABLES - DEVICE Final Result Performing Organization Address [facility] Co de Phone Number ROGELIO ZHENG [address] [facility] [place], [place] [phone] * (ABNORMAL) POCT glucose (08/15/2024 5:25 PM CDT) Glucose, POC 237(H) 70 - 199 mg/dL POC Performer [id number] CERNER CH Blood 08/15/2024 5:25 PM CDT 08/15/2024 5:25 PM CDT us Del Burgos MD LAB POCT ORDERABLES - DEVICE Final Result Performing Organization Address [facility] de Phone Number ROGELIO ZHENG [address] [place] [address] * Type and screen (08/15/2024 1:28 PM CDT) Chalo, indirect Negative ABO Rh O Positive CERNER CH Blood 08/15/2024 1:28 PM CDT 08/15/2024 1:45 PM CDT Narrative CERNER CH - 08/15/2024 2:31 PM CDT Has the patient had Daratumumab or Isatuximab in the past 6 months?->Unknown us Shama Evans FOOD SERVICE TECHNICIAN LAB BLOOD BANK TEST ORDER ASIA Final Result Performing Organization Address [facility] Co de Phone Number ROGELIO ZHENG [address] [place] [address] * Prepare RBC: 4 Units (08/15/2024 12:55 PM CDT) Product code [id number] CERNER CH Unit Number [id number] 3-* CERNER CH Product Blood Type OPOS CERNER CH Dispense Status RETURNED CERNER CH Product code A6702T90 CERNER CH Unit Number [id number] 9-G CERNER CH Product Blood Type OPOS CERNER CH Dispense Status RETURNED CERNER CH Product code [id number] Unit Number [id number] 7-Y CERNER CH Product Blood Type OPOS CERNER CH Dispense Status RETURNED CERNER CH Product code [id number] CERNER CH Unit Number [id number] 9-* CERNER CH Product Blood Type OPOS CERNER CH Dispense Status RETURNED CERNER CH Blood 08/15/2024 12:5 5 PM CDT Narrative CERNER CH - 08/17/2024 12:19 AM CDT Specify Procedure:->CABG Are special requirements needed? (All products are leukoreduced and CMV- safe)- >No Date required:-[id number] LRRBC # of [id number] Reasons:-Hold for procedure (specify procedure)} us Shama Evans FOOD SERVICE TECHNICIAN BLOOD BANK PRODUCT ORDERA BLES Final Result Performing Organization Address [facility] Co de Phone Number REGINABRANDIE NORM [address] [address] [place] [address] * POCT glucose (08/15/2024 12:21 PM CDT) Glucose, POC 141 70 - 199 mg/dL POC Performer [id number] CERNER CH Blood 08/15/2024 12:2 1 PM CDT 08/15/2024 12:21 PM CDT us Del Burgos MD LAB POCT ORDERABLES - DEVICE Final Result Performing Organization Address City/[facility]/ZIP Co de Phone Number ROGELIO ZHENG [address] [place] [address] * (ABNORMAL) Urinalysis reflex to microscopic and [...] tendency for uric acid stone formation. Source: [facility] Current Interpretive Data was last revised on [...] microscopic UA and culture not met. CERNER Urine, clean voided 08/15/2024 11:15 AM CDT 08/15/2024 11:17 AM CDT us Shama Evans NP LAB MICROBIOLOGY - GENERA L ORDERABLES Final Result ROGELIO [address] [address] [place] [address] * eGFR (08/15/2024 9:37 AM CDT) eGFR [...] 9:37 AM CDT 08/15/2024 10:08 AM CDT Shama Evans FOOD SERVICE TECHNICIAN LAB BLOOD ORDERABLES Rupali l Result Performing Organization Address [facility]/ZIP Co de Phone Number [facility] [address] [place] [address] * (ABNORMAL) Basic metabolic panel (08/15/2024 9:37 AM CDT) Sodium 137 135 - 145 mmol/L Potassium, pl 4.6 3.3 - 4.9 mmol/L [facility] Chloride 102 97 - 110 mmol/L [facility] CO2 27 22 - 32 mmol/L [facility] Anion gap 8 2 - 15 mmol/L [facility] BUN 24 6 - 25 mg/dL [facility] Creatinine 1.00 0.80 - 1.30 mg/dL [facility] Comment:Icteric sample, test results may be affected. Glucose 250(H) 70 - 199 mg/dL [facility] Comment: Interpretive Data Fasting glucose >/= 126 [...] 2022. Calcium 8.3(L) 8.5 - 10.3 mg/dL [facility] Blood 08/15/2024 9:37 AM CDT 08/15/2024 10:08 AM CDT Shama Evans FOOD SERVICE TECHNICIAN LAB BLOOD ORDERABLES Rupali l Result Performing Organization Address [facility] Co de Phone Number [facility] [address] [place] [address] * POCT glucose (08/15/2024 7:36 AM CDT) Glucose, POC 119 70 - 199 mg/dL POC Performer [id number] ROGELIO ZHENG Blood 08/15/2024 7:36 AM CDT 08/15/2024 7:36 AM CDT us Del Burgos MD LAB POCT ORDERABLES - DEVICE Final Result ROGELIO [address] [place] [address] * XR Chest 1 View (08/15/2024 6:05 [...] by: Cinda Bliss M.D. us Shama Evans FOOD SERVICE TECHNICIAN IMG XR PROCEDURES Final R esult * Differential, auto (08/15/2024 3:23 AM CDT) Neutrophil abs 4.7 1.5 - 6.5 K/cumm Imm gran abs 0.0 0.0 - 0.1 K/cumm CERNER Lymphocyte abs 1.9 0.8 - 3.3 K/cumm CERNER Monocyte abs 0.7 0.2 - 0.8 K/cumm CERNER Eosinophil abs 0.3 0.0 - 0.5 K/cumm [facility] Basophil abs 0.0 0.0 - 0.1 K/cumm [facility] Neutrophil pct 61.1 % CERNER Comment: Interpretive Data Percent cell count reference ranges are not reported, since discordance with absolute values may lead to misinterpretation of CBC data. Current Interpretive Data was last revised on 2017. Imm gran pct 0.4 % [facility] Comment: Interpretive Data Percent cell count reference ranges are not reported, since discordance with absolute values may lead to misinterpretation of CBC data. Current Interpretive Data was last revised on 2017. Lymphocyte pct 24.8 % [facility] Comment: Interpretive Data Percent cell count [...] revised on 2017. Eosinophil pct 3.6 % [facility] Comment: Interpretive Data Percent cell count reference ranges are not reported, since discordance with absolute values may lead to misinterpretation of CBC data. Current Interpretive Data was last revised on 2017. Basophil pct 0.5 % [facility] Comment: Interpretive Data Percent cell count reference ranges are not reported, since discordance with absolute values may lead to misinterpretation of CBC data. Current Interpretive Data was last revised on 2017. Blood 08/15/2024 3:23 AM CDT 08/15/2024 4:33 AM CDT us Shama Evans FOOD SERVICE TECHNICIAN LAB BLOOD ORDERABLES Rupali l Result ROGELIO ZHENG [address] [address] [facility] [place] [address] * CBC with auto differential (08/15/2024 3:23 AM CDT) WBC 7.7 3.8 - 9.9 K/cumm Hgb 16.1 13.0 - 17.5 g/dL CERNER CH Hct 48.0 38.9 - 50.3 % CERNER CH Plt 150 150 - 400 K/cumm CERNER CH MPV 11.0 9.1 - 12.3 fL C[facility]ER CH RBC 5.22 4.30 - 5.80 M/cumm [facility] CH MCV 92.0 81.3 - 96.4 fL [facility] CH MCH 30.8 27.1 - 33.3 pg CERNER MCHC 33.5 32.3 - 35.7 g/dL C[facility] CH RDW CV 13.3 11.1 - 14.9 % [facility] CH RDW SD 45.3 35.7 - 48.1 fL C[facility]ER CH NRBC abs 0.00 0.00 - 0.01 K/cumm [facility] Blood 08/15/2024 3:23 AM CDT 08/15/2024 4:33 AM CDT us Shama Evans FOOD SERVICE TECHNICIAN LAB BLOOD ORDERABLES Rupali l Result ROGELIO ZHENG [address] Department of [place], [place] [id number] * (ABNORMAL) POCT glucose (08/14/2024 8:56 PM CDT) Glucose, POC 241(H) 70 - 199 mg/dL POC Performer [id number] C[facility] CH Blood 08/14/2024 8:56 PM CDT 08/14/2024 8:56 PM CDT Del Burgos MD LAB POCT ORDERABLES - DEVICE Final Result Performing Organization Address City/[facility]/ZIP Co de Phone Number ROGELIO ZHENG [address] [address] [facility] [place] [address] * POCT glucose (08/14/2024 5:05 PM CDT) Glucose, POC 85 70 - 199 mg/dL POC Performer [id number] C[facility] CH Blood 08/14/2024 5:05 PM CDT 08/14/2024 5:05 PM CDT Del Burgos MD LAB POCT ORDERABLES - DEVICE Final Result Performing Organization Address [facility] Co de Phone Number ROGELIO ZHENG [address] [address] [facility] [place] [address] * POCT glucose (08/14/2024 12:15 PM CDT) Glucose, POC 149 70 - 199 mg/dL POC Performer [id number] C[facility] CH Blood 08/14/2024 12:1 5 PM CDT 08/14/2024 12:15 PM CDT Del Burgos MD LAB POCT ORDERABLES - DEVICE Final Result Performing Organization Address [facility] Co de Phone Number REGINABRANDIE ZHENG [address] [address] [facility] [place] [address] * POCT glucose (08/14/2024 7:37 AM CDT) Glucose, POC 104 70 - 199 mg/dL POC Performer [id number] CERNER CH Blood 08/14/2024 7:37 AM CDT 08/14/2024 7:37 AM CDT Del Burgos MD LAB POCT ORDERABLES - DEVICE Final Result Performing Organization Address City/[facility]/ZIP Co de Phone Number REGINABRANDIE ZHENG [address] [place] [address] * XR Chest 1 View (08/14/2024 6:04 [...] Electronically signed by: Cinda Bliss M.D. us Shaam Evans FOOD SERVICE TECHNICIAN IMG XR PROCEDURES Final R esult * [...] NP LAB BLOOD ORDERABLES Rupali jones Result [facility] [address] [address] [place] [address] * Differential, auto (08/14/2024 5:48 AM CDT) Neutrophil abs 5.5 1.5 - 6.5 K/cumm Imm gran abs 0.0 0.0 - 0.1 K/cumm [facility] Lymphocyte abs 2.1 0.8 - 3.3 K/cumm [facility] Monocyte abs 0.8 0.2 - 0.8 K/cumm [facility] Eosinophil abs 0.2 0.0 - 0.5 K/cumm [facility] Basophil abs 0.0 0.0 - 0.1 K/cumm [facility] Neutrophil pct 62.9 % [facility] Comment: Interpretive Data Percent cell count reference ranges are not reported, since discordance with absolute values may lead to misinterpretation of CBC data. Current Interpretive Data was last revised on 2017. Imm gran pct 0.3 % [facility] Comment: Interpretive Data Percent cell count reference ranges are not reported, since discordance with absolute values may lead to misinterpretation of CBC data. Current Interpretive Data was last revised on 2017. Lymphocyte pct 24.1 % [facility] Comment: Interpretive Data Percent cell count reference ranges are not reported, since discordance with absolute values may lead to misinterpretation of CBC data. Current Interpretive Data was last revised on 2017. Monocyte pct 9.5 % [facility] Comment: Interpretive Data Percent cell count reference ranges are not reported, since discordance with absolute values may lead to misinterpretation of CBC data. Current Interpretive Data was last revised on 2017. Eosinophil pct 2.7 % [facility] Comment: Interpretive Data Percent cell count [...] 08/14/2024 6:04 AM CDT us Shama Evans NP LAB BLOOD ORDERABLES Rupali jones Result [facility] [address] [address] [place] [address] * (ABNORMAL) CBC with auto differential (08/14/2024 5:48 AM CDT) Pathologist [facility] WBC 8.8 3.8 - 9.9 K/cumm Hgb 17.4 13.0 - 17.5 g/dL [facility] Hct 52.8(H) 38.9 - 50.3 % [facility] Plt 161 150 - 400 K/cumm [facility] MPV 10.5 9.1 - 12.3 fL [facility] RBC 5.65 4.30 - 5.80 M/cumm [facility] MCV 93.5 81.3 - 96.4 fL [facility] MCH 30.8 27.1 - 33.3 pg [facility] MCHC 33.0 32.3 - 35.7 g/dL [facility] RDW CV 13.7 11.1 - 14.9 % [facility] RDW SD 47.0 35.7 - 48.1 fL [facility] NRBC abs 0.00 0.00 - 0.01 K/cumm [facility] Blood 08/14/2024 5:48 AM CDT 08/14/2024 6:04 AM CDT us Layla Evans FOOD SERVICE TECHNICIAN LAB BLOOD ORDERABLES Rupali l Result Performing Organization Address [facility] Co de Phone Number REGINABRANDIE [address] [address] [facility] [place] [address] * aPTT (08/14/2024 5:48 AM CDT) aPTT 38 28 - 38 sec Comment: Interpretive Data Heparin therapeutic range: 66.0 - 100.0 seconds. Range based on correlation with therapeutic heparin activity range of 0.3 - 0.7 Units/mL. Current interpretive data was last revised on 2023. Blood 08/14/2024 5:48 AM CDT 08/14/2024 6:04 AM CDT Shama Evans FOOD SERVICE TECHNICIAN LAB BLOOD ORDERABLES Rupali l Result Performing Organization Address [facility] Co de Phone Number ROGELIO [address] [address] [facility] [place] [address] * Protime-INR (08/14/2024 5:48 AM CDT) Pathologist [facility] PT 11.0 9.7 - 13.0 sec INR 1.02 0.90 - 1.20 ROGELIO ZHENG Comment: Interpretive data Oral anticoagulant therapeutic ranges: Venous thromboembolism prophylaxis or treatment: 2.0-3.0 CARDIOLOGY Standard range: 2.0-3.0 High-intensity range: 2.5-3.5 Refer to indication-specific guidelines for appropriate target ranges for prosthetic heart valve replacement. Current interpretive data was last revised on 2019. Blood 08/14/2024 5:48 AM CDT 08/14/2024 6:04 AM CDT Shama Evans FOOD SERVICE TECHNICIAN LAB BLOOD ORDERABLES Rupali l Result Performing Organization Address City/[facility] Co de Phone Number ROGELIO [address] [address] [facility] [place] [address] * (ABNORMAL) Comprehensive metabolic panel (08/14/2024 5:48 [...] CDT 08/14/2024 6:06 AM CDT us Shama Evasn NP LAB BLOOD ORDERABLES Rupali jones Result ROGELIO ZHENG [address] [address] Department of Laboratories [place], [place] [id number] * (ABNORMAL) POCT glucose (08/13/2024 8:50 PM CDT) Glucose, POC 250(H) 70 - 199 mg/dL POC Performer [id number] ROGELIO ZHENG Blood 08/13/2024 8:50 PM CDT 08/13/2024 8:50 PM CDT us Del Burgos MD LAB POCT ORDERABLES - DEVICE Final Result ROGELIO [address] Department of Laboratories [place] [phone] * TRANSTHORACIC ECHO (TTE) COMPLETE W DOPPLER/CF WO CONTRAST (08/13/2024 5:45 PM CDT) LV EF 53 % CONS SCIMAGE Anatomical Region Laterality Modality Ultrasound 08/13/2024 4:05 PM CDT Narrative 08/13/2024 5:56 PM CDT [place] [id number] Echocardiogram Report Patient Name: JORGE HOLDEN W : 1955 Study Date: 08/13/2024 4:05:59 PM Gender: M Tech: MD Location: [id number] Ref Provider: SHAMA EVANS Height(Cm): 183 BSA: 2.1 [...] Procedure Note Gurdeep Verma MD - 08/13/2024 [place] [address] Echocardiogram Report Patient Name: JORGE HOLDEN W : 1955 Study Date: 08/13/2024 4:05:59 PM Gender: M Tech: MD Location: [address] Provider: SHAMA EVANS Height(Cm): 183 BSA: 2.1 [...] 303(H) 70 - 199 mg/dL POC Performer [id number] ROGELIO ZHENG Blood 08/13/2024 5:17 PM CDT 08/13/2024 5:17 PM CDT us Del Burgos MD LAB POCT ORDERABLES - DEVICE Final Result ROGELIO [address] [address] Department of Laboratories [place] [address] * US Carotids Duplex Bilateral (08/13/2024 1:56 [...] Delfin Lares II, D.O. us Shama Evans FOOD SERVICE TECHNICIAN IMG US PROCEDURES Final R esult * POCT glucose (08/13/2024 11:47 AM CDT) [facility] Signature Glucose, POC 187 70 - 199 mg/dL POC Performer [id number] ROGELIO Blood 08/13/2024 11:4 7 AM CDT 08/13/2024 11:47 AM CDT us Gurdeep Verma MD LAB POCT ORDERABLES - [place] [address] [address] [place] [address] * Check Sample (08/13/2024 11:33 AM CDT) ABO Rh O Positive [facility] OTHER 08/13/2024 11:3 3 AM CDT 08/13/2024 12:11 PM CDT Gurdeep Verma MD LAB BLOOD ORDERABLES F inal Result Performing Organization Address City/[facility]/ZIP Co de Phone Number ROGELIO ZHENG [address] Department [place] [address] CH * XR Chest 1 View (08/13/2024 [...] by: Donna Freire M.D. us Shama Evans FOOD SERVICE TECHNICIAN IMG XR PROCEDURES Final R esult * Type and screen (08/13/2024 10:55 AM CDT) ABO Rh O Positive [place], indirect Negative ROGELIO Blood 08/13/2024 10:5 5 AM CDT 08/13/2024 11:25 AM CDT Narrative ROGELIO - 08/13/2024 12:31 PM CDT Has the patient had Daratumumab or Isatuximab in the past 6 months?->Unknown us Shama Evans FOOD SERVICE TECHNICIAN LAB BLOOD BANK TEST ORDER ASIA Final Result ROGELIO [address] Department [place] [address] * (ABNORMAL) Lipid panel (08/13/2024 10:55 AM [...] NCEP Expert Panel. Circulation 2004;110:227 3. Monico Chaparro et al. CARLEEN Cardiol. 2019September 23;5(5):540-548. doi: 10.1001/jamacardio.2020.0013 [...] revised on 2018. Chol/HDL ratio 4 ROGELIO Blood 08/13/2024 10:5 5 AM CDT 08/13/2024 11:08 AM CDT us Gurdeep Verma MD LAB BLOOD [place] [address] [address] Department [place] [address] * CT Chest WO Contrast (08/13/2024 10:18 [...] by: Delfin Lares II, D.O. Shama Evans FOOD SERVICE TECHNICIAN IMG CT PROCEDURES Final R esult * POCT glucose (08/13/2024 9:17 AM CDT) Glucose, POC 98 70 - 199 mg/dL POC Performer [id number] ROGELIO ZHENG Blood 08/13/2024 9:17 AM CDT 08/13/2024 9:17 AM CDT Gurdeep Verma MD LAB POCT ORDERABLES - DEVICE Final Result ROGELIO ZHENG [address] [address] [place] [address] * LEFT HEART CATHETERIZATION WITH CORONARY ANGIOGRAPHY AND WITH AND WITHOUT LEFT VENTRICULOGRAM (08/13/2024 8:55 AM CDT) Anatomical Region Laterality Modality X-Ray Angiograph y 08/13/2024 Narrative 08/24/2024 3:08 PM CDT [employer] Job ID: [id number] [employer] Document ID: [id number] Dictated date/time: [id number] CARDIAC CATHETERIZATION A 69-year-old patient with hypertension, [...] me throughout. PROCEDURE With Seldinger technique, a 5-[place] sheath was placed into the right femoral artery. 5-[place] JL4, JR4 and a pigtail catheter used [...] dysfunction. LVEDP 16. Artery closed using a 6-[place] Angio-Seal device. Total sedation time [address] Surgery evaluation will be requested. Job ID/Internal Job ID: [id number] us Gurdeep Verma MD CV CARDIAC CATH PROCED [...] MD LAB BLOOD ORDERABLES F inal Result [facility] [address] [facility] [place] [address] * Differential, auto (08/13/2024 6:53 AM CDT) Neutrophil abs 6.1 1.5 - 6.5 K/cumm Imm gran abs 0.0 0.0 - 0.1 K/cumm [facility] Lymphocyte abs 2.3 0.8 - 3.3 K/cumm CERNER Monocyte abs 0.7 0.2 - 0.8 K/cumm CERNER Eosinophil abs 0.3 0.0 - 0.5 K/cumm [facility] Basophil abs 0.1 0.0 - 0.1 K/cumm [facility] Neutrophil pct 64.6 % [facility] Comment: Interpretive Data Percent cell count [...] revised on 2017. Lymphocyte pct 24.6 % [facility] Comment: Interpretive Data Percent cell count reference ranges are not reported, since discordance with absolute values may lead to misinterpretation of CBC data. Current Interpretive Data was last revised on 2017. Monocyte pct 7.3 % C[facility]ER Comment: Interpretive Data Percent cell count reference ranges are not reported, since discordance with absolute values may lead to misinterpretation of CBC data. Current Interpretive Data was last revised on 2017. Eosinophil pct 2.6 % [facility] Comment: Interpretive Data Percent cell [...] MD LAB BLOOD ORDERABLES F inal Result [facility] [address] [place] [address] * (ABNORMAL) CBC with auto differential (08/13/2024 6:53 AM CDT) WBC 9.5 3.8 - 9.9 K/cumm Hgb 18.2(H) 13.0 - 17.5 g/dL [facility] Hct 53.7(H) 38.9 - 50.3 % [facility] Plt 177 150 - 400 K/cumm [facility] MPV 10.2 9.1 - 12.3 fL [facility] RBC 5.77 4.30 - 5.80 M/cumm [facility] MCV 93.1 81.3 - 96.4 fL [facility] MCH 31.5 27.1 - 33.3 pg [facility] MCHC 33.9 32.3 - 35.7 g/dL [facility] RDW CV 13.6 11.1 - 14.9 % [facility] RDW SD 46.4 35.7 - 48.1 fL [facility] NRBC abs 0.00 0.00 - 0.01 K/cumm [facility] Blood 08/13/2024 6:53 AM CDT 08/13/2024 7:00 AM CDT Narrative [facility] - 08/13/2024 7:22 AM CDT If most recent labs were drawn prior to 4 AM, draw only prior to initiating procedure. Gurdeep Verma MD LAB BLOOD ORDERABLES F inal Result Performing Organization Address City/[facility] Co de Phone Number [facility] [address] Department of Laboratories [place] [id number] * Protime-INR (08/13/2024 6:53 AM CDT) PT 10.4 9.7 - 13.0 sec INR 0.96 0.90 - 1.20 [facility] Comment: Interpretive data Oral anticoagulant therapeutic ranges: Venous thromboembolism prophylaxis or treatment: 2.0-3.0 CARDIOLOGY Standard range: 2.0-3.0 High-intensity range: 2.5-3.5 Refer to indication-specific guidelines for appropriate target ranges for prosthetic heart valve replacement. Current interpretive data was last revised on 2019. Blood 08/13/2024 6:53 AM CDT 08/13/2024 7:00 AM CDT Gurdeep Verma MD LAB BLOOD ORDERABLES F inal Result Performing Organization Address City/[facility]/ZIP Co de Phone Number ROGELIO ZHENG [address] [address] Department [place] [address] * Basic metabolic panel (08/13/2024 6:53 AM CDT) Sodium 144 135 - 145 mmol/L Potassium, pl 4.4 3.3 - 4.9 mmol/L [facility] Chloride 108 97 - 110 mmol/L [facility] CO2 25 22 - 32 mmol/L [facility] Anion gap 11 2 - 15 mmol/L [facility] BUN 20 6 - 25 mg/dL [facility] Creatinine 0.99 0.80 - 1.30 mg/dL [facility] Glucose 93 70 - 199 mg/dL [facility] Comment: Interpretive Data Fasting glucose >/= 126 [...] 2022. Calcium 9.3 8.5 - 10.3 mg/dL [facility] Blood 08/13/2024 6:53 AM CDT 08/13/2024 6:59 AM CDT Gurdeep Verma MD LAB BLOOD ORDERABLES F inal Result ROGELIO ZHENG [address] Department [place] [address] * POCT glucose (08/13/2024 6:38 AM CDT) Glucose, POC 99 70 - 199 mg/dL POC Performer [id number] [facility] Blood 08/13/2024 6:38 AM CDT 08/13/2024 6:38 AM CDT us Gurdeep Verma MD LAB POCT ORDERABLES - DEVICE Final Result ROGELIO [address] [address] [place] [address] * (ABNORMAL) Differential, auto (08/11/2024 10:10 AM CDT) Neutrophil abs 6.6(H) 1.5 - 6.5 K/cumm Comment:Testing performed by : [facility] [address], Medical Office [facility] [address], [place] [address] Imm gran abs 0.0 0.0 - 0.1 K/cumm [facility] ([place]) Comment:Testing performed by : [facility] [address], Medical Office [facility] [address], [place] [address] Lymphocyte abs 1.5 0.8 - 3.3 K/cumm [facility] ([place]) Comment:Testing performed by : [facility] [address], Medical Office [facility] [address], [place] [address] Monocyte abs 0.6 0.2 - 0.8 K/cumm [facility] ([place]) Comment:Testing performed by : [facility] [address], Medical Office [facility] [address], [place] [address] Eosinophil abs 0.1 0.0 - 0.5 K/cumm [facility] ([place]) Comment:Testing performed by : [facility] [address], Medical Office [facility] [address], [place] [address] Basophil abs 0.1 0.0 - 0.1 K/cumm [facility] ([place]) Comment:Testing performed by : [facility] [address], Medical Office [facility] [address], [place] [address] Neutrophil pct 74.7 % [facility] ([place]) Comment: Interpretive Data Percent cell count reference ranges are not reported, since discordance with absolute values may lead to misinterpretation of CBC data. Current Interpretive Data was last revised on 2022. Testing performed by: [facility] [address], Medical Office [facility] [address], [place] [address] Imm gran pct 0.3 % [facility] ([place]) Comment: Interpretive Data Percent cell count reference ranges are not reported, since discordance with absolute values may lead to misinterpretation of CBC data. Current Interpretive Data was last revised on 2022. Testing performed by: [facility] [address], Medical Office [address], [place] [address] Lymphocyte pct 17.1 % [facility] ([place]) Comment: Interpretive Data Percent cell count reference ranges are not reported, since discordance with absolute values may lead to misinterpretation of CBC data. Current Interpretive Data was last revised on 2022. Testing performed by: [facility] [address], Medical Office [address], [place] [address] Monocyte pct 6.2 % [facility] ([place]) Comment: Interpretive Data Percent cell count reference ranges are not reported, since discordance with absolute values may lead to misinterpretation of CBC data. Current Interpretive Data was last revised on 2022. Testing performed by: [facility] [address], Medical Office [address], [place] [address] Eosinophil pct 1.1 % [facility] ([place]) Comment: Interpretive Data Percent cell count reference ranges are not reported, since discordance with absolute values may lead to misinterpretation of CBC data. Current Interpretive Data was last revised on 2022. Testing performed by: [facility] [address], Medical Office [facility] [address], [place] [address] Basophil pct 0.6 % [facility] ([place]) Comment: Interpretive Data Percent cell count reference ranges are not reported, since discordance with absolute values may lead to misinterpretation of CBC data. Current Interpretive Data was last revised on 2022. Testing performed by: [facility] [address], Medical Office [address], [place] [address] Blood 08/11/2024 10:1 0 AM CDT 08/11/2024 10:23 AM CDT Ignacio Cobian MD LAB BLOOD ORDERABLES Final Re sult Performing Organization Address [facility] Co de Phone Number ROGELIO WILKES ([place]) 1 [facility] Department [place] [address] * Iron profile w/ IBC (08/11/2024 10:10 AM CDT) Iron 109 50 - 150 mcg/dL Comment:Testing performed by : [facility], [place], [address] TIBC 395 250 - 400 mcg/dL ROGELIO WILKES ([place]) Comment:Testing performed by : [facility], [place], [address] Transferrin saturation 28 20 - 50 % ROGELIO WILKES ([place]) Comment:Testing performed by : [facility], [place], [address] Blood 08/11/2024 10:1 0 AM CDT 08/11/2024 2:02 PM CDT Ignacio Cobian MD LAB BLOOD ORDERABLES Final Re sult Performing Organization Address [facility] Co de Phone Number ROGELIO WILKES ([place]) 1 [facility] Department [place] [address] * (ABNORMAL) CBC with auto differential (08/11/2024 10:10 AM CDT) WBC 8.8 3.8 - 9.9 K/cumm Comment:Testing performed by : [facility] [address], Medical Office [address], [place] [address] Hgb 18.2(H) 13.0 - 17.5 g/dL [facility] ([place]) Comment:Testing performed by : [facility] [address], Medical Office [address], [place] [address] Hct 53.6(H) 38.9 - 50.3 % ROGELIO WILKES ([place]) Comment:Testing performed by : [facility] [address], Medical Office [address], [place] [address] Plt 165 150 - 400 K/cumm [facility] ([place]) Comment:Testing performed by : [facility] [address], Medical Office [facility] B [facility] [address], [place] [address] MPV 10.0 9.1 - 12.3 fL [facility] ([place]) Comment:Testing performed by : [facility] [address], Medical Office [facility] [address], [place] [address] RBC 5.80 4.30 - 5.80 M/cumm [facility] ([place]) Comment:Testing performed by : [facility] [address], Medical Office [facility] [address], [place] [address] MCV 92.4 81.3 - 96.4 fL [facility] ([place]) Comment:Testing performed by : [facility] [address], Medical Office [facility] [address], [place] [address] MCH 31.4 27.1 - 33.3 pg [facility] ([place]) Comment:Testing performed by : [facility] [address], Medical Office [facility] [address], [place] [address] MCHC 34.0 32.3 - 35.7 g/dL [facility] ([place]) Comment:Testing performed by : [facility] [address], Medical Office [facility] B [facility] [address], [place] [address] RDW CV 13.7 11.1 - 14.9 % [facility] ([place]) Comment:Testing performed by : [facility] [address], Medical Office [facility] B [facility] [address], [place] [address] RDW SD 46.6 35.7 - 48.1 fL [facility] ([place]) Comment:Testing performed by : [facility] [address], Medical Office [facility] B [facility] [address], [place] [address] NRBC abs Not Measured 0.00 - 0.01 K/cumm [facility] ([place]) Comment:Testing performed by : [facility] [address], Medical Office [facility] B [facility] [address], [place] [address] Blood 08/11/2024 10:1 0 AM CDT 08/11/2024 10:23 AM CDT Ignacio Cobian MD LAB BLOOD ORDERABLES Final Re sult ROGELIO WILKES ([place]) [address] [place] [address] Department [place] [address] * Erythrocyte sedimentation rate (08/11/2024 10:10 AM CDT) Pathologist [facility] Erythrocyte sedimentation rate 5 1 - 20 mm/hr Comment:Testing performed by : [place], [address] Blood 08/11/2024 10:1 0 AM CDT 08/11/2024 2:03 PM CDT Ignacio Cobian MD LAB BLOOD ORDERABLES Final Re sult Performing Organization Address [facility] Co de Phone Number ROGELIO WILKES ([place]) [address] [place] [address] Department [place] [address] * (ABNORMAL) Reticulocyte Count (08/11/2024 10:10 AM CDT) Pathologist [facility] Retics, absolute 0.095(H) 0.020 - 0.087 M/cumm Comment:Testing performed by : [place], [address] Retics 1.6 0.4 - 2.9 % [facility] ([place]) Comment:Testing performed by : [place], [address] Reticulocyte Hgb 36.0 30.5 - 38.0 pg [facility] ([place]) Comment:Testing performed by : [place], [address] Blood 08/11/2024 10:1 0 AM CDT 08/11/2024 2:03 PM CDT Ignacio Cobian MD LAB BLOOD ORDERABLES Final Re sult Performing Organization Address City/[facility]/ZIP Co de Phone Number ROGELIO WILKES ([place]) 1 [facility] Department [place] [address] * CRP (acute phase) (08/11/2024 10:10 AM CDT) Pathologist [facility] CRP <3.0 <=10.0 mg/L Comment:Testing performed by : [facility], [place], [address] Blood 08/11/2024 10:1 0 AM CDT 08/11/2024 2:02 PM CDT Ignacio Cobian MD LAB BLOOD ORDERABLES Final Re sult Performing Organization Address City/[facility]/ZIP Co de Phone Number ROGELIO WLIKES ([place]) [address] [place] [address] Department [place] [address] * Ferritin (08/11/2024 10:10 AM CDT) Pathologist [facility] Ferritin 68 30 - 400 ng/mL Comment:Testing performed by : [facility], [place], [address] Blood 08/11/2024 10:1 0 AM CDT 08/11/2024 2:02 PM CDT Ignacio Cobian MD LAB BLOOD ORDERABLES Final Re sult Performing Organization Address [facility] Co de Phone Number ROGELIO WILKES ([place]) [address] [place] [address] Department [place] [address] * NM MPI Spect (Rest And Stress) Multiple Studies (07/27/2024 9:30 AM BUTTON CUTTING MACHINE OPERATOR) Anatomical Region Laterality Modality Body N/A Nuclear Medicine 07/27/2024 10:1 6 AM BUTTON CUTTING MACHINE OPERATOR Narrative 07/27/2024 10:24 AM BUTTON CUTTING MACHINE OPERATOR EXAM DESCRIPTION: NM MPI SPECT (REST AND/OR [...] Maddie Barr M.D. FT: FT Report ID: [id number] Reading Location: [place] [address] Procedure Note Maddie Lantigua MD - 07/27/2024 [...] Maddie Barr M.D. FT: FT Report ID: [id number] Reading Location: [id number] Haja aMncuso FOOD SERVICE TECHNICIAN IMG NM PROCEDURES Final Result * Stress Test for Myocardial Perfusion (07/27/2024 9:30 AM BUTTON CUTTING MACHINE OPERATOR) Anatomical Region Laterality Modality Nuclear Medicine 07/27/2024 7:45 AM BUTTON CUTTING MACHINE OPERATOR Narrative 07/27/2024 12:15 PM BUTTON CUTTING MACHINE OPERATOR [address] [place] [address] Mesh [place] Report ADDENDUM Patient Name: JORGE HOLDEN W [...] per minute, right axis deviation, old anteroseptal OH, poor R-wave progression. Post Pharm ECG: No diagnostic ST changes. Arrhythmia: No arrhythmias seen. Cardiac Symptoms With Stress: Symptoms with stress were None. Exam Interpreted: Read by . CONCLUSIONS: 1. Negative Lexiscan pharmacologic stress test for chest pain or EKG changes. 2. Nuclear images are pending and they will be reported separately. Electronically Signed By: Dr Andrez López 2024-07-27 11:41:13 BUTTON CUTTING MACHINE OPERATOR Electronically Amended By: Dr Andrez López 07/27/2024 11:45:50 AM BUTTON CUTTING MACHINE OPERATOR [ADDENDUM] Procedure Note Andrez López MD - 07/27/[address] [address] Lexiscan Report ADDENDUM Patient Name: JORGE HOLDEN [...] beats per minute, right axis deviation, oldanteroseptal [place], poor R-wave progression. Post Pharm ECG: No diagnostic ST changes. Arrhythmia: No arrhythmias seen. Cardiac Symptoms With Stress: Symptoms with stress were None. Exam Interpreted: Read by . CONCLUSIONS: 1. Negative Lexiscan pharmacologic stress test for chest pain or EKGchanges. 2. Nuclear images are pending and they will be reported separately. Electronically Signed By: Dr Andrez López 2024-07-27 11:41:13 BUTTON CUTTING MACHINE OPERATOR Electronically Amended By: Dr Andrez López 07/27/2024 11:45:50 AM BUTTON CUTTING MACHINE OPERATOR [ADDENDUM] Haja Mancuso FOOD SERVICE TECHNICIAN CV STRESS PROCEDURES Edited Resu lt - Final * MCT Mobile Cardiac Telemetry Event Monitor (07/27/2024 7:06 AM BUTTON CUTTING MACHINE OPERATOR) Anatomical Region Laterality Modality Electrocardiogra phy 08/08/2024 11:5 9 PM CDT Narrative 08/10/2024 8:54 AM CDT [address] [place] [address] EVENT MONITOR Patient Name: JORGE HOLDEN W [...] Procedure Note Andrez López MD - 08/10/[address] [place] [address] EVENT MONITOR Patient Name: JORGE HOLDEN W [...] Result * ECG 12-LEAD (07/19/2024 11:09 AM BUTTON CUTTING MACHINE OPERATOR) Narrative Haja Mancuso NP - 07/19/2024 11:09 AM BUTTON CUTTING MACHINE OPERATOR Haja Mancuso NP 07/19/2024 11:09 AM ECG 12 lead Date/Time: 07/19/2024 11:09 AM Performed by: Haja Mancuso NP Authorized by: Haja Mancuso NP Rhythm: sinus rhythm Ectopy: frequent PVCs ST Segments: ST segments normal T Waves: T waves normal Haja Mancuso NP ECG ORDERABLES Edited Result - Final * eGFR (07/19/2024 11:09 AM BUTTON CUTTING MACHINE OPERATOR) eGFR 75 >=60 mL/min/1. 73 m2 Comment: [...] reviewed 2021. Blood 07/19/2024 11:0 9 AM BUTTON CUTTING MACHINE OPERATOR 07/19/2024 10:02 PM BUTTON CUTTING MACHINE OPERATOR Haja Mancuso NP LAB BLOOD ORDERABLES Final Resul t ROGELIO ZHENG [address] [address] [place] [address] * (ABNORMAL) Differential, auto (07/19/2024 11:09 AM BUTTON CUTTING MACHINE OPERATOR) Neutrophil abs 9.5(H) 1.5 - 6.5 K/cumm Imm gran abs 0.0 0.0 - 0.1 K/cumm [facility] Lymphocyte abs 1.8 0.8 - 3.3 K/cumm [facility] Monocyte abs 0.9(H) 0.2 - 0.8 K/cumm [facility] Eosinophil abs 0.1 0.0 - 0.5 K/cumm [facility] Basophil abs 0.1 0.0 - 0.1 K/cumm [facility] Neutrophil pct 76.7 % [facility] Comment: Interpretive Data Percent cell count reference ranges are not reported, since discordance with absolute values may lead to misinterpretation of CBC data. Current Interpretive Data was last revised on 2017. Imm gran pct 0.2 % [facility] Comment: Interpretive Data Percent cell count reference ranges are not reported, since discordance with absolute values may lead to misinterpretation of CBC data. Current Interpretive Data was last revised on 2017. Lymphocyte pct 14.4 % [facility] Comment: Interpretive Data Percent cell count reference ranges are not reported, since discordance with absolute values may lead to misinterpretation of CBC data. Current Interpretive Data was last revised on 2017. Monocyte pct 7.4 % [facility] Comment: Interpretive Data Percent cell count reference ranges are not reported, since discordance with absolute values may lead to misinterpretation of CBC data. Current Interpretive Data was last revised on 2017. Eosinophil pct 0.9 % [facility] Comment: Interpretive Data Percent cell count reference ranges are not reported, since discordance with absolute values may lead to misinterpretation of CBC data. Current Interpretive Data was last revised on 2017. Basophil pct 0.4 % [facility] Comment: Interpretive Data Percent cell count reference ranges are not reported, since discordance with absolute values may lead to misinterpretation of CBC data. Current Interpretive Data was last revised on 2017. Blood 07/19/2024 11:0 9 AM BUTTON CUTTING MACHINE OPERATOR 07/19/2024 9:41 PM BUTTON CUTTING MACHINE OPERATOR us Haja Mancuso NP LAB BLOOD ORDERABLES Final Resul t ROGELIO [address] [place] [address] * Thyroid Function [place] (07/19/2024 11:09 AM BUTTON CUTTING MACHINE OPERATOR) Pathologist [facility] TSH 1.63 0.30 - 4.20 mcIUnit/mL Blood 07/19/2024 11:0 9 AM BUTTON CUTTING MACHINE OPERATOR 07/19/2024 9:41 PM BUTTON CUTTING MACHINE OPERATOR us Haja Mancuso FOOD SERVICE TECHNICIAN LAB BLOOD ORDERABLES Final Resul t Performing Organization Address [facility]/Physicians [facility] Co de Phone Number ROGELIO ZHENG [address] [place] [address] * (ABNORMAL) CBC with auto differential (07/19/2024 11:09 AM BUTTON CUTTING MACHINE OPERATOR) Pathologist [facility] WBC 12.3(H) 3.8 - 9.9 K/cumm Hgb 19.0(H) 13.0 - 17.5 g/dL [facility] Hct 58.1(H) 38.9 - 50.3 % [facility] Plt 200 150 - 400 K/cumm [facility] MPV 11.4 9.1 - 12.3 fL [facility] RBC 6.01(H) 4.30 - 5.80 M/cumm [facility] MCV 96.7(H) 81.3 - 96.4 fL [facility] MCH 31.6 27.1 - 33.3 pg [facility] MCHC 32.7 32.3 - 35.7 g/dL [facility] RDW CV 13.8 11.1 - 14.9 % [facility] RDW SD 49.6(H) 35.7 - 48.1 fL [facility] NRBC abs 0.00 0.00 - 0.01 K/cumm [facility] Blood 07/19/2024 11:0 9 AM BUTTON CUTTING MACHINE OPERATOR 07/19/2024 9:41 PM BUTTON CUTTING MACHINE OPERATOR us Haja Mancuso FOOD SERVICE TECHNICIAN LAB BLOOD ORDERABLES Final Resul t Performing Organization Address [facility]/ZIP Co de Phone Number ROGELIO NORM [address] [place] [address] * Magnesium (07/19/2024 11:09 AM BUTTON CUTTING MACHINE OPERATOR) Pathologist [facility] Magnesium 2.3 1.4 - 2.5 mg/dL Blood 07/19/2024 11:0 9 AM BUTTON CUTTING MACHINE OPERATOR 07/19/2024 9:41 PM BUTTON CUTTING MACHINE OPERATOR us Haja Mancuso FOOD SERVICE TECHNICIAN LAB BLOOD ORDERABLES Final Resul t Performing Organization Address [facility] de Phone Number ROGELIO [address] [facility] [place] [address] * Iron level (07/19/2024 11:09 AM BUTTON CUTTING MACHINE OPERATOR) Pathologist [facility] Iron 141 50 - 150 mcg/dl Blood 07/19/2024 11:0 9 AM BUTTON CUTTING MACHINE OPERATOR 07/19/2024 9:41 PM BUTTON CUTTING MACHINE OPERATOR us Selfmaria antonia Mancuso FOOD SERVICE TECHNICIAN LAB BLOOD ORDERABLES Final Resul t Performing Organization Address [facility] de Phone Number [facility] [address] [place] [address] * (ABNORMAL) Comprehensive metabolic panel (07/19/2024 11:09 AM BUTTON CUTTING MACHINE OPERATOR) Pathologist [facility] Sodium 145 135 - 145 mmol/L Potassium, pl 4.8 3.3 - 4.9 mmol/L [facility] Chloride 104 97 - 110 mmol/L [facility] CO2 27 22 - 32 mmol/L [facility] Anion gap 14 2 - 15 mmol/L [facility] BUN 21 6 - 25 mg/dL [facility] Creatinine 1.07 0.80 - 1.30 mg/dL [facility] Glucose 46(C) 70 - 199 mg/dL [facility] Comment: Critical Result called to and read [...] [facility] Blood 07/19/2024 11:0 9 AM BUTTON CUTTING MACHINE OPERATOR 07/19/2024 9:41 PM BUTTON CUTTING MACHINE OPERATOR Haja Mancuso NP LAB BLOOD ORDERABLES Final Resul t [facility] [address] Department [place] [address] * POCT hemoglobin A1c (06/30/2024 9:33 AM BUTTON CUTTING MACHINE OPERATOR) Hemoglobin A1C, POC 7.7 4.0 - 5.6 % Blood 06/30/2024 9:33 AM BUTTON CUTTING MACHINE OPERATOR Shama Segura NP POINT OF CARE TEST ORDERABLES F inal Result * POCT glucose (06/30/2024 9:33 AM BUTTON CUTTING MACHINE OPERATOR) Glucose Blood, POC 157 mg/dL Blood 06/30/2024 9:33 AM BUTTON CUTTING MACHINE OPERATOR Shama Segura NP POINT OF CARE TEST ORDERABLES F inal [...] BLOOD ORDERABLES Final Result Performing Organization Address [facility] Co de Phone Number REGINABRANDIE ZHENG [address] [place] [address] * (ABNORMAL) Albumin Creatinine Ratio, Urine (01/21/2024 12:00 PM CDT) Albumin Ur 41.4 mg/L Comment: Interpretive Data No reference range established. Current interpretive data was last revised 2018. Creatinine Ur 98.9 mg/dL ROGELIO Comment: Interpretive Data No reference range established. Current interpretive data was last revised 2018. Albumin Creatinine Ratio, Ur 42(H) 1 - 29 mg/g ROGELIO Urine 01/21/2024 12:0 0 PM CDT 01/21/2024 3:05 PM CDT Sagar Benítez MD LAB URINE ORDERABLES Final Result Performing Organization Address [facility] Co de Phone Number ROGELIO [address] [place], [place] [id number] * CT Chest WO Contrast F/U Lung [...] Electronically signed by Mc Estevez M.D. RL: RL Report ID: [id number] Reading Location: [id number] Procedure Note Mc Hernandes MD - 11/13/2021 EXAM DESCRIPTION: CT [...] Mc Estevez M.D. RL: GONZALO Report ID: [id number] Reading Location: [place] [address] [address] NP IM[address] PROCEDURES Final Result * US [...] Elvis Riley D.O. PS: PS Report ID: [id number] Reading Location: [id number] Procedure Note Elvis Riley, DO - 12/06/2020 [...] Elvis Riley D.O. PS: PS Report ID: [id number] Reading Location: [id number] Haja Mancuso NP IMG US PROCEDURES Final Result * Diabetic Eye Exam (06/29/2020) Historical Provider HEALTH MAINTENANCE Final Result * Hepatitis C antibody (06/27/2020 2:29 PM BUTTON CUTTING MACHINE OPERATOR) Hep C Ab Nonreactive Nonreactive ROGELIO WILKES [...] last revised on 2019. Testing performed by: [facility], [address] [place] [address]., [id number] Blood specimen (specimen) 06/27/2020 2:29 PM BUTTON CUTTING MACHINE OPERATOR 06/27/2020 8:46 PM BUTTON CUTTING MACHINE OPERATOR Sagar Benítez MD LAB MICROBIOLOGY - GENERAL ORDERABLES Final Result ROGELIO WILKES ([place]) 1 [facility] Department [place] [address] * DIABETES FOOT EXAM (11/14/2017) Diabetic Foot Exam Unknown Historical Provider HEALTH MAINTENANCE Final Result * Colonoscopy (06/06/2014) Anatomical Region Laterality Modality Other Historical Provider ENDOSCOPY PROCEDURES Rupali l Result from Last 3 Months or Most Recently Relevant to Health Maintenance Insurance MEDICARE [employer] Member Subscriber Plan / Payer (Ef fective 2019-Present) Name:Jorge Holden Relation to Subscriber:Self Name:Jorge Holden Payer ID:[id number] Group ID:Not on file Type:GMR Group Address: [address] [place], [place] MED[employer]ARE [employer] Advance Directives For more information, please contact: [phone] * Full Code (Latest Code Status on File) Date Activated Date Inactivated Comments 08/13/2024 9:29 AM 08/21/2024 3:40 PM Care Teams Paradi Operator Relationship Specialty Start Date End Date Haja Mancuso NP PCP - General Family Medicine 04/12/21 Susan Valle MD [address] [place] [address] [address] [place] [address] Consulting Physician Endocrinology 04/12/21 Maddison Frausto MD [id number] [place] [address] Surgeon Cardiothoracic Surgery 08/21/24 Miscellaneous, Not In File 08/21/24 Sydnee Beal, RN [address] [facility] [address] [place] [address] Dry Mop Maker 08/24/24
== END 2024-08-25 14:16 | disposition home or self-care (01) ==
LOC: CHSLAB 14:19
PROVIDERS: Visit Provider Thoracic Surgery (Cardiothoracic Vascular Surgery)
DX: E11.9 Type 2 diabetes mellitus without complications (principal); I10 Essential (primary) hypertension; Z48.812 Encounter for surgical aftercare following surgery on the circulatory system
CPT/HCPCS: 36415; 80053; 85025